=== PATIENT | female | born 1950 | race Caucasian/White ===

== ENCOUNTER 2017-08-06 06:25 | Inpatient (IN) ==
--- NOTE | 2017-08-06 06:49 | Emergency Department Report ---
General Adult HPI - General Chief complaint: Medical Emergency Stated complaint: headache,chills,cough Time Seen by Provider: 08/06/17 06:45 Source: patient, family Mode of arrival: ambulatory Limitations: no limitations - History of Present Illness HPI narrative: Patient is a 66-year-old female presents the ER for evaluation of fever, chills. Patient is visiting from [place], states that in the past when she's had this problem she is come back with sepsis pneumonia on the right last 2014. Patient went to bed last night normally, woke up in the wee hours in the morning with chills and shaking and shortness of breath. Patient was brought to the ER for evaluation - Related Data Home Medications Medication Instructions Recorded Confirmed Acetaminophen [Acetaminophen Extra 1 tab PO BID 08/06/17 08/06/17 Strength] Aspirin 1 tab PO DAILY 08/06/17 08/06/17 BuPROPion SR [Wellbutrin Sr] 150 mg PO BID 08/06/17 08/06/17 CALCIUM CARBONATE Chewable [Tums 2 tab PO DAILY 08/06/17 08/06/17 Extra Strength] Cholecalciferol (Vitamin D3) 1 tab PO DAILY 08/06/17 08/06/17 [Vitamin D3] Cyclobenzaprine [Flexeril] 1 tab PO HS 08/06/17 08/06/17 Escitalopram [Lexapro] 1 tab PO DAILY 08/06/17 08/06/17 Lactobacillus Acidophilus 1 each PO DAILY 08/06/17 08/06/17 [Probiotic] Levothyroxine Sodium 100 mcg PO DAILY 08/06/17 08/06/17 Losartan [Cozaar] 100 mg PO DAILY 08/06/17 08/06/17 Magnesium Oxide [Magnesium] 400 mg PO BID 08/06/17 08/06/17 Mecobalamin [B-12] 5,000 mcg PO DAILY 08/06/17 08/06/17 Metformin [Glucophage] 500 mg PO BIDWM 08/06/17 08/06/17 Mirtazapine [Remeron] 15 mg PO HS 08/06/17 08/06/17 Pregabalin Cap [Lyrica] 50 mg PO BID 08/06/17 08/06/17 Primidone [Mysoline] 50 mg PO HS 08/06/17 08/06/17 Simvastatin [Zocor] 40 mg PO HS 08/06/17 08/06/17 Tramadol [Ultram] 50 mg PO TID 08/06/17 08/06/17 Turmeric [Curcumin] 1 gm MC DAILY 08/06/17 08/06/17 Ubidecarenone/Vit E Acet [Co Q-10 1 cap PO DAILY 08/06/17 08/06/17 100 mg Softgel] clonazePAM [Clonazepam] 1 tab PO HS 08/06/17 08/06/17 Allergies Allergy/AdvReac Type Severity Reaction Status Date / Time codeine Allergy Intermediate rash, hives Verified 08/06/17 06:32 Review of Systems Constitutional: Reports: chills. Denies: fever, weakness Eyes: Denies: eye pain, eye discharge ENT: Denies: throat pain, dental pain Cardiovascular: Reports: dyspnea on exertion. Denies: chest pain, palpitations Respiratory: Reports: dyspnea, wheezes. Denies: cough Gastrointestinal: Denies: abdominal pain, nausea, vomiting Genitourinary: Denies: urgency, dysuria, frequency Musculoskeletal: Denies: back pain Neurological: Denies: headache Psychiatric: Denies: anxiety, depression Endocrine: Denies: fatigue PFSH Medical History Updates: Depression. Anxiety. Hypothyroidism. Hypertension. Type II diabetes. Hypercholesterolemia. Kidney stones Surgical History: Vaginal hysterectomy. Gastric bypass. Shoulder arthroscopically. Lithotripsy Family History Updates: Cervical cancer, hypertension, diabetes, heart disease, breast cancer, alcohol abuse - Social History Smoking status: Never smoker Substance use type: does not use Alcohol intake frequency: does not drink Physical Exam - General General appearance: alert, in no apparent distress - Head Head exam: normocephalic - Eye Eye exam: Present: PERRL - ENT ENT exam: Present: mucous membranes moist - Neck Neck exam: Present: trachea midline. Absent: tenderness - Chest Chest inspection: Present: symmetric chest wall rise. Absent: tenderness - Respiratory Respiratory exam: Present: wheezes, crackles. Absent: respiratory distress, accessory muscle use, prolonged expiratory phase - Cardiovascular Cardiovascular exam: Present: normal rhythm, tachycardia - Abdominal Exam Abdominal exam: Present: soft, normal bowel sounds. Absent: distention, tenderness - Skin Skin exam: Present: warm, dry - Neurological Exam Neurological exam: Present: alert, oriented X3 - Psychiatric Psychiatric exam: Present: normal affect, normal mood Course Vital Signs Temperature 98.2 F 08/06/17 06:32 Respiratory Rate 20 08/06/17 06:32 Blood Pressure 183/85 H 08/06/17 06:32 Temperature 98.2 F 08/06/17 06:32 Respiratory Rate 20 08/06/17 06:32 Blood Pressure 183/85 H 08/06/17 06:32 Medical Decision Making - Lab Data Lab results reviewed: Yes: I reviewed the patient's lab results. Result diagrams: 08/06/17 07:18 08/06/17 07:18 - Radiology Data Radiology results reviewed: Yes: I reviewed the patient's radiology results. Right Middle lobe pneumonia - EKG Data EKG #1 EKG attestation: Yes: I reviewed and interpreted this EKG. EKG shows normal: sinus rhythm Rate: tachycardia Rhythm: NSR Bryant/QRS: normal Interpretation: no acute changes Disposition Clinical Impression: Right middle lobe pneumonia Qualifiers: Pneumonia type: due to unspecified organism Qualified Code(s): J18.1 - Lobar pneumonia, unspecified organism Sepsis Qualifiers: Sepsis type: sepsis due to unspecified organism Qualified Code(s): A41.9 - Sepsis, unspecified organism Disposition: 02 To [facility] [place] Care Condition: Stable Prescriptions: No Action Turmeric [Curcumin] 1 gm MC DAILY Acetaminophen [Acetaminophen Extra Strength] 1 tab PO BID Cholecalciferol (Vitamin D3) [Vitamin D3] 1 tab PO DAILY CALCIUM CARBONATE Chewable [Tums Extra Strength] 2 tab PO DAILY Aspirin 1 tab PO DAILY Cyclobenzaprine [Flexeril] 1 tab PO HS BuPROPion SR [Wellbutrin Sr] 150 mg PO BID Primidone [Mysoline] 50 mg PO HS Pregabalin Cap [Lyrica] 50 mg PO BID Metformin [Glucophage] 500 mg PO BIDWM Losartan [Cozaar] 100 mg PO DAILY clonazePAM [Clonazepam] 1 tab PO HS Tramadol [Ultram] 50 mg PO TID Mirtazapine [Remeron] 15 mg PO HS Simvastatin [Zocor] 40 mg PO HS Mecobalamin [B-12] 5,000 mcg PO DAILY Levothyroxine Sodium 100 mcg PO DAILY Ubidecarenone/Vit E Acet [Co Q-10 100 mg Softgel] 1 cap PO DAILY Magnesium Oxide [Magnesium] 400 mg PO BID Escitalopram [Lexapro] 1 tab PO DAILY Lactobacillus Acidophilus [Probiotic] 1 each PO DAILY Referrals: Dale Fair [Physician] - Time of Disposition: 08:58 - Seen By: physician
[2017-08-06] MEDS ORDERED: NS 1,000 ML IV ONE ×2 (06:51→12:34)
[2017-08-06] MEDS ORDERED: ALBUTEROL/IPRATROPIUM 2.5mg-0.5mg/3ml NEB AEROSOL ONE (06:52)
--- OUTSIDE RECORDS SUMMARY | 2017-08-06 07:04 | External Medical Summary | Summary of Care ---
:1950 Author Name Anna Marie Sutton APRN Address [address] [place], [place] [id number] Care Team Providers Name Role Phone Dale Fair M.D. 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 Keratoconjunctivitis (370.40, H16.209) Status: Active Incomplete uterovaginal prolapse (618.2, N81.2) Status: Active Pinguecula (372.51, 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) Status: Active Vitamin D deficiency (268.9, E55.9) Status: Active Nonexudative age-related macular degeneration (362.51, H35.3190) Status: Active Status post gastric bypass for obesity (V45.86, Z98.84) Status: Active 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, 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: Active Degenerative disc disease, lumbar (722.52, M51.36) Status: Active 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, 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 Pseudophakia of left eye (V43.1, Z96.1) Status: Active Pseudophakia of right eye (V43.1, Z96.1) Status: Active Presbyopia (367.4, H52.4) Status: Active Depression (311, F32.9) Status: Active Incipient senile cataract (366.12, H25.099) Status: Active Left flank pain (789.09, R10.9) Status: Active Nephrolithiasis (592.0, N20.0) Status: Active Hypercholesterolemia (272.0, E78.00) Status: Active Sepsis (038.9, A41.9) Status: Active Anxiety (300.00, F41.9) Status: Active Hyperlipidemia (272.4, E78.5) Status: Active Post-menopausal (V49.81, Z78.0) Status: Active Pain in both hands (729.5, M79.641) Status: Active Tendonitis of finger (727.05, M77.9) Status: Active Type 2 diabetes mellitus (250.00, E11.9) Status: Active Hypertension (401.9, I10) Status: Active Hypothyroidism (244.9, E03.9) Status: Active Pneumonia (486, J18.9) Status: Active Bronchiectasis (494.0, J47.9) Status: Active Medications Name Dates Details Cyclobenzaprine HCl - 10 MG Oral Tablet TAKE 1 TABLET BY MOUTH AT BEDTIME NEEDED. Quantity: 90 Refills: 0 Dale Fair M.D. Start 09-Dec-2007 Active MetFORMIN HCl - 1000 MG Oral Tablet Take one tablet by mouth twice daily with meals Quantity: 180 Refills: 3 Dale Fair M.D. Start 09-Dec-2007 Active Lyrica 50 MG Oral Capsule TAKE 1 CAPSULE TWICE DAILY. Quantity: 180 Refills: 1 Dale Fair M.D. Start 27-Oct-2008 Active Escitalopram Oxalate 20 MG Oral Tablet take one tablet by mouth every day Quantity: 90 Refills: 3 Dale Fair M.D. Start 01-Jan-2009 Active Simvastatin 40 MG Oral Tablet TAKE ONE TABLET(S) BY MOUTH DAILY DIRECTED Quantity: 90 Refills: 3 Dale Fair M.D. Start 10-Dec-2009 Active Zetia 10 MG Oral Tablet TAKE 1 TABLET DAILY. Quantity: 90 Refills: 3 Dale Fair M.D. Start 10-Dec-2009 Active Levothyroxine Sodium 75 MCG Oral Tablet Take 1 tablet by mouth daily. Quantity: 90 Refills: 3 Dale Fair M.D. Start 15-Mar-2010 Active Losartan Potassium 100 MG Oral Tablet take one tablet by mouth every day Quantity: 90 Refills: 3 Dale Fair M.D. Start 18-Mar-2010 Active Vitamin B-12 1000 MCG Oral Tablet TAKE 1 TABLET DAILY DIRECTED. Refills: 0 Marv BellaDale Start 23-Oct-2010 Active Folic Acid 1 MG Oral Tablet Refills: 0 Active B-Complex Oral Capsule Refills: 0 Start 23-Oct-2011 Active Mirtazapine 15 MG Oral Tablet TAKE 1 TABLET BY MOUTH AT BEDTIME. Quantity: 90 Refills: 2 Marv M.Dot., Dale Selina Start Active ClonazePAM 1 MG Oral Tablet TAKE 1 TABLET BY MOUTH AT BEDTIME NEEDED Quantity: 60 Refills: 0 Marv Layne.Dot.Dale Start Active Magnesium 400 MG Oral Tablet 1 tablet BID Quantity: 180 Refills: 3 Marv Bella, Dale Shintive TraMADol HCl - 50 MG Oral Tablet TAKE ONE TABLET(S) BY MOUTH TID NEEDED Quantity: 270 Refills: 0 Marv Layne.Dale Mackenzie Start 11-Oct-2014 Active Vitamin D3 1000 UNIT Oral Capsule TAKE DIRECTED. Refills: 0 Start 19-Oct-2014 Active Acetaminophen 500 MG Oral Tablet TAKE TWO TABLET(S) BY MOUTH TWICE DAILY Quantity: 360 Refills: 0 Marv Layne.Dale Mackenzie Start 19-Oct-2014 Active PrednisoLONE Acetate 1 % Ophthalmic Suspension Install 1 drop as directed 6 times daily (during waking hours) Starting after surgery. Quantity: 10 Refills: 1 Benson Servin M.D. Start 23-Jan-2015 Active Co Q-10 400 MG Oral Capsule Refills: 0 Dale Fair M.D. Start 18-Apr-2015 Active Ferrous Sulfate 325 (65 Fe) MG Oral Tablet take 1 tablet by mouth every day Quantity: 31 Refills: 0 Marv Layne.Dale Mackenzie Start 18-Apr-2015 Active Aspirin Adult Low Dose 81 MG Oral Tablet Delayed Release TAKE 1 TABLET DAILY. Quantity: 90 Refills: 3 Marv M.D.Dale Start Active Vitamin D3 5000 UNIT Oral Capsule TAKE DAILY DIRECTED. Quantity: 90 Refills: 3 Marv M.Dot., Dale Marks Start Active Ginkgo Biloba 60 MG Oral Capsule TAKE 1 CAPSULE TWICE DAILY. 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 History of Combined form of senile cataract of right eye (366.19, H25.811) Status: Resolved History of Diagnostic Esophagogastroduodenoscopy Status: Resolved History of Encounter for fitting or adjustment of spectacles or contact lenses (V53.1, Z46.0) Status: Resolved Procedures Procedure Dates Details History of Shoulder Arthroscopy, Space Decompression Completed: 02-Jan-2009 And Acromioplasty History of Shldr Arthrosc W/ Distal Claviculectomy Incl Completed: 2008 Distal Art Surf History of Sigmoidoscopy (Fiberoptic) Completed: 12-Oct-2009 History of Renal Lithotripsy Completed: 24-Oct-2009 History of Complete Colonoscopy Completed: 26-Oct-2009 History of Diagnostic Esophagogastroduodenoscopy Completed: 21-Nov-2009 History of Renal Lithotripsy Completed: 19-Nov-2009 History of Gastric Surgery History of Combined A-P Colporrhaphy (For Pelvic Completed: 31-Oct-2011 Relaxation History of Vag Hysterectomy Uterus 250 Gm Or < W/ Completed: 31-Oct-2011 Removal Of Ovary(S) History of Nerve Block Transforaminal Epidural Lumbar History of Extracaps Cataract Extract With Prosthesis Insert Left Eye History of Extracaps Cataract Extract With Prosthesis Insert Right Eye Procedures not documented Immunization Name Dates Details Hepatitis B on: 1991 MMR on: 26-Jul-1992 Tetanus-Diphtheria Toxoids Td 2-2 LF/0.5ML Intramuscular Suspension on: Hepatitis A on: 29-Nov-1998 MMR on: 03-Oct-2009 Lot #: [id number] MMR on: 03-Oct-2009 Tdap (Adacel) on: Lot #: [id number] Pneumo (Pneumovax) on: Lot #: [id number] Zoster (Zostavax) on: 15-Oct-2011 Lot #: [id number] Fluzone Quadrivalent 0.5 ML Intramuscular Suspension on: 09-Jan-2014 Lot #: [id number] Fluzone Quadrivalent 0.5 ML Intramuscular Suspension on: 02-Feb-2015 Lot #: [id number] Prevnar 13 Intramuscular Suspension on: Lot #: [id number] Fluzone High-Dose 0.5 ML Intramuscular Suspension Prefilled Syringe on: Lot #: [id number] Family History Grandmother Name Dates Details Family history of Cervical Cancer Status: Active aunt Name Dates Details Family history of Diabetes Mellitus (V18.0) Status: Active Mother Name Dates Details Family history of Hypertension (V17.49) Status: Active Family history of KCS (keratoconjunctivitis sicca) (710.2, M35.01) Status: Active Father Name Dates Details Family history of Heart Disease (V17.49) Status: Active Family history of Father At Age ____ Status: Active Sister Name Dates Details Family history of Breast Cancer (V16.3) Status: Active Family history of Acute Myocardial Infarction (V17.3) Status: Active Brother Name Dates Details Family history of Alcohol Abuse Status: Active Social History Name Dates Details - Status: Smoking Status Name Dates Details Former smoker Vital Signs Date Test Result Details 07-Jan-2016 13:26 BP Systolic 104 mm[Hg] Status: Comments: Location: ; Position: BP Diastolic 76 mm[Hg] Status: Comments: Location: ; Position: Heart Rate 84 /min Status: Comments: Location: ; Physical Findings 20 Status: Comments: Respiration Height 63.5 in Status: Weight 199 lb Status: Physical Findings 98 Status: Comments: O2 Saturation Body Mass Index Calculated 34.7 kg/m2 Status: Body Surface Area Calculated 1.94 m2 Status: Results Date Description Value Details 03-Jan-2016 16:39 CT CHEST HIGH RES 30 M WITHOUT Comments: Exam Date: 2015 15:58Dictation Date: 01/03/2016 16:39 IV CONTRAST XC CHEST HIGH RES 30 M Plan of Care Name Dates Details Planned Observations Planned Goals not documented Planned Encounters Appointment; Provider: Anna Marie Sutton A.P.R.N. On 07-Jul-2016 13:00 Appointment; Provider: Dale Fair M.D. On 02-Jun-2016 13:00 Appointment; Provider: Schedule Radiology On 18-Jan-2016 16:00 Appointment; Provider: Benson Servin M.D. On 09-Jan-2016 14:00 Instructions Name Dates Details Instructions not documented Encounters Appointment; Robb Tavarez M.D. On 07-Dec-2015 Encounter Diagnosis: Problem not documented 07:30 Appointment; Dale Fair M.D. On 30-Nov-2015 Encounter Diagnosis: Problem not documented 13:00 Appointment; Anna Marie Sutton A.P.R.N. On 30-Oct-2015 Encounter Diagnosis: Problem not documented 14:15 Appointment; Dale Fair M.D. On 29-Oct-2015 Encounter Diagnosis: Problem not documented 14:30 Appointment; Harry Maurer M.D.|NileshCPavithraSPavithra|RAJIV Bella|Shayne,RAJIV, On 2015 Encounter Diagnosis: Problem not documented 14:00 Appointment; Dale Fair M.D. On Encounter Diagnosis: Problem not documented 11:45 Appointment; Dale Fair M.D. On 18-Apr-2015 Encounter Diagnosis: Problem not documented 13:30 Appointment; Benson Servin M.D. On 06-Apr-2015 Encounter Diagnosis: Problem not documented 13:00 Appointment; Benson Servin M.D. On 05-Mar-2015 Encounter Diagnosis: Problem not documented 15:45 Appointment; Robb Tavarez M.D. On 21-Feb-2015 Encounter Diagnosis: Problem not documented 10:00 Appointment; Benson Servin M.D. On 21-Feb-2015 Encounter Diagnosis: Problem not documented 08:00 Appointment; Benson Servin M.D. On 20-Feb-2015 Encounter Diagnosis: Problem not documented 08:30 Appointment; Benson Servin M.D. On 16-Feb-2015 Encounter Diagnosis: Problem not documented 09:30 Appointment; Robb Tavarez M.D. On 12-Feb-2015 Encounter Diagnosis: Problem not documented 15:45 Appointment; Benson Servin M.D. On 09-Feb-2015 Encounter Diagnosis: Problem not documented 08:30 Appointment; Benson Servin M.D. On 08-Feb-2015 Encounter Diagnosis: Problem not documented 08:45 Appointment; Arcadio Lucas M.D.|F.A.C.SPavithra|RAJIV Bella|Shayne,RAJIV, On 05-Feb-2015 Encounter Diagnosis: Problem not documented 08:00 Appointment; Mino Clements On 05-Feb-2015 Encounter Diagnosis: Problem not documented 07:30 Appointment; Dale Fair M.D. On 02-Feb-2015 Encounter Diagnosis: Problem not documented 10:00 Appointment; Benson Servin M.D. On 23-Jan-2015 Encounter Diagnosis: Problem not documented 08:15 Appointment; Benson Servin M.D. On 08-Jan-2015 Encounter Diagnosis: Problem not documented 14:00 Appointment; Nadia Shelby DPM On 01-Nov-2014 Encounter Diagnosis: Problem not documented 08:15 Appointment; Samina Malik, P.APavithra On 19-Oct-2014 Encounter Diagnosis: Problem not documented 10:45 Appointment; Dale Fair M.D. On 11-Oct-2014 Encounter Diagnosis: Problem not documented 13:00 Appointment; Samina Malik, P.APavithra On 20-Jul-2014 Encounter Diagnosis: Problem not documented 11:00 Appointment; Dale Fair M.D. On 19-Jul-2014 Encounter Diagnosis: Problem not documented 09:15 Appointment; Derick Livingston, P.APavithra On 07-Jul-2014 Encounter Diagnosis: Problem not documented 10:30 Appointment; Magalie Lauren A.P.R.N. On 04-Jul-2014 Encounter Diagnosis: Problem not documented 14:15 Appointment; Samina Malik, P.APavithra On 01-Jun-2014 Encounter Diagnosis: Problem not documented 08:45 Appointment; Dale Fair M.D. On 12-Apr-2014 Encounter Diagnosis: Problem not documented 13:00 Appointment; Jai Piper M.D. On 19-Jan-2014 Encounter Diagnosis: Problem not documented 13:30 Appointment; Jai Piper M.D. On 16-Jan-2014 Encounter Diagnosis: Problem not documented 10:15 Appointment; Dale Fair M.D. On 09-Jan-2014 Encounter Diagnosis: Problem not documented 13:45"
--- OUTSIDE RECORDS SUMMARY | 2017-08-06 07:04 | External Medical Summary | Summary of Care ---
:1950 Author Name Jai Piper M.D. Address Unavailable Unavailable , Care Team Providers Name Role Phone Marv Bella, Dale Marks Unavailable Unavailable Jai Piper M.D. Unavailable Unavailable Charlotte Serna M.D. 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 Pain in joint, shoulder region (719.41, M25.519) Status: Active Diarrhea (787.91, R19.7) Status: Active Dysuria (788.1, R30.0) Status: Active Increased urinary frequency (788.41, R35.0) Status: Active Anemia (285.9, D64.9) Status: Active Nephrolithiasis (592.0, N20.0) Status: Active Keratoconjunctivitis (370.40, H16.209) Status: Active Urinary tract infection (599.0, N39.0) Status: Active Vaginitis (616.10, N76.0) Status: Active Essential hematuria (599.70, N02.9) Status: Active Incomplete uterovaginal prolapse (618.2, N81.2) Status: Active Presbyopia (367.4, H52.4) Status: Active Pinguecula (372.51, H11.159) Status: Active Encounter for fitting or adjustment of spectacles or contact lenses (V53.1, Z46.0) Status: Active Vitamin d deficiency (268.9, E55.9) Status: Active Pre-operative exam (V72.84, Z01.818) Status: Active Pre-operative cardiovascular examination (V72.81, Z01.810) Status: Active Hyperlipidemia (272.4, E78.5) Status: Active Nonexudative age-related macular degeneration (362.51, H35.31) Status: Active Incipient senile cataract (366.12, H25.099) Status: Active Pre-operative general physical examination (V72.83, Z01.818) Status: Active Status post gastric bypass for obesity (V45.86, Z98.84) Status: Active Left hand pain (729.5, M79.642) Status: Active Hypothyroidism (244.9, E03.9) Status: Active Pain in wrist joint (719.43, M25.539) Status: Active Type 2 diabetes mellitus (250.00, E11.9) Status: Active Hypercholesterolemia (272.0, E78.0) Status: Active Pain in left wrist (719.43, M25.532) Status: Active Tendonitis (726.90, M77.9) Status: Active Hypertension (401.9, I10) Status: Active Insomnia (780.52, G47.00) Status: Active Depression (311, F32.9) Status: Active Visit for screening mammogram (V76.12, Z12.31) Status: Active Diabetes mellitus (250.00, E11.9) Status: Active Lower back pain (724.2, M54.5) Status: Active Medications Name Dates Details Cyclobenzaprine HCl - 10 MG Oral Tablet TAKE 1 TABLET BY MOUTH AT BEDTIME NEEDED. Quantity: 90 Refills: 3 Dale Fair M.D. Started 09-Dec-2007 ActiveMetFORMIN HCl - 1000 MG Oral Tablet Take one tablet by mouth twice daily with meals Quantity: 180 Refills: 3 Dale Fair M.D. Started 09-Dec-2007 ActiveTraMADol HCl - 50 MG Oral Tablet take 2 tablets by mouth twice daily Quantity: 180 Refills: 0 Dale Fair M.D. Started 18-Feb-2008 ActiveLyrica 50 MG Oral Capsule TAKE 1 CAPSULE TWICE DAILY. Quantity: 180 Refills: 3 Dale Fair M.D. Started 27-Oct-2008 ActiveEscitalopram Oxalate 10 MG Oral Tablet TAKE 1 TABLET DAILY. Quantity: 90 Refills: 3 Dale Fair M.D. Started 01-Jan-2009 ActiveSimvastatin 40 MG Oral Tablet TAKE 1 TABLET DAILY DIRECTED. Quantity: 90 Refills: 3 Dale Fair M.D. Started 10-Dec-2009 ActiveZetia 10 MG Oral Tablet TAKE 1 TABLET DAILY. Quantity: 90 Refills: 3 Dale Fair M.D. Started 10-Dec-2009 ActiveLevothyroxine Sodium 75 MCG Oral Tablet Take 1 tablet by mouth daily. Quantity: 90 Refills: 3 Dale Fair M.D. Started 15-Mar-2010 ActiveLosartan Potassium 100 MG Oral Tablet take one tablet by mouth every day Quantity: 90 Refills: 3 Dale Fair M.D. Started 18-Mar-2010 ActiveVitamin B-12 1000 MCG Oral Tablet TAKE 1 TABLET DAILY DIRECTED. Refills: 0 Dale Fair M.D. Started 23-Oct-2010 ActiveCo Q-10 200 MG Oral Capsule Refills: 0 Dale Fair M.D. Started 05-Apr-2012 ActiveMirtazapine 15 MG Oral Tablet TAKE 1 TABLET BY MOUTH AT BEDTIME. Quantity: 30 Refills: 5 Dale Fair M.D. Started ActiveClonazePAM 0.5 MG Oral Tablet TAKE 1-2 TABLET at bedtime prn Quantity: 180 Refills: 1 Dale Fair M.D. Started ActiveOxycodone-Acetaminophen 7.5-325 MG Oral Tablet Si PO every 6-8 hrs prn with a max of 3 per day.Script must last 30 days. Quantity: 90 Refills: 0 Jai Piper M.D. Started 29-Nov-2013 ActiveAleve 220 MG Oral Capsule Refills: 0 Charlotte Serna M.D. Started 25-May-2013 ActiveB-Complex Oral Capsule Refills: 0 Started 23-Oct-2011 ActiveFolic Acid 1 MG Oral Tablet Refills: 0 ActiveHydrocodone-Acetaminophen 5-325 MG Oral Tablet TAKE 1 TABLET EVERY 6 HOURS NEEDED FOR PAIN. Quantity: 30 Refills: 0 Dale Fair M.D. Started 21-Nov-2013 Active Allergies and Adverse Reactions Name Dates Details Codeine Derivatives Reaction: Rash Status: Active Past Medical History Name Dates Details Encounter for fitting or adjustment of spectacles or contact lenses (V53.1, Z46.0) Status: Active History of Esophagogastroduodenoscopy Status: Resolved Procedures Procedure Dates Details History of Shoulder Arthroscopy, Space Decompression And Completed:2008 Acromioplasty History of Shldr Arthrosc W/ Distal Claviculectomy Incl Completed:02-Jan-2009 Distal Art Surf History of Sigmoidoscopy (Fiberoptic) Completed:12-Oct-2009 History of Lithotripsy Completed:24-Oct-2009 History of Complete Colonoscopy Completed:26-Oct-2009 History of Esophagogastroduodenoscopy Completed:21-Nov-2009 History of Combined A-P Colporrhaphy (For Pelvic Completed:31-Oct-2011 Relaxation History of Vag Hysterectomy Uterus 250 Gm Or < W/ Completed:31-Oct-2011 Removal Of Ovary(S) History of Gastric Surgery History of Lithotripsy Completed:19-Nov-2009 Procedures not documented Immunization Name Dates Details Hepatitis B Administered on:1991 MMR Administered on:26-Jul-1992 Tetanus-Diphtheria Toxoids Td 2-2 LF/0.5ML Intramuscular Suspension Administered on:26-Jul-1992 Hepatitis A Administered on:29-Nov-1998 MMR Administered on:03-Oct-2009 Lot #: [id number] MMR Administered on:03-Oct-2009 Tdap (Adacel) Administered on: Lot #: [id number] Pneumo (Pneumovax) Administered on: Lot #: [id number] Zoster (Zostavax) Administered on:15-Oct-2011 Lot #: [id number] Family History Grandmother Name Dates Details Family [...] Status: Active Social History Name Dates Details Smoking StatusFormer smoker Vital Signs Date Test Result Details No Known Vitals to report Results Date Description Value Details Results not documented Plan of Care Planned Observations Name Dates Details Planned Goals not documented Goal Planned Encounters Appointment; Provider: Dale Fair On 24-Jan-2014 13:15 Appointment; Provider: Jai Piper On 16-Jan-2014 10:15 Appointment; Provider: Benson Servin On 02-Jan-2014 14:30 Appointment; Provider: Jai Piper On 05-Dec-2013 13:15 Appointment; Provider: Rob Ramírez On 19-Nov-2009 07:30 Appointment; Provider: Rob Ramírez On 24-Oct-2009 08:30 Appointment; Provider: Sharyn Simmons On 09-Feb-2009 16:30 Appointment; Provider: Rich Jose On 02-Jan-2009 07:30 Appointment; Provider: Sharyn Simmons On 16:30 Instructions Instructions not documented Encounters Appointment; Jai Piper On 29-Nov-2013 Encounter Diagnosis: Problem not documented 08:30 Appointment; Dale Fair On 21-Oct-2013 Encounter Diagnosis: Problem not documented 13:00 Appointment; Dale Fair On Encounter Diagnosis: Problem not documented 13:00 Appointment; Dale Fair On 28-Jul-2013 Encounter Diagnosis: Problem not documented 11:30 Appointment; Robb Tavarez On 11-Jul-2013 Encounter Diagnosis: Problem not documented 08:00 Appointment; Robb Tavarez On 29-Jun-2013 Encounter Diagnosis: Problem not documented 12:30 Appointment; Dale Fair On 29-Jun-2013 Encounter Diagnosis: Problem not documented 10:45 Appointment; Lonnie Levy On 27-Jun-2013 Encounter Diagnosis: Problem not documented 08:00 Appointment; Adam Alicea On 16-Jun-2013 Encounter Diagnosis: Problem not documented 10:30 Appointment; Adam Alicea On 07-Jun-2013 Encounter Diagnosis: Problem not documented 13:30 Appointment; Adam Alicea On 01-Jun-2013 Encounter Diagnosis: Problem not documented 13:00 Appointment; Rich Jose On 25-May-2013 Encounter Diagnosis: Problem not documented 14:15 Appointment; Dale Fair On 18-Apr-2013 Encounter Diagnosis: Problem not documented 15:00 Appointment; Dale Fair On 18-Mar-2013 Encounter Diagnosis: Problem not documented 15:00 Appointment; Rich Jose On 08-Dec-2012 Encounter Diagnosis: Problem not documented 15:15 Appointment; Dale Fair On 12-Nov-2012 Encounter Diagnosis: Problem not documented 15:45 Appointment; Benson Servin On 20-Oct-2012 Encounter Diagnosis: Problem not documented 15:30 Appointment; Hugo Rivers On Encounter Diagnosis: Problem not documented 16:00 Appointment; Hugo Rivers On Encounter Diagnosis: Problem not documented 16:00 Appointment; Dale Fair On Encounter Diagnosis: Problem not documented 15:45 Appointment; Jai Piper On 18-May-2012 Encounter Diagnosis: Problem not documented 15:00 Appointment; Tri Lira On 13-May-2012 Encounter Diagnosis: Problem not documented 16:45 Appointment; Rich Jose On 19-Apr-2012 Encounter Diagnosis: Problem not documented 11:00 Appointment; Dale Fair On 05-Apr-2012 Encounter Diagnosis: Problem not documented 16:00 Appointment; Tri Lira On 15-Jan-2012 Encounter Diagnosis: Problem not documented 16:15 Appointment; Tri Lira On 12-Jan-2012 Encounter Diagnosis: Problem not documented 15:30 Appointment; Dale Fair On 19-Dec-2011 Encounter Diagnosis: Problem not documented 15:45
--- OUTSIDE RECORDS SUMMARY | 2017-08-06 07:05 | External Medical Summary | Summary of Care ---
:1950 Author Name Dale Fair M.D. Address [address], [place] [id number] Care Team Providers Name Role Phone Dale Fair M.D. 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 Nephrolithiasis (592.0, N20.0) Status: Active Keratoconjunctivitis (370.40, H16.209) Status: Active Essential hematuria (599.70, N02.9) Status: Active Incomplete uterovaginal prolapse (618.2, N81.2) Status: Active Pinguecula (372.51, H11.159) Status: Active Vitamin d deficiency (268.9, E55.9) Status: Active Nonexudative age-related macular degeneration (362.51, H35.31) Status: Active Incipient senile cataract (366.12, H25.099) Status: Active Status post gastric bypass for obesity (V45.86, Z98.84) Status: Active Hypothyroidism (244.9, E03.9) Status: Active Hypercholesterolemia (272.0, E78.0) Status: Active 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, 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: Active Hyperlipidemia (272.4, E78.5) Status: Active Degenerative disc disease, lumbar (722.52, M51.36) Status: Active 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, 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 Arthralgia of left hip (719.45, M25.552) Status: Active Type 2 diabetes mellitus (250.00, E11.9) Status: Active Trigger middle finger of left hand (727.03, M65.332) Status: Active Trigger middle finger of right hand (727.03, M65.331) Status: Active Pseudophakia of left eye (V43.1, Z96.1) Status: Active Pseudophakia of right eye (V43.1, Z96.1) Status: Active Presbyopia (367.4, H52.4) Status: Active Anemia (285.9, D64.9) Status: Active Anxiety (300.00, F41.9) Status: Active Depression (311, F32.9) Status: Active Hypertension (401.9, I10) Status: Active Medications Name Dates Details Cyclobenzaprine HCl - 10 MG Oral Tablet TAKE 1 TABLET BY MOUTH AT BEDTIME NEEDED. Quantity: 90 Refills: 0 Dale aFir M.D. Started 09-Dec-2007 ActiveMetFORMIN HCl - 1000 MG Oral Tablet Take one tablet by mouth twice daily with meals Quantity: 180 Refills: 1 Dale Fair M.D. Started 09-Dec-2007 ActiveLyrica 50 MG Oral Capsule TAKE 1 CAPSULE TWICE DAILY. Quantity: 180 Refills: 1 Dale Fair M.D. Started 27-Oct-2008 ActiveEscitalopram Oxalate 20 MG Oral Tablet take one tablet by mouth every day Quantity: 90 Refills: 3 Dale Fair M.D. Started 01-Jan-2009 ActiveSimvastatin 40 MG Oral Tablet TAKE ONE TABLET(S) BY MOUTH DAILY DIRECTED Quantity: 90 Refills: 3 Dale Fair M.D. Started 10-Dec-2009 ActiveZetia 10 MG Oral Tablet TAKE 1 TABLET DAILY. Quantity: 90 Refills: 3 Dale Fair M.D. Started 10-Dec-2009 ActiveLevothyroxine Sodium 75 MCG Oral Tablet Take 1 tablet by mouth daily. Quantity: 90 Refills: 0 Dale Fair M.D. Started 15-Mar-2010 ActiveLosartan Potassium 100 MG Oral Tablet take one tablet by mouth every day Quantity: 90 Refills: 3 Dale Fair M.D. Started 18-Mar-2010 ActiveVitamin B-12 1000 MCG Oral Tablet TAKE 1 TABLET DAILY DIRECTED. Refills: 0 Dale Fair M.D. Started 23-Oct-2010 ActiveFolic Acid 1 MG Oral Tablet Refills: 0 ActiveB-Complex Oral Capsule Refills: 0 Started 23-Oct-2011 ActiveMirtazapine 15 MG Oral Tablet TAKE 1 TABLET BY MOUTH AT BEDTIME. Quantity: 90 Refills: 1 Dale Fair M.D. Started ActiveClonazePAM 1 MG Oral Tablet TAKE 1 TABLET BY MOUTH AT BEDTIME NEEDED Quantity: 90 Refills: 0 Dale Fair M.D. Started ActiveMagnesium 500 MG Oral Tablet Refills: 0 ActiveTraMADol HCl - 50 MG Oral Tablet TAKE ONE TABLET(S) BY MOUTH EVERY 6 HOURS NEEDED FOR PAIN Quantity: 60 Refills: 0 Dale Fair M.D. Started 11-Oct-2014 ActiveVitamin D3 1000 UNIT Oral Capsule TAKE DIRECTED. Refills: 0 Started 19-Oct-2014 ActiveTylenol Extra Strength 500 MG Oral Tablet TAKE 1 TABLET EVERY 4 TO 6 HOURS NEEDED. Refills: 0 Started 19-Oct-2014 ActivePrednisoLONE Acetate 1 % Ophthalmic Suspension Install 1 drop as directed 6 times daily (during waking hours) Starting after surgery. Quantity: 10 Refills: 1 Benson Servin M.D. Started 23-Jan-2015 ActiveMeloxicam 7.5 MG Oral Tablet Take one tablet by mouth daily Quantity: 30 Refills: 3 Dale Fair M.D. Started 02-Feb-2015 ActiveAspirin 81 MG TABS Refills: 0 Dale Fair M.D. Started 18-Apr-2015 ActiveCo Q-10 400 MG Oral Capsule Refills: 0 Dale Fair M.D. Started 18-Apr-2015 ActiveFerrous Sulfate 325 (65 Fe) MG Oral Tablet take 1 tablet by mouth every day Quantity: 31 Refills: 0 Dale Fair M.D. Started 18-Apr-2015 Active Allergies and Adverse Reactions Name Dates [...] Dates Details History of Shoulder Arthroscopy, Space Completed:02-Jan-2009 Decompression And Acromioplasty History of Shldr Arthrosc W/ Distal Completed:02-Jan-2009 Claviculectomy Incl Distal Art Surf History of Sigmoidoscopy (Fiberoptic) Completed:12-Oct-2009 History of Renal Lithotripsy Completed:24-Oct-2009 History of Complete Colonoscopy Completed:26-Oct-2009 History of Diagnostic Completed:21-Nov-2009 Esophagogastroduodenoscopy History of Renal Lithotripsy Completed:19-Nov-2009 History of Gastric Surgery History of Combined A-P Colporrhaphy (For Completed:31-Oct-2011 Pelvic Relaxation History of Vag Hysterectomy Uterus 250 Gm Completed:31-Oct-2011 Or < W/ Removal Of Ovary(S) History of Nerve Block Transforaminal Epidural Lumbar History of Extracaps Cataract Extract With Prosthesis Insert Left Eye History of Extracaps Cataract Extract With Prosthesis Insert Right Eye HEMOGLOBIN A1C 3507 Ordered:16-Jul-2015 LDL, MEASURED 1605 Ordered:16-Jul-2015 Immunization Name Dates Details Hepatitis B Administered on:1991 MMR Administered on:26-Jul-1992 Tetanus-Diphtheria Toxoids Td 2-2 LF/0.5ML Intramuscular Suspension Administered on:26-Jul-1992 Hepatitis A Administered on:29-Nov-1998 MMR Administered on:03-Oct-2009 Lot #: [id number] MMR Administered on:03-Oct-2009 Tdap (Adacel) Administered on: Lot #: [id number] Pneumo (Pneumovax) Administered on: Lot #: [id number] Zoster (Zostavax) Administered on:15-Oct-2011 Lot #: [id number] Fluzone Quadrivalent 0.5 ML Intramuscular Suspension Administered on:2013 Lot #: [id number] Fluzone Quadrivalent 0.5 ML Intramuscular Suspension Administered on:2014 Lot #: [id number] Family History Grandmother Name Dates Details Family [...] not documented Goal Planned Encounters Appointment; Provider: Schedule Radiology On 18-Jan-2016 16:00 Appointment; Provider: Benson Servin On 09-Jan-2016 14:00 Appointment; Provider: Dale Fair On 11:45 Appointment; Provider: Schedule Radiology On 17-Jan-2015 16:00 Appointment; Provider: Jai Piper On 05-Dec-2013 13:15 Appointment; Provider: Rob Ramírez On 19-Nov-2009 07:30 Appointment; Provider: Rob Ramírez On 24-Oct-2009 08:30 Appointment; Provider: Sharyn Simmons On 09-Feb-2009 16:30 Appointment; Provider: Rich Jose On 02-Jan-2009 07:30 Appointment; Provider: Sharyn Simmons On 16:30 Instructions Instructions not documented Encounters Appointment; Dale Fair On 18-Apr-2015 Encounter Diagnosis: Problem not documented 13:30 Appointment; Benson Servin On 06-Apr-2015 Encounter Diagnosis: Problem not documented 13:00 Appointment; Benson Servin On 05-Mar-2015 Encounter Diagnosis: Problem not documented 15:45 Appointment; Robb Tavarez On 21-Feb-2015 Encounter Diagnosis: Problem not documented 10:00 Appointment; Benson Servin On 21-Feb-2015 Encounter Diagnosis: Problem not documented 08:00 Appointment; Benson Servin On 20-Feb-2015 Encounter Diagnosis: Problem not documented 08:30 Appointment; Benson Servin On 16-Feb-2015 Encounter Diagnosis: Problem not documented 09:30 Appointment; Robb Tavarez On 12-Feb-2015 Encounter Diagnosis: Problem not documented 15:45 Appointment; Benson Servin On 09-Feb-2015 Encounter Diagnosis: Problem not documented 08:30 Appointment; Benson Servin On 08-Feb-2015 Encounter Diagnosis: Problem not documented 08:45 Appointment; Arcadio Lucas On 05-Feb-2015 Encounter Diagnosis: Problem not documented 08:00 Appointment; Mino Clements On 05-Feb-2015 Encounter Diagnosis: Problem not documented 07:30 Appointment; Dale Fair On 02-Feb-2015 Encounter Diagnosis: Problem not documented 10:00 Appointment; Benson Servin On 23-Jan-2015 Encounter Diagnosis: Problem not documented 08:15 Appointment; Benson Servin On 08-Jan-2015 Encounter Diagnosis: Problem not documented 14:00 Appointment; Nadia Shelby On 01-Nov-2014 Encounter Diagnosis: Problem not documented 08:15 Appointment; Samina Malik On 19-Oct-2014 Encounter Diagnosis: Problem not documented 10:45 Appointment; Dale Fair On 11-Oct-2014 Encounter Diagnosis: Problem not documented 13:00 Appointment; Samina Malik On 20-Jul-2014 Encounter Diagnosis: Problem not documented 11:00 Appointment; Dale Fair On 19-Jul-2014 Encounter Diagnosis: Problem not documented 09:15 Appointment; Derick Livingston On 07-Jul-2014 Encounter Diagnosis: Problem not documented 10:30 Appointment; Magalie Lauren On 04-Jul-2014 Encounter Diagnosis: Problem not documented 14:15 Appointment; Samina Malik On 01-Jun-2014 Encounter Diagnosis: Problem not documented 08:45 Appointment; Dale Fair On 12-Apr-2014 Encounter Diagnosis: Problem not documented 13:00 Appointment; Jai Piper On 19-Jan-2014 Encounter Diagnosis: Problem not documented 13:30 Appointment; Jai Piper On 16-Jan-2014 Encounter Diagnosis: Problem not documented 10:15 Appointment; Dale Fair On 09-Jan-2014 Encounter Diagnosis: Problem not documented 13:45 Appointment; Benson Servin On 02-Jan-2014 Encounter Diagnosis: Problem not documented 14:30 Appointment; Jai Piper On 02-Jan-2014 Encounter Diagnosis: Problem not documented 13:40 Appointment; Jai Piper On 19-Dec-2013 Encounter Diagnosis: Problem not documented 13:25 Appointment; Jai Piper On 29-Nov-2013 Encounter Diagnosis: Problem not documented 08:30 Appointment; Dale Fair On 21-Oct-2013 Encounter Diagnosis: Problem not documented 13:00 Appointment; Dale Fair On Encounter Diagnosis: Problem not documented 13:00
--- OUTSIDE RECORDS SUMMARY | 2017-08-06 07:05 | External Medical Summary | Summary of Care ---
:1950 Author Name Dale Fair M.D. 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: Active Rotator cuff tendonitis (726.10, M75.80) Status: Active Hyperlipidemia (272.4, E78.5) Status: Active Hypertension (401.9, I10) Status: Active Left hand pain (729.5, M79.642) Status: Active Foot pain, bilateral (729.5, M79.671) Status: Active Depression (311, F32.9) Status: Active Low back pain (724.2, M54.5) Status: Active Degenerative disc disease, lumbar (722.52, M51.36) Status: Active 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, 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 Limb pain (729.5, M79.609) Status: Active Difficulty in walking (719.7, R26.2) Status: Active Tendonitis, Achilles, right (726.71, M76.61) Status: Active Anxiety (300.00, F41.9) Status: Active Pain in both hands (729.5, M79.641) Status: Active Arthralgia of left hip (719.45, M25.552) Status: Active Cough (786.2, R05) Status: Active Type 2 diabetes mellitus (250.00, E11.9) Status: Active Trigger middle finger of left hand (727.03, M65.332) Status: Active Trigger middle finger of right hand (727.03, M65.331) Status: Active Pseudophakia of left eye (V43.1, Z96.1) Status: Active Pseudophakia of right eye (V43.1, Z96.1) Status: Active Presbyopia (367.4, H52.4) Status: Active Medications Name Dates Details Cyclobenzaprine HCl - 10 MG Oral Tablet TAKE 1 TABLET BY MOUTH AT BEDTIME NEEDED. Quantity: 90 Refills: 0 Dale Fair M.D. Started 09-Dec-2007 ActiveMetFORMIN HCl [...] tablet by mouth daily. Quantity: 90 Refills: 1 Dale Fair M.D. Started 15-Mar-2010 ActiveLosartan Potassium [...] Refills: 3 Dale Fair M.D. Started 02-Feb-2015 Active Allergies and Adverse Reactions Name Dates [...] Cataract Extract With Prosthesis Insert Right Eye CBC w/ Auto Diff 7150 Ordered:10-Apr-2015 Comprehensive Metabolic Panel 1212 Ordered:10-Apr-2015 LIPID PROFILE 1184 Ordered:10-Apr-2015 HEMOGLOBIN A1C 3507 Ordered:10-Apr-2015 THYROID STIM. HORMONE 3602 Ordered:10-Apr-2015 Iron Panel with TIBC 1612 Ordered:16-Apr-2015 Immunization Name Dates Details Hepatitis B Administered on:1991 MMR Administered on:26-Jul-1992 Tetanus-Diphtheria Toxoids Td 2-2 LF/0.5ML Intramuscular Suspension Administered on:26-Jul-1992 Hepatitis A Administered on:29-Nov-1998 MMR Administered on:03-Oct-2009 Lot #: [id number] MMR Administered on:03-Oct-2009 Tdap (Adacel) Administered on: Lot #: [id number] Pneumo (Pneumovax) Administered on: Lot #: [id number] Zoster (Zostavax) Administered on:15-Oct-2011 Lot #: [id number] Fluzone Quadrivalent 0.5 ML Intramuscular Suspension Administered on:2013 Lot #: [id number] Fluzone Quadrivalent 0.5 ML Intramuscular Suspension Administered on:2014 Lot #: [id number] Family History Grandmother Name Dates Details Family [...] Benson Servin On 09-Jan-2016 14:00 Appointment; Provider: Benson Servin On 09-Jul-2015 13:45 Appointment; Provider: Dale Fair On 18-Apr-2015 13:30 Appointment; Provider: [facility] On 17-Jan-2015 16:00 Appointment; Provider: Jai Piper On 05-Dec-2013 13:15 Appointment; Provider: Rob Ramírez On 19-Nov-2009 07:30 Appointment; Provider: Rob Ramírez On 24-Oct-2009 08:30 Appointment; Provider: Sharyn Simmons On 09-Feb-2009 16:30 Appointment; Provider: Rich Jose On 02-Jan-2009 07:30 Appointment; Provider: Sharyn Simmons On 16:30 Instructions Instructions not documented Encounters Appointment; Benson Servin On 06-Apr-2015 Encounter Diagnosis: [...] Encounter Diagnosis: Problem not documented 10:30 Appointment; Xin Magalie On 04-Jul-2014 Encounter Diagnosis: Problem not documented [...]
--- OUTSIDE RECORDS SUMMARY | 2017-08-06 07:05 | External Medical Summary | Summary of Care ---
:1950 Author Name Dale Fair M.D. Address [address], [place] [id number] Care Team Providers Name Role Phone Dale Fair M.D. 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 Quantity: 90 Refills: 3 Dale Fair M.D. Started 09-Dec-2007 ActiveMetFORMIN HCl - 1000 MG Oral Tablet Take one tablet by mouth twice daily with meals Quantity: 180 Refills: 3 Dale Fair M.D. Started 09-Dec-2007 ActiveLyrica 50 MG Oral Capsule TAKE 1 CAPSULE TWICE DAILY. Quantity: 14 Refills: 0 Dale Fair M.D. Started 27-Oct-2008 ActiveEscitalopram Oxalate [...] ActiveB-Complex Oral Capsule Refills: 0 Started 23-Oct-2011 ActiveCo Q-10 200 MG Oral Capsule Refills: 0 Dale Fair M.D. Started 05-Apr-2012 ActiveMirtazapine 15 MG Oral Tablet TAKE 1 TABLET BY MOUTH AT BEDTIME. Quantity: 90 Refills: 3 Dale Fair M.D. Started ActiveClonazePAM 0.5 MG Oral Tablet TAKE 1-2 TABLET at bedtime prn Quantity: 180 Refills: 1 Dale Fari M.D. Started ActiveOxycodone-Acetaminophen 7.5-325 MG Oral Tablet Si PO every 6-8 hrs prn with a max of 3 per day.Script must last 30 days. Quantity: 90 Refills: 0 Jai Piper M.D. Started 29-Nov-2013 Active Allergies and Adverse Reactions Name Dates Details Codeine Derivatives Reaction: Rash Status: Active Past Medical History Name Dates Details Encounter for fitting or adjustment of spectacles or contact lenses (V53.1, Z46.0) Status: Active History of Diagnostic Esophagogastroduodenoscopy Status: Resolved Procedures Procedure Dates Details History of Shoulder Arthroscopy, Space Decompression And Completed:2008 Acromioplasty History of Shldr Arthrosc W/ Distal Claviculectomy Incl Completed:02-Jan-2009 Distal Art Surf History of Sigmoidoscopy (Fiberoptic) Completed:12-Oct-2009 History of Renal Lithotripsy Completed:24-Oct-2009 History of Complete Colonoscopy Completed:26-Oct-2009 History of Diagnostic Esophagogastroduodenoscopy Completed:21-Nov-2009 History of Renal Lithotripsy Completed:19-Nov-2009 History of Gastric Surgery History of Combined A-P Colporrhaphy (For Pelvic Completed:31-Oct-2011 Relaxation History of Vag Hysterectomy Uterus 250 Gm Or < W/ Completed:31-Oct-2011 Removal Of Ovary(S) History of Nerve Block Transforaminal Epidural Lumbar Procedures not documented Immunization Name Dates Details Hepatitis B Administered on:1991 MMR Administered on:26-Jul-1992 Tetanus-Diphtheria Toxoids Td 2-2 LF/0.5ML Intramuscular Suspension Administered on:26-Jul-1992 Hepatitis A Administered on:29-Nov-1998 MMR Administered on:03-Oct-2009 Lot #: [id number] MMR Administered on:03-Oct-2009 Tdap (Adacel) Administered on: Lot #: [id number] Pneumo (Pneumovax) Administered on: Lot #: [id number] Zoster (Zostavax) Administered on:15-Oct-2011 Lot #: [id number] Fluzone Quadrivalent 0.5 ML Intramuscular Suspension Administered on:2013 Lot #: [id number] Family History Grandmother Name Dates Details Family [...] not documented Goal Planned Encounters Appointment; Provider: Benson Servin On 08-Jan-2015 14:00 Appointment; Provider: Dale Fair On 12-Apr-2014 13:00 Appointment; Provider: Jai Piper On 05-Dec-2013 13:15 Appointment; Provider: Rob Ramírez On 19-Nov-2009 07:30 Appointment; Provider: Rob Ramírez On 24-Oct-2009 08:30 Appointment; Provider: Sharyn Simmons On 09-Feb-2009 16:30 Appointment; Provider: Rich Jose On 02-Jan-2009 07:30 Appointment; Provider: Sharyn Simmons On 16:30 Instructions Instructions not documented Encounters Appointment; Jai Piper On 19-Jan-2014 Encounter Diagnosis: [...] Encounter Diagnosis: Problem not documented 10:30 Appointment; dAam Alicea On 07-Jun-2013 Encounter Diagnosis: Problem not [...]
--- OUTSIDE RECORDS SUMMARY | 2017-08-06 07:05 | External Medical Summary | Summary of Care ---
:1950 Author Name Dale Fair M.D. 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 Quantity: 90 Refills: Dale Forbes M.D. Started 09-Dec-2007 ActiveMetFORMIN HCl - 1000 MG Oral Tablet Take one tablet by mouth twice daily with meals Quantity: 180 Refills: 3 Dale Fair M.D. Started 09-Dec-2007 ActiveVitamin B-12 1000 MCG Oral Tablet TAKE 1 TABLET DAILY DIRECTED. Refills: 0 Dale Fair M.D. Started 23-Oct-2010 ActiveB-Complex Oral Capsule Refills: 0 Started 23-Oct-2011 ActiveCo Q-10 200 MG Oral Capsule Refills: 0 Dale Fair M.D. Started 05-Apr-2012 ActiveMirtazapine 15 MG Oral Tablet TAKE 1 TABLET BY MOUTH AT BEDTIME. Quantity: 90 Refills: 3 Dale Fair M.D. Started ActiveClonazePAM 0.5 MG Oral Tablet TAKE 1 OR 2 TABLET(S) BY MOUTH DAILY AT BEDTIME NEEDED Quantity: 180 Refills: 0 Dale Fair M.D. Started ActiveOxycodone-Acetaminophen 7.5-325 MG Oral Tablet TAKE 1 TO 2 TABLETS EVERY 4-6 HOURS PRN *Max 3 per day* Must last [address] Piper Quantity: 90 Refills: 0 Jai Piper M.D. Started 29-Nov-2013 ActiveMagnesium 500 MG Oral Tablet Refills: 0 ActiveFolic Acid 1 MG Oral Tablet Refills: 0 ActiveLosartan Potassium 100 MG Oral Tablet take one tablet by mouth every day Quantity: 90 Refills: 3 Dale Fair M.D. Started 18-Mar-2010 ActiveZetia 10 MG Oral Tablet TAKE 1 TABLET DAILY. Quantity: 90 Refills: 3 Dale Fair M.D. Started 10-Dec-2009 ActiveSimvastatin 40 MG Oral Tablet TAKE ONE TABLET(S) BY MOUTH DAILY DIRECTED Quantity: 90 Refills: 1 Dale Fair M.D. Started 10-Dec-2009 ActiveEscitalopram Oxalate 20 MG Oral Tablet take one tablet by mouth every day Quantity: 90 Refills: 3 Dale Fair M.D. Started 01-Jan-2009 ActiveLyrica 50 MG Oral Capsule TAKE 1 CAPSULE TWICE DAILY. Quantity: 180 Refills: 1 Dale Fair M.D. Started 27-Oct-2008 ActiveLevothyroxine Sodium 75 MCG Oral Tablet Take 1 tablet by mouth daily. Quantity: 90 Refills: 3 Dale Fair M.D. Started 15-Mar-2010 Active Allergies and Adverse Reactions Name Dates [...] of Vag Hysterectomy Uterus 250 Gm Or Completed:31-Oct-2011 < W/ Removal Of Ovary(S) History of Nerve Block Transforaminal Epidural Lumbar HEMOGLOBIN A1C 3507 Ordered:02-Oct-2014 LDL, MEASURED 1605 Ordered:02-Oct-2014 BASIC METABOLIC PROFILE 1210 Ordered:02-Oct-2014 Quant Microalbumin 1106 Ordered:02-Oct-2014 PROTIME PANEL 7000 Ordered:02-Oct-2014 CBC w/ Auto Diff 7150 Ordered:02-Oct-2014 XRay FOOT-BILATERAL Ordered:02-Oct-2014 Immunization Name Dates Details Hepatitis B Administered on:1991 MMR Administered on:26-Jul-1992 Tetanus-Diphtheria Toxoids Td 2-2 LF/0.5ML Intramuscular Suspension Administered on:26-Jul-1992 Hepatitis A Administered on:29-Nov-1998 MMR Administered on:03-Oct-2009 Lot #: [id number] MMR Administered on:03-Oct-2009 Tdap (Adacel) Administered on: Lot #: [id number] Pneumo (Pneumovax) Administered on: Lot #: [id number] Zoster (Zostavax) Administered on:15-Oct-2011 Lot #: [id number] Fluzone Quadrivalent 0.5 ML Intramuscular Suspension Administered on:2013 Lot #: [id number] Family History Grandmother Name Dates Details Family [...] Benson Servin On 08-Jan-2015 14:00 Appointment; Provider: Samina Malik On 19-Oct-2014 10:45 Appointment; Provider: Dale Fair On 11-Oct-2014 13:00 Appointment; Provider: Jai Piper On 05-Dec-2013 13:15 Appointment; Provider: Rob Ramírez On 19-Nov-2009 07:30 Appointment; Provider: Rob Ramírez On 24-Oct-2009 08:30 Appointment; Provider: Sharyn Simmons On 09-Feb-2009 16:30 Appointment; Provider: Rich Jose On 02-Jan-2009 07:30 Appointment; Provider: Sharyn Simmons On 16:30 Instructions Instructions not documented Encounters Appointment; Samina Malik On 20-Jul-2014 Encounter Diagnosis: [...]
--- OUTSIDE RECORDS SUMMARY | 2017-08-06 07:05 | External Medical Summary | Summary of Care ---
:1950 Author Name Dale Fair M.D. 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 Arthralgia of left hip (719.45, M25.552) Status: Active Type 2 diabetes mellitus (250.00, E11.9) Status: Active Pseudophakia of left eye (V43.1, Z96.1) Status: Active Pseudophakia of right eye (V43.1, Z96.1) Status: Active Presbyopia (367.4, H52.4) Status: Active Anxiety (300.00, F41.9) Status: Active Depression (311, F32.9) Status: Active Hyperlipidemia (272.4, E78.5) Status: Active Hypertension (401.9, I10) Status: Active Hypothyroidism (244.9, E03.9) Status: Active Incipient senile cataract (366.12, H25.099) Status: Active Essential hematuria (599.70, N02.9) Status: Active Medications Name Dates Details Cyclobenzaprine [...] on:03-Oct-2009 Tdap (Adacel) Administered on: Lot #: [id number] Pneumo (Pneumovax) Administered on: Lot #: [id number] Zoster (Zostavax) Administered on:15-Oct-2011 Lot #: [id number] Fluzone Quadrivalent 0.5 ML Intramuscular Suspension Administered on:2013 Lot #: [id number] Fluzone Quadrivalent 0.5 ML Intramuscular Suspension Administered on:2014 Lot #: [id number] Family History Grandmother Name Dates Details Family [...] smoker Vital Signs Date Test Result Details 11:46 BP Systolic 130 mm[Hg] Status: BP Diastolic 80 mm[Hg] Status: Heart Rate 78 /min Status: Weight 199 lb Status: O2 SAT 97 % Status: Body Mass Index Calculated 34.7 kg/m2 Status: Body Surface Area Calculated 1.94 m2 Status: Results Date Description Value Details 10:25 BASIC METABOLIC PROFILE Comments: Fastin hours 1210 SODIUM 140 mmol/L Range: 133-144 (Better) POTASSIUM 4.1 mmol/L Range: 3.5-5.1 (Better) CHLORIDE 100 mmol/L Range: 98-110 (Better) CARBON DIOXIDE 32.2 mmol/L Range: 23.0-33.0 (Better) ANION GAP 8 mmol/L (Better) Range: 6-16 BUN 23 mg/dL (Above Range: 7-18 high threshold) CREATININE, SERUM 1.13 mg/dL (Above Range: 0.55-1.02 high threshold) Comments: Please note new reference ranges effective 07/22.----- EST GFR, 59 ml/min (Below Range: >60 low threshold) EST GFR, NON-AFR LAO 48 ml/min (Below Range: >60 low threshold) Comments: EST GFR is reported in ml/min per 1.73 m2 of body surface area. For -[place], please multiple result by 1.2.----- BUN:CREATININE RATIO 20 (Better) GLUCOSE 95 mg/dL (Better) Range: 70-100 CALCIUM 9.4 mg/dL (Better) Range: 8.5-10.1 10:25 LDL, MEASURED 1605 Comments: Fastin hours LDL, MEASURED 49 mg/dL (Better) Comments: Optimal: Less than 100 mg/dLNear Optimal: 100-129 mg/dLBorderline High: 130-159 mg/dLHigh: 160-189 mg/dLVery High: >190mg/dL----- 12:25 HEMOGLOBIN A1C 3507 Comments: Fastin hours Hemoglobin A1C 6.5 % (Better) ESTIMATED AVG. GLUCOSE 140 (Better) Plan of Care Planned Observations Name Dates Details Planned Goals not documented Goal Planned Encounters Appointment; Provider: [facility] On 18-Jan-2016 16:00 Appointment; Provider: Benson Servin On 09-Jan-2016 14:00 Appointment; Provider: Dale Fair On 09-Jan-2016 13:15 Appointment; Provider: [facility] On 17-Jan-2015 16:00 Appointment; Provider: Jai Piper On 05-Dec-2013 13:15 Appointment; Provider: Rob Ramírez On 19-Nov-2009 07:30 Appointment; Provider: Rob Ramírez On 24-Oct-2009 08:30 Appointment; Provider: Sharyn Simmons On 09-Feb-2009 16:30 Appointment; Provider: Rich Jose On 02-Jan-2009 07:30 Appointment; Provider: Sharyn Simmons On 16:30 Instructions Instructions not documented Encounters Appointment; Dale Fair On Encounter Diagnosis: Problem not documented 11:45 Appointment; Dale Fair On 18-Apr-2015 Encounter Diagnosis: [...]
--- OUTSIDE RECORDS SUMMARY | 2017-08-06 07:06 | External Medical Summary ---
:1950 Author Name GENERATED, SYSTEM Care Team Providers Name Role Phone MD FAIR TIMOTHY Primary Care Provider [phone] Reason For Visit Reason for Visit from 06/22/2014 12:08 PM:Pt Stated Reason for Adm : pneumonia Chief Complaint PNUEMONIA Social History Social History from 06/26/2014 11:13 AM:Tobacco Use? : Former SmokerSocial History from 06/22/2014 12:08 PM:Tobacco Use? : Former Smoker Functional Status Functional Status from 06/26/2014 9:50 AM:LOC : AlertOriented To : Person,Place, TimeWeight Bearing Status : FullAssist Level : Independent# Assists : IndependentFunctional Status from 06/25/2014 11:50 PM:LOC : AlertOriented To : Person,Place,Time,EventWeight Bearing Status : FullAssist Level : Independent# Assists : IndependentFunctional Status from 06/25/2014 8:19 PM:LOC : AlertOriented To : Person,Place,Time,EventWeight Bearing Status : FullAssist Level : Independent# Assists : IndependentFunctional Status from 06/25/2014 8:30 AM:LOC : AlertOriented To : Person,Place,Time,EventWeight Bearing Status : FullAssist Level : Independent# Assists : IndependentFunctional Status from 06/24 8:05 PM:LOC : AlertOriented To : Person,Place,Time,EventWeight Bearing Status : FullAssist Level : Independent# Assists : 1Functional Status from 2014 2:52 PM:# Assists : 1Functional Status from 06/24/2014 8:15 AM:LOC : AlertOriented To : Person,Place,Time,EventWeight Bearing Status : FullAssist Level : Independent# Assists : IndependentFunctional Status from 06/23/2014 8:45 PM:LOC : AlertOriented To : Person,Place,EventWeight Bearing Status : FullAssist Level : Independent# Assists : IndependentFunctional Status from 06/23 7:30 AM:LOC : AlertOriented To : Person,Place,Time,EventWeight Bearing Status : FullAssist Level : Independent# Assists : IndependentFunctional Status from 06/22/2014 9:16 PM:LOC : AlertOriented To : Person,Place,Time,EventWeight Bearing Status : FullAssist Level : Partial# Assists : 1Functional Status from 12:08 PM:LOC : AlertOriented To : Person,Place,TimeWeight Bearing Status : FullAssist Level : Partial# Assists : 1 Vital Signs Hospital Vital Signs from 06/26/2014 10:33 AM:Height : 5/3 ft,inTemperature : 99.6 FPulse : 81Respirations : 18BP : 122/60Hospital Vital Signs from 06/26/2014 7:54 AM:Height : 5/3 ft,inHospital Vital Signs from 06/26/2014 6:42 AM:Height : 5 /3 ft,inTemperature : 98.5 FPulse : 81Respirations : 18BP : 126/60Hospital Vital Signs from 06/25/2014 10:45 PM:Height : 5/3 ft,inTemperature : 98.1 FPulse : 86Respirations : 18BP : 107/55Hospital Vital Signs from 06/25/2014 7:24 PM: Height : 5/3 ft,inTemperature : 98.6 FPulse : 85Respirations : 16BP : 99/ 53Hospital Vital Signs from 06/25/2014 10:24 AM:Height : 5/3 ft,inTemperature : 97.5 FPulse : 89Respirations : 18BP : 119/57Hospital Vital Signs from 06/25/2014 6:20 AM:Height : 5/3 ft,inTemperature : 95.6 FPulse : 76Respirations : 18BP : 121/60Hospital Vital Signs from 06/24/2014 10:52 PM:Height : 5/3 ft, inTemperature : 96.9 FPulse : 92Respirations : 18BP : 109/59Hospital Vital Signs from 06/24/2014 7:47 PM:Height : 5/3 ft,inTemperature : 97.6 FRespirations : 18BP : 126/59Hospital Vital Signs from 06/24/2014 3:31 PM:Height : 5/3 ft, inTemperature : 96.5 FPulse : 81Respirations : 18BP : 111/59Hospital Vital Signs from 06/24/2014 10:37 AM:Height : 5/3 ft,inTemperature : 99.1 FPulse : 95Respirations : 18BP : 108/59Hospital Vital Signs from 06/24/2014 6:30 AM: Height : 5/3 ft,inTemperature : 100.1 FPulse : 95Respirations : 18BP : 103/ 55Hospital Vital Signs from 06/23/2014 10:56 PM:Height : 5/3 ft,inTemperature : 98.3 FPulse : 109Respirations : 18BP : 95/44Hospital Vital Signs from 06/23/2014 7:43 PM:Height : 5/3 ft,inTemperature : 99.9 FPulse : 106Respirations : 20BP : 120/56Hospital Vital Signs from 06/23/2014 4:58 PM:Height : 5/3 ft,inTemperature : 98.6 FPulse : 113Respirations : 16BP : 117/70Hospital Vital Signs from 2014 11:29 AM:Height : 5/3 ft,inTemperature : 98.9 FPulse : 98Respirations : 16BP : 111/60Hospital Vital Signs from 06/23/2014 10:56 AM:Height : 5/3 ft, inHospital Vital Signs from 06/23/2014 8:15 AM:Height : 5/3 ft,inTemperature : 99.0 FPulse : 101Respirations : 16BP : 104/51Hospital Vital Signs from 2014 10:45 PM:Height : 5/3 ft,inTemperature : 100.0 FPulse : 103Respirations : 16BP : 107/59Hospital Vital Signs from 06/22/2014 7:27 PM:Height : 5/3 ft, inTemperature : 98.1 FPulse : 98Respirations : 18BP : 108/49Hospital Vital Signs from 06/22/2014 3:58 PM:Height : 5/3 ft,inTemperature : 95.9 FPulse : 62Respirations : 20BP : 123/60Hospital Vital Signs from 06/22/2014 12:08 PM: Weight : 88.1/ kgHeight : 5/3 ft,in Results Chemistry from 06/26/2014 4:22 [id number] MMOL/L (136-145 MMOL/L) POTASSIUM4.2 MMOL/L (3.5-5.1 MMOL/L) DNFYPRRD842 MMOL/L (98-107 MMOL/L) QRX958.1 MMOL/L (21.0-32.0 MMOL/L) ANION GAP6.9 MMOL/L L (8.0-16.0 MMOL/L) BUN14 MG/DL (7-18 MG/DL) CREATININE1.12 MG/DL H (0.43-0.83 MG/DL) BUN/CREATININE RATIO12.5 (9.1-17.0 ) XKMCQSM66 MG/DL (65-99 MG/DL) GFR EST NON AFR VEMGUJFE01 ML/MIN GFRA EST AFR AMER60 ML/MIN CALCIUM9.1 MG/DL (8.5-10.1 MG/DL) C-REACTIVE PROTEIN3.72 MG/DL H (0.00-0.30 MG/DL)Chemistry from 06/24/2014 7:28 [id number] MMOL/L L (136-145 MMOL/L) POTASSIUM4.2 MMOL/L (3.5-5.1 MMOL/L) CNYKHPET52 MMOL/L (98-107 MMOL/L) FXZ281.1 MMOL/L (21.0-32.0 MMOL/L) ANION GAP5.9 MMOL/L L (8.0-16.0 MMOL/L) BUN13 MG/DL (7-18 MG/DL) CREATININE1.10 MG/DL H (0.43-0.83 MG/DL) BUN/CREATININE RATIO11.8 (9.1-17.0 ) QKODRQJ721 MG/DL H (65-99 MG/DL) GFR EST NON AFR WILFSXWO72 ML/MIN GFRA EST AFR AMER62 ML/MIN CALCIUM8.8 MG/DL (8.5-10.1 MG/DL)Chemistry from 06/23/2014 4:43 [id number] MMOL/ L (136-145 MMOL/L) POTASSIUM4.0 MMOL/L (3.5-5.1 MMOL/L) ZLSDUVUY853 MMOL/L (98-107 MMOL/L) GHJ942.7 MMOL/L (21.0-32.0 MMOL/L) ANION GAP6.3 MMOL/L L (8.0-16.0 MMOL/L) BUN17 MG/DL (7-18 MG/DL) CREATININE1.18 MG/DL H (0.43-0.83 MG/DL) BUN/CREATININE RATIO14.4 (9.1-17.0 ) ZVTZGRB631 MG/DL H (65-99 MG/DL) GFR EST NON AFR PPKLTUZS57 ML/MIN GFRA EST AFR AMER57 ML/MIN CALCIUM8.6 MG/DL (8.5-10.1 MG/DL) BILIRUBIN TOTAL0.22 MG/DL (0.20-1.00 MG/DL) TOTAL PROTEIN6.2 GM/DL L (6.4-8.2 GM/DL) ALBUMIN2.8 GM/DL L (3.4-5.0 GM/DL) GLOBULIN3.4 GM/DL (2.3-3.5 GM/DL) A/G RATIO0.8 MG/DL L (1.5-2.2 MG/DL) ALK PHOS57 U/L (46-116 U/L) ALT (SGPT)16 U/L (16-63 U/L) AST (SGOT)17 U/L (15-37 U/L) C-REACTIVE IAIVYDN83.66 MG/DL H (0.00-0.30 MG/DL)Hematology from 06/26/2014 4:22 AMWBC5.1 X10e3/UL (3.6-11.2 X10e3/UL) RBC3.62 X10e6/UL L (3.63-4.92 X10e6/UL) CGPIIDFMNQ33.6 G/DL L (11.0-14.3 G/DL) UQRSEILCHD91.9 % (31.2-41.9 %) MCV88.0 FL (79.0-98.0 FL) MCH29.2 PG (27.0-33.0 PG) MCHC33.2 G/DL (32.0-36.0 G/DL) RDW15.9 % (12.3-17.0 %) RDWSD48.6 H (37.1-47.8 ) TTPRGBZT341 X10e3/UL (159-386 X10e3/UL) MPV7.5 FL (7.4-10.4 FL) AUTOMATED DIFFPERFORMED SEGS57.5 % TCSMGSRZKMJ28.4 % MONOCYTES7.5 % EOSINOPHILS3.0 % BASOPHILS0.6 % ABSOLUTE NEUTROPHILS2.90 X10e3/UL (1.80-7.80 X10e3/UL) ABSOLUTE LYMPHOCYTES1.60 X10e3/UL (1.00-3.00 X10e3/UL) ABSOLUTE MONOCYTES0.40 X10e3/UL (0.30-1.00 X10e3/UL) ABSOLUTE EOSINOPHILS0.20 X10e3/UL (0.00-0.50 X10e3/UL) ABSOLUTE BASOPHILS0.00 X10e3/UL (0.00-0.20 X10e3/UL) SED RATE83 MM/HR H (0-30 MM/HR)Hematology from 06/24/2014 7:28 AMWBC10.3 X10e3/ UL (3.6-11.2 X10e3/UL) RBC3.66 X10e6/UL (3.63-4.92 X10e6/UL) FYIWZVTCAX20.4 G/DL L (11.0-14.3 G/DL) WQWUNANIIK80.5 % (31.2-41.9 %) MCV86.1 FL (79.0-98.0 FL) MCH28.5 PG (27.0-33.0 PG) MCHC33.2 G/DL (32.0-36.0 G/DL) RDW15.1 % (12.3-17.0 %) NQGIJAMW814 X10e3/UL (159-386 X10e3/UL) MPV7.3 FL L (7.4-10.4 FL) AUTOMATED DIFFPERFORMED SEGS76.8 % RGJOZHNHCVT48.2 % MONOCYTES4.0 % EOSINOPHILS0.7 % BASOPHILS0.3 % ABSOLUTE NEUTROPHILS7.90 X10e3/UL H (1.80-7.80 X10e3/UL) ABSOLUTE LYMPHOCYTES1.90 X10e3/UL (1.00-3.00 X10e3/UL) ABSOLUTE MONOCYTES0.40 X10e3/UL (0.30-1.00 X10e3/UL) ABSOLUTE EOSINOPHILS0.10 X10e3/UL (0.00-0.50 X10e3/UL) ABSOLUTE BASOPHILS0.00 X10e3/UL (0.00-0.20 X10e3/UL)Hematology from 06/23/2014 4: 43 AMWBC11.1 X10e3/UL (3.6-11.2 X10e3/UL) RBC3.73 X10e6/UL (3.63-4.92 X10e6/UL) IZIJJNBAWK27.7 G/DL L (11.0-14.3 G/DL) TEXPNQNSJN05.2 % (31.2-41.9 %) MCV88.9 FL (79.0-98.0 FL) MCH28.7 PG (27.0-33.0 PG) MCHC32.3 G/DL (32.0-36.0 G/DL) RDW16.0 % (12.3-17.0 %) RDWSD49.4 H (37.1-47.8 ) ROYPDQVT048 X10e3/UL (159-386 X10e3/UL) MPV7.8 FL (7.4-10.4 FL) SED RATE47 MM/HR H (0-30 MM/HR)Urinalysis from 06/22/2014 10:55 PMURINE COLORSTRAW (STRAW/YELL/DK YELL ) URINE APPEARANCECLEAR (CLEAR ) URINE PH6.0 (5.0-8.0 ) URINE SPECIFIC GRAVITY<1.005 (<=1.005->=1.030 ) URINE GLUCOSENEGATIVE MG/DL (NEGATIVE MG/DL) URINE BILIRUBINNEGATIVE (NEGATIVE ) URINE KETONESNEGATIVE MG/DL (NEGATIVE MG/DL) URINE BLOODNEGATIVE (NEGATIVE ) URINE PROTEINNEGATIVE MG/DL (NEGATIVE MG/DL) URINE UROBILINOGEN0.2 EU/DL (0.2-1.0 EU/DL) URINE NITRITESNEGATIVE (NEGATIVE ) *URINE LEUKOCYTESTRACE A (NEGATIVE ) MICROSCOPIC EXAM PERFORMEDPERFORMED WBC1-5 /HPF (0-5 /HPF) SQUAMOUS EP. CELLSFEW /LPF (NEG-FEW /LPF)Microbiology from 06/22/2014 10:55 PMCULTURE URINE Specimen Number: [id number] Sample Collection Date/Time: 06/22/2014 10:55 PM Specimen Source: Urine Clean Catch CULTURE URINE: No growth at 48 hrs DX Radiology from 06/26/2014 5:00 AMCHEST 1 VIEWDATE OF EXAM: Jun 26 2014 5: 42AM Proc: DG 0066 - CHEST 1 VIEW CPT Code(s): 39142-; ; ; INDICATION / CLINICAL HISTORY: Pneumonia. Comparison is made with 06/24/14. FINDINGS: There has been near complete resolution of mild right lower lobe pneumonia. No new infiltrate, pneumothorax, or pleural effusion is identified. IMPRESSION: Near complete resolution of mild right lower lobe pneumonia. No new infiltrates are identified.DX Radiology from 06/24/2014 5:00 AMCHEST 1 VIEWDATE OF EXAM: Jun 24 2014 5:43AM Proc: DG 0066 - CHEST 1 VIEW CPT Code(s): 86479-; ; ; INDICATION / CLINICAL HISTORY: Pneumonia. COMPARISON: June 23, 2014 FINDINGS: The cardiac silhouette and pulmonary vasculature are within normal limits. There is minimal right lower lobe pneumonia. IMPRESSION: Minimal right lower lobe pneumonia, no significantly changed.DX Radiology from 06/23/2014 5:00 AMCHEST 1 VIEWDATE OF EXAM: Jun 23 2014 7:03AM Proc: DG 0066 - CHEST 1 VIEW CPT Code(s): 91448-; ; ; INDICATION / CLINICAL HISTORY: Pneumonia Single view of the chest was obtained and compared with the prior study dated 06/22/2014. FINDINGS: There has been mild interval improvement in right lower lobe pneumonia. No new infiltrates are identified. No significant pleural effusion or pneumothorax is seen. The heart size and pulmonary vasculature are within normal limits. IMPRESSION: Improving right lower lobe pneumonia. Problems Encounter Diagnosis Atrial Fibrillation Comment:Problem resolved by [facility] upon Discharge , Status:Resolved.Body Mass Index 30+ - Obesity Comment:Problem resolved by [facility] upon Discharge, Status:Resolved.Diabetic Peripheral Neuropathy Comment:Problem resolved by [facility] upon Discharge, Status: Resolved.Hyperlipidemia Comment:Problem resolved by [facility] upon Discharge, Status:Resolved.Hypothyroidism Comment:Problem resolved by [facility] upon Discharge, Status:Resolved.Mobility Impairment Comment:Problem resolved by [facility] upon Discharge, Status:Resolved.Pneumonia Comment: Problem resolved by [facility] upon Discharge, Status: Resolved.Respiratory Insufficiency Comment:Problem resolved by [facility] upon Discharge, Status:Resolved.Additional Problems Dehydration Comment:Problem resolved by [facility] upon Discharge, Status: Resolved.Gastroenteritis Comment:Problem resolved by [facility] upon Discharge, Status:Resolved.Orthostatic Hypotension Comment:Problem resolved by [facility] upon Discharge, Status:Resolved. Encounters Encounter Diagnosis Atrial Fibrillation Comment:Problem resolved by [facility] Work[facility] upon Discharge , Status:Resolved.Body Mass Index 30+ - Obesity Comment:Problem resolved by [facility] upon Discharge, Status:Resolved.Diabetic Peripheral Neuropathy Comment:Problem resolved by [facility] Work[facility] upon Discharge, Status: Resolved.Hyperlipidemia Comment:Problem resolved by [facility] Work[facility] upon Discharge, Status:Resolved.Hypothyroidism Comment:Problem resolved by [facility] Work[facility] upon Discharge, Status:Resolved.Mobility Impairment Comment:Problem resolved by [facility] Work[facility] upon Discharge, Status:Resolved.Pneumonia Comment: Problem resolved by [facility] Work[facility] upon Discharge, Status: Resolved.Respiratory Insufficiency Comment:Problem resolved by [facility] Work[facility] upon Discharge, Status:Resolved. Plan of Care Follow-up Appointments from 06/26/2014 11:13 AM:#1 Office appointment: : Magalie Lauren APRN, please come 1 hour early for x-ray#1 Date/Time : 07/04/2014 2:15 PMAddress # 1 : [facility]: [address] [place]- [phone] or #2 Office appointment: : Dr. Fair, the office will call you with appointment date and timeAddress # 2 : [facility]: [address] [place]- or Treatment Plan from 2:37 PM:Care Management Note : Patient lives by herself and plans to return home at discharge. 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 She denies need for home health or other supportive care. No concerns voiced with being able to mange at home.Treatment Plan from 8:09 AM:Care Management Note :Admitted due to Pneumonia. Found to be in A-Fib while in ED with no history of A-Fib.POC-telemetry monitoring, RT treatments/O2. empiric IV antibiotics, blood and sputum cultures, follow labs and CXR. Procedures Completed , on 10/31/2011 12:00 AMCompleted , on 10/31/2011 12:00 AMCompleted , on 10/31/2011 12:00 AMCompleted , on 10/31/2011 12:00 AMCompleted , on 10/31/2011 12:00 AMCompleted , on 11/19/2009 12:00 AMCompleted , on 11/19/2009 12:00 AMCompleted , on 10/24/2009 12:00 AMCompleted , on 10/24/2009 12:00 AMCompleted , on 01/02/2009 12:00 AM Immunizations No immunizations administered or ordered. Hospital Course Hospital Discharge Instructions How to care for yourself at home from 06/26/2014 11:13 AM:Discharge Activity : Activity as tolerated,May ShowerDischarge Diet : Modification as given by physicianDischarge Diet: : 1800 calorie ADACall your doctor if: : Fever over 101 F or severe chills,Chest pain or other unexplained symptoms,Tingling or numbness develops,A sudden increase or decrease in weight,You have persistent or worsening symptoms,If you have Heart Failure and you gain 3 pounds within 1 week or your symptoms worsen. (Weigh at home tomorrow morning)Specific Discharge Teaching Instructions provided: : NoDischarge on Warfarin : No Allergies, Adverse Reactions, Alerts Codeine causes N/V.No Latex Allergy.No IV Contrast Allergy.No Known Food Allergies. Medication It is the responsibility of the patient or patient industrial sales representative to confirm the list of medicationswith either the patient's personal care provider or the patient's follow-up care provider to ensure the patient has an appropriate list of medications to take at home. Discharge medicationsNew medicationslevofloxacin (LevaQUIN) 750 mg Tablet, Ordered By: MAGALIE LAUREN APRN Directions: 1 tablet oral daily before breakfast Continued medicationsclonazePAM 0.5 mg Tablet, Ordered By: YESSENIA FAIR MD Directions: 1 tablet oral daily at bedtime coenzyme Q10 200 mg Capsule, Ordered By: YESSENIA FAIR MD Directions: 1 capsule oral daily cyclobenzaprine 10 mg Tablet, Ordered By: YESSENIA FAIR MD Directions: 1 tablet oral daily at bedtime levothyroxine 88 mcg Tablet, Ordered By: YESSENIA FAIR MD Directions: 1 tablet oral daily before breakfast losartan 50 mg Tablet, Ordered By: YESSENIA FAIR MD Directions: 1 tablet oral daily metFORMIN 1,000 mg Tablet, Ordered By: YESSENIA FAIR MD Directions: 1 tablet oral twice a day with or after meal oxyCODONE (OxyCONTIN) 10 mg Tablet Extended Release 12 hr, Ordered By: YESSENIA FAIR MD Directions: 1 tablet oral every twelve hours pregabalin (Lyrica) 75 mg Capsule, Ordered By: YESSENIA FAIR MD Directions: 1 capsule oral twice a day simvastatin 40 mg Tablet, Ordered By: YESSENIA FAIR MD Directions: 1 tablet oral daily at bedtime zolpidem (Ambien) 10 mg Tablet, Ordered By: YESSENIA FAIR MD Directions: 1 tablet oral daily at bedtime Changed medicationsescitalopram oxalate 10 mg Tablet, Ordered By: YESSENIA FAIR MD Directions: 1 tablet oral daily mirtazapine 10mg Tablet, Ordered By: YESSENIA FAIR MD Directions: 1 tablet oral daily at bedtime Stopped medicationsNone
--- OUTSIDE RECORDS SUMMARY | 2017-08-06 07:06 | External Medical Summary | Summary of Care ---
:1950 Author Name AllyNadia bell DPM Address [address], [place] [id number] Care Team Providers Name Role Phone Dale Fair M.D. 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: Active Pneumonia (486, J18.9) Status: Active Rotator cuff tendonitis (726.10, M75.80) Status: Active Hyperlipidemia (272.4, E78.5) Status: Active Hypertension (401.9, I10) Status: Active Bronchitis (490, J40) Status: Active Left hand pain (729.5, M79.642) Status: Active Foot pain, bilateral (729.5, M79.671) Status: Active Diabetes mellitus (250.00, E11.9) Status: Active Depression (311, F32.9) Status: Active Low back pain (724.2, M54.5) Status: Active Unspecified injury of achilles tendon (S86.00) Status: Active Degenerative disc disease, lumbar (722.52, M51.36) Status: Active Lower back pain (724.2, M54.5) Status: Active 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 Quantity: 180 Refills: 1 Dale aFir M.D. Started 27-Oct-2008 ActiveEscitalopram Oxalate 20 MG Oral Tablet take one tablet by mouth every day Quantity: 90 Refills: 3 Dale Fair M.D. Started 01-Jan-2009 ActiveSimvastatin 40 MG Oral Tablet TAKE ONE TABLET(S) BY MOUTH DAILY DIRECTED Quantity: 90 Refills: 1 Dale Fair M.D. Started 10-Dec-2009 ActiveZetia 10 [...] 180 Refills: 0 Dale Fair M.D. Started ActiveMagnesium [...] 6 HOURS NEEDED. Refills: 0 Started 19-Oct-2014 Active Allergies and Adverse Reactions Name Dates [...] on:03-Oct-2009 Tdap (Adacel) Administered on: Lot #: [id number] Pneumo (Pneumovax) Administered on: Lot #: [id number] Zoster (Zostavax) Administered on:15-Oct-2011 Lot #: [id number] Fluzone Quadrivalent 0.5 ML Intramuscular Suspension Administered on:2013 Lot #: [id number] Family History Grandmother Name Dates Details Family [...] smoker Vital Signs Date Test Result Details 11-Oct-2014 12:58 BP Systolic 116 mm[Hg] Status: BP Diastolic 72 mm[Hg] Status: Heart Rate 95 /min Status: Weight 192.125 lb Status: O2 SAT 98 % Status: Body Mass Index Calculated 33.5 kg/m2 Status: Body Surface Area Calculated 1.91 m2 Status: Results Date Description Value Details 10-Oct-2014 09:26 Quant Microalbumin 1106 MICROALBUMIN, URINE <1.3 mg/L Range: <20.1 (Better) 10:24 LDL, MEASURED 1605 Comments: Items were attached to this order: CBC Fastin hours LDL, MEASURED 54 mg/dL (Better) Comments: Optimal: Less than 100 mg/dLNear Optimal: 100-129 mg/dLBorderline High: 130-159 mg/dLHigh: 160-189 mg/dLVery High: >190mg/dL----- 10:24 BASIC METABOLIC PROFILE Comments: Items were attached to this order : CBC Fastin hours 1210 SODIUM 137 mmol/L Range: 133-144 (Better) POTASSIUM 4.1 mmol/L Range: 3.5-5.1 (Better) CHLORIDE 99 mmol/L (Better) Range: 98-110 CARBON DIOXIDE 29.2 mmol/L Range: 23.0-33.0 (Better) ANION GAP 9 mmol/L (Better) Range: 6-16 BUN 16 mg/dL (Better) Range: 7-18 CREATININE, SERUM 0.96 mg/dL Range: 0.55-1.02 (Better) Comments: Please note new reference ranges effective 2014.- ---- EST GFR, >60 ml/min Range: >60 (Better) EST GFR, NON-AFR SWAZI 58 ml/min (Below Range: >60 low threshold) Comments: EST GFR is reported in ml/min per 1.73 m2 of body surface area. For -[place], please multiple result by 1.2.----- BUN:CREATININE RATIO 17 (Better) GLUCOSE 94 mg/dL (Better) Range: 70-100 CALCIUM 9.5 mg/dL (Better) Range: 8.5-10.1 10:29 CBC w/ Auto Diff 7150 Comments: Items were attached to this order: CBC Fastin hours WBC 7.2 K/uL (Better) Range: 4.5-11.0 RBC 4.40 mil/uL Range: 3.60-5.00 (Better) HGB 12.6 g/dL (Better) Range: 12.0-16.0 HCT 38.8 % (Better) Range: 36.0-48.0 MCV 88.2 fL (Better) Range: 80.0-99.0 MCH 28.7 pg (Better) Range: 27.3-32.5 MCHC 32.6 % (Better) Range: 32.0-36.0 RDW 13.9 % (Better) Range: 11.6-14.8 PLATELETS 251 K/uL (Better) Range: 150-400 MPV 8.1 fL (Better) Range: 6.0-11.0 %NEUTRO 60.2 % (Better) Range: 37.0-80.0 %LYMPHS 31.5 % (Better) Range: 13.0-50.0 %MONO 4.4 % (Better) Range: 0.0-12.0 %EOS 1.3 % (Better) Range: 0.0-7.0 %BASO 0.4 % (Better) Range: 0.0-2.5 %TRISTIN 2.2 % (Better) Range: 0.0-5.0 NEUTRO 4.4 K/uL (Better) Range: 2.0-6.9 LYMPHS 2.3 K/uL (Better) Range: 0.6-3.4 MONOS 0.3 K/uL (Better) Range: 0.0-0.9 EOS 0.1 K/uL (Better) Range: 0.0-0.7 BASO 0.0 K/uL (Better) Range: 0.0-0.2 10:31 PROTIME PANEL 7000 Comments: Fastin hours PROTIME 13.1 secs (Better) Range: 12.0-14.9 INR 1.00 (Better) 11:11 XRay FOOT-BILATERAL Comments: Exam Date: 10/10/2014 08:04Dictation Date: 10/10/2014 11:11 X FOOT COMP (MIN 3V) (Better) BILATERAL 11:20 HEMOGLOBIN A1C 3507 Comments: Items were attached to this order: CBC Fastin hours Hemoglobin A1C 6.5 % (Better) ESTIMATED AVG. GLUCOSE 140 (Better) Plan of Care Planned Observations Name Dates Details Planned Goals not documented Goal Planned Encounters Appointment; Provider: Dale Fair On 17-Apr-2015 13:00 Appointment; Provider: Benson Servin On 08-Jan-2015 14:00 Appointment; Provider: Nadia Shelby On 06-Dec-2014 15:15 Appointment; Provider: Jai Piper On 05-Dec-2013 13:15 Appointment; Provider: Rob Ramírez On 19-Nov-2009 07:30 Appointment; Provider: Rob Ramírez On 24-Oct-2009 08:30 Appointment; Provider: Sharyn Simmons On 09-Feb-2009 16:30 Appointment; Provider: Rich Jose On 02-Jan-2009 07:30 Appointment; Provider: Sharyn Simmons On 16:30 Instructions Instructions not documented Encounters Appointment; Nadia Shelby On 01-Nov-2014 Encounter Diagnosis: [...]
--- OUTSIDE RECORDS SUMMARY | 2017-08-06 07:06 | External Medical Summary | Summary of Care ---
:1950 Author Name Miki Willis Derick Ryan Address [address], [place] [id number] Care Team Providers Name Role Phone Dale Fair M.D. Unavailable Jai Solano M.D. 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: Active Degenerative disc disease, lumbar (722.52, M51.36) Status: Active Low back pain (724.2, M54.5) Status: Active Pneumonia (486, J18.9) Status: Active Rotator cuff tendonitis (726.10, M75.80) Status: Active Medications Name Dates Details Cyclobenzaprine [...] ActiveMagnesium 500 MG Oral Tablet Refills: 0 Active Allergies and Adverse Reactions Name Dates [...] on:03-Oct-2009 Tdap (Adacel) Administered on: Lot #: [id number] Pneumo (Pneumovax) Administered on: Lot #: [id number] Zoster (Zostavax) Administered on:15-Oct-2011 Lot #: [id number] Fluzone Quadrivalent 0.5 ML Intramuscular Suspension Administered on:2013 Lot #: [id number] Family History Grandmother Name Dates Details Family [...] smoker Vital Signs Date Test Result Details 04-Jul-2014 14:35 BP Systolic 134 mm[Hg] Status: BP Diastolic 70 mm[Hg] Status: Heart Rate 82 /min Status: Respiration Rate 20 /min Status: Weight 187 lb Status: Height 63.5 in Status: O2 SAT 96 % Status: Body Mass Index Calculated 32.61 kg/m2 Status: Results Date Description Value Details 04-Jul-2014 14:26 XRay CHEST-PA & LAT Comments: Exam Date: 07/04/2014 13:42Dictation Date: 07/04/2014 14:26 X CHEST PA & LAT (Better) Plan of Care Planned Observations Name Dates Details Planned Goals not documented Goal Planned Encounters Appointment; Provider: Benson Servin On 08-Jan-2015 14:00 Appointment; Provider: Dale Fair On 11-Oct-2014 13:00 Appointment; Provider: Harry Farmer On 13:15 Appointment; Provider: Samina Malik On 20-Jul-2014 11:00 Appointment; Provider: Dale Fair On 19-Jul-2014 09:15 Appointment; Provider: Jai Piper On 05-Dec-2013 13:15 Appointment; Provider: Rob Ramírez On 19-Nov-2009 07:30 Appointment; Provider: Rob Ramírez On 24-Oct-2009 08:30 Appointment; Provider: Sharyn Simmons On 09-Feb-2009 16:30 Appointment; Provider: Rich Jose On 02-Jan-2009 07:30 Appointment; Provider: Sharyn Simmons On 16:30 Instructions Instructions not documented Encounters Appointment; Derick Livingston On 07-Jul-2014 Encounter Diagnosis: [...]
--- OUTSIDE RECORDS SUMMARY | 2017-08-06 07:06 | External Medical Summary | Summary of Care ---
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, 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: Active Degenerative disc disease, lumbar (722.52, M51.36) Status: Active 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, 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 Presbyopia (367.4, H52.4) Status: Active [...] Tendonitis of finger (727.05, M77.9) Status: Active Hypertension (401.9, I10) Status: Active Hypothyroidism (244.9, E03.9) Status: Active Pseudophakia of left eye (V43.1, Z96.1) Status: Active Pseudophakia of right eye (V43.1, Z96.1) Status: Active PCO (posterior capsular opacification), right (366.50, H26.491) Status: Active 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, 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: Active Obesity (278.00, E66.9) Status: Active Type 2 diabetes mellitus (250.00, E11.9) Status: Active Recurrent respiratory infection (519.8, J98.8) Status: Active Back pain, acute (724.5, M54.9) Status: Active Bronchiectasis (494.0, J47.9) Status: Active Mild intermittent asthma without complication (493.90, J45.20) Status: Active Medicare annual wellness visit, initial (V70.0, Z00.00) Status: Active Visit for screening mammogram (V76.12, Z12.31) Status: Active Encounter for screening colonoscopy (V76.51, Z12.11) Status: Active Colon cancer screening (V76.51, Z12.11) Status: Active Screening for breast cancer (V76.10, Z12.39) Status: Active Medications Name Dates Details Escitalopram Oxalate 20 MG Oral Tablet take one tablet by mouth every day Quantity: 90 Refills: 3 Dale Fair M.D. Start 01-Jan-2009 Active Simvastatin 40 MG Oral Tablet TAKE ONE TABLET(S) BY MOUTH DAILY DIRECTED Quantity: 90 Refills: 3 Dale Fair M.D. Start 10-Dec-2009 Active Levothyroxine Sodium 75 MCG Oral Tablet Take 1 tablet by mouth daily. Quantity: 90 Refills: 3 Harry Farmer M.D. Start 15-Mar-2010 Active Vitamin B-12 1000 MCG Oral Tablet TAKE 1 TABLET DAILY DIRECTED. Refills: 0 Dale Fair M.D. Start 23-Oct-2010 Active Mirtazapine 15 MG Oral Tablet TAKE 1 TABLET BY MOUTH AT BEDTIME. Quantity: 90 Refills: 2 Marv M.Dot., Dale Marks Start Active ClonazePAM 1 MG Oral Tablet TAKE 1 TABLET BY MOUTH AT BEDTIME NEEDED Quantity: 90 Refills: 0 Marv M.Gurdeep, Dale Marks Start Active Vitamin D3 1000 UNIT Oral Capsule TAKE DIRECTED. Refills: 0 Start 19-Oct-2014 Active Acetaminophen 500 MG Oral Tablet TAKE TWO TABLET(S) BY MOUTH TWICE DAILY Quantity: 360 Refills: 0 Marv Layne.Gurdeep Dale Selina Start 19-Oct-2014 Active Co Q-10 400 MG Oral Capsule Refills: 0 Marv Bella, Dale Selina Start 18-Apr-2015 Active Ferrous Sulfate 325 (65 Fe) MG Oral Tablet take 1 tablet by mouth every day Quantity: 31 Refills: 0 Marv Layne.Gurdeep, Dale Selina Start 18-Apr-2015 Active Aspirin Adult Low Dose 81 MG Oral Tablet Delayed Release TAKE 1 TABLET DAILY. Quantity: 90 Refills: 3 Marv Bella, Dale Marks Start Active Vitamin D3 5000 UNIT Oral Capsule TAKE DAILY DIRECTED. Quantity: 90 Refills: 3 Marv Layne.Gurdeep Dale Marks Start Active Ginkgo Biloba 60 MG Oral Capsule TAKE 1 CAPSULE TWICE DAILY. Refills: 0 Marv Bella Dale Marks Start 30-Nov-2015 Active Tums 500 MG Oral Tablet Chewable TAKE DIRECTED. Refills: 0 Mine Decker M.D. Start 18-Jun-2016 Active LevoFLOXacin 750 MG Oral Tablet take 1 daily for 10 days Quantity: 30 Refills: 3 Marleny Bella Harry Ryan Start 25-Jul-2016 Active TraMADol HCl - 50 MG Oral Tablet TAKE ONE TABLET(S) BY MOUTH TID NEEDED Quantity: 270 Refills: 0 Marv Bella Dale Selina Start 11-Oct-2014 Active B-Complex Oral Capsule Refills: 0 Start 23-Oct-2011 Active Losartan Potassium 100 MG Oral Tablet take one tablet by mouth every day Quantity: 90 Refills: 3 Marv Bella, Dale Selina Start 18-Mar-2010 Active BuPROPion HCl ER (SR) 100 MG Oral Tablet Extended Release 12 Hour TAKE 1 TABLET DAILY. Quantity: 9 Refills: 0 Dale Fair M.D. Start 23-Jun-2016 Active PrednisoLONE Acetate 1 % Ophthalmic Suspension Install 1 drop as directed 6 times daily (during waking hours) Starting after surgery. Quantity: 10 Refills: 1 Gareth Bella Benson Weems Start 23-Jan-2015 Active Magnesium 400 MG Oral Tablet 1 tablet BID Quantity: 180 Refills: 3 Dale Fair M.D.tive Folic Acid 1 MG Oral Tablet Refills: 0 Active Zetia 10 MG Oral Tablet TAKE 1 TABLET DAILY. Quantity: 90 Refills: 3 Dale aFir M.D. Start 10-Dec-2009 Active Lyrica 50 MG Oral Capsule TAKE 1 CAPSULE TWICE DAILY. Quantity: 180 Refills: 1 Dale Fair M.D. Start 27-Oct-2008 Active MetFORMIN HCl - 1000 MG Oral Tablet Take one tablet by mouth twice daily with meals Quantity: 180 Refills: 3 Dale Fair M.D. Start 09-Dec-2007 Active Cyclobenzaprine HCl - 10 MG Oral Tablet Take 1 tablet at bedtime as needed Quantity: 90 Refills: 1 Dale Fair M.D. Start 09-Dec-2007 Active Allergies and Adverse Reactions Name Dates [...] Dates Details History of Shoulder Arthroscopy, Space Completed: 02-Jan-2009 Decompression And Acromioplasty History of Shldr Arthrosc W/ Distal Completed: 02-Jan-2009 Claviculectomy Incl Distal Art Surf History of Sigmoidoscopy (Fiberoptic, Completed: 12-Oct-2009 Therapeutic ) History of Renal Lithotripsy Completed: 24-Oct-2009 History of Complete Colonoscopy Completed: 26-Oct-2009 History of Diagnostic Completed: 21-Nov-2009 Esophagogastroduodenoscopy History of Renal Lithotripsy Completed: 19-Nov-2009 History of Gastric Surgery History of Combined A-P Colporrhaphy (For Completed: 31-Oct-2011 Pelvic Relaxation History of Vag Hysterectomy Uterus 250 Gm Completed: 31-Oct-2011 Or < W/ Removal Of Ovary(S) History of Nerve Block Transforaminal Epidural Lumbar History of Extracaps Cataract Extract With Prosthesis Insert Left Eye History of Extracaps Cataract Extract With Prosthesis Insert Right Eye History of Gastric Surgery For Morbid Obesity History of Rotator Cuff Repair History of Cholecystectomy Colonoscopy- Screening or Dx Ordered: 17-Jul-2016 Vitamin D, 25 - Hydroxy 3111 Ordered: 04-Jul-2016 S. PNEUMO IGG (14 SERO) [id number] Ordered: 04-Jul-2016 Vitamin D, 25 - Hydroxy 3111 Ordered: 18-Jun-2016 MAMMOGRAM-SCREENING Ordered: 17-Jul-2016 XRay SPINE-LUMBAR Ordered: 30-Jun-2016 Immunization Name Dates Details Hepatitis B on: 1991 MMR on: 26-Jul-1992 Tetanus-Diphtheria Toxoids Td 2-2 LF/0.5ML Intramuscular Suspension on: Hepatitis A on: 29-Nov-1998 MMR on: 03-Oct-2009 Lot #: [id number] MMR on: 03-Oct-2009 Tdap (Adacel) on: Lot #: [id number] Pneumo (Pneumovax) on: Lot #: [id number] Zoster (Zostavax) on: 15-Oct-2011 Lot #: [id number] Fluzone Quadrivalent 0.5 ML Intramuscular Suspension on: 09-Jan-2014 Lot #: [id number] Fluzone Quadrivalent 0.5 ML Intramuscular Suspension on: 02-Feb-2015 Lot #: [id number] Prevnar 13 Intramuscular Suspension on: Lot #: [id number] Fluzone High-Dose 0.5 ML Intramuscular Suspension Prefilled Syringe on: Lot #: [id number] Pneumovax 23 25 MCG/0.5ML Injection Injectable on: 30-Jun-2016 Lot #: [id number] Pneumovax 23 25 MCG/0.5ML Injection Injectable on: 02-Jul-2016 Lot #: [id number] Family History Grandmother Name Dates Details Family history of Cervical Cancer Status: Active aunt Name Dates Details Family history of Diabetes Mellitus (V18.0) Status: Active Mother Name Dates Details Family history of Hypertension (V17.49) Status: Active Family history of KCS (keratoconjunctivitis sicca) (710.2, M35.01) Status: Active Family history of Immunodeficiency (279.3, D84.9) Status: Active Father Name Dates Details Family history of Heart Disease (V17.49) Status: Active Family history of Father At Age ___ Status: Active Sister Name Dates Details Family history of Breast Cancer (V16.3) Status: Active Family history of Acute Myocardial Infarction (V17.3) Status: Active Brother Name Dates Details Family history of Alcohol Abuse Status: Active Social History Name Dates Details - Status: Smoking Status Name Dates Details Former smoker Vital Signs Date Test Result Details 17-Jul-2016 13:01 BP Systolic 128 mm[Hg] Status: Comments: Location: ; Position: BP Diastolic 62 mm[Hg] Status: Comments: Location: ; Position: Heart Rate 85 /min Status: Comments: Location: ; Weight 196 lb Status: Physical Findings 93 Status: Comments: O2 Saturation Body Mass Index Calculated 34.72 kg/m2 Status: Body Surface Area Calculated 1.92 m2 Status: 07-Jul-2016 13:20 BP Systolic 148 mm[Hg] Status: Comments: Location: ; Position: BP Diastolic 82 mm[Hg] Status: Comments: Location: ; Position: Heart Rate 83 /min Status: Comments: Location: ; Height 63 in Status: Weight 196 lb Status: Physical Findings 98 Status: Comments: O2 Saturation Body Mass Index Calculated 34.72 kg/m2 Status: Body Surface Area Calculated 1.92 m2 Status: 30-Jun-2016 14:21 BP Systolic 132 mm[Hg] Status: Comments: Location: ; Position: BP Diastolic 76 mm[Hg] Status: Comments: Location: ; Position: Temperature 97 f Status: Heart Rate 87 /min Status: Comments: Location: ; Physical Findings 20 Status: Comments: Respiration Weight 198.2 lb Status: Physical Findings 94 Status: Comments: O2 Saturation Body Mass Index Calculated 35.11 kg/m2 Status: Body Surface Area Calculated 1.93 m2 Status: Results Date Description Value Details 30-Jun-2016 14:19 X SPINE L-S COMPLETE Comments: Exam Date: 06/30/2016 13: 44Dictation Date: 06/30/2016 14:19 14:20 XRay SPINE-SACRUM & COCCYX Comments: Exam Date: 06/30/2016 13: 43Dictation Date: 06/30/2016 14:20 X SPINE SACRUM & COCCYX Plan of Care Name Dates Details Planned Observations Vitamin D, 25 - Hydroxy 3111 On 24-Jul-2016 Intent S. PNEUMO IGG (14 SERO) [id number] On 24-Jul-2016 Intent Planned Goals not documented Planned Encounters Appointment; Provider: Emmy Vasquez A.P.R.N. On 20-Jul-2017 13:00 Appointment; Provider: Benson Servin M.D. On 29-May-2017 09:00 Appointment; Provider: [facility] On 14:50 Appointment; Provider: Dale Fair M.D. On 13:45 Instructions Name Dates Details Instructions not documented Encounters Appointment; Magalie Feng A.P.R.N. On 30-Jun-2016 Encounter Diagnosis: Problem not documented 13:40 Appointment; Mine Decker M.D. On 30-Jun-2016 Encounter Diagnosis: Problem not documented 13:15 Appointment; Mine Decker M.D. On 18-Jun-2016 Encounter Diagnosis: Problem not documented 13:30 Appointment; Dale Fair M.D. On 16-Jun-2016 Encounter Diagnosis: Problem not documented 15:45 Appointment; Dale Fair M.D. On 02-Jun-2016 Encounter Diagnosis: Problem not documented 13:00 Appointment; Benson Servin M.D. On 28-May-2016 Encounter Diagnosis: Problem not documented 13:45 Appointment; Benson Servin M.D. On 09-Jan-2016 Encounter Diagnosis: Problem not documented 14:00 Appointment; Anna Marie Sutton A.P.RBlanca On 07-Jan-2016 Encounter Diagnosis: Problem not documented 13:00 Appointment; Anna Marie Sutton A.P.RBlanca On 07-Jan-2016 Encounter Diagnosis: Problem not documented 13:00 Appointment; Robb Tavarez M.D. On 07-Dec-2015 Encounter Diagnosis: Problem not documented 07:30 Appointment; Dale Fair M.D. On 30-Nov-2015 Encounter Diagnosis: Problem not documented 13:00 Appointment; Anna Marie Sutton A.P.R.N. On 30-Oct-2015 Encounter Diagnosis: Problem not documented 14:15 Appointment; Dale Fair M.D. On 29-Oct-2015 Encounter Diagnosis: Problem not documented 14:30 Appointment; Harry Maurer M.D.,RAJIV, On 17-Oct-2015 Encounter Diagnosis: Problem not documented 14:00 Appointment; Dlae Fair M.D. On Encounter Diagnosis: Problem not [...] Diagnosis: Problem not documented 15:45 Appointment; Benson Servni M.D. On 09-Feb-2015 Encounter Diagnosis: Problem not documented 08:30 Appointment; Benson Servin M.D. On 08-Feb-2015 Encounter Diagnosis: Problem not documented 08:45 Appointment; Arcadio Lucas M.D.|F.A.C.S.|M.D.,RAJIV|Shayne,RAJIV, On 05-Feb-2015 Encounter Diagnosis: Problem not documented [...] Problem not documented 08:15 Appointment; Samina Malik, [place] On 19-Oct-2014 Encounter Diagnosis: Problem not documented 10:45 Appointment; Dale Fair M.D. On 11-Oct-2014 Encounter Diagnosis: Problem not documented 13:00"
--- OUTSIDE RECORDS SUMMARY | 2017-08-06 07:07 | External Medical Summary | Summary of Care ---
[...] Status: Active Anxiety (300.00, F41.9) Status: Active Post-menopausal (V49.81, Z78.0) Status: Active Pain in both hands (729.5, M79.641) Status: Active Tendonitis of finger (727.05, M77.9) Status: Active Pseudophakia of left eye (V43.1, [...] for breast cancer (V76.10, Z12.39) Status: Active Hypertension (401.9, I10) Status: Active Hypothyroidism (244.9, E03.9) Status: Active Hyperlipidemia (272.4, E78.5) Status: Active Medications Name Dates Details Cyclobenzaprine HCl - 10 MG Oral Tablet Take 1 tablet at bedtime as needed Quantity: 90 Refills: 1 Marv Layne.Dale Mackenzie Start 09-Dec-2007 Active MetFORMIN HCl - 1000 MG Oral Tablet Take one tablet by mouth twice daily with meals Quantity: 180 Refills: 3 Dale Fair M.D. Start 09-Dec-2007 Active Lyrica 50 MG Oral Capsule TAKE 1 CAPSULE TWICE DAILY. Quantity: 180 Refills: 1 Marv M.Dale Mackenzie 27-Oct-2008 Active Escitalopram Oxalate 20 MG Oral Tablet take one tablet by mouth every day Quantity: 90 Refills: 3 Marv M.Dale Mackenzie 01-Jan-2009 Active Simvastatin 40 MG Oral Tablet TAKE ONE TABLET(S) BY MOUTH DAILY DIRECTED Quantity: 90 Refills: 3 Dale Fair M.D. Start 10-Dec-2009 Active Zetia 10 MG Oral Tablet TAKE 1 TABLET DAILY. Quantity: 90 Refills: 3 Dale Fair M.D. Start 10-Dec-2009 Active Levothyroxine Sodium 75 MCG Oral Tablet Take 1 tablet by mouth daily. Quantity: 90 Refills: 3 Marleny Bella Harry Davis Start 15-Mar-2010 Active Losartan Potassium 100 MG Oral Tablet take one tablet by mouth every day Quantity: 90 Refills: 3 Dale Fair M.D. Start 18-Mar-2010 Active Vitamin B-12 1000 MCG Oral Tablet TAKE 1 TABLET DAILY DIRECTED. Refills: 0 Dale Fair M.D. Start 23-Oct-2010 Active Folic Acid 1 MG Oral Tablet Refills: 0 Active B-Complex Oral Capsule Refills: 0 Start 23-Oct-2011 Active Vitamin D3 1000 UNIT Oral Capsule TAKE DIRECTED. Refills: 0 Start 19-Oct-2014 Active PrednisoLONE Acetate 1 % Ophthalmic Suspension Install 1 drop as directed 6 times daily (during waking hours) Starting after surgery. Quantity: 10 Refills: 1 Gareth Bella Benson Weems Start 23-Jan-2015 Active Co Q-10 400 MG Oral Capsule Refills: 0 Dale Fair M.D. Start 18-Apr-2015 Active Ferrous Sulfate 325 (65 Fe) MG Oral Tablet take 1 tablet by mouth every day Quantity: 31 Refills: 0 Dale Fair M.D. Start 18-Apr-2015 Active Acetaminophen 500 MG Oral Tablet TAKE TWO TABLET(S) BY MOUTH TWICE DAILY Quantity: 360 Refills: 0 Dale Fair M.D. Start 19-Oct-2014 Active Vitamin D3 5000 UNIT Oral Capsule TAKE DAILY DIRECTED. Quantity: 90 Refills: 3 Dale Fair M.D. Start Active Aspirin Adult Low Dose 81 MG Oral Tablet Delayed Release TAKE 1 TABLET DAILY. Quantity: 90 Refills: 3 Dale Fair M.D. Start Active Magnesium 400 MG Oral Tablet 1 tablet BID Quantity: 180 Refills: 3 Crater M.D., Dale AActive Ginkgo Biloba 60 MG Oral Capsule TAKE 1 CAPSULE TWICE DAILY. Refills: 0 Dale Fair M.D. Start 30-Nov-2015 Active TraMADol HCl - 50 MG Oral Tablet TAKE ONE TABLET(S) BY MOUTH TID NEEDED Quantity: 270 Refills: 0 Dale Fair M.D. Start 11-Oct-2014 Active Mirtazapine 15 MG Oral Tablet TAKE 1 TABLET BY MOUTH AT BEDTIME. Quantity: 90 Refills: 2 Dale Fair M.D. Start Active Tums 500 MG Oral Tablet Chewable TAKE DIRECTED. Refills: 0 Jeffrey Decker M.D.ia Start 18-Jun-2016 Active ClonazePAM 1 MG Oral Tablet TAKE 1 TABLET BY MOUTH AT BEDTIME NEEDED Quantity: 90 Refills: 0 Dale Fair M.D. Start Active LevoFLOXacin 750 MG Oral Tablet take 1 daily for 10 days Quantity: 30 Refills: 3 Harry Farmer M.D. Start 25-Jul-2016 Active BuPROPion HCl ER (SR) 150 MG Oral Tablet Extended Release 12 Hour Take one tablet by mouth twice a day Quantity: 90 Refills: 3 Dale Fair M.D. Start 23-Jun-2016 Active Vitamin D2 2000 UNIT Oral Tablet TAKE ONE TABLET BY MOUTH EVERY DAY. Quantity: 30 Refills: 6 Jeffrey Decker M.D.ia Start End 03-Mar-2017 Active Vitamin D3 74457 UNIT Oral Capsule Take one tablet by mouth weekly for 6 weeks Quantity: 6 Refills: 0 Mine Decker M.D. Start Active Allergies and Adverse Reactions Name Dates [...] Cholecystectomy Colonoscopy- Screening or Dx Ordered: 17-Jul-2016 XRay SPINE-LUMBAR Ordered: 30-Jun-2016 MAMMOGRAM-SCREENING Ordered: 17-Jul-2016 Immunization Name Dates Details Hepatitis B on: 1991 MMR on: 26-Jul-1992 Tetanus-Diphtheria Toxoids Td 2-2 LF/0.5ML Intramuscular Suspension on: Hepatitis A on: 29-Nov-1998 MMR on: 03-Oct-2009 Lot #: [id number] MMR on: 03-Oct-2009 Tdap (Adacel) on: Lot #: [id number] Pneumo (Pneumovax) on: Lot #: [id number] Zoster (Zostavax) on: 15-Oct-2011 Lot #: [id number] Fluzone Quadrivalent 0.5 ML Intramuscular Suspension on: 09-Jan-2014 Lot #: [id number] Fluzone Quadrivalent 0.5 ML Intramuscular Suspension on: 02-Feb-2015 Lot #: [id number] Prevnar 13 Intramuscular Suspension on: Lot #: [id number] Fluzone High-Dose 0.5 ML Intramuscular Suspension Prefilled Syringe on: Lot #: [id number] Pneumovax 23 25 MCG/0.5ML Injection Injectable on: 30-Jun-2016 Lot #: [id number] Pneumovax 23 25 MCG/0.5ML Injection Injectable on: 02-Jul-2016 Lot #: [id number] Family History Grandmother Name Dates Details Family [...] smoker Vital Signs Date Test Result Details 13:48 BP Systolic 138 mm[Hg] Status: Comments: Location: ; Position: BP Diastolic 82 mm[Hg] Status: Comments: Location: ; Position: Heart Rate 78 /min Status: Comments: Location: ; Weight 197 lb Status: Physical Findings 98 Status: Comments: O2 Saturation Body Mass Index Calculated 34.9 kg/m2 Status: Body Surface Area Calculated 1.92 m2 Status: 17-Jul-2016 13:01 BP Systolic 128 mm[Hg] Status: Comments: Location: ; Position: BP Diastolic 62 mm[Hg] Status: Comments: Location: ; Position: Heart Rate 85 /min Status: Comments: Location: ; Weight 196 lb Status: Physical Findings 93 Status: Comments: O2 Saturation Body Mass Index Calculated 34.72 kg/m2 Status: Body Surface Area Calculated 1.92 m2 Status: Results Date Description Value Details 29-Jul-2016 16:27 Vitamin D, 25 - Hydroxy 3111 VITAMIN D, 25-HYDROXY 21 ng/mL (Below low threshold) Range: 30-100 11:10 S. PNEUMO IGG (14 SERO) Comments: [facility] performed at: [facility], [facility] [address] [place], [address] , [place]ger Runner: Ho [id number] aby Hinojosa MDQuest Collection Date/Time: [id number] Results Received Date/Time: [id number] Reported Date/Time: FASTING:NO SEROTYPE 1 (1) 10.5 mcg/mL Comments: [TXC]----- SEROTYPE 3 (3) 11.6 mcg/mL Comments: [TXC]----- SEROTYPE 4 (4) 1.2 mcg/mL Comments: [TXC]----- SEROTYPE 5 (5) 1.4 mcg/mL Comments: [TXC]----- SEROTYPE 8 (8) 3.9 mcg/mL Comments: [TXC]----- SEROTYPE 9 (9N) 4.4 mcg/mL Comments: [TXC]----- SEROTYPE 12 (12F) 3.2 mcg/mL Comments: [TXC]----- SEROTYPE 14 (14) 4.7 mcg/mL Comments: [TXC]----- SEROTYPE 19 (19F) 7.1 mcg/mL Comments: [TXC]----- SEROTYPE 23 (23F) 1.3 mcg/mL Comments: [TXC]----- SEROTYPE 26 (6B) 6.6 mcg/mL Comments: [TXC]----- SEROTYPE 51 (7F) 6.8 mcg/mL Comments: [TXC]----- SEROTYPE 56 (18C) 9.3 mcg/mL Comments: [TXC]----- SEROTYPE 68 (9V) 1.3 mcg/mL Comments: Serologic correlates of protection against pneumococcaldisease have not been rigorously established for allpatient populations. Published data and expert consensus(including WHO) suggest protection from invasive diseaseusually occurs at levels >or=0.3-0.50 mcg/mL for healthychildren receiving pneumococcal conjugate vaccines.Higher titers may be necessary to protect fromnon-invasive infection (e.g., pneumonia, otitis,sinusitis). Expert opinion suggests that a cut-offof & gt;=1.3 mcg/mL may be a more relevant value to assessantibody responses after pneumococcal polysaccharidevaccines or for immunoco mpromised patients. In additionto antibody quantity, protection also depends on antibodyavidity and opsonophagocytic activity. Some expertsconsider that post-vaccination (4-6 weeks) IgGseroconversion an d/or 2- to 4-fold rise in IgG titersfor >50% to 70% of vaccine serotypes demonstrates anormal post-vaccine serologic response. Persons withhigh initial serotype-specific titers may have lessrobust re sponses.[facility] uses a multi- analyteimmunodetection (MAID) method. The method employs [employer] flow cytometric system which measures multipleanalytes simultaneously. The F DA standard referenceserum 89-S is used as the calibration standard. Resultsare reported in mcg/mL.This assay detects 11 of the 13 serotypes in the13 -valent conjugate vaccine, and 14 of the 23 serotypes in the 23-valent polysaccharide vaccine.This test was developed and its analyticalperformance characteristics have been determinedby [facility]. It has notbeen cleared or appro truman by FDA. This assay has beenvalidated pursuant to the CLIA regulations and is usedfor clinical purposes.For additional information, please refer [email or web address]/LMQ013(This link i----- Plan of Care Name Dates Details Planned Observations Planned Goals not documented Planned Encounters Appointment; Provider: Emmy Vasquez A.P.R.N. On 20-Jul-2017 13:00 Appointment; Provider: Benson Servin M.D. On 29-May-2017 09:00 Appointment; Provider: Dale Fair M.D. On 13:30 Appointment; Provider: Schedule Radiology On 14:50 Instructions Name Dates Details Instructions not documented Encounters Appointment; Dale Fair M.D. On 16-Jun-2016 Encounter Diagnosis: Problem not documented 15:45 Appointment; Dale Fair M.D. On 02-Jun-2016 Encounter Diagnosis: Problem not documented 13:00 Appointment; Benson Servin M.D. On 28-May-2016 Encounter Diagnosis: Problem not documented 13:45 Appointment; Benson Servin M.D. On 09-Jan-2016 Encounter Diagnosis: Problem not documented 14:00 Appointment; Anna Marie Sutton A.P.R.N. On 07-Jan-2016 Encounter Diagnosis: Problem not documented 13:00 Appointment; Anna Marie Sutton A.P.R.N. On 07-Jan-2016 Encounter Diagnosis: Problem not documented 13:00 Appointment; Robb Tavarez M.D. On 07-Dec-2015 Encounter Diagnosis: Problem not documented 07:30 Appointment; Dale Fair M.D. On 30-Nov-2015 Encounter Diagnosis: Problem not documented 13:00 Appointment; Anna Marie Sutton A.P.R.N. On 30-Oct-2015 Encounter Diagnosis: Problem not documented 14:15 Appointment; Dale Fair M.D. On 29-Oct-2015 Encounter Diagnosis: Problem not documented 14:30 Appointment; Harry Maurer M.D.,[facility], On 17-Oct-2015 Encounter Diagnosis: Problem not documented [...] Problem not documented 08:45 Appointment; Arcadio Lucas M.D.|Ar|Shayne,RAJIV|Shayne,RAJIV, On 05-Feb-2015 Encounter Diagnosis: Problem not documented [...] Problem not documented 08:15 Appointment; Samina Malik, PJw On 19-Oct-2014 Encounter Diagnosis: Problem not documented 10:45 Appointment; Dale Fair M.D. On 11-Oct-2014 Encounter Diagnosis: Problem not documented 13:00"
--- OUTSIDE RECORDS SUMMARY | 2017-08-06 07:07 | External Medical Summary | Summary of Care ---
:1950 Author Name Lance Bella, RAJIV, ,, Arcadio Marks Address [address] [place], [place] [id number] Care Team Providers Name Role Phone Dale Fair M.D. Unavailable Unavailable Benson Servin M.D. 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 Started ActiveClonazePAM 0.5 MG [...] 6 HOURS NEEDED. Refills: 0 Started 19-Oct-2014 ActiveVigamox 0.5 % Ophthalmic Solution INSTILL 1 DROP INTO AFFECTED EYE(S) 3 TIMES DAILY. Quantity: 1 Refills: 1 Benson Servin M.D. Started 23-Jan-2015 Active3 ML Bottle PrednisoLONE Acetate 1 % Ophthalmic Suspension Install 1 drop as directed 6 times daily (during waking hours) Starting after surgery. Quantity: 10 Refills: 1 Benson Servin M.D. Started 23-Jan-2015 ActiveAzithromycin 250 MG Oral Tablet TAKE 2 TABLETS ON DAY 1 THEN TAKE 1 TABLET A DAY FOR 4 DAYS. Quantity: 1 Refills: 0 Dale Fair M.D. Started 02-Feb-2015 Active6 Tablet Disp Pack Meloxicam 7.5 MG Oral Tablet Take one tablet [...] on:03-Oct-2009 Tdap (Adacel) Administered on: Lot #: [id number] Pneumo (Pneumovax) Administered on: Lot #: [id number] Zoster (Zostavax) Administered on:15-Oct-2011 Lot #: [id number] Fluzone Quadrivalent 0.5 ML Intramuscular Suspension Administered on:2013 Lot #: [id number] Fluzone Quadrivalent 0.5 ML Intramuscular Suspension Administered on:2014 Lot #: [id number] Family History Grandmother Name Dates Details Family [...] smoker Vital Signs Date Test Result Details 02-Feb-2015 10:22 BP Systolic 124 mm[Hg] Status: BP Diastolic 88 mm[Hg] Status: Heart Rate 99 /min Status: Weight 196.125 lb Status: O2 SAT 97 % Status: Body Mass Index Calculated 34.2 kg/m2 Status: Body Surface Area Calculated 1.93 m2 Status: Results Date Description Value Details 08-Jan-2015 15:55 Diabetic Eye Exam Diabetic Eye Exam No Diabetic Retinopathy (Better) Diabetic Eye Exam on Yes (Better) Chart 18-Jan-2015 MAMMOGRAM-SCREENING Comments: Exam Date: 01/17/2015 15: 38Dictation Date: 01/18/2015 09:12 09:12 XM SCREENING (Better) 02-Feb-2015 10:03 CBC w/ Auto Diff 7150 WBC 6.5 K/uL (Better) Range: 4.5-11.0 RBC 4.23 mil/uL (Better) Range: 3.60-5.00 HGB 11.9 g/dL (Below low Range: 12.0-16.0 threshold) HCT 39.1 % (Better) Range: 36.0-48.0 MCV 92.5 fL (Better) Range: 80.0-99.0 MCH 28.1 pg (Better) Range: 27.3-32.5 MCHC 30.3 % (Below low Range: 32.0-36.0 threshold) RDW 15.7 % (Above high Range: 11.6-14.8 threshold) PLATELETS 241 K/uL (Better) Range: 150-400 MPV 8.1 fL (Better) Range: 6.0-11.0 %NEUTRO 49.5 % (Better) Range: 37.0-80.0 %LYMPHS 41.3 % (Better) Range: 13.0-50.0 %MONO 4.9 % (Better) Range: 0.0-12.0 %EOS 1.5 % (Better) Range: 0.0-7.0 %BASO 0.5 % (Better) Range: 0.0-2.5 %TRISTIN 2.3 % (Better) Range: 0.0-5.0 NEUTRO 3.2 K/uL (Better) Range: 2.0-6.9 LYMPHS 2.7 K/uL (Better) Range: 0.6-3.4 MONOS 0.3 K/uL (Better) Range: 0.0-0.9 EOS 0.1 K/uL (Better) Range: 0.0-0.7 BASO 0.0 K/uL (Better) Range: 0.0-0.2 10:10 ECG/ EKG Preop Electro CardioGram (Better) 10:28 Comprehensive Metabolic Panel 1212 SODIUM 135 mmol/L (Better) Range: 133-144 POTASSIUM 3.9 mmol/L (Better) Range: 3.5-5.1 CHLORIDE 98 mmol/L (Better) Range: 98-110 CARBON DIOXIDE 26.3 mmol/L (Better) Range: 23.0-33.0 ANION GAP 11 mmol/L (Better) Range: 6-16 BUN 14 mg/dL (Better) Range: 7-18 CREATININE, SERUM 1.09 mg/dL (Above high Range: 0.55-1.02 threshold) Comments: Please note new reference ranges effective 2014.----- BUN:CREATININE RATIO 13 (Better) EST GFR, >60 ml/min (Better) Range: >60 EST GFR, NON-AFR SPANISH 50 ml/min (Below low Range: >60 threshold) Comments: EST GFR is reported in ml/min per 1.73 m2 of body surface area. For -[place] Citizen, please multiple result by 1.2.----- GLUCOSE 129 mg/dL (Above high Range: 70-100 threshold) ALK PHOSPHATASE 87 U/L (Better) Range: 46-116 TOTAL BILIRUBIN 0.30 mg/dL (Better) Range: 0.20-1.00 AST 34 U/L (Better) Range: 8-35 ALT 41 U/L (Better) Range: 14-59 Comments: Please note new reference ranges. Effective 05/11/2014.----- ALBUMIN 3.6 g/dL (Better) Range: 3.4-5.0 TOTAL PROTEIN 7.5 g/dL (Better) Range: 6.4-8.2 A/G RATIO 0.9 units (Below low Range: 1.0-1.8 threshold) CALCIUM 9.2 mg/dL (Better) Range: 8.5-10.1 10:32 XRay CHEST-PA & LAT Comments: Exam Date: 02/02/2015 09: 21Dictation Date: 02/02/2015 10:32 X CHEST PA & LAT (Better) 11:24 Urinalysis, Reflex to Microscopic or Culture PRN 8005 pH 6.0 (Better) Range: 5.0-7.5 SP GRAVITY 1.010 (Better) Range: 1.010-1.030 APPEARANCE CLEAR (Better) Range: Clear COLOR YELLOW (Better) Range: Straw-Yellow PROTEIN NEGATIVE mg/dL Range: Negative-Trace (Better) GLUCOSE NEGATIVE mg/dL Range: Negative (Better) KETONE NEGATIVE mg/dL Range: Negative (Better) BILIRUB NEGATIVE (Better) Range: Negative BLOOD NEGATIVE (Better) Range: Negative UROBIL 0.2 EU/dL (Better) Range: 0.2-1.0 NITRITE NEGATIVE (Better) Range: Negative LEUK TRACE (Abnormal) Range: Negative 11:24 Urine Microscopic UMIC WBC 0-2 /HPF (Better) Range: 0-5 RBC 0-2 /HPF (Better) Range: 0-2 BACTERIA Trace /HPF (Better) Range: Negative-Trace Plan of Care Planned Observations Name Dates Details Planned Goals not documented Goal Planned Encounters Appointment; Provider: Schedule Radiology On 18-Jan-2016 16:00 Appointment; Provider: Benson Servin On 09-Jul-2015 13:45 Appointment; Provider: Dale Fair On 18-Apr-2015 13:30 Appointment; Provider: Benson Servin On 27-Feb-2015 14:15 Appointment; Provider: Benson Servin On 21-Feb-2015 08:00 Appointment; Provider: Benson Servin On 20-Feb-2015 08:30 Appointment; Provider: Benson Servin On 16-Feb-2015 09:30 Appointment; Provider: Robb Tavarez On 12-Feb-2015 15:45 Appointment; Provider: Benson Servin On 09-Feb-2015 08:30 Appointment; Provider: Benson Servin On 08-Feb-2015 08:45 Appointment; Provider: Schedule Radiology On 17-Jan-2015 16:00 Appointment; Provider: Jai Piper On 05-Dec-2013 13:15 Appointment; Provider: Rob Ramírez On 19-Nov-2009 07:30 Appointment; Provider: Rob Ramírez On 24-Oct-2009 08:30 Appointment; Provider: Sharyn Simmons On 09-Feb-2009 16:30 Appointment; Provider: Rich Jose On 02-Jan-2009 07:30 Appointment; Provider: Sharyn Simmons On 16:30 Instructions Instructions not documented Encounters Appointment; Arcadio Lucas On 05-Feb-2015 Encounter Diagnosis: [...]
--- OUTSIDE RECORDS SUMMARY | 2017-08-06 07:07 | External Medical Summary | Summary of Care ---
:1950 Author Name Mine Decker M.D. Address Unavailable Unavailable , Care Team Providers Name Role Phone Brianne Bella, Mine Unavailable Unavailable Marv Bella, [...] Status: Active Obesity (278.00, E66.9) Status: Active Bronchiectasis (494.0, J47.9) Status: Active Type 2 diabetes mellitus (250.00, E11.9) Status: Active Recurrent respiratory infection (519.8, J98.8) Status: Active Medications Name Dates Details Cyclobenzaprine HCl - 10 MG Oral Tablet Take 1 tablet at bedtime as needed Quantity: 90 Refills: 1 Dale Fair M.D. Start 09-Dec-2007 Active MetFORMIN HCl - 1000 MG Oral Tablet Take one tablet by mouth twice daily with meals Quantity: 180 Refills: 3 Dale Fair M.D. Start 09-Dec-2007 Active Escitalopram Oxalate 20 MG Oral Tablet [...] 3 Dale Fair M.D. Start 10-Dec-2009 Active Losartan Potassium 100 MG Oral Tablet take one tablet by mouth every day Quantity: 90 Refills: 3 Dale Fair M.D. Start 18-Mar-2010 Active Vitamin B-12 1000 MCG Oral Tablet TAKE 1 TABLET DAILY DIRECTED. Refills: 0 Dale Fair M.D. Start 23-Oct-2010 Active Folic Acid 1 MG Oral Tablet Refills: 0 Active B-Complex Oral Capsule Refills: 0 Start 23-Oct-2011 Active Magnesium 400 MG Oral Tablet 1 tablet BID Quantity: 180 Refills: 3 Marv MVineet, Dale Shintive TraMADol HCl - 50 MG Oral Tablet TAKE ONE TABLET(S) BY MOUTH TID NEEDED Quantity: 270 Refills: 0 Marv M.Gurdeep Dale A Start 11-Oct-2014 Active Vitamin D3 1000 UNIT Oral Capsule TAKE DIRECTED. Refills: 0 Start 19-Oct-2014 Active Acetaminophen 500 MG Oral Tablet TAKE TWO TABLET(S) BY MOUTH TWICE DAILY Quantity: 360 Refills: 0 Marv Layne.Dot.Dale Start 19-Oct-2014 Active Co Q-10 400 MG Oral Capsule Refills: 0 Marv M.Gurdeep, Dale Marks Start 18-Apr-2015 Active Aspirin Adult Low Dose 81 MG Oral Tablet Delayed Release TAKE 1 TABLET DAILY. Quantity: 90 Refills: 3 Marv M.D., Dale Marks Start Active Vitamin D3 5000 UNIT Oral Capsule TAKE DAILY DIRECTED. Quantity: 90 Refills: 3 Marv M.Dot.Dale Start Active Tums 500 MG Oral Tablet Chewable TAKE DIRECTED. Refills: 0 Brianne MVineet Mine Start 18-Jun-2016 Active BuPROPion HCl ER (SR) 100 MG Oral Tablet Extended Release 12 Hour TAKE 1 TABLET DAILY. Quantity: 9 Refills: 0 Marv M.Dale Mackenzie Start 23-Jun-2016 Active Mirtazapine 15 MG Oral Tablet TAKE 1 TABLET BY MOUTH AT BEDTIME. Quantity: 90 Refills: 2 Marv M.Dot., Dale Marks Start Active Levothyroxine Sodium 75 MCG Oral Tablet Take 1 tablet by mouth daily. Quantity: 90 Refills: 3 Marv M.D., Dale Marks Start 15-Mar-2010 Active Ginkgo Biloba 60 MG Oral Capsule TAKE 1 CAPSULE TWICE DAILY. Refills: 0 Marv M.Dale Mackenzie Start 30-Nov-2015 Active Ferrous Sulfate 325 (65 Fe) MG Oral Tablet take 1 tablet by mouth every day Quantity: 31 Refills: 0 Marv M.Dot., Dale Marks Start 18-Apr-2015 Active PrednisoLONE Acetate 1 % Ophthalmic Suspension Install 1 drop as directed 6 times daily (during waking hours) Starting after surgery. Quantity: 10 Refills: 1 Gareth BellaBenson Start 23-Jan-2015 Active ClonazePAM 1 MG Oral Tablet TAKE 1 TABLET BY MOUTH AT BEDTIME NEEDED Quantity: 90 Refills: 0 Marv BellaDale Start Active Lyrica 50 MG Oral Capsule TAKE 1 CAPSULE TWICE DAILY. Quantity: 180 Refills: 1 Marv Bella, Dale Marks Start 27-Oct-2008 Active Allergies and Adverse Reactions Name Dates [...] of Rotator Cuff Repair History of Cholecystectomy Vitamin D, 25 - Hydroxy 3111 Ordered: 18-Jun-2016 Immunization Name Dates Details Hepatitis B on: 1991 MMR on: 26-Jul-1992 Tetanus-Diphtheria Toxoids Td 2-2 LF/0.5ML Intramuscular Suspension on: Hepatitis A on: 29-Nov-1998 MMR on: 03-Oct-2009 Lot #: [id number] MMR on: 03-Oct-2009 Tdap (Adacel) on: Lot #: [id number] Pneumo (Pneumovax) on: Lot #: [id number] Zoster (Zostavax) on: 15-Oct-2011 Lot #: [id number] Fluzone Quadrivalent 0.5 ML Intramuscular Suspension on: 09-Jan-2014 Lot #: [id number] Fluzone Quadrivalent 0.5 ML Intramuscular Suspension on: 02-Feb-2015 Lot #: [id number] Prevnar 13 Intramuscular Suspension on: Lot #: [id number] Fluzone High-Dose 0.5 ML Intramuscular Suspension Prefilled Syringe on: Lot #: [id number] Family History Grandmother Name Dates Details Family [...] smoker Vital Signs Date Test Result Details 18-Jun-2016 13:43 BP Systolic 130 mm[Hg] Status: Comments: Location: ; Position: BP Diastolic 65 mm[Hg] Status: Comments: Location: ; Position: Temperature 97.5 f Status: Height 63 in Status: Weight 198 lb Status: Body Mass Index Calculated 35.07 kg/m2 Status: Body Surface Area Calculated 1.93 m2 Status: 16-Jun-2016 15:40 BP Systolic 138 mm[Hg] Status: Comments: Location: ; Position: BP Diastolic 80 mm[Hg] Status: Comments: Location: ; Position: Heart Rate 81 /min Status: Comments: Location: ; Weight 197.8 lb Status: Physical Findings 98 Status: Comments: O2 Saturation Body Mass Index Calculated 34.49 kg/m2 Status: Body Surface Area Calculated 1.94 m2 Status: 02-Jun-2016 12:50 BP Systolic 126 mm[Hg] Status: Comments: Location: ; Position: BP Diastolic 72 mm[Hg] Status: Comments: Location: ; Position: Heart Rate 100 /min Status: Weight 198.6 lb Status: Physical Findings 97 Status: Comments: O2 Saturation Body Mass Index Calculated 34.63 kg/m2 Status: Body Surface Area Calculated 1.94 m2 Status: Results Date Description Value Details 28-May-2016 15:43 Diabetic Eye Exam Diabetic Eye Exam No Diabetic Retinopathy Diabetic Eye Exam on Chart Yes 30-May-2016 12:09 CBC w/ Auto Diff 7150 Comments: Fastin hours WBC 7.1 K/uL Range: 4.5-11.0 RBC 4.44 mil/uL Range: 3.60-5.00 HGB 13.2 g/dL Range: 12.0-16.0 HCT 41.9 % Range: 36.0-48.0 MCV 94.2 fL Range: 80.0-99.0 MCH 29.7 pg Range: 27.3-32.5 MCHC 31.5 % (Below low threshold) Range: 32.0-36.0 RDW 15.8 % (Above high threshold) Range: 11.6-14.8 PLATELETS 344 K/uL Range: 150-400 MPV 7.0 fL Range: 6.0-11.0 %NEUTRO 54.5 % Range: 37.0-80.0 %LYMPHS 37.8 % Range: 13.0-50.0 %MONO 4.1 % Range: 0.0-12.0 %EOS 1.0 % Range: 0.0-7.0 %BASO 0.5 % Range: 0.0-2.5 %TRISTIN 2.0 % Range: 0.0-5.0 NEUTRO 3.9 K/uL Range: 2.0-6.9 LYMPHS 2.7 K/uL Range: 0.6-3.4 MONOS 0.3 K/uL Range: 0.0-0.9 EOS 0.1 K/uL Range: 0.0-0.7 BASO 0.0 K/uL Range: 0.0-0.2 12:13 Comprehensive Metabolic Panel 1212 Comments: Fastin hours SODIUM 141 mmol/L Range: 133-144 POTASSIUM 4.1 mmol/L Range: 3.5-5.1 CHLORIDE 103 mmol/L Range: 98-110 CARBON DIOXIDE 29.0 mmol/L Range: 23.0-33.0 ANION GAP 9 mmol/L Range: 6-16 BUN 16 mg/dL Range: 7-18 CREATININE, SERUM 1.01 mg/dL Range: 0.55-1.02 BUN:CREATININE RATIO 16 EST GFR, >60 ml/min Range: >60 EST GFR, NON-AFR NICARAGUAN 55 ml/min (Below low Range: >60 threshold) Comments: EST GFR is reported in ml/min per 1.73 m2 of body surface area. ----- GLUCOSE 126 mg/dL (Above high Range: 70-100 threshold) ALK PHOSPHATASE 84 U/L Range: 46-116 TOTAL BILIRUBIN 0.20 mg/dL Range: 0.20-1.00 AST 29 U/L Range: 8-35 ALT 30 U/L Range: 14-59 ALBUMIN 3.8 g/dL Range: 3.4-5.0 TOTAL PROTEIN 8.1 g/dL Range: 6.4-8.2 A/G RATIO 0.9 units (Below low Range: 1.0-1.8 threshold) CALCIUM 9.0 mg/dL Range: 8.5-10.1 12:13 LIPID PROFILE 1184 Comments: Fastin hours CHOLESTEROL 185 mg/dL Range: <200 TRIGLYCERIDES 191 mg/dL Range: 30-200 HDL Cholesterol 63 mg/dL Range: >39 NON HDL CHOLESTEROL 122 CARDIAC RSK FACTOR 2.9 units (Below low threshold) Range: 4.4-5.0 LDL - CALCULATED 84 mg/dL Range: 0-130 12:21 THYROID STIM. HORMONE 3602 Comments: Fastin hours THYROID STIM. HORMONE 2.769 uIU/mL Range: 0.550-4.780 Comments: No established reference ranges for infants and children &lt ;2 years of age----- 14:47 HEMOGLOBIN A1C 3507 Comments: Fastin hours Hemoglobin A1C 6.6 % ESTIMATED AVG. GLUCOSE 143 04-Jun-2016 15:35 CT CHEST WITH IV CONTRAST Comments: Exam Date: 06/04/2016 14 :57Dictation Date: 06/04/2016 15:35 XC CHEST 20-Jun-2016 09:05 Complement, Total (CH50) [id number] Comments: Testing performed at: [] [address], [address], , [place] Drawer: Lucio Savage MD COMPLEMENT, TOTAL (CH50) >60 U/mL (Above high threshold) Range: 42-60 25-Jun-2016 09:29 HISS PANEL [id number] Comments: [facility] performed at: [facility], [address] [place] [address], , [place] Drawer: Maninder Garvin M.D.,PhDTes ting performed at: [facility], [address] [place] [address], [address], [place] Drawer: Lucio Gomez D.O., MPHTesting performed at: [facility] [address], [address], [place] Drawer: Walker Hinojosa MDQuest Collection Date/Time : [id number] Results Received Date/Time : [id number] Reported Date/Time: [id number] FASTING:NOQuest performed at: [facility]/wali [facility], [address] [place] [address], , [place] Drawer: Maninder Garvin M.D.,PhDTesting performed at: [facility], [address] [place] [address], [phone], [place] Drawer: Lucio Gomez D.O., M PHTesting performed at: [facility], [address] [place], [address] , [place] Drawer: Walker Hinojosa MDQuest C ollection Date/Time: [id number] Results Received Date/Time: [id number] Reported Date/Time: FASTING:NOQuest performed at: [facility], [facility], [address] [place] [address], , [place] Drawer: Maninder Garvin M.D.,PhDTesting performed at: [place], [facility], [address] [facility], [place], [address], [place] Drawer: Lucio Gomez D.O., MPHTesting performed at: [facility], [facility], [address] [place] [address], [address], [place] Drawer: Walker Hinojosa MDQuest Collection Date/Time: [id number] Results Received Date/Time: [id number] Reported Date/Time: [id number] FASTING:NOQ uest performed at: [facility], [facility]/ wali [facility], [address] [place] [address], , [place] Drawer: Maninder Garvin M.D.,PhDTest ing performed at: NE, [facility], [address], [place], [address], [place] Drawer: Lucio Gomez D.O., MPHQuest Collection Date/Time: [id number] Results Received D ate/Time: [id number] Reported Date/Time: [id number] FASTING: NOQuest performed at: NE, [facility] , [address], [place], [address], Labo ratory Director: Lucio Gomez D.O., MPHQuest Collection Date/Time: [id number] Results Received Date/Time: [id number] Reported Date/Time: FASTING:NOQuest Accession #: [id number] performed at: NE, [facility], [address] [place], [address], [place] Drawer: Lucio Gomez D.O., MPHQuest Collection Date/Time: [id number] Result s Received Date/Time: [id number] Reported Date/Time: FASTING:NO IMMUNOGLOBULIN A 320 mg/dL Range: 81-463 Comments: [KS]----- IMMUNOGLOBULIN G 881 mg/dL Range: 694-1618 Comments: [KS]----- IMMUNOGLOBULIN M 63 mg/dL Range: 48-271 Comments: [KS]----- IMMUNOGLOBULIN E 7 kU/L Range: <NL=074 Comments: [KS]----- IMMUNOGLOBULIN G SUBCLASS 1 474 mg/dL Range: 382-929 Comments: [AMD]----- IMMUNOGLOBULIN G SUBCLASS 2 273 mg/dL Range: 241-700 Comments: [AMD]----- IMMUNOGLOBULIN G SUBCLASS 3 25 mg/dL Range: 22-178 Comments: [AMD]----- IMMUNOGLOBULIN G SUBCLASS 4 8.0 mg/dL Range: 4.0-86.0 Comments: [AMD]----- IMMUNOGLOBULIN G, SERUM 812 mg/dL Range: 694-1618 Comments: [AMD]----- SEROTYPE 1 (1) 4.9 mcg/mL Comments: [TXC]----- SEROTYPE 3 (3) 0.8 mcg/mL Comments: [TXC]----- SEROTYPE 4 (4) 0.5 mcg/mL Comments: [TXC]----- SEROTYPE 5 (5) 0.5 mcg/mL Comments: [TXC]----- SEROTYPE 8 (8) 0.7 mcg/mL Comments: [TXC]----- SEROTYPE 9 (9N) 2.3 mcg/mL Comments: [TXC]----- SEROTYPE 12 (12F) 0.9 mcg/mL Comments: [TXC]----- SEROTYPE 14 (14) 2.5 mcg/mL Comments: [TXC]----- SEROTYPE 19 (19F) 2.1 mcg/mL Comments: [TXC]----- SEROTYPE 23 (23F) 0.4 mcg/mL Comments: [TXC]----- SEROTYPE 26 (6B) 3.8 mcg/mL Comments: [TXC]----- SEROTYPE 51 (7F) 4.4 mcg/mL Comments: [TXC]----- SEROTYPE 56 (18C) 3.9 mcg/mL Comments: [TXC]----- SEROTYPE 68 (9V) 0.6 mcg/mL Comments: Although the minimum serum antibody concentrationnecessary for protection has not been rigorouslyestablished for any pneumococcal serotype, a valueof greater than or equal to 0.3-0.50 mcg/mL issupported by peer reviewed publications and expertconsensus.This assay detects 11 of the 13 serotypes in aji36-dkwvzt conjugate vaccine, and 14 of the 23serotypes in the 23-valent vaccine. Immune responseto the vaccine should result in protection againstat least 50% of the serotypes in the vaccine.This test was developed and its analyticalperformance characteristics have beendetermined by [facility]. It has not been cleared or approved byA. This assay has been validated pursuant to theCLIA regulations and is used for clinical purposes.[TXC]----- TETANUS ANTITOXOID 9.67 IU/mL Comments: REFERENCE RANGE: > or=0.50 IU/ mL (Post-Vaccination) INTERPRETIVE CRITERIA: <0.05 IU/mL Nonprotective Antibody Level 0.05 - 0.49 IU/mL Indeterminate for Protective Antibody > or=0.50 IU/mL Protective Antibody Level> or= 0.50 IU/mL Protective Antibody LevelLevels greater than or equal to 0.50 IU/mL aregenerally considered protective, whereas levelsle ss than 0.05 IU/mL indicate a lack of protectiveantibody. Levels between 0.05 and 0.49 IU/mL areindeterminate for the presence of protectiveantibody and may indicate a need for furtherimmunization to te tanus toxoid.This test was developed and its analyticalPerformance characteristics have beendetermined by [facility].It has not been cleared or approved by FDA. This assayhas b een validated pursuant to the CLIAregulations and is used for clinical purposes.[TXC]----- DIPHTHERIA ANTITOXOID >2.00 IU/mL Comments: REFERENCE RANGE: > or= 0.01 IU/mL (Post-Vaccination) INTERPRETIVE CRITERIA: <0.01 IU/mL Nonprotective Antibody Level > or=0.01 IU/mL Protective Antibody LevelThis test was devel oped and its analyticalPerformance characteristics have beendetermined by [facility].It has not been cleared or approved by FDA. Thisassay has been validated pursuant to the CL IAregulations and is used for clinical purposes.[TXC]----- Plan of Care Name Dates Details Planned Observations Planned Goals not documented Planned Encounters Appointment; Provider: Benson Servin M.D. On 29-May-2017 09:00 Appointment; Provider: Dale Fair M.D. On 17-Jul-2016 13:45 Appointment; Provider: Emmy Vasquez A.P.R.N. On 17-Jul-2016 13:00 Appointment; Provider: Harry Farmer M.D. On 07-Jul-2016 13:00 Instructions Name Dates Details Instructions not documented Encounters Appointment; Mine Decker M.D. On 18-Jun-2016 Encounter [...] Problem not documented 08:45 Appointment; Arcadio Lucas M.D.|Ar|RAJIV Bella|Shayne,RAJIV, On 05-Feb-2015 Encounter Diagnosis: Problem not [...] Problem not documented 09:15 Appointment; Derick Livingston PJw On 07-Jul-2014 Encounter Diagnosis: Problem not documented 10:30 Appointment; Magalie Lauren A.P.R.N. On 04-Jul-2014 Encounter Diagnosis: Problem not documented 14:15"
--- OUTSIDE RECORDS SUMMARY | 2017-08-06 07:08 | External Medical Summary | Summary of Care ---
:1950 Author Name Corby Bella, Robb Address [address], [place] [id number] Care Team Providers Name Role Phone Dale Fair M.D. Unavailable Unavailable Gareth Bella, Benosn Weems Unavailable Unavailable Dale Fair Primary Care [...] Active Diabetes mellitus (250.00, E11.9) Status: Active Presbyopia (367.4, H52.4) Status: Active Pre-operative exam (V72.84, Z01.818) Status: Active Pain in both hands (729.5, M79.641) Status: Active Arthralgia of left hip (719.45, M25.552) Status: Active Cough (786.2, R05) Status: Active History of colon polyps (V12.72, Z86.010) Status: Resolved Colon cancer screening (V76.51, Z12.11) Status: Active Pseudophakia of left eye (V43.1, Z96.1) Status: Active Pseudophakia of right eye (V43.1, Z96.1) Status: Active Medications Name Dates Details Cyclobenzaprine [...] lenses (V53.1, Z46.0) Status: Active History of colon polyps (V12.72, Z86.010) Status: Resolved 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, 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 History of Combined form of senile cataract of right eye (366.19, H25.811) Status: Resolved History of Diagnostic Esophagogastroduodenoscopy Status: Resolved Procedures [...] on:03-Oct-2009 Tdap (Adacel) Administered on: Lot #: [id number] Pneumo (Pneumovax) Administered on: Lot #: [id number] Zoster (Zostavax) Administered on:15-Oct-2011 Lot #: [id number] Fluzone Quadrivalent 0.5 ML Intramuscular Suspension Administered on:2013 Lot #: [id number] Fluzone Quadrivalent 0.5 ML Intramuscular Suspension Administered on:2014 Lot #: [id number] Family History Grandmother Name Dates Details Family [...] smoker Vital Signs Date Test Result Details 21-Feb-2015 08:29 BP Systolic 116 mm[Hg] Status: BP Diastolic 60 mm[Hg] Status: Weight 201 lb Status: Body Mass Index Calculated 35.05 kg/m2 Status: Body Surface Area Calculated 1.95 m2 Status: 12-Feb-2015 15:34 BP Systolic 128 mm[Hg] Status: BP Diastolic 72 mm[Hg] Status: Weight 201 lb Status: Body Mass Index Calculated 35.05 kg/m2 Status: Body Surface Area Calculated 1.95 m2 Status: 02-Feb-2015 10:22 BP Systolic 124 mm[Hg] Status: BP Diastolic 88 mm[Hg] Status: Heart Rate 99 /min Status: Weight 196.125 lb Status: O2 SAT 97 % Status: Body Mass Index Calculated 34.2 kg/m2 Status: Body Surface Area Calculated 1.93 m2 Status: Results Date Description Value Details 02-Feb-2015 10:03 CBC w/ Auto Diff 7150 [...] Range: 7-18 CREATININE, SERUM 1.09 mg/dL (Above Range: 0.55-1.02 high threshold) Comments: Please note new reference ranges effective 07/22.----- BUN:CREATININE RATIO 13 (Better) EST GFR, >60 ml/min Range: >60 (Better) EST GFR, NON-AFR BRUNEIAN 50 ml/min (Below low Range: >60 threshold) Comments: EST GFR is reported in ml/min per 1.73 m2 of body surface area. For -Montserratian, please multiple result by 1.2.----- GLUCOSE 129 mg/dL (Above Range: 70-100 high threshold) ALK PHOSPHATASE 87 U/L (Better) Range: [...] 0-2 BACTERIA Trace /HPF (Better) Range: Negative-Trace 05-Feb-2015 09:53 Colonoscopy Normal- High Risk- Range: 0 Personal Hx. Polyps (Better) 09:54 Colonoscopy- Screening or Dx Colonoscopy Normal - High Risk (Better) Plan of Care Planned Observations Name Dates Details Planned Goals not documented Goal Planned Encounters Appointment; Provider: Schedule Radiology On 18-Jan-2016 16:00 Appointment; Provider: Benson Servin On 09-Jul-2015 13:45 Appointment; Provider: Dale Fair On 18-Apr-2015 13:30 Appointment; Provider: Benson Servin On 27-Feb-2015 08:00 Appointment; Provider: Schedule Radiology On 17-Jan-2015 16:00 Appointment; Provider: Jai Piper On 05-Dec-2013 13:15 Appointment; Provider: Rob Ramírez On 19-Nov-2009 07:30 Appointment; Provider: Rob Ramírez On 24-Oct-2009 08:30 Appointment; Provider: Sharyn Simmons On 09-Feb-2009 16:30 Appointment; Provider: Rich Jose On 02-Jan-2009 07:30 Appointment; Provider: Sharyn Simmons On 16:30 Instructions Instructions not documented Encounters Appointment; Robb Tavarez On 21-Feb-2015 Encounter Diagnosis: [...]
--- OUTSIDE RECORDS SUMMARY | 2017-08-06 07:08 | External Medical Summary | Summary of Care ---
:1950 Author Name Dale Fair M.D. Address [address] [place], [place] [id number] Care Team Providers Name Role Phone Dale Fair M.D. Unavailable Unavailable Gareth Bella, Benson Weems Unavailable Unavailable Dale Fair Unavailable Unavailable Unavailable Unavailable Functional Status Functional [...] Status: Active Post-menopausal (V49.81, Z78.0) Status: Active Hypertension (401.9, I10) Status: Active Hypothyroidism (244.9, E03.9) Status: Active Pain in both hands (729.5, M79.641) Status: Active Tendonitis of finger (727.05, M77.9) Status: Active Bronchiectasis (494.0, J47.9) Status: Active Type 2 diabetes mellitus (250.00, E11.9) Status: Active Pseudophakia of left eye (V43.1, Z96.1) Status: Active Pseudophakia of right eye (V43.1, Z96.1) Status: Active PCO (posterior capsular opacification), right (366.50, H26.491) Status: Active 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 Refills: 0 Marv Layne.Dale Mackenzie Start 23-Oct-2010 Active Folic Acid 1 MG Oral Tablet Refills: 0 Active B-Complex Oral Capsule Refills: 0 Start 23-Oct-2011 Active Mirtazapine 15 MG Oral Tablet TAKE 1 TABLET BY MOUTH AT BEDTIME. Quantity: 90 Refills: 2 Marv M.Dot., Dale Marks Start Active ClonazePAM 1 MG Oral Tablet TAKE 1 TABLET BY MOUTH AT BEDTIME NEEDED Quantity: 90 Refills: 0 Marv M.Dot., Dale Marks Start Active Magnesium 400 MG Oral Tablet 1 tablet BID Quantity: 180 Refills: 3 Marv Bella, Dale Shintive TraMADol HCl - 50 MG Oral Tablet TAKE ONE TABLET(S) BY MOUTH TID NEEDED Quantity: 270 Refills: 0 Marv Layne.Gurdeep, Dale Marks Start 11-Oct-2014 Active Vitamin D3 1000 UNIT [...] 0 Dale Fair M.D. Start 18-Apr-2015 Active Aspirin Adult Low Dose 81 MG Oral Tablet Delayed Release TAKE 1 TABLET DAILY. Quantity: 90 Refills: 3 Marv M.Dot., Dale Marks Start Active Vitamin D3 5000 UNIT Oral Capsule TAKE DAILY DIRECTED. Quantity: 90 Refills: 3 Marv M.Dot., Dale Marks Start Active Ginkgo Biloba 60 MG Oral Capsule TAKE 1 CAPSULE TWICE DAILY. Refills: 0 Marv M.Gurdeep, Dale Marks Start 30-Nov-2015 Active Ferrous Sulfate 325 (65 Fe) MG Oral Tablet take 1 tablet by mouth every day Quantity: 31 Refills: 0 Marv M.Dot., Dale Marks Start 18-Apr-2015 Active Allergies and Adverse Reactions Name [...] Right Eye CBC w/ Auto Diff 7150 Ordered: 27-May-2016 Comprehensive Metabolic Panel 1212 Ordered: 27-May-2016 LIPID PROFILE 1184 Ordered: 27-May-2016 HEMOGLOBIN A1C 3507 Ordered: 27-May-2016 THYROID STIM. HORMONE 3602 Ordered: 27-May-2016 Immunization Name Dates Details Hepatitis B on: 1991 MMR on: 26-Jul-1992 Tetanus-Diphtheria Toxoids Td 2-2 LF/0.5ML Intramuscular Suspension on: Hepatitis A on: 29-Nov-1998 MMR on: 03-Oct-2009 Lot #: [id number] MMR on: 03-Oct-2009 Tdap (Adacel) on: Lot #: [id number] Pneumo (Pneumovax) on: Lot #: [id number] Zoster (Zostavax) on: 15-Oct-2011 Lot #: [id number] Fluzone Quadrivalent 0.5 ML Intramuscular Suspension on: 09-Jan-2014 Lot #: [id number] Fluzone Quadrivalent 0.5 ML Intramuscular Suspension on: 02-Feb-2015 Lot #: [id number] Prevnar 13 Intramuscular Suspension on: Lot #: [id number] Fluzone High-Dose 0.5 ML Intramuscular Suspension Prefilled Syringe on: Lot #: [id number] Family History Grandmother Name Dates Details Family [...] to report Results Date Description Value Details 28-May-2016 15:43 Diabetic Eye Exam Diabetic Eye Exam No Diabetic Retinopathy Diabetic Eye Exam on Chart Yes Plan of Care Name Dates Details Planned Observations Planned Goals not documented Planned Encounters Appointment; Provider: Benson Servin M.D. On 29-May-2017 09:00 Appointment; Provider: Jacob LauRBlanca On 07-Jul-2016 13:00 Appointment; Provider: Dale Fair M.D. On 02-Jun-2016 13:00 Instructions Name Dates Details Instructions not documented Encounters Appointment; Benson Servin M.D. On 28-May-2016 Encounter [...] Problem not documented 14:30 Appointment; Harry Maurer M.D.,[facility], On 17-Oct-2015 Encounter Diagnosis: Problem not documented [...] Encounter Diagnosis: Problem not documented 08:30 Appointment; Benosn Servin M.D. On 16-Feb-2015 Encounter Diagnosis: Problem [...] Problem not documented 13:00 Appointment; Samina Malik, P.A. On 20-Jul-2014 Encounter Diagnosis: Problem not documented 11:00 Appointment; Dale Fair M.D. On 19-Jul-2014 Encounter Diagnosis: Problem not documented 09:15 Appointment; Derick Livingston P.A. On 07-Jul-2014 Encounter Diagnosis: Problem not documented 10:30 Appointment; Magalie Lauren A.P.R.N. On 04-Jul-2014 Encounter Diagnosis: Problem not documented 14:15 Appointment; Samina Malik, P.A. On 01-Jun-2014 Encounter Diagnosis: Problem not documented 08:45"
--- OUTSIDE RECORDS SUMMARY | 2017-08-06 07:08 | External Medical Summary | Summary of Care ---
[...] Refills: 3 Marv M.Dale Mackenzie 01-Jan-2009 Active Vitamin B-12 1000 MCG Oral Tablet TAKE 1 TABLET DAILY DIRECTED. Refills: 0 Dale Fair M.D. Start 23-Oct-2010 Active Folic Acid 1 MG Oral Tablet Refills: 0 Active B-Complex Oral Capsule Refills: 0 Start 23-Oct-2011 Active Ginkgo Biloba 60 MG Oral Capsule TAKE 1 CAPSULE TWICE DAILY. Refills: 0 Dale Fair M.D. Start 30-Nov-2015 Active Tums 500 MG Oral Tablet Chewable TAKE DIRECTED. Refills: 0 Jeffrey Decker M.D.ia Start 18-Jun-2016 Active BuPROPion HCl ER (SR) 150 MG Oral Tablet Extended Release 12 Hour Take one tablet by mouth twice a day Quantity: 90 Refills: 3 Dale Fair M.D. Start 23-Jun-2016 Active Vitamin D3 5000 UNIT Oral Capsule TAKE DAILY DIRECTED. Quantity: 90 Refills: 3 Dale Fair M.D. Start Active Aspirin Adult Low Dose 81 MG Oral Tablet Delayed Release TAKE 1 TABLET DAILY. Quantity: 90 Refills: 3 Dale Fair M.D. Start Active Ferrous Sulfate 325 (65 Fe) MG Oral Tablet take 1 tablet by mouth every day Quantity: 31 Refills: 0 Dale Fair M.D. Start 18-Apr-2015 Active Co Q-10 400 MG Oral Capsule Refills: 0 Dale Fair M.D. Start 18-Apr-2015 Active PrednisoLONE Acetate 1 % Ophthalmic Suspension Install 1 drop as directed 6 times daily (during waking hours) Starting after surgery. Quantity: 10 Refills: 1 Benson Servin M.D. Start 23-Jan-2015 Active Acetaminophen 500 MG Oral Tablet TAKE TWO TABLET(S) BY MOUTH TWICE DAILY Quantity: 360 Refills: 0 Dale Fair M.D. Start 19-Oct-2014 Active TraMADol HCl - 50 MG Oral Tablet TAKE ONE TABLET(S) BY MOUTH TID NEEDED Quantity: 270 Refills: 0 Dale Fair M.D. Start 11-Oct-2014 Active Magnesium 400 MG Oral Tablet 1 tablet BID Quantity: 180 Refills: 3 Dale Fair M.D.tive ClonazePAM 1 MG Oral Tablet TAKE 1 TABLET BY MOUTH AT BEDTIME NEEDED Quantity: 90 Refills: 0 Marv BellaDale Start Active Mirtazapine 15 MG Oral Tablet TAKE 1 TABLET BY MOUTH AT BEDTIME. Quantity: 90 Refills: 2 Marv BellaDale Start Active Losartan Potassium 100 MG Oral Tablet take one tablet by mouth every day Quantity: 90 Refills: 3 Marv BellaDale Start 18-Mar-2010 Active Levothyroxine Sodium 75 MCG Oral Tablet Take 1 tablet by mouth daily. Quantity: 90 Refills: 3 Marleny BellaHarry Start 15-Mar-2010 Active Zetia 10 MG Oral Tablet TAKE 1 TABLET DAILY. Quantity: 90 Refills: 3 Marv BellaDale Start 10-Dec-2009 Active Simvastatin 40 MG Oral Tablet TAKE ONE TABLET(S) BY MOUTH DAILY DIRECTED Quantity: 90 Refills: 3 Marv BellaDale Start 10-Dec-2009 Active LevoFLOXacin 750 MG Oral Tablet take 1 daily for 10 days Quantity: 30 Refills: 3 Marleny BellaHarry Start 25-Jul-2016 Active Vitamin D3 1000 UNIT Oral Capsule TAKE DIRECTED. Refills: 0 Start 19-Oct-2014 Active Allergies and Adverse Reactions Name [...] D, 25 - Hydroxy 3111 Ordered: 18-Jun-2016 XRay SPINE-LUMBAR Ordered: 30-Jun-2016 MAMMOGRAM-SCREENING Ordered: 17-Jul-2016 Immunization Name Dates Details Hepatitis B on: 1991 MMR on: 26-Jul-1992 Tetanus-Diphtheria Toxoids Td 2-2 LF/0.5ML Intramuscular Suspension on: Hepatitis A on: 29-Nov-1998 MMR on: 03-Oct-2009 Lot #: [id number] MMR on: 03-Oct-2009 Tdap (Adacel) on: Lot #: [id number] Pneumo (Pneumovax) on: Lot #: [id number] Zoster (Zostavax) on: 15-Oct-2011 Lot #: [id number] Fluzone Quadrivalent 0.5 ML Intramuscular Suspension on: 09-Jan-2014 Lot #: [id number] Fluzone Quadrivalent 0.5 ML Intramuscular Suspension on: 02-Feb-2015 Lot #: [id number] Prevnar 13 Intramuscular Suspension on: Lot #: [id number] Fluzone High-Dose 0.5 ML Intramuscular Suspension Prefilled Syringe on: Lot #: [id number] Pneumovax 23 25 MCG/0.5ML Injection Injectable on: 30-Jun-2016 Lot #: [id number] Pneumovax 23 25 MCG/0.5ML Injection Injectable on: 02-Jul-2016 Lot #: [id number] Family History Grandmother Name Dates Details Family [...] IGG (14 SERO) Comments: Quest performed at: [facility], [facility], [address] [place] [address], [id number] , Mannequin Decorator: Hector [id number] aby Hinojosa MDQuest Collection Date/Time: [id number] Results Received Date/Time: [id number] Reported Date/Time: FASTING:NO SEROTYPE 1 (1) 10.5 [...] initial serotype-specific titers may have lessrobust re sponses.[facility] uses a multi- analyteimmunodetection (MAID) method. The method employs [employer] flow cytometric system which measures multipleanalytes simultaneously. The F DA standard referenceserum 89-S is used as the calibration standard. Resultsare reported in mcg/mL.This assay detects 11 of the 13 serotypes in the13 -valent conjugate vaccine, and 14 of the 23 serotypes in the 23-valent polysaccharide vaccine.This test was developed and its analyticalperformance characteristics have been determinedby [facility]. It has notbeen cleared or appro truman by FDA. This assay has beenvalidated pursuant to the CLIA regulations and is usedfor clinical purposes.For additional information, please refer [email or web address](This link i----- Plan of Care Name Dates Details Planned Observations Planned Goals not documented Planned Encounters Appointment; Provider: Emmy Vasquez A.P.R.N. On 20-Jul-2017 13:00 Appointment; Provider: Benson Servin M.D. On 29-May-2017 09:00 Appointment; Provider: Dale Fair M.D. On 13:30 Appointment; Provider: Schedule Radiology On 14:50 Instructions Name Dates Details Instructions not documented Encounters Appointment; Dale Fair M.D. On Encounter Diagnosis: Problem not documented 13:45 Appointment; Emmy Vasquez A.P.R.N. On 17-Jul-2016 Encounter Diagnosis: Problem not documented 13:00 Appointment; Harry Farmer M.D. On 07-Jul-2016 Encounter Diagnosis: Problem not documented 13:00 Appointment; Magalie Feng A.P.R.N. On 30-Jun-2016 Encounter [...] 13:00 Appointment; Anna Marie Sutton A.P.RBlanca On 30-Oct-2015 Encounter Diagnosis: Problem not documented [...] Problem not documented 08:45 Appointment; Arcadio Lucas M.D.|Em,RAJIV|Shayne,RAJIV, On 05-Feb-2015 Encounter Diagnosis: Problem not documented 08:00 Appointment; Tyree, Endoscopy On 05-Feb-2015 Encounter Diagnosis: Problem not documented [...]
--- OUTSIDE RECORDS SUMMARY | 2017-08-06 07:08 | External Medical Summary | Summary of Care ---
:1950 Author Name Samina Chow Address [address], [place] [id number] Care Team Providers Name Role Phone Dale Fair M.D. 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: Active Pneumonia (486, J18.9) Status: Active Rotator cuff tendonitis (726.10, M75.80) Status: Active Hyperlipidemia (272.4, E78.5) Status: Active Hypertension (401.9, I10) Status: Active Bronchitis (490, J40) Status: Active Degenerative disc disease, lumbar (722.52, M51.36) Status: Active Left hand pain (729.5, M79.642) Status: Active Foot pain, bilateral (729.5, M79.671) Status: Active Diabetes mellitus (250.00, E11.9) Status: Active Depression (311, F32.9) Status: Active Low back pain (724.2, M54.5) Status: Active Unspecified injury of achilles tendon (S86.00) Status: Active Medications Name Dates Details Cyclobenzaprine [...] mouth every day Quantity: 90 Refills: 3 Dael Fair M.D. Started 01-Jan-2009 ActiveSimvastatin 40 MG [...] HCl - 50 MG Oral Tablet TAKE 1 TABLET EVERY 6 HOURS NEEDED FOR PAIN. Quantity: 60 Refills: 0 Dale Fair M.D. [...] on:03-Oct-2009 Tdap (Adacel) Administered on: Lot #: [id number] Pneumo (Pneumovax) Administered on: Lot #: [id number] Zoster (Zostavax) Administered on:15-Oct-2011 Lot #: [id number] Fluzone Quadrivalent 0.5 ML Intramuscular Suspension Administered on:2013 Lot #: [id number] Family History Grandmother Name Dates Details Family [...] ml/min Range: >60 (Better) EST GFR, NON-AFR JAPANESE 58 ml/min (Below Range: >60 low threshold) Comments: EST GFR is reported in ml/min per 1.73 m2 of body surface area. For -Irish, please multiple result by 1.2.----- BUN:CREATININE RATIO [...] 08-Jan-2015 14:00 Appointment; Provider: Nadia Shelby On 01-Nov-2014 08:15 Appointment; Provider: Jai Piper On 05-Dec-2013 13:15 Appointment; Provider: Rob Ramírez On 19-Nov-2009 07:30 Appointment; Provider: Rob Ramírez On 24-Oct-2009 08:30 Appointment; Provider: Sharyn Simmons On 09-Feb-2009 16:30 Appointment; Provider: Rich Jose On 02-Jan-2009 07:30 Appointment; Provider: Sharyn Simmons On 16:30 Instructions Instructions not documented Encounters Appointment; Samina Malik On 19-Oct-2014 Encounter Diagnosis: [...]
--- OUTSIDE RECORDS SUMMARY | 2017-08-06 07:08 | External Medical Summary | Summary of Care ---
:1950 Author Name Dale Fair M.D. Address [address], [place] [id number] Care Team Providers Name Role Phone Dale Fair M.D. Unavailable Jai Solaon M.D. 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 Anemia (285.9, D64.9) Status: Active Keratoconjunctivitis (370.40, H16.209) Status: Active Urinary tract infection (599.0, N39.0) Status: Active Vaginitis (616.10, N76.0) Status: Active Incomplete uterovaginal prolapse (618.2, N81.2) Status: Active Vitamin d deficiency (268.9, E55.9) Status: Active Pre-operative exam (V72.84, Z01.818) Status: Active Pre-operative cardiovascular examination (V72.81, Z01.810) Status: Active Nonexudative age-related macular degeneration (362.51, H35.31) Status: Active Left hand pain (729.5, M79.642) [...] Active Eye strain (368.13, H53.149) Status: Active Depression (311, F32.9) Status: Active [...] Low back pain (724.2, M54.5) Status: Active Lower back pain (724.2, M54.5) Status: Active Status post gastric bypass for obesity (V45.86, Z98.84) Status: Active Pre-operative general physical examination (V72.83, Z01.818) Status: Active Incipient senile cataract (366.12, H25.099) Status: Active Encounter for fitting or adjustment of spectacles or contact lenses (V53.1, Z46.0) Status: Active Pinguecula (372.51, H11.159) Status: Active Essential hematuria (599.70, N02.9) Status: Active Nephrolithiasis (592.0, N20.0) Status: Active Increased urinary frequency (788.41, R35.0) Status: Active Dysuria (788.1, R30.0) Status: Active Diarrhea (787.91, R19.7) Status: Active Pain in joint, shoulder region (719.41, M25.519) Status: Active Medications Name Dates Details Cyclobenzaprine [...] one tablet by mouth every day Quantity: 30 Refills: 5 Dale Fair M.D. Started 01-Jan-2009 ActiveSimvastatin 40 [...] Refills: 3 Dale Fair M.D. Started 15-Mar-2010 ActiveVitamin B-12 1000 MCG Oral Tablet TAKE 1 TABLET DAILY DIRECTED. Refills: 0 Dale Fair M.D. Started 23-Oct-2010 ActiveFolic Acid 1 MG Oral Tablet Refills: 0 ActiveCo Q-10 200 MG Oral Capsule Refills: 0 Dale Fair M.D. Started 05-Apr-2012 ActiveClonazePAM 0.5 MG Oral Tablet TAKE 1 [...] ActiveMagnesium 500 MG Oral Tablet Refills: 0 ActiveLosartan Potassium 100 MG Oral Tablet take one tablet by mouth every day Quantity: 90 Refills: 3 Dale Fair M.D. Started 18-Mar-2010 ActiveMirtazapine 15 MG Oral Tablet TAKE 1 TABLET BY MOUTH AT BEDTIME. Quantity: 90 Refills: 3 Dale Fair M.D. Started ActiveB-Complex Oral Capsule Refills: 0 Started 23-Oct-2011 Active Allergies and Adverse Reactions Name Dates Details Codeine Derivatives Reaction: Rash Status: Active Past Medical History Name Dates Details Encounter for fitting or adjustment of spectacles or contact lenses (V53.1, Z46.0) Status: Active History of Diagnostic Esophagogastroduodenoscopy Status: Resolved Procedures Procedure Dates Details History of Diagnostic Completed:21-Nov-2009 Esophagogastroduodenoscopy History of Nerve Block Transforaminal Epidural Lumbar History of Vag Hysterectomy Uterus 250 Gm Completed:31-Oct-2011 Or < W/ Removal Of Ovary(S) History of Gastric Surgery History of Renal Lithotripsy Completed:19-Nov-2009 History of Complete Colonoscopy Completed:26-Oct-2009 History of Sigmoidoscopy (Fiberoptic) Completed:12-Oct-2009 History of Combined A-P Colporrhaphy (For Completed:31-Oct-2011 Pelvic Relaxation History of Renal Lithotripsy Completed:24-Oct-2009 History of Shldr Arthrosc W/ Distal Completed:02-Jan-2009 Claviculectomy Incl Distal Art Surf History of Shoulder Arthroscopy, Space Completed:02-Jan-2009 Decompression And Acromioplasty Comprehensive Metabolic Panel 1212 Ordered:19-Jul-2014 MAGNESIUM 1260 Ordered:19-Jul-2014 Immunization Name Dates Details Hepatitis B Administered on:1991 MMR Administered on:26-Jul-1992 Tetanus-Diphtheria Toxoids Td 2-2 LF/0.5ML Intramuscular Suspension Administered on:26-Jul-1992 Hepatitis A Administered on:29-Nov-1998 MMR Administered on:03-Oct-2009 Lot #: [id number] MMR Administered on:03-Oct-2009 Tdap (Adacel) Administered on: Lot #: [id number] Pneumo (Pneumovax) Administered on: Lot #: [id number] Zoster (Zostavax) Administered on:15-Oct-2011 Lot #: [id number] Fluzone Quadrivalent 0.5 ML Intramuscular Suspension Administered on:2013 Lot #: [id number] Family History Grandmother Name Dates Details Family history of Cervical Cancer Status: Active aunt Name Dates Details Family history of Diabetes Mellitus (V18.0) Status: Active Mother Name Dates Details Family history of KCS (keratoconjunctivitis sicca) (710.2, M35.01) Status: Active Family history of Hypertension (V17.49) Status: Active Father Name Dates Details Family history of Father At Age ____ Status: Active Family history of Heart Disease (V17.49) Status: Active Sister Name Dates Details Family history of Acute Myocardial Infarction (V17.3) Status: Active Family history of Breast Cancer (V16.3) Status: Active Brother Name Dates Details Family history of Alcohol Abuse Status: Active Social History Name Dates Details Smoking StatusFormer smoker Vital Signs Date Test Result Details 19-Jul-2014 09:02 BP Systolic 116 mm[Hg] Status: BP Diastolic 70 mm[Hg] Status: Heart Rate 84 /min Status: Weight 185 lb Status: O2 SAT 97 % Status: Body Mass Index Calculated 32.26 kg/m2 Status: Body Surface Area Calculated 1.88 m2 Status: Results Date Description Value Details 19-Jul-2014 10:04 Comprehensive Metabolic Panel 1212 SODIUM 136 mmol/L Range: 133-144 (Better) POTASSIUM 4.0 mmol/L Range: 3.5-5.1 (Better) CHLORIDE 98 mmol/L Range: 98-110 (Better) CARBON DIOXIDE 29.4 mmol/L Range: 23.0-33.0 (Better) ANION GAP 9 mmol/L (Better) Range: 6-16 BUN 17 mg/dL (Better) Range: 7-18 CREATININE, SERUM 0.89 mg/dL Range: 0.43-1.13 (Better) BUN:CREATININE RATIO 19 (Better) EST GFR, >60 ml/min Range: >60 (Better) EST GFR, NON-AFR CROATIAN >60 ml/min Range: >60 (Better) Comments: EST GFR is reported in ml/min per 1.73 m2 of body surface area. For -Nicaraguan, please multiple result by 1.2.----- GLUCOSE 125 mg/dL (Above Range: 70-100 high threshold) ALK PHOSPHATASE 79 U/L (Better) Range: 46-116 TOTAL BILIRUBIN 0.30 mg/dL Range: 0.20-1.00 (Better) AST 33 U/L (Better) Range: 8-35 ALT 46 U/L (Better) Range: 14-59 Comments: Please note new reference ranges. Effective 05/11/2014.----- ALBUMIN 3.6 g/dL (Better) Range: 3.4-5.0 TOTAL PROTEIN 7.8 g/dL (Better) Range: 6.4-8.2 A/G RATIO 0.9 units (Below Range: 1.0-1.8 low threshold) CALCIUM 9.2 mg/dL Range: 8.5-10.1 (Better) 10:04 MAGNESIUM 1260 MAGNESIUM 1.6 mg/dL (Below Range: 1.8-2.4 low threshold) 10:04 PHOSPHORUS 1145 PHOSPHORUS 3.3 mg/dL Range: 2.5-4.9 (Better) Plan of Care Planned Observations Name [...] Diagnosis: Problem not documented 14:15 Appointment; Samina Mlaik On 01-Jun-2014 Encounter Diagnosis: Problem not documented [...] Encounter Diagnosis: Problem not documented 14:30 Appointment; aJi Piper On 02-Jan-2014 Encounter Diagnosis: Problem not [...]
--- OUTSIDE RECORDS SUMMARY | 2017-08-06 07:09 | External Medical Summary | Summary of Care ---
:1950 Author Name Dale Fair M.D. Address [address], [place] [id number] Care Team Providers Name Role Phone Dale [...] Low back pain (724.2, M54.5) Status: Active Medications [...] on:03-Oct-2009 Tdap (Adacel) Administered on: Lot #: [id number] Pneumo (Pneumovax) Administered on: Lot #: [id number] Zoster (Zostavax) Administered on:15-Oct-2011 Lot #: [id number] Fluzone Quadrivalent 0.5 ML Intramuscular Suspension Administered on:2013 Lot #: [id number] Family History Grandmother Name Dates Details Family [...] ml/min Range: >60 (Better) EST GFR, NON-AFR [place] >60 ml/min Range: >60 (Better) Comments: EST GFR is reported in ml/min per 1.73 m2 of body surface area. For -Solomon Islander, please multiple result by 1.2.----- GLUCOSE 125 [...]
--- OUTSIDE RECORDS SUMMARY | 2017-08-06 07:09 | External Medical Summary | Summary of Care ---
:1950 Author Name Dale Fair M.D. Address [address], [place] [id number] Care Team Providers Name Role Phone Dale [...] of left hip (719.45, M25.552) Status: Active Pseudophakia of left eye (V43.1, Z96.1) Status: Active Pseudophakia of right eye (V43.1, Z96.1) Status: Active Presbyopia (367.4, H52.4) Status: Active Depression (311, F32.9) Status: Active Incipient senile cataract (366.12, H25.099) Status: Active Essential hematuria (599.70, N02.9) Status: Active Left flank pain (789.09, R10.9) Status: Active Nephrolithiasis (592.0, N20.0) Status: Active Hypercholesterolemia (272.0, E78.0) Status: Active Type 2 diabetes mellitus (250.00, E11.9) Status: Active Pneumonia (486, J18.9) Status: Active Sepsis (038.9, A41.9) Status: Active Anxiety (300.00, F41.9) Status: Active Hyperlipidemia (272.4, E78.5) Status: Active Hypertension (401.9, I10) Status: Active Hypothyroidism (244.9, E03.9) Status: Active Post-menopausal (V49.81, Z78.0) Status: Active Medications Name Dates Details Cyclobenzaprine [...] AT BEDTIME. Quantity: 90 Refills: 2 Marv M.Dot.Dale Start Active ClonazePAM 1 MG Oral Tablet TAKE 1 TABLET BY MOUTH AT BEDTIME NEEDED Quantity: 90 Refills: 0 Marv M.Dot.Dale Start Active Magnesium 400 MG Oral Tablet [...] 0 Dale Fair M.D. Start 19-Oct-2014 Active PrednisoLONE Acetate 1 % [...] 1 TABLET DAILY. Quantity: 90 Refills: 3 Crater M.D., Dale Marks Start Active Vitamin D3 5000 UNIT Oral Capsule TAKE DAILY DIRECTED. Quantity: 90 Refills: 3 Crater M.D., Dale Marks Start Active Fluconazole 150 MG Oral Tablet take 1 tablet per day for 2 days only! * HOLD SIMVASTATIN WHILE TAKING THIS* Quantity: 2 Refills: 0 Marv M.Dot., Dale Marks Start 29-Oct-2015 Active LevoFLOXacin 250 MG Oral Tablet 1 TABLET DAILY X 3 DAYS Quantity: 3 Refills: 1 Dale Fair M.D. Start 29-Oct-2015 Active Ginkgo Biloba 60 MG Oral Capsule TAKE 1 CAPSULE TWICE DAILY. Refills: 0 Dale Fair M.D. Start 30-Nov-2015 Active Allergies and Adverse Reactions [...] Cataract Extract With Prosthesis Insert Right Eye XRay CHEST-PA & LAT Ordered: 29-Oct-2015 Immunization Name Dates Details Hepatitis B on: 1991 MMR on: 26-Jul-1992 Tetanus-Diphtheria Toxoids Td 2-2 LF/0.5ML Intramuscular Suspension on: Hepatitis A on: 29-Nov-1998 MMR on: 03-Oct-2009 Lot #: [id number] MMR on: 03-Oct-2009 Tdap (Adacel) on: Lot #: [id number] Pneumo (Pneumovax) on: Lot #: [id number] Zoster (Zostavax) on: 15-Oct-2011 Lot #: [id number] Fluzone Quadrivalent 0.5 ML Intramuscular Suspension on: 09-Jan-2014 Lot #: [id number] Fluzone Quadrivalent 0.5 ML Intramuscular Suspension on: 02-Feb-2015 Lot #: [id number] Prevnar 13 Intramuscular Suspension on: Lot #: [id number] Fluzone High-Dose 0.5 ML Intramuscular Suspension Prefilled Syringe on: Lot #: [id number] Family History Grandmother Name Dates Details Family [...] smoker Vital Signs Date Test Result Details 30-Nov-2015 13:21 BP Systolic 128 mm[Hg] Status: Comments: Location: ; Position: BP Diastolic 70 mm[Hg] Status: Comments: Location: ; Position: Heart Rate 78 /min Status: Comments: Location: ; Weight 197.2 lb Status: Physical Findings 97 Status: Comments: O2 Saturation Body Mass Index Calculated 34.38 kg/m2 Status: Body Surface Area Calculated 1.93 m2 Status: Results Date Description Value Details 29-Nov-2015 10:24 CBC w/ Auto Diff 7150 WBC 6.9 K/uL Range: 4.5-11.0 RBC 4.51 mil/uL Range: 3.60-5.00 HGB 13.6 g/dL Range: 12.0-16.0 HCT 41.7 % Range: 36.0-48.0 MCV 92.5 fL Range: 80.0-99.0 MCH 30.2 pg Range: 27.3-32.5 MCHC 32.7 % Range: 32.0-36.0 RDW 14.8 % Range: 11.6-14.8 PLATELETS 265 K/uL Range: 150-400 MPV 6.9 fL Range: 6.0-11.0 %NEUTRO 57.4 % Range: 37.0-80.0 %LYMPHS 34.2 % Range: 13.0-50.0 %MONO 5.1 % Range: 0.0-12.0 %EOS 1.2 % Range: 0.0-7.0 %BASO 0.6 % Range: 0.0-2.5 %TRISTIN 1.4 % Range: 0.0-5.0 NEUTRO 4.0 K/uL Range: 2.0-6.9 LYMPHS 2.4 K/uL Range: 0.6-3.4 MONOS 0.4 K/uL Range: 0.0-0.9 EOS 0.1 K/uL Range: 0.0-0.7 BASO 0.0 K/uL Range: 0.0-0.2 10:27 Comprehensive Metabolic Panel 1212 SODIUM 136 mmol/L Range: 133-144 POTASSIUM 4.7 mmol/L Range: 3.5-5.1 CHLORIDE 101 mmol/L Range: 98-110 CARBON DIOXIDE 31.3 mmol/L Range: 23.0-33.0 ANION GAP 4 mmol/L (Below low Range: 6-16 threshold) BUN 17 mg/dL Range: 7-18 Comments: Variance from previous testing noted.----- CREATININE, SERUM 0.90 mg/dL Range: 0.55-1.02 BUN:CREATININE RATIO 19 EST GFR, >60 ml/min Range: >60 EST GFR, NON-AFR LIBERIAN >60 ml/min Range: >60 Comments: EST GFR is reported in ml/min per 1.73 m2 of body surface area. ----- GLUCOSE 99 mg/dL Range: 70-100 Comments: Variance from previous testing noted.----- ALK PHOSPHATASE 90 U/L Range: 46-116 TOTAL BILIRUBIN 0.40 mg/dL Range: 0.20-1.00 AST 45 U/L (Above high Range: 8-35 threshold) ALT 37 U/L Range: 14-59 ALBUMIN 3.8 g/dL Range: 3.4-5.0 TOTAL PROTEIN 8.2 g/dL Range: 6.4-8.2 A/G RATIO 0.9 units (Below low Range: 1.0-1.8 threshold) CALCIUM 9.4 mg/dL Range: 8.5-10.1 Plan of Care Name Dates Details Planned Observations Planned Goals not documented Planned Encounters Appointment; Provider: Dale Fair M.D. On 02-Jun-2016 13:00 Appointment; Provider: Harry Farmer M.D. On 31-Jan-2016 15:00 Appointment; Provider: Schedule Radiology On 18-Jan-2016 16:00 Appointment; Provider: Benson Servin M.D. On 09-Jan-2016 14:00 Instructions Name Dates Details Instructions not documented Encounters Appointment; Anna Marie Sutton A.P.R.N. On 30-Oct-2015 Encounter Diagnosis: Problem not documented 14:15 Appointment; Dale Fair M.D. On 29-Oct-2015 Encounter Diagnosis: Problem not documented 14:30 Appointment; Harry Maurer M.D.|Ar|Shayne,RAJIV|Shayne,RAJIV, On 2015 Encounter Diagnosis: Problem not documented [...] Problem not documented 09:15 Appointment; Derick Livingston PPavithraAPavithra On 07-Jul-2014 Encounter Diagnosis: Problem not documented 10:30 Appointment; Magalie Lauren A.P.R.NPavithra On 04-Jul-2014 Encounter Diagnosis: Problem not documented 14:15 Appointment; Samina Malik, P.APaivthra On 01-Jun-2014 Encounter Diagnosis: Problem not documented 08:45 Appointment; Dale Fair M.D. On 12-Apr-2014 Encounter Diagnosis: Problem not documented 13:00 Appointment; Jai Piper M.D. On 19-Jan-2014 Encounter Diagnosis: Problem not documented 13:30 Appointment; Jai Piper M.D. On 16-Jan-2014 Encounter Diagnosis: Problem not documented 10:15 Appointment; Dale Fair M.D. On 09-Jan-2014 Encounter Diagnosis: Problem not documented 13:45 Appointment; Benson Servin M.D. On 02-Jan-2014 Encounter Diagnosis: Problem not documented 14:30 Appointment; Jai Piper M.D. On 02-Jan-2014 Encounter Diagnosis: Problem not documented 13:40 Appointment; Jai Piper M.D. On 19-Dec-2013 Encounter Diagnosis: Problem not documented 13:25 Appointment; Jai Piper M.D. On 29-Nov-2013 Encounter Diagnosis: Problem not documented 08:30"
--- OUTSIDE RECORDS SUMMARY | 2017-08-06 07:09 | External Medical Summary | Summary of Care ---
:1950 Author Name Dale Fair M.D. Address [address], [place] [id number] Care Team Providers Name Role Phone Dale Fair M.D. 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 Started 01-Jan-2009 ActiveLevothyroxine Sodium 75 MCG Oral Tablet Take [...] 05-Apr-2012 ActiveClonazePAM 0.5 MG Oral Tablet TAKE 1-2 TABLET at bedtime prn Quantity: 180 Refills: 1 Dale Fair M.D. Started ActiveOxycodone-Acetaminophen 7.5-325 MG Oral Tablet Si PO every 6-8 hrs prn with a max of 3 per day.Script must last 30 days. Quantity: 90 Refills: 0 Jai Piper M.D. Started 29-Nov-2013 ActiveMirtazapine 15 MG Oral Tablet TAKE 1 TABLET BY MOUTH AT BEDTIME. Quantity: 90 Refills: 3 Dale Fair M.D. Started ActiveFolic Acid 1 MG Oral Tablet Refills: 0 ActiveLosartan Potassium 100 MG Oral Tablet take one tablet by mouth every day Quantity: 90 Refills: 3 Dale Fair M.D. Started 18-Mar-2010 ActiveZetia 10 MG Oral Tablet TAKE 1 TABLET DAILY. Quantity: 90 Refills: 3 Dale Fair M.D. Started 10-Dec-2009 ActiveSimvastatin 40 MG Oral Tablet TAKE 1 TABLET DAILY DIRECTED. Quantity: 90 Refills: 3 Dale Fair M.D. Started 10-Dec-2009 Active Allergies and Adverse Reactions Name Dates [...] History of Diagnostic Esophagogastroduodenoscopy Completed:21-Nov-2009 History of Combined A-P Colporrhaphy (For Pelvic Completed:31-Oct-2011 Relaxation History of Vag Hysterectomy Uterus 250 Gm Or < W/ Completed:31-Oct-2011 Removal Of Ovary(S) History of Gastric Surgery History of Renal Lithotripsy Completed:19-Nov-2009 History of Nerve Block Transforaminal Epidural Lumbar Procedures not documented Immunization Name Dates Details Hepatitis B Administered on:1991 Tetanus-Diphtheria Toxoids Td 2-2 LF/0.5ML Intramuscular Suspension Administered on:26-Jul-1992 MMR Administered on:26-Jul-1992 Hepatitis A Administered on:29-Nov-1998 MMR Administered on:03-Oct-2009 Lot #: [id number] MMR Administered on:03-Oct-2009 Tdap (Adacel) Administered on: Lot #: [id number] Pneumo (Pneumovax) Administered on: Lot #: [id number] Zoster (Zostavax) Administered on:15-Oct-2011 Lot #: [id number] Fluzone Quadrivalent 0.5 ML Intramuscular Suspension Administered on:2013 Lot #: [id number] Family History Grandmother Name Dates Details Family [...]
--- OUTSIDE RECORDS SUMMARY | 2017-08-06 07:09 | External Medical Summary | Summary of Care ---
:1950 Author Name Dale Fair M.D. Address [address] [place], [place] [id number] Care Team Providers Name Role Phone Dael Fair M.D. 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 Pseudophakia of left eye (V43.1, Z96.1) Status: Active Pseudophakia of right eye (V43.1, Z96.1) Status: Active Presbyopia (367.4, H52.4) Status: Active Anxiety (300.00, F41.9) Status: Active Depression (311, F32.9) Status: Active Hypothyroidism (244.9, E03.9) Status: Active Incipient senile cataract (366.12, H25.099) Status: Active Essential hematuria (599.70, N02.9) Status: Active Post-menopausal (V49.81, Z78.0) Status: Active Left flank pain (789.09, R10.9) Status: Active Nephrolithiasis (592.0, N20.0) Status: Active Hyperlipidemia (272.4, E78.5) Status: Active Hypertension (401.9, I10) Status: Active Hypercholesterolemia (272.0, E78.0) Status: Active Type 2 diabetes mellitus (250.00, E11.9) Status: Active Pneumonia (486, J18.9) Status: Active Sepsis (038.9, A41.9) Status: Active Medications Name Dates Details Lyrica 50 MG Oral Capsule TAKE 1 [...] 0 Dale Fair M.D. Start 23-Oct-2010 Active B-Complex Oral Capsule Refills: 0 Start 23-Oct-2011 Active Mirtazapine 15 MG Oral Tablet TAKE 1 TABLET BY MOUTH AT BEDTIME. Quantity: 90 Refills: 2 Dale Fair M.D. Start Active Magnesium 400 MG Oral Tablet 1 tablet BID Quantity: 180 Refills: 3 Dale Fair M.D.tive TraMADol HCl - 50 MG Oral Tablet TAKE ONE TABLET(S) BY MOUTH TID NEEDED Quantity: 270 Refills: 0 Dale Fair M.D. Start 11-Oct-2014 Active Acetaminophen 500 MG Oral Tablet TAKE TWO TABLET(S) BY MOUTH TWICE DAILY Quantity: 360 Refills: 0 Marv BellaDale Selina Start 19-Oct-2014 Active Co Q-10 400 MG Oral Capsule Refills: 0 Marv Bella Dale Selina Start 18-Apr-2015 Active Ferrous Sulfate 325 (65 Fe) MG Oral Tablet take 1 tablet by mouth every day Quantity: 31 Refills: 0 Marv Bella Dale Selina Start 18-Apr-2015 Active Aspirin Adult Low Dose 81 MG Oral Tablet Delayed Release TAKE 1 TABLET DAILY. Quantity: 90 Refills: 3 Marv Layne.Gurdeep Dale Selina Start Active Vitamin D3 5000 UNIT Oral Capsule TAKE DAILY DIRECTED. Quantity: 90 Refills: 3 Dale Fair M.D. Start Active Fluconazole 150 MG Oral Tablet take 1 tablet per day for 2 days only! * HOLD SIMVASTATIN WHILE TAKING THIS* Quantity: 2 Refills: 0 Dale Fair M.D. Start 29-Oct-2015 Active LevoFLOXacin 250 MG Oral Tablet 1 TABLET DAILY X 3 DAYS Quantity: 3 Refills: 1 Marv Layne.Gurdeep Dale Selina Start 29-Oct-2015 Active ClonazePAM 1 MG Oral Tablet TAKE 1 TABLET BY MOUTH AT BEDTIME NEEDED Quantity: 90 Refills: 0 Marv Bella Dale Selina Start Active Vitamin D3 1000 UNIT Oral Capsule TAKE DIRECTED. Refills: 0 Start 19-Oct-2014 Active Zetia 10 MG Oral Tablet TAKE 1 TABLET DAILY. Quantity: 90 Refills: 3 Marv Bella Dale Selina Start 10-Dec-2009 Active MetFORMIN HCl - 1000 MG Oral Tablet Take one tablet by mouth twice daily with meals Quantity: 180 Refills: 3 Marv Layne.Jaguar Mackenzieothy Selina Start 09-Dec-2007 Active Cyclobenzaprine HCl - 10 MG Oral Tablet TAKE 1 TABLET BY MOUTH AT BEDTIME NEEDED. Quantity: 90 Refills: 0 Dale Fair M.D. Start 09-Dec-2007 Active Folic Acid 1 MG Oral Tablet Refills: 0 Active PrednisoLONE Acetate 1 % Ophthalmic Suspension Install 1 drop as directed 6 times daily (during waking hours) Starting after surgery. Quantity: 10 Refills: 1 Benson Servin M.D. Start 23-Jan-2015 Active Allergies and Adverse Reactions Name Dates [...] Eye CBC w/ Auto Diff 7150 Ordered: 20-Nov-2015 Comprehensive Metabolic Panel 1212 Ordered: 20-Nov-2015 XRay CHEST-PA & LAT Ordered: 29-Oct-2015 Immunization Name Dates Details Hepatitis B on: 1991 MMR on: 26-Jul-1992 Tetanus-Diphtheria Toxoids Td 2-2 LF/0.5ML Intramuscular Suspension on: Hepatitis A on: 29-Nov-1998 MMR on: 03-Oct-2009 Lot #: [id number] MMR on: 03-Oct-2009 Tdap (Adacel) on: Lot #: [id number] Pneumo (Pneumovax) on: Lot #: [id number] Zoster (Zostavax) on: 15-Oct-2011 Lot #: [id number] Fluzone Quadrivalent 0.5 ML Intramuscular Suspension on: 09-Jan-2014 Lot #: [id number] Fluzone Quadrivalent 0.5 ML Intramuscular Suspension on: 02-Feb-2015 Lot #: [id number] Prevnar 13 Intramuscular Suspension on: Lot #: [id number] Family History Grandmother Name Dates Details Family [...] smoker Vital Signs Date Test Result Details 30-Oct-2015 13:52 BP Systolic 138 mm[Hg] Status: Comments: Location: ; Position: BP Diastolic 72 mm[Hg] Status: Comments: Location: ; Position: Heart Rate 83 /min Status: Comments: Location: ; Height 63.5 in Status: Weight 190 lb Status: Physical Findings 97 Status: Comments: O2 Saturation Body Mass Index Calculated 33.13 kg/m2 Status: Body Surface Area Calculated 1.9 m2 Status: Results Date Description Value Details 30-Oct-2015 13:49 CBC w/ Auto Diff 7150 WBC 10.2 K/uL Range: 4.5-11.0 RBC 4.22 mil/uL Range: 3.60-5.00 HGB 12.6 g/dL Range: 12.0-16.0 HCT 39.3 % Range: 36.0-48.0 MCV 93.1 fL Range: 80.0-99.0 MCH 29.9 pg Range: 27.3-32.5 MCHC 32.1 % Range: 32.0-36.0 RDW 15.0 % (Above high threshold) Range: 11.6-14.8 PLATELETS 412 K/uL (Above high threshold) Range: 150-400 MPV 7.2 fL Range: 6.0-11.0 %NEUTRO 63.0 % Range: 37.0-80.0 %LYMPHS 30.2 % Range: 13.0-50.0 %MONO 4.0 % Range: 0.0-12.0 %EOS 0.8 % Range: 0.0-7.0 %BASO 0.6 % Range: 0.0-2.5 %TRISTIN 1.5 % Range: 0.0-5.0 NEUTRO 6.4 K/uL Range: 2.0-6.9 LYMPHS 3.1 K/uL Range: 0.6-3.4 MONOS 0.4 K/uL Range: 0.0-0.9 EOS 0.1 K/uL Range: 0.0-0.7 BASO 0.1 K/uL Range: 0.0-0.2 13:56 BASIC METABOLIC PROFILE 1210 SODIUM 139 mmol/L Range: 133-144 POTASSIUM 4.5 mmol/L Range: 3.5-5.1 CHLORIDE 101 mmol/L Range: 98-110 CARBON DIOXIDE 28.7 mmol/L Range: 23.0-33.0 ANION GAP 9 mmol/L Range: 6-16 BUN 11 mg/dL Range: 7-18 CREATININE, SERUM 1.11 mg/dL (Above high Range: 0.55-1.02 threshold) Comments: Please note new reference ranges effective 2014. ----- EST GFR, 60 ml/min (Below low Range: >60 threshold) EST GFR, NON-AFR ROMANIAN 49 ml/min (Below low Range: >60 threshold) Comments: EST GFR is reported in ml/min per 1.73 m2 of body surface area. For -Yemeni, please multiple result by 1.2.----- BUN:CREATININE RATIO 10 GLUCOSE 65 mg/dL (Below low Range: 70-100 threshold) Comments: Variance from previous testing noted.----- CALCIUM 9.9 mg/dL Range: 8.5-10.1 Plan of Care Name Dates Details Planned Observations CBC w/ Auto Diff 7150 On 20-Nov-2015 Intent Comprehensive Metabolic Panel 1212 On 20-Nov-2015 Intent Planned Goals not documented Planned Encounters Appointment; Provider: Harry Farmer M.D. On 31-Jan-2016 15:00 Appointment; Provider: [facility] On 18-Jan-2016 16:00 Appointment; Provider: Benson Servin M.D. On 09-Jan-2016 14:00 Appointment; Provider: Dale Fair M.D. On 09-Jan-2016 13:15 Appointment; Provider: Dale Fair M.D. On 30-Nov-2015 13:00 Instructions Name Dates Details Instructions not [...] Encounter Diagnosis: Problem not documented 13:30 Appointment; eBnson Servin M.D. On 06-Apr-2015 Encounter Diagnosis: Problem [...]
--- OUTSIDE RECORDS SUMMARY | 2017-08-06 07:10 | External Medical Summary | Summary of Care ---
:1950 Author Name Dale Fair M.D. Address [address], [place] [id number] Care Team Providers Name Role Phone Dale [...] on:03-Oct-2009 Tdap (Adacel) Administered on: Lot #: [id number] Pneumo (Pneumovax) Administered on: Lot #: [id number] Zoster (Zostavax) Administered on:15-Oct-2011 Lot #: [id number] Fluzone Quadrivalent 0.5 ML Intramuscular Suspension Administered on:2013 Lot #: [id number] Fluzone Quadrivalent 0.5 ML Intramuscular Suspension Administered on:2014 Lot #: [id number] Family History Grandmother Name Dates Details Family [...] Encounter Diagnosis: Problem not documented 15:45 Appointment; oRbb Tavarez On 21-Feb-2015 Encounter Diagnosis: Problem not [...]
--- OUTSIDE RECORDS SUMMARY | 2017-08-06 07:10 | External Medical Summary | Summary of Care ---
:1950 Author Name Corby Bella, Robb Address Unavailable Unavailable , Care Team Providers Name Role Phone Marv Bella, aDle Marks Unavailable Unavailable Gareth Bella, Benson Weems Unavailable Unavailable Corby Bella, Robb Unavailable Unavailable Dale Fair Unavailable Unavailable Unavailable [...] Status: Active Hypercholesterolemia (272.0, E78.00) Status: Active Type 2 diabetes mellitus (250.00, [...] MOUTH AT BEDTIME. Quantity: 90 Refills: 2 Jacquelineter M.DDale Arshad Start Active ClonazePAM 1 MG Oral Tablet TAKE 1 TABLET BY MOUTH AT BEDTIME NEEDED Quantity: 90 Refills: 0 Marv M.D., Dale Marks Start Active Magnesium 400 MG Oral Tablet 1 tablet BID Quantity: 180 Refills: 3 Marv MDale Manleytive TraMADol HCl - 50 MG Oral Tablet TAKE ONE TABLET(S) BY MOUTH TID NEEDED Quantity: 270 Refills: 0 Marv M.Dale Mackenzie Start 11-Oct-2014 Active Vitamin D3 1000 [...] 400 MG Oral Capsule Refills: 0 Marv M.Dale Mackenzie Start 18-Apr-2015 Active Ferrous Sulfate 325 (65 Fe) MG Oral Tablet take 1 tablet by mouth every day Quantity: 31 Refills: 0 Marv Layne.Dale aMckenzie Start 18-Apr-2015 Active Aspirin Adult Low Dose 81 MG Oral Tablet Delayed Release TAKE 1 TABLET DAILY. Quantity: 90 Refills: 3 Crater M.D., Dale Marks Start Active Vitamin D3 5000 UNIT Oral Capsule TAKE DAILY DIRECTED. Quantity: 90 Refills: 3 Crater M.D.Dale Start Active Fluconazole 150 MG Oral Tablet take 1 tablet per day for 2 days only! * HOLD SIMVASTATIN WHILE TAKING THIS* Quantity: 2 Refills: 0 Marv M.D., Dale Marks Start 29-Oct-2015 Active LevoFLOXacin 250 MG Oral Tablet 1 TABLET DAILY X 3 DAYS Quantity: 3 Refills: 1 Crater M.D., Dale A Start 29-Oct-2015 Active Ginkgo Biloba 60 MG [...] on: 03-Oct-2009 Tdap (Adacel) on: Lot #: [id number] Pneumo (Pneumovax) on: Lot #: [id number] Zoster (Zostavax) on: 15-Oct-2011 Lot #: [id number] Fluzone Quadrivalent 0.5 ML Intramuscular Suspension on: 09-Jan-2014 Lot #: [id number] Fluzone Quadrivalent 0.5 ML Intramuscular Suspension on: 02-Feb-2015 Lot #: [id number] Prevnar 13 Intramuscular Suspension on: Lot #: [id number] Fluzone High-Dose 0.5 ML Intramuscular Suspension Prefilled Syringe on: Lot #: [id number] Family History Grandmother Name Dates Details Family [...] smoker Vital Signs Date Test Result Details 07-Dec-2015 07:41 BP Systolic 142 mm[Hg] Status: Comments: Location: ; Position: BP Diastolic 96 mm[Hg] Status: Comments: Location: ; Position: Weight 199 lb Status: Body Mass Index Calculated 34.7 kg/m2 Status: Body Surface Area Calculated 1.94 m2 Status: 30-Nov-2015 13:21 BP Systolic 128 mm[Hg] Status: Comments: Location: ; Position: BP Diastolic 70 mm[Hg] Status: Comments: Location: ; Position: Heart Rate 78 /min Status: Weight 197.2 lb Status: Physical Findings 97 [...] >60 ml/min Range: >60 EST GFR, NON-AFR [place]ING[place]ORE[place] >60 ml/min Range: >60 Comments: EST GFR [...] documented Encounters Appointment; Dale Fair M.D. On 30-Nov-2015 Encounter [...] Encounter Diagnosis: Problem not documented 08:30 Appointment; Besnon Servin M.D. On 08-Feb-2015 Encounter Diagnosis: Problem [...] Problem not documented 14:15 Appointment; Samina Malik P.A. On 01-Jun-2014 Encounter Diagnosis: Problem not [...] On 19-Dec-2013 Encounter Diagnosis: Problem not documented 13:25"
--- OUTSIDE RECORDS SUMMARY | 2017-08-06 07:10 | External Medical Summary | Summary of Care ---
:1950 Author Name Samina Chow Address [address] [place], [place] [id number] Care Team Providers Name Role Phone Dale Fair M.D. 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 Type 2 diabetes mellitus (250.00, E11.9) Status: Active Anemia (285.9, D64.9) Status: Active Depression (311, F32.9) Status: Active Diarrhea (787.91, R19.7) Status: Active Dysuria (788.1, R30.0) Status: Active Hypercholesterolemia (272.0, E78.0) Status: Active Hyperlipidemia (272.4, E78.5) Status: Active Hypothyroidism (244.9, E03.9) Status: Active Keratoconjunctivitis (370.40, H16.209) Status: Active Nephrolithiasis (592.0, N20.0) Status: Active Lower back pain (724.2, M54.5) Status: Active Pre-operative general physical examination (V72.83, Z01.818) Status: Active Increased urinary frequency (788.41, R35.0) Status: Active Status post gastric bypass for obesity (V45.86, Z98.84) Status: Active Tendonitis (726.90, M77.9) Status: Active Vaginitis (616.10, N76.0) Status: Active Left hand pain (729.5, M79.642) Status: Active Incipient senile cataract (366.12, H25.099) Status: Active Pain in left wrist (719.43, M25.532) Status: Active Pre-operative cardiovascular examination (V72.81, Z01.810) Status: Active Pain in wrist joint (719.43, M25.539) Status: Active Nonexudative age-related macular degeneration (362.51, H35.31) Status: Active Pre-operative exam (V72.84, Z01.818) Status: Active Pain in joint, shoulder region (719.41, M25.519) Status: Active Hypertension (401.9, I10) Status: Active Vitamin d deficiency (268.9, E55.9) Status: Active Urinary tract infection (599.0, N39.0) Status: Active Essential hematuria (599.70, N02.9) Status: Active Incomplete uterovaginal prolapse (618.2, N81.2) Status: Active Insomnia (780.52, G47.00) Status: Active Encounter for fitting or adjustment of spectacles or contact lenses (V53.1, Z46.0) Status: Active 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 Quantity: 90 Refills: 3 Dale Fair M.D. Started 09-Dec-2007 ActiveMetFORMIN HCl - 1000 MG Oral Tablet Take one tablet by mouth twice daily with meals Quantity: 180 Refills: 3 aDle Fair M.D. Started 09-Dec-2007 ActiveLyrica 50 MG [...] 180 Refills: 1 Dale Fair M.D. Started ActiveMagnesium 500 MG Oral Tablet Refills: 0 ActiveOxyCODONE HCl ER 10 MG Oral Tablet ER 12 Hour Abuse-Deterrent Si PO every 12 hours with a max of 2 per day. Must last [address] Ppier Quantity: 60 Refills: 0 Samina Malik Started 01-Jun-2014 Active Allergies and Adverse Reactions Name Dates Details Codeine Derivatives Reaction: Rash Status: Active Past Medical History Name Dates Details Encounter for fitting or adjustment of spectacles or contact lenses (V53.1, Z46.0) Status: Active History of Diagnostic Esophagogastroduodenoscopy Status: Resolved Procedures Procedure Dates Details History of Sigmoidoscopy (Fiberoptic) Completed:12-Oct-2009 History of Complete Colonoscopy Completed:26-Oct-2009 History of Nerve Block Transforaminal Epidural Lumbar History of Combined A-P Colporrhaphy (For Pelvic Completed:31-Oct-2011 Relaxation History of Vag Hysterectomy Uterus 250 Gm Or < W/ Completed:31-Oct-2011 Removal Of Ovary(S) History of Shldr Arthrosc W/ Distal Claviculectomy Incl Completed:02-Jan-2009 Distal Art Surf History of Diagnostic Esophagogastroduodenoscopy Completed:21-Nov-2009 History of Gastric Surgery History of Renal Lithotripsy Completed:19-Nov-2009 History of Renal Lithotripsy Completed:24-Oct-2009 History of Shoulder Arthroscopy, Space Decompression And Completed:2008 Acromioplasty Procedures not documented Immunization Name Dates Details Hepatitis B Administered on:1991 MMR Administered on:26-Jul-1992 Tetanus-Diphtheria Toxoids Td 2-2 LF/0.5ML Intramuscular Suspension Administered on:26-Jul-1992 Hepatitis A Administered on:29-Nov-1998 MMR Administered on:03-Oct-2009 Lot #: [id number] MMR Administered on:03-Oct-2009 Tdap (Adacel) Administered on: Lot #: [id number] Pneumo (Pneumovax) Administered on: Lot #: [id number] Zoster (Zostavax) Administered on:15-Oct-2011 Lot #: [id number] Fluzone Quadrivalent 0.5 ML Intramuscular Suspension Administered on:2013 Lot #: [id number] Family History Grandmother Name Dates Details Family [...] Dale Fair On 11-Oct-2014 13:00 Appointment; Provider: Samina Malik On 20-Jul-2014 11:00 Appointment; Provider: Jai Piper On 05-Dec-2013 13:15 Appointment; Provider: Rob Ramírez On 19-Nov-2009 07:30 Appointment; Provider: Rob Ramírez On 24-Oct-2009 08:30 Appointment; Provider: Sharyn Simmons On 09-Feb-2009 16:30 Appointment; Provider: Rich Jose On 02-Jan-2009 07:30 Appointment; Provider: Sharyn Simmons On 16:30 Instructions Instructions not documented Encounters Appointment; Samina Malik On 01-Jun-2014 Encounter Diagnosis: [...]
--- OUTSIDE RECORDS SUMMARY | 2017-08-06 07:10 | External Medical Summary | Summary of Care ---
:1950 Author Name Mine Decker M.D. Address Unavailable Unavailable , Care Team Providers Name Role Phone Brianne Bella, iMne Unavailable Unavailable Marv Bella, Dale Marks Unavailable [...] every day Quantity: 90 Refills: 3 Marv Layne.Dale Mackenzie Start 18-Mar-2010 Active Vitamin B-12 1000 MCG Oral Tablet TAKE 1 TABLET DAILY DIRECTED. Refills: 0 Dale Fair M.D. Start 23-Oct-2010 Active Folic Acid 1 MG Oral Tablet Refills: 0 Active B-Complex Oral Capsule Refills: 0 Start 23-Oct-2011 Active Mirtazapine 15 MG Oral Tablet TAKE 1 TABLET BY MOUTH AT BEDTIME. Quantity: 90 Refills: 2 Dale Fair M.D. Start Active ClonazePAM 1 MG Oral Tablet TAKE 1 TABLET BY MOUTH AT BEDTIME NEEDED Quantity: 90 Refills: 0 Dale Fair M.D. Start Active Magnesium 400 MG Oral Tablet 1 tablet BID Quantity: 180 Refills: 3 Marv Bella, Dale Shintive TraMADol HCl - 50 MG Oral Tablet TAKE ONE TABLET(S) BY MOUTH TID NEEDED Quantity: 270 Refills: 0 Dale Fair M.D. Start 11-Oct-2014 Active Vitamin D3 1000 UNIT [...] TABLET DAILY. Quantity: 90 Refills: 3 Marv M.Gurdeep, Dale Marks Start Active Vitamin D3 5000 UNIT Oral Capsule TAKE DAILY DIRECTED. Quantity: 90 Refills: 3 Marv Layne.Gurdeep, aDle Marks Start Active Ginkgo Biloba 60 MG Oral Capsule TAKE 1 CAPSULE TWICE DAILY. Refills: 0 Marv Bella, Dale Marks Start 30-Nov-2015 Active Contrave 8-90 MG Oral Tablet Extended Release 12 Hour 1 TABLET EVERY AM X 1 WK, THEN 1 TABLET TWICE DAILY X 1 WK, THEN 2 TABLETS EVERY AM AND 1 TABLET EVERY HS X 1 WK, THEN 2 TABS TWICE DAILY. Quantity: 120 Refills: 3 Marv Layne.Dot., Dale Marks Start 02-Jun-2016 Active Tums 500 MG Oral Tablet Chewable TAKE DIRECTED. Refills: 0 Decker Shayne, Mine Start 18-Jun-2016 Active Allergies and Adverse Reactions Name Dates [...] D, 25 - Hydroxy 3111 Ordered: 18-Jun-2016 Complement, Total (CH50) [id number] Ordered: 18-Jun-2016 HISS PANEL [id number] Ordered: 18-Jun-2016 Immunization Name Dates Details Hepatitis B on: 1991 MMR on: 26-Jul-1992 Tetanus-Diphtheria Toxoids Td 2-2 LF/0.5ML Intramuscular Suspension on: Hepatitis A on: 29-Nov-1998 MMR on: 03-Oct-2009 Lot #: [id number] MMR on: 03-Oct-2009 Tdap (Adacel) on: Lot #: [id number] Pneumo (Pneumovax) on: Lot #: [id number] Zoster (Zostavax) on: 15-Oct-2011 Lot #: [id number] Fluzone Quadrivalent 0.5 ML Intramuscular Suspension on: 09-Jan-2014 Lot #: [id number] Fluzone Quadrivalent 0.5 ML Intramuscular Suspension on: 02-Feb-2015 Lot #: [id number] Prevnar 13 Intramuscular Suspension on: Lot #: [id number] Fluzone High-Dose 0.5 ML Intramuscular Suspension Prefilled Syringe on: Lot #: [id number] Family History Grandmother Name Dates Details Family [...] >60 ml/min Range: >60 EST GFR, NON-AFR [place] 55 ml/min (Below low Range: >60 threshold) [...] 14 :57Dictation Date: 06/04/2016 15:35 XC CHEST Plan of Care Name Dates Details Planned Observations Planned Goals not documented Planned Encounters Appointment; Provider: Benson Servin M.D. On 29-May-2017 09:00 Appointment; Provider: Dale Fari M.D. On 17-Jul-2016 13:45 Appointment; Provider: Emmy Vasquez A.P.R.N. On 17-Jul-2016 13:00 Appointment; Provider: Harry Farmer M.D. On 07-Jul-2016 13:00 Interventions Provided Labs/Procedures/ImagingComplement, Total (IZ44) [id number]; To be Done: 18 Jun 2016HISS PANEL [id number]; To be Done: 18 Jun 2016Vitamin D, 25 - Hydroxy 3111; To be Done: 18 Jun 2016 Instructions Name Dates Details Instructions not documented [...] Problem not documented 08:15 Appointment; Samina Malik, PPavithraAPavithra On 19-Oct-2014 Encounter Diagnosis: Problem not documented [...]
--- OUTSIDE RECORDS SUMMARY | 2017-08-06 07:11 | External Medical Summary | Summary of Care ---
:1950 Author Name Dale Fair M.D. Address [address] [place], [place] [id number] Care Team Providers Name Role Phone Dale [...] AT BEDTIME NEEDED. Quantity: 90 Refills: 0 Marv Layne.Dale Mackenzie Start 09-Dec-2007 Active MetFORMIN HCl - 1000 MG Oral Tablet Take one tablet by mouth twice daily with meals Quantity: 180 Refills: 3 Marv Layne.Dale Mackenzie Start 09-Dec-2007 Active Lyrica 50 MG Oral Capsule TAKE 1 CAPSULE TWICE DAILY. Quantity: 28 Refills: 1 Marv Layne.Dale Mackenzie Start 27-Oct-2008 Active Escitalopram Oxalate 20 MG [...] mouth daily. Quantity: 90 Refills: 3 Marv Layne.Dale Mackenzie Start 15-Mar-2010 Active Losartan Potassium 100 MG [...] AT BEDTIME. Quantity: 90 Refills: 2 Marv M.D.Dale Start Active ClonazePAM 1 MG Oral Tablet TAKE 1 TABLET BY MOUTH AT BEDTIME NEEDED Quantity: 90 Refills: 0 Jacquelineleonardo M.D.Dale Start Active Magnesium 400 MG Oral Tablet 1 tablet BID Quantity: 180 Refills: 3 Marv M.Dot., Dale Shintive TraMADol HCl - 50 MG Oral Tablet TAKE ONE TABLET(S) BY MOUTH TID NEEDED Quantity: 270 Refills: 0 Marv M.Dot.Dale Start 11-Oct-2014 Active Vitamin D3 1000 UNIT Oral Capsule TAKE DIRECTED. Refills: 0 Start 19-Oct-2014 Active Acetaminophen 500 MG Oral Tablet TAKE TWO TABLET(S) BY MOUTH TWICE DAILY Quantity: 360 Refills: 0 Marv M.Dot.Dale Start 19-Oct-2014 Active PrednisoLONE Acetate 1 % Ophthalmic Suspension Install 1 drop as directed 6 times daily (during waking hours) Starting after surgery. Quantity: 10 Refills: 1 Benson Servin M.D. Start 23-Jan-2015 Active Co Q-10 400 MG Oral Capsule Refills: 0 Marv M.GurdeepDale Start 18-Apr-2015 Active Ferrous Sulfate 325 (65 Fe) MG Oral Tablet take 1 tablet by mouth every day Quantity: 31 Refills: 0 Marv Layne.Dot.Dale Start 18-Apr-2015 Active Aspirin Adult Low Dose 81 MG Oral Tablet Delayed Release TAKE 1 TABLET DAILY. Quantity: 90 Refills: 3 Marv M.Dot. Dale Marks Start Active Vitamin D3 5000 UNIT Oral Capsule TAKE DAILY DIRECTED. Quantity: 90 Refills: 3 Marv M.Dot., Dale Marks Start Active Allergies and Adverse Reactions Name [...] Cataract Extract With Prosthesis Insert Right Eye Comprehensive Metabolic Panel 1212 Ordered: Immunization Name Dates Details Hepatitis B on: 1991 MMR on: 26-Jul-1992 Tetanus-Diphtheria Toxoids Td 2-2 LF/0.5ML Intramuscular Suspension on: Hepatitis A on: 29-Nov-1998 MMR on: 03-Oct-2009 Lot #: [id number] MMR on: 03-Oct-2009 Tdap (Adacel) on: Lot #: [id number] Pneumo (Pneumovax) on: Lot #: [id number] Zoster (Zostavax) on: 15-Oct-2011 Lot #: [id number] Fluzone Quadrivalent 0.5 ML Intramuscular Suspension on: 09-Jan-2014 Lot #: [id number] Fluzone Quadrivalent 0.5 ML Intramuscular Suspension on: 02-Feb-2015 Lot #: [id number] Prevnar 13 Intramuscular Suspension on: Lot #: [id number] Family History Grandmother Name Dates Details Family [...] Details 11:46 BP Systolic 130 mm[Hg] Status: Comments: Location: ; Position: BP Diastolic 80 mm[Hg] Status: Comments: Location: ; Position: Heart Rate 78 /min Status: Comments: Location: ; Weight 199 lb Status: Physical Findings 97 Status: Comments: O2 Saturation Body Mass Index Calculated 34.7 kg/m2 Status: Body Surface Area Calculated 1.94 m2 Status: Results Date Description Value Details 16:19 DEXA Comments: Exam Date: 09/11/2015 14:51Dictation Date: 09/11/2015 16:19 XD DEXA Plan of Care Name Dates Details Planned Observations Comprehensive Metabolic Panel 1212 On Intent Planned Goals not documented Planned Encounters Appointment; Provider: Schedule Radiology On 18-Jan-2016 16:00 Appointment; Provider: Benson Servin M.D. On 09-Jan-2016 14:00 Appointment; Provider: Dale Fair M.D. On 09-Jan-2016 13:15 Appointment; Provider: Schedule Radiology On 15:00 Interventions Provided Medication ChangesAcetaminophen 500 MG Oral Tablet - Renew with ChangesAspirin 81 MG TABS - StopAspirin Adult Low Dose 81 MG Oral Tablet Delayed Release - StartClonazePAM 1 MG Oral Tablet - RenewCyclobenzaprine HCl - 10 MG Oral Tablet - RenewEscitalopram Oxalate 20 MG Oral Tablet - RenewLevothyroxine Sodium 75 MCG Oral Tablet - RenewLosartan Potassium 100 MG Oral Tablet - RenewLyrica 50 MG Oral Capsule - RenewMagnesium 400 MG Oral Tablet - RenewMeloxicam 7.5 MG Oral Tablet - StopMetFORMIN HCl - 1000 MG Oral Tablet - RenewMirtazapine 15 MG Oral Tablet - RenewSimvastatin 40 MG Oral Tablet - RenewTraMADol HCl - 50 MG Oral Tablet - Renew with ChangesVitamin D3 5000 UNIT Oral Capsule - Start Instructions Name Dates Details Instructions not documented Encounters Appointment; Dale Fair M.D. On 18-Apr-2015 Encounter [...] Problem not documented 08:45 Appointment; Arcadio Lucas M.D.|Em,LILLI,RAJIV, On 05-Feb-2015 Encounter Diagnosis: Problem not documented [...] Problem not documented 13:00 Appointment; Samina Malik P.A. On 20-Jul-2014 Encounter Diagnosis: Problem not [...] Problem not documented 08:30 Appointment; Dale Fair M.D. On 21-Oct-2013 Encounter Diagnosis: Problem not documented 13:00"
--- OUTSIDE RECORDS SUMMARY | 2017-08-06 07:11 | External Medical Summary | Summary of Care ---
:1950 Author Name Dale Fair M.D. Address [address], [place] [phone] Care Team Providers Name Role Phone Dale [...] Status: Active Bronchitis (490, J40) Status: Active Medications Name Dates Details Cyclobenzaprine [...] TABLET DAILY DIRECTED. Quantity: 90 Refills: 3 Dael Fair M.D. Started 10-Dec-2009 ActiveZetia 10 MG [...] ActiveMagnesium 500 MG Oral Tablet Refills: 0 ActiveOxycodone-Acetaminophen 7.5-325 MG Oral Tablet TAKE 1 [...] on:03-Oct-2009 Tdap (Adacel) Administered on: Lot #: [id number] Pneumo (Pneumovax) Administered on: Lot #: [id number] Zoster (Zostavax) Administered on:15-Oct-2011 Lot #: [id number] Fluzone Quadrivalent 0.5 ML Intramuscular Suspension Administered on:2013 Lot #: [id number] Family History Grandmother Name Dates Details Family [...] Body Surface Area Calculated 1.88 m2 Status: 04-Jul-2014 14:35 BP Systolic 134 mm[Hg] Status: [...] not documented Encounters Appointment; Dale Fair On 19-Jul-2014 Encounter Diagnosis: Problem not documented 09:15 Appointment; Derick Livingston On 07-Jul-2014 Encounter Diagnosis: Problem not documented 10:30 Appointment; Magalie Lauren On 04-Jul-2014 Encounter Diagnosis: Problem not documented 14:15 Appointment; Samina Malik On 01-Jun-2014 Encounter Diagnosis: Problem not documented 08:45 Appointment; Dale aFir On 12-Apr-2014 Encounter Diagnosis: Problem not documented [...]
--- OUTSIDE RECORDS SUMMARY | 2017-08-06 07:11 | External Medical Summary | Summary of Care ---
:1950 Author Name Samina Chow Address [address] [place], [place] [phone] Care Team Providers Name Role Phone Dale [...] Active Eye strain (368.13, H53.149) Status: Active Radicular syndrome of lower limbs [...] on:03-Oct-2009 Tdap (Adacel) Administered on: Lot #: [id number] Pneumo (Pneumovax) Administered on: Lot #: [id number] Zoster (Zostavax) Administered on:15-Oct-2011 Lot #: [id number] Fluzone Quadrivalent 0.5 ML Intramuscular Suspension Administered on:2013 Lot #: [id number] Family History Grandmother Name Dates Details Family [...] ml/min Range: >60 (Better) EST GFR, NON-AFR BRITISH 58 ml/min (Below Range: >60 low threshold) Comments: EST GFR is reported in ml/min per 1.73 m2 of body surface area. For -Fijian, please multiple result by 1.2.----- BUN:CREATININE RATIO [...]
--- OUTSIDE RECORDS SUMMARY | 2017-08-06 07:11 | External Medical Summary | Summary of Care ---
:1950 Author Name Dale Fair M.D. Address [address] [place], [place] [id number] Care Team Providers Name Role Phone Dale [...] Refills: 0 Dale Fair M.D. Started 11-Oct-2014 Active Allergies and Adverse Reactions Name Dates [...] on:03-Oct-2009 Tdap (Adacel) Administered on: Lot #: [id number] Pneumo (Pneumovax) Administered on: Lot #: [id number] Zoster (Zostavax) Administered on:15-Oct-2011 Lot #: [id number] Fluzone Quadrivalent 0.5 ML Intramuscular Suspension Administered on:2013 Lot #: [id number] Family History Grandmother Name Dates Details Family [...] ml/min Range: >60 (Better) EST GFR, NON-AFR [place] 58 ml/min (Below Range: >60 low threshold) Comments: EST GFR is reported in ml/min per 1.73 m2 of body surface area. For -South African, please multiple result by 1.2.----- BUN:CREATININE RATIO [...] Nadia Shelby On 01-Nov-2014 08:15 Appointment; Provider: Samina Malik On 19-Oct-2014 10:45 Appointment; Provider: Jai Piper On 05-Dec-2013 13:15 Appointment; Provider: Rob Ramírez On 19-Nov-2009 07:30 Appointment; Provider: Rob Ramírez On 24-Oct-2009 08:30 Appointment; Provider: Sharyn Simmons On 09-Feb-2009 16:30 Appointment; Provider: Rich Jose On 02-Jan-2009 07:30 Appointment; Provider: Sharyn Simmons On 16:30 Instructions Instructions not documented Encounters Appointment; Dale Fair On 11-Oct-2014 Encounter Diagnosis: [...]
--- OUTSIDE RECORDS SUMMARY | 2017-08-06 07:11 | External Medical Summary | Summary of Care ---
:1950 Author Name Dale Fair M.D. 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 Quantity: 90 Refills: 3 Jacquelineter M.D., Dale Marks Start Active Vitamin D3 5000 UNIT Oral Capsule TAKE DAILY DIRECTED. Quantity: 90 Refills: 3 Jacquelineter M.D., Dale Marks Start Active Ginkgo Biloba 60 MG Oral Capsule TAKE 1 CAPSULE TWICE DAILY. Refills: 0 Dale Fair M.D. Start 30-Nov-2015 Active Contrave 8-90 MG Oral Tablet Extended Release 12 Hour 1 TABLET EVERY AM X 1 WK, THEN 1 TABLET TWICE DAILY X 1 WK, THEN 2 TABLETS EVERY AM AND 1 TABLET EVERY HS X 1 WK, THEN 2 TABS TWICE DAILY. Quantity: 120 Refills: 3 Marv BellaDale Start 02-Jun-2016 Active Allergies and Adverse Reactions Name Dates [...] Cataract Extract With Prosthesis Insert Right Eye CT CHEST WITH IV CONTRAST Ordered: 02-Jun-2016 Immunization Name Dates Details Hepatitis B on: 1991 MMR on: 26-Jul-1992 Tetanus-Diphtheria Toxoids Td 2-2 LF/0.5ML Intramuscular Suspension on: Hepatitis A on: 29-Nov-1998 MMR on: 03-Oct-2009 Lot #: [id number] MMR on: 03-Oct-2009 Tdap (Adacel) on: Lot #: [id number] Pneumo (Pneumovax) on: Lot #: [id number] Zoster (Zostavax) on: 15-Oct-2011 Lot #: [id number] Fluzone Quadrivalent 0.5 ML Intramuscular Suspension on: 09-Jan-2014 Lot #: [id number] Fluzone Quadrivalent 0.5 ML Intramuscular Suspension on: 02-Feb-2015 Lot #: [id number] Prevnar 13 Intramuscular Suspension on: Lot #: [id number] Fluzone High-Dose 0.5 ML Intramuscular Suspension Prefilled Syringe on: Lot #: [id number] Family History Grandmother Name Dates Details Family [...] smoker Vital Signs Date Test Result Details 02-Jun-2016 12:50 BP Systolic 126 mm[Hg] Status: Comments: Location: ; Position: BP Diastolic 72 mm[Hg] Status: Comments: Location: ; Position: Heart Rate 100 /min Status: Comments: Location: ; Weight 198.6 lb Status: Physical Findings 97 [...] >60 ml/min Range: >60 EST GFR, NON-AFR CITIZEN [place] 55 ml/min (Below low Range: >60 threshold) [...] A1C 6.6 % ESTIMATED AVG. GLUCOSE 143 Plan of Care Name Dates Details Planned Observations Planned Goals not documented Planned Encounters Appointment; Provider: Benson Servin M.D. On 29-May-2017 09:00 Appointment; Provider: Emmy Vasquez A.P.R.N. On 17-Jul-2016 13:00 Appointment; Provider: Magalie Lauren A.P.R.N. On 07-Jul-2016 13:00 Appointment; Provider: Dale Fair M.D. On 16-Jun-2016 15:45 Interventions Provided Medication ChangesClonazePAM 1 MG Oral Tablet - RenewContrave 8-90 MG Oral Tablet Extended Release 12 Hour - StartMirtazapine 15 MG Oral Tablet - RenewLabs /Procedures/ImagingCT CHEST WITH IV CONTRAST; To be Done: 02 Jun 2016 Instructions Name Dates Details Instructions [...] Problem not documented 14:30 Appointment; Harry Maurer M.D.,[facility], On 17-Oct-2015 Encounter Diagnosis: Problem not documented [...] Problem not documented 09:15 Appointment; Derick Livingston, PPavithraAPavithra On 07-Jul-2014 Encounter Diagnosis: Problem not documented 10:30 Appointment; Magalie Lauren A.P.R.N. On 04-Jul-2014 Encounter Diagnosis: Problem not documented 14:15"
--- OUTSIDE RECORDS SUMMARY | 2017-08-06 07:12 | External Medical Summary | Summary of Care ---
:1950 Author Name Dale Fair M.D. Address [address], [place] [phone] Care Team Providers Name Role Phone Dale [...] on:03-Oct-2009 Tdap (Adacel) Administered on: Lot #: [id number] Pneumo (Pneumovax) Administered on: Lot #: [id number] Zoster (Zostavax) Administered on:15-Oct-2011 Lot #: [id number] Fluzone Quadrivalent 0.5 ML Intramuscular Suspension Administered on:2013 Lot #: [id number] Family History Grandmother Name Dates Details Family [...]
--- OUTSIDE RECORDS SUMMARY | 2017-08-06 07:12 | External Medical Summary | Summary of Care ---
:1950 Author Name Dale Fair M.D. Address [address], [place] [id number] Care Team Providers Name Role Phone Dale [...] 1 TABLET DAILY DIRECTED. Refills: 0 Dale Fari M.D. Started 23-Oct-2010 ActiveFolic Acid 1 MG [...] 1605 Ordered:02-Oct-2014 BASIC METABOLIC PROFILE 1210 Ordered:02-Oct-2014 PROTIME PANEL 7000 Ordered:02-Oct-2014 XRay FOOT-BILATERAL Ordered:02-Oct-2014 Immunization Name Dates Details Hepatitis B Administered on:1991 MMR Administered on:26-Jul-1992 Tetanus-Diphtheria Toxoids Td 2-2 LF/0.5ML Intramuscular Suspension Administered on:26-Jul-1992 Hepatitis A Administered on:29-Nov-1998 MMR Administered on:03-Oct-2009 Lot #: [id number] MMR Administered on:03-Oct-2009 Tdap (Adacel) Administered on: Lot #: [id number] Pneumo (Pneumovax) Administered on: Lot #: [id number] Zoster (Zostavax) Administered on:15-Oct-2011 Lot #: [id number] Fluzone Quadrivalent 0.5 ML Intramuscular Suspension Administered on:2013 Lot #: [id number] Family History Grandmother Name Dates Details Family [...] to report Results Date Description Value Details 10-Oct-2014 09:26 Quant Microalbumin 1106 MICROALBUMIN, URINE <1.3 mg/L (Better) Range: <20.1 Plan of Care Planned Observations Name Dates [...]
--- OUTSIDE RECORDS SUMMARY | 2017-08-06 07:12 | External Medical Summary | Summary of Care ---
:1950 Author Name Magalie Lauren APRN Address [address] [place], [place] [phone] Care Team Providers Name Role Phone Dale [...] Status: Active Pneumonia (486, J18.9) Status: Active Medications Name Dates Details Cyclobenzaprine [...] on:03-Oct-2009 Tdap (Adacel) Administered on: Lot #: [id number] Pneumo (Pneumovax) Administered on: Lot #: [id number] Zoster (Zostavax) Administered on:15-Oct-2011 Lot #: [id number] Fluzone Quadrivalent 0.5 ML Intramuscular Suspension Administered on:2013 Lot #: [id number] Family History Grandmother Name Dates Details Family [...] Dale Fair On 19-Jul-2014 09:15 Appointment; Provider: Derick Livingston On 07-Jul-2014 10:30 Appointment; Provider: Jai Piper On 05-Dec-2013 13:15 Appointment; Provider: Rob Ramírez On 19-Nov-2009 07:30 Appointment; Provider: Rob Ramírez On 24-Oct-2009 08:30 Appointment; Provider: Sharyn Simmons On 09-Feb-2009 16:30 Appointment; Provider: Rich Jose On 02-Jan-2009 07:30 Appointment; Provider: Sharyn Simmons On 16:30 Instructions Instructions not documented Encounters Appointment; Magalie Lauren On 04-Jul-2014 Encounter Diagnosis: [...]
--- OUTSIDE RECORDS SUMMARY | 2017-08-06 07:12 | External Medical Summary | Summary of Care ---
:1950 Author Name Anna Marie Sutton APRN Address [address], [place] [phone] Care Team Providers Name Role Phone Dale [...] A41.9) Status: Active Medications Name Dates Details Cyclobenzaprine [...] 90 Refills: 3 Marv Layne.Dale Mackenzie Start 01-Jan-2009 Active Simvastatin 40 MG Oral [...] Quantity: 90 Refills: 3 Marv M.Dale Mackenzie Start 18-Mar-2010 Active Vitamin B-12 1000 [...] TAKING THIS* Quantity: 2 Refills: 0 Marv M.D.Dale Start 29-Oct-2015 Active LevoFLOXacin 250 MG Oral Tablet 1 TABLET DAILY X 3 DAYS Quantity: 3 Refills: 1 Marv Bella, Dale Marks Start 29-Oct-2015 Active Allergies and Adverse Reactions Name Dates [...] on: 03-Oct-2009 Tdap (Adacel) on: Lot #: [id number] Pneumo (Pneumovax) on: Lot #: [id number] Zoster (Zostavax) on: 15-Oct-2011 Lot #: [id number] Fluzone Quadrivalent 0.5 ML Intramuscular Suspension on: 09-Jan-2014 Lot #: [id number] Fluzone Quadrivalent 0.5 ML Intramuscular Suspension on: 02-Feb-2015 Lot #: [id number] Prevnar 13 Intramuscular Suspension on: Lot #: [id number] Family History Grandmother Name Dates Details Family [...] Body Surface Area Calculated 1.9 m2 Status: 29-Oct-2015 14:41 BP Systolic 126 mm[Hg] Status: Comments: Location: ; Position: BP Diastolic 74 mm[Hg] Status: Comments: Location: ; Position: Heart Rate 75 /min Status: Comments: Location: ; Weight 190.6 lb Status: Physical Findings 96 Status: Comments: O2 Saturation Body Mass Index Calculated 33.23 kg/m2 Status: Body Surface Area Calculated 1.91 m2 Status: Results Date Description Value Details 04-Oct-2015 10:26 Comprehensive Metabolic Panel 1212 Comments: Fastin hours SODIUM 142 mmol/L Range: 133-144 POTASSIUM 4.3 mmol/L Range: 3.5-5.1 CHLORIDE 105 mmol/L Range: 98-110 CARBON DIOXIDE 29.2 mmol/L Range: 23.0-33.0 ANION GAP 8 mmol/L Range: 6-16 BUN 16 mg/dL Range: 7-18 CREATININE, SERUM 0.99 mg/dL Range: 0.55-1.02 Comments: Please note new reference ranges effective 2014.----- BUN:CREATININE RATIO 16 EST GFR, >60 ml/min Range: >60 EST GFR, NON-AFR INDIAN 56 ml/min (Below low Range: >60 threshold) Comments: EST GFR is reported in ml/min per 1.73 m2 of body surface area. For -Trinidadian, please multiple result by 1.2.----- GLUCOSE 107 mg/dL (Above high Range: 70-100 threshold) ALK PHOSPHATASE 78 U/L Range: 46-116 TOTAL BILIRUBIN 0.20 mg/dL Range: 0.20-1.00 AST 40 U/L (Above high Range: 8-35 threshold) ALT 39 U/L Range: 14-59 Comments: Please note new reference ranges. Effective 05/11/2014.----- ALBUMIN 3.6 g/dL Range: 3.4-5.0 TOTAL PROTEIN 7.5 g/dL Range: 6.4-8.2 A/G RATIO 0.9 units (Below low Range: 1.0-1.8 threshold) CALCIUM 9.2 mg/dL Range: 8.5-10.1 15-Oct-2015 14:33 Urinalysis, reflex to Micro and Culture ([facility]) 8016 pH 7.0 Range: 5.0-7.5 SP GRAVITY 1.015 Range: 1.010-1.030 APPEARANCE Clear Range: Clear COLOR Dk Yellow (Abnormal) Range: Straw-Yellow PROTEIN Negative mg/dL Range: Negative-Trace GLUCOSE Negative mg/dL Range: Negative KETONES Negative mg/dL Range: Negative BILIRUBIN Negative Range: Negative BLOOD Negative Range: Negative UROBIL 0.2 EU/dL Range: 0.2-1.0 NITRITE Negative Range: Negative LEUKOCYTES Negative Range: Negative 16-Oct-2015 08:34 CT AB/ PEL WITHOUT IV CONTRAST Comments: Exam Date: 2015 08:05Dictation Date: 10/16/2015 08:34 (FOR KIDNEY STONE) XC ABD PEL W/O (RENAL STONE) 17-Oct-2015 13:24 Xray ABD ( KUB) Comments: Exam Date: 10/17/2015 13: 03Dictation Date: 10/17/2015 13:24 X ABDOMEN (1V) 29-Oct-2015 15:27 XRay CHEST-PA & LAT Comments: Exam Date: 10/29/2015 15: 03Dictation Date: 10/29/2015 15:27 X CHEST PA & LAT 30-Oct-2015 13:49 CBC w/ Auto Diff 7150 [...] low Range: >60 threshold) EST GFR, NON-AFR INDIAN 49 ml/min (Below low Range: >60 threshold) Comments: EST GFR is reported in ml/min per 1.73 m2 of body surface area. For -Trinidadian, please multiple result by 1.2.----- BUN:CREATININE RATIO [...] Provider: Dale Fair M.D. On 30-Nov-2015 13:00 Interventions Provided Labs/Procedures/ImagingXRay CHEST-PA & LAT; Done: Oct 29 2015 3:27PM Instructions Name Dates Details Instructions not documented Encounters Appointment; Dale Fair M.D. On 29-Oct-2015 Encounter Diagnosis: Problem not documented 14:30 Appointment; Harry Maurer M.D.|Em,RAJIV|Shayne,RAJIV, On 2015 Encounter Diagnosis: Problem not documented [...] Problem not documented 08:45 Appointment; Arcadio Lucas M.D.|F.A.CPavithraSPavithra|Shayne,RAJIV|Shayne,RAJIV, On 05-Feb-2015 Encounter Diagnosis: Problem not documented [...]
--- OUTSIDE RECORDS SUMMARY | 2017-08-06 07:13 | External Medical Summary | Summary of Care ---
:1950 Author Name Emmy Vasquez APRN Address [address] [place], [place] [id number] Care Team Providers Name Role Phone Marleny Bella, Harry Davis Unavailable Unavailable Brianne Bella, Mine Unavailable Unavailable Marv Bella, Dale Marks Unavailable Unavailable Gareth Bella, Benson Weems Unavailable Unavailable Emmy Vasquez APRN Unavailable Unavailable Marv, Dale Unavailable Unavailable Unavailable Unavailable Unavailable Functional Status [...] Z12.39) Status: Active Medications Name Dates Details Cyclobenzaprine [...] Quantity: 90 Refills: 3 Marv BellaDale Start 01-Jan-2009 Active Simvastatin 40 MG Oral Tablet TAKE ONE TABLET(S) BY MOUTH DAILY DIRECTED Quantity: 90 Refills: 3 Marv BellaDale Start 10-Dec-2009 Active Zetia 10 MG Oral Tablet TAKE 1 TABLET DAILY. Quantity: 90 Refills: 3 Marv BellaDale Start 10-Dec-2009 Active Levothyroxine Sodium 75 MCG Oral Tablet Take 1 tablet by mouth daily. Quantity: 90 Refills: 3 Niniwilbert LayneVineetHarry Start 15-Mar-2010 Active Losartan Potassium 100 MG Oral Tablet take one tablet by mouth every day Quantity: 90 Refills: 3 Marv BellaDale Start 18-Mar-2010 Active Vitamin B-12 1000 MCG Oral Tablet TAKE 1 TABLET DAILY DIRECTED. Refills: 0 Marv Bella, Dale Marks Start 23-Oct-2010 Active Folic Acid 1 MG Oral Tablet Refills: 0 Active B-Complex Oral Capsule Refills: 0 Start 23-Oct-2011 Active Mirtazapine 15 MG Oral Tablet TAKE 1 TABLET BY MOUTH AT BEDTIME. Quantity: 90 Refills: 2 Marv BellaDale Start Active ClonazePAM 1 MG Oral Tablet TAKE 1 TABLET BY MOUTH AT BEDTIME NEEDED Quantity: 90 Refills: 0 Marv Bella, Dale Marks Start Active Magnesium 400 MG Oral Tablet 1 tablet BID Quantity: 180 Refills: 3 Dale Fair M.D.tive TraMADol HCl - 50 MG Oral Tablet TAKE ONE TABLET(S) BY MOUTH TID NEEDED Quantity: 270 Refills: 0 Marv Bella Dale Marks Start 11-Oct-2014 Active Vitamin D3 1000 UNIT Oral Capsule TAKE DIRECTED. Refills: 0 Start 19-Oct-2014 Active Acetaminophen 500 MG Oral Tablet TAKE TWO TABLET(S) BY MOUTH TWICE DAILY Quantity: 360 Refills: 0 Marv Bella Dale Selina Start 19-Oct-2014 Active PrednisoLONE Acetate 1 % Ophthalmic Suspension Install 1 drop as directed 6 times daily (during waking hours) Starting after surgery. Quantity: 10 Refills: 1 Benson Servin M.D. Start 23-Jan-2015 Active Co Q-10 400 MG Oral Capsule Refills: 0 Jacquelineter M.D.Dale Start 18-Apr-2015 Active Ferrous Sulfate 325 (65 Fe) MG Oral Tablet take 1 tablet by mouth every day Quantity: 31 Refills: 0 Jacquelineleonardo M.D.Dale Start 18-Apr-2015 Active Aspirin Adult Low Dose 81 MG Oral Tablet Delayed Release TAKE 1 TABLET DAILY. Quantity: 90 Refills: 3 Crater M.D., Dale Marks Start Active Vitamin D3 5000 UNIT Oral Capsule TAKE DAILY DIRECTED. Quantity: 90 Refills: 3 Crater M.D., Dale Marks Start Active Ginkgo Biloba 60 MG Oral Capsule TAKE 1 CAPSULE TWICE DAILY. Refills: 0 Crater M.D.Dale Start 30-Nov-2015 Active Tums 500 MG Oral Tablet Chewable TAKE DIRECTED. Refills: 0 Decker M.D., Mine Start 18-Jun-2016 Active BuPROPion HCl ER (SR) 100 MG Oral Tablet Extended Release 12 Hour TAKE 1 TABLET DAILY. Quantity: 9 Refills: 0 Jacquelineter M.D.Dale Start 23-Jun-2016 Active Allergies and Adverse Reactions Name Dates [...] History of Cholecystectomy Colonoscopy- Screening or Dx Pendin17-Jul-2016 S. PNEUMO IGG (14 SERO) [id number] Ordered: 04-Jul-2016 Vitamin D, 25 - Hydroxy 3111 Ordered: 04-Jul-2016 Vitamin D, 25 - Hydroxy 3111 Ordered: 18-Jun-2016 XRay SPINE-LUMBAR Ordered: 30-Jun-2016 MAMMOGRAM-SCREENING Ordered: 17-Jul-2016 Immunization Name Dates Details Hepatitis B on: 1991 MMR on: 26-Jul-1992 Tetanus-Diphtheria Toxoids Td 2-2 LF/0.5ML Intramuscular Suspension on: Hepatitis A on: 29-Nov-1998 MMR on: 03-Oct-2009 Lot #: [id number] MMR on: 03-Oct-2009 Tdap (Adacel) on: Lot #: [id number] Pneumo (Pneumovax) on: Lot #: [id number] Zoster (Zostavax) on: 15-Oct-2011 Lot #: [id number] Fluzone Quadrivalent 0.5 ML Intramuscular Suspension on: 09-Jan-2014 Lot #: [id number] Fluzone Quadrivalent 0.5 ML Intramuscular Suspension on: 02-Feb-2015 Lot #: [id number] Prevnar 13 Intramuscular Suspension on: Lot #: [id number] Fluzone High-Dose 0.5 ML Intramuscular Suspension Prefilled Syringe on: Lot #: [id number] Pneumovax 23 25 MCG/0.5ML Injection Injectable on: 30-Jun-2016 Lot #: [id number] Pneumovax 23 25 MCG/0.5ML Injection Injectable on: 02-Jul-2016 Lot #: [id number] Family History Grandmother Name Dates Details Family [...] ; Position: Heart Rate 85 /min Status: Weight 196 lb Status: Physical Findings 93 [...] Body Surface Area Calculated 1.93 m2 Status: 18-Jun-2016 13:43 BP Systolic 130 mm[Hg] Status: Comments: Location: ; Position: BP Diastolic 65 mm[Hg] Status: Comments: Location: ; Position: Temperature 97.5 f Status: Height 63 in Status: Weight 198 lb Status: Body Mass Index Calculated 35.07 kg/m2 Status: Body Surface Area Calculated 1.93 m2 Status: Results Date Description Value Details 20-Jun-2016 09:05 Complement, Total (CH50) [id number] Comments: Testing performed at: [] [facility], [address], , Cloth Desizing Range Tender: Lucio Savage MD COMPLEMENT, TOTAL (CH50) >60 U/mL (Above high threshold) Range: 42-60 25-Jun-2016 09:29 HISS PANEL [id number] Comments: [facility], [address] [place] [address], , Cloth Desizing Range Tender: Maninder Garvin M.D.,PhDTes ting performed at: [facility], [address] [place] [address], [address], Cloth Desizing Range Tender: Lucio Gomez D.O., MPHTesting performed at: [facility] [address], [address], Cloth Desizing Range Tender: Walker Hinojosa MDQuest Collection Date/Time : [id number] Results Received Date/Time : [id number] Reported Date/Time: [id number] FASTING:NOQuest performed at: [facility], [address] [place] [address], , Cloth Desizing Range Tender: Maninder Garvin M.D.,PhDTesting performed at: [facility], [address] [place], [address], Cloth Desizing Range Tender: Lucio Gomez D.O., M PHTesting performed at: [facility] [employer], [address] [place] [address], [address] , Cloth Desizing Range Tender: Walker Hinojosa MDQuest C ollection Date/Time: [id number] Results Received Date/Time: [id number] Reported Date/Time: [id number] FASTING:NOQuest performed at: [facility], [facility], [address] [place] [address], , Cloth Desizing Range Tender: Maninder Garvin M.D.,PhDTesting performed at: [place], [facility], [address] [place] [address], [place], [address], Cloth Desizing Range Tender: Lucio Gomez D.O., MPHTesting performed at: [facility], [address] [place] [address], [address], Cloth Desizing Range Tender: Walker White Collection Date/Time: [id number] Results Received Date/Time: [id number] Reported Date/Time: [id number] FASTING:NOQ uest performed at: [facility], [facility]/ [facility], [address] [place] [address], , Cloth Desizing Range Tender: Maninder Garvin M.D.,PhDTest ing performed at: [place], [facility], [address] [place] [address], [place], [address], Cloth Desizing Range Tender: Lucio Gomez D.O., MPHQuest Collection Date/Time: [id number] Results Received D ate/Time: [id number] Reported Date/Time: [id number] FASTING: NOQuest performed at: [place], [facility] , [address], [place], [address], [facility] Director: Lucio Gomez D.O., MPHQuest Collection Date/Time: [id number] Results Received Date/Time: [id number] Reported Date/Time: [id number] FASTING:NOQuest Accession #: [id number] performed at: [place], [facility], [address] [facility], [place], [address], Cloth Desizing Range Tender: Lucio Gomez D.O., MPHQuest Collection Date/Time: [id number] Result s Received Date/Time: [id number] Reported Date/Time: FASTING:NO IMMUNOGLOBULIN A 320 mg/dL Range: 81-463 Comments: [KS]----- IMMUNOGLOBULIN G 881 mg/dL Range: 694-1618 Comments: [KS]----- IMMUNOGLOBULIN M 63 mg/dL Range: 48-271 Comments: [KS]----- IMMUNOGLOBULIN E 7 kU/L Range: <JF=366 Comments: [KS]----- IMMUNOGLOBULIN G SUBCLASS 474 mg/dL Range: 382-929 1 Comments: [AMD]----- IMMUNOGLOBULIN G SUBCLASS 273 mg/dL Range: 241-700 2 Comments: [AMD]----- IMMUNOGLOBULIN G SUBCLASS 25 mg/dL Range: 22-178 3 Comments: [AMD]----- IMMUNOGLOBULIN G SUBCLASS 8.0 mg/dL Range: 4.0-86.0 4 Comments: [AMD]----- IMMUNOGLOBULIN G, SERUM 812 mg/dL [...] detects 11 of the 13 serotypes in zjs00-zspdra conjugate vaccine, and 14 of the 23serotypes in the 23-valent vaccine. Immune responseto the vaccine should result in protection againstat least 50% of the serotypes in the vaccine.This test was developed and its analyticalperformance characteristics have beendetermined by [facility]. It has not been cleared or approved byA. This assay has been validated pursuant to theIA regulations and is used for clinical purposes.[TXC]----- [...] and its analyticalPerformance characteristics have beendetermined by [facility].It has not been cleared or approved by FDA. This assayhas b een validated pursuant to the CLIAregulations and is used for clinical purposes.[TXC]----- DIPHTHERIA ANTITOXOID >2.00 IU/mL Comments: REFERENCE RANGE: > or= 0.01 IU/mL (Post-Vaccination) INTERPRETIVE CRITERIA: <0.01 IU/mL Nonprotective Antibody Level > or=0.01 IU/mL Protective Antibody LevelThis test was devel [facility] and its analyticalPerformance characteristics have beendetermined by [facility].It has not been cleared or approved by FDA. Thisassay has been validated pursuant to the CL IAregulations and is used for clinical purposes.[TXC]----- 30-Jun-2016 X SPINE L-S COMPLETE Comments: Exam Date: 06/30/2016 13: 44Dictation Date: 06/30/2016 14:19 14:19 14:20 XRay SPINE-SACRUM & COCCYX Comments: Exam Date: 06/30/2016 13: 43Dictation Date: 06/30/2016 14:20 X SPINE SACRUM & COCCYX Plan of Care Name Dates Details Planned Observations Colonoscopy- Screening or Dx On 17-Jul-2016 Intent Planned Goals not documented Planned Encounters Appointment; Provider: Emmy Vasquez A.P.R.N. On 20-Jul-2017 13:00 Appointment; Provider: Benson Servin M.D. On 29-May-2017 09:00 Appointment; Provider: Dale Fair M.D. On 24-Jul-2016 13:30 Interventions Provided Labs/Procedures/ImagingMAMMOGRAM-SCREENING; To be Done: 17 Jul 2016 Instructions Name Dates Details Instructions not documented Encounters Appointment; Harry Farmer M.D. On 07-Jul-2016 Encounter [...] not documented 13:00 Appointment; Anna Marie Sutton A.PPavithraRBlanca On 07-Jan-2016 Encounter Diagnosis: Problem not documented 13:00 Appointment; Robb Tavarez M.D. On 07-Dec-2015 Encounter Diagnosis: Problem not documented 07:30 Appointment; Dale Fair M.D. On 30-Nov-2015 Encounter Diagnosis: Problem not documented 13:00 Appointment; Anna Marie Sutton A.P.R.N. On 30-Oct-2015 Encounter Diagnosis: Problem not documented 14:15 Appointment; Dale Fair M.D. On 29-Oct-2015 Encounter Diagnosis: Problem not documented 14:30 Appointment; Harry Maurer M.D.,[facility], On 17-Oct-2015 Encounter Diagnosis: Problem not [...] Diagnosis: Problem not documented 08:00 Appointment; Tyree, Mino On 05-Feb-2015 Encounter Diagnosis: Problem not documented [...] Encounter Diagnosis: Problem not documented 13:00 Appointment; Samnia Malik, P.APavithra On 20-Jul-2014 Encounter Diagnosis: Problem not documented 11:00 Appointment; Dale Fair M.D. On 19-Jul-2014 Encounter Diagnosis: Problem not documented 09:15"
--- OUTSIDE RECORDS SUMMARY | 2017-08-06 07:13 | External Medical Summary | Summary of Care ---
:1950 Author Care Team Providers Name Role Phone Dale Fair M.D. Unavailable Unavailable Jai Piper M.D. Unavailable Unavailable Dale Fair Primary Care [...] Acid 1 MG Oral Tablet Refills: 0 ,ActiveB-Complex Oral Capsule Refills: 0 , Started 23-Oct-2011 ActiveCo Q-10 200 MG Oral [...] ActiveMagnesium 500 MG Oral Tablet Refills: 0 ,ActiveOxycodone-Acetaminophen 7.5-325 MG Oral Tablet TAKE 1 TO [...] History of Nerve Block Transforaminal Epidural Lumbar Comprehensive Metabolic Panel 1212 Ordered:19-Jul-2014 MAGNESIUM 1260 Ordered:19-Jul-2014 PHOSPHORUS 1145 Ordered:19-Jul-2014 Immunization Name Dates Details Hepatitis B Administered on:1991 MMR Administered on:26-Jul-1992 Tetanus-Diphtheria Toxoids Td 2-2 LF/0.5ML Intramuscular Suspension Administered on:26-Jul-1992 Hepatitis A Administered on:29-Nov-1998 MMR Administered on:03-Oct-2009 Lot #: [id number] MMR Administered on:03-Oct-2009 Tdap (Adacel) Administered on: Lot #: [id number] Pneumo (Pneumovax) Administered on: Lot #: [id number] Zoster (Zostavax) Administered on:15-Oct-2011 Lot #: [id number] Fluzone Quadrivalent 0.5 ML Intramuscular Suspension Administered on:2013 Lot #: [id number] Family History Grandmother Name Dates Details Family [...] 14:26 X CHEST PA & LAT (Better) 19-Jul-2014 10:04 Comprehensive Metabolic Panel 1212 SODIUM [...] ml/min Range: >60 (Better) EST GFR, NON-AFR NEPALESE >60 ml/min Range: >60 (Better) Comments: EST GFR is reported in ml/min per 1.73 m2 of body surface area. For -Guinean, please multiple result by 1.2.----- GLUCOSE 125 [...] Diagnosis: Problem not documented 16:00 Appointment; Dale Fiar On Encounter Diagnosis: Problem not documented 15:45
--- OUTSIDE RECORDS SUMMARY | 2017-08-06 07:13 | External Medical Summary | Summary of Care ---
:1950 Author Name Emmy Vasquez APRN Address [address], [place] [address] Care Team Providers Name Role Phone Marleny Bella, Harry Davis Unavailable Unavailable Brianne Bella, Mine Unavailable Quoc Fair M.D., Dale Marks Unavailable Unavailable Gareth Bella, Benson Weems Unavailable Unavailable Marv, Dale Unavailable Unavailable Unavailable Unavailable Unavailable Functional Status Functional Status Health Issues Name Dates Details Functional status health issues are not documented Status: Cognitive Status Health Issues Name Dates Details Cognitive status health issues are not documented Status: Problems Name Dates Details 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 Start Active Lyrica 50 MG Oral Capsule TAKE 1 CAPSULE TWICE DAILY. Quantity: 180 Refills: 1 Dale Fair M.D. Start 27-Oct-2008 Active Escitalopram Oxalate 20 MG Oral Tablet take one tablet by mouth every day Quantity: 90 Refills: 3 Marv BellaDale Start 01-Jan-2009 Active Simvastatin 40 MG Oral Tablet TAKE 1 TABLET Daily as directed Quantity: 90 Refills: 2 Marv BellaDale Start Active Zetia 10 MG Oral Tablet TAKE 1 TABLET DAILY. Quantity: 90 Refills: 3 Marv BellaDale Start 10-Dec-2009 Active Levothyroxine Sodium 75 MCG Oral Tablet Take 1 tablet by mouth daily. Quantity: 90 Refills: 3 Marleny BellaHarry Start 15-Mar-2010 Active Losartan Potassium 100 MG Oral Tablet Take 1 tablet daily Quantity: 90 Refills: 2 Marv BellaDale Start Active Vitamin B-12 1000 MCG Oral Tablet TAKE 1 TABLET DAILY DIRECTED. Refills: 0 Dale Fair M.D. Start 23-Oct-2010 Active Folic Acid 1 MG Oral Tablet Refills: 0 Active B-Complex Oral Capsule Refills: 0 Start 23-Oct-2011 Active Mirtazapine 15 MG Oral Tablet TAKE 1 TABLET BY MOUTH AT BEDTIME. Quantity: 90 Refills: 2 Marv BellaDale Selina Start Active ClonazePAM 1 MG Oral [...] Refills: 3 Marv Bella, Dale Selina Start Active Vitamin D3 5000 UNIT Oral Capsule TAKE DAILY DIRECTED. Quantity: 90 Refills: 3 Jaguar Fair M.D.othy Selina Start Active Ginkgo Biloba 60 MG Oral Capsule TAKE 1 CAPSULE TWICE DAILY. Refills: 0 Dale Fair M.D. Start 30-Nov-2015 Active Tums 500 MG Oral Tablet Chewable TAKE DIRECTED. Refills: 0 Mine Decker M.D. Start 18-Jun-2016 Active BuPROPion HCl ER (SR) 150 MG Oral Tablet Extended Release 12 Hour Take one tablet by mouth twice a day Quantity: 90 Refills: 3 Dale Fair M.D. Start 23-Jun-2016 Active LevoFLOXacin 750 MG Oral Tablet take 1 daily for 10 days Quantity: 30 Refills: 3 Marleny Bella Harry Ryan Start 25-Jul-2016 Active Vitamin D3 28772 UNIT Oral Capsule Take one tablet by mouth weekly for 6 weeks Quantity: 6 Refills: 0 Jeffrey Decker M.D.ia Start Active Vitamin D2 2000 UNIT Oral Tablet TAKE ONE TABLET BY MOUTH EVERY DAY. Quantity: 30 Refills: 6 Jeffrey Decker M.D.ia Start End 03-Mar-2017 Active Allergies and Adverse Reactions Name Dates [...] Dx Ordered: 17-Jul-2016 XRay SPINE-LUMBAR Ordered: 30-Jun-2016 Immunization Name Dates Details Hepatitis B on: 1991 MMR on: 26-Jul-1992 Tetanus-Diphtheria Toxoids Td 2-2 LF/0.5ML Intramuscular Suspension on: Hepatitis A on: 29-Nov-1998 MMR on: 03-Oct-2009 Lot #: [id number] MMR on: 03-Oct-2009 Tdap (Adacel) on: Lot #: [id number] Pneumo (Pneumovax) on: Lot #: [id number] Zoster (Zostavax) on: 15-Oct-2011 Lot #: [id number] Fluzone Quadrivalent 0.5 ML Intramuscular Suspension on: 09-Jan-2014 Lot #: [id number] Fluzone Quadrivalent 0.5 ML Intramuscular Suspension on: 02-Feb-2015 Lot #: [id number] Prevnar 13 Intramuscular Suspension on: Lot #: [id number] Fluzone High-Dose 0.5 ML Intramuscular Suspension Prefilled Syringe on: Lot #: [id number] Pneumovax 23 25 MCG/0.5ML Injection Injectable on: 30-Jun-2016 Lot #: [id number] Pneumovax 23 25 MCG/0.5ML Injection Injectable on: 02-Jul-2016 Lot #: [id number] Family History Grandmother Name Dates Details Family [...] IGG (14 SERO) Comments: [facility] performed at: [facility], [facility], [address] [place] [address], [address] , Vocational Case Manager: Hector [id number] aby Hinojosa MDQuest Collection Date/Time: [id number] Results Received Date/Time: [id number] Reported Date/Time: FASTING:NO SEROTYPE 1 (1) 10.5 mcg/mL Comments: [[facility]]----- SEROTYPE 3 (3) 11.6 mcg/mL Comments: [TXC]----- [...] initial serotype-specific titers may have lessrobust re sponses.[facility] uses a multi- analyteimmunodetection (MAID) method. The method employs theReadyDockx flow cytometric system which measures multipleanalytes simultaneously. The F DA standard referenceserum 89-S is used as the calibration standard. Resultsare reported in mcg/mL.This assay detects 11 of the 13 serotypes in the13 -valent conjugate vaccine, and 14 of the 23 serotypes in the 23-valent polysaccharide vaccine.This test was developed and its analyticalperformance characteristics have been determinedby [facility]. It has notbeen cleared or appro truman by FDA. This assay has beenvalidated pursuant to the CLIA regulations and is usedfor clinical purposes.For additional information, please refer tohttp://education.[employer]/faq/CGR919(This link i----- 16:11 MAMMOGRAM-SCREENING Comments: Exam Date: 08/18/2016 14: 38Dictation Date: 08/18/2016 16:11 XM SCREENING Plan of Care Name Dates Details Planned Observations Planned Goals not documented Planned Encounters Appointment; Provider: Emmy Vasquez A.P.R.N. On 20-Jul-2017 13:00 Appointment; Provider: Benson Servin M.D. On 29-May-2017 09:00 Appointment; Provider: Dale Fair M.D. On 13:30 Instructions Name Dates Details Instructions not documented [...] Problem not documented 14:30 Appointment; Harry Maurer M.D.,[facility], On 17-Oct-2015 Encounter Diagnosis: Problem not documented [...]
--- OUTSIDE RECORDS SUMMARY | 2017-08-06 07:13 | External Medical Summary | Summary of Care ---
:1950 Author Name Corby Bella, Robb Address [address], [place] [id number] Care Team Providers Name Role Phone Dale [...] of left eye (V43.1, Z96.1) Status: Active Medications Name [...] eye (366.19, 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 History of Diagnostic Esophagogastroduodenoscopy Status: Resolved Procedures Procedure Dates Details History of Shoulder Arthroscopy, Space Decompression And Completed:3-Nov- 2009 Acromioplasty History of Shldr Arthrosc W/ Distal [...] Cataract Extract With Prosthesis Insert Left Eye Procedures not documented Immunization Name Dates Details Hepatitis B Administered on:1991 MMR Administered on:26-Jul-1992 Tetanus-Diphtheria Toxoids Td 2-2 LF/0.5ML Intramuscular Suspension Administered on:26-Jul-1992 Hepatitis A Administered on:29-Nov-1998 MMR Administered on:03-Oct-2009 Lot #: [id number] MMR Administered on:03-Oct-2009 Tdap (Adacel) Administered on: Lot #: [id number] Pneumo (Pneumovax) Administered on: Lot #: [id number] Zoster (Zostavax) Administered on:15-Oct-2011 Lot #: [id number] Fluzone Quadrivalent 0.5 ML Intramuscular Suspension Administered on:2013 Lot #: [id number] Fluzone Quadrivalent 0.5 ML Intramuscular Suspension Administered on:2014 Lot #: [id number] Family History Grandmother Name Dates Details Family [...] smoker Vital Signs Date Test Result Details 12-Feb-2015 15:34 BP Systolic 128 mm[Hg] Status: [...] m2 Status: Results Date Description Value Details 18-Jan-2015 09:12 MAMMOGRAM-SCREENING Comments: Exam Date: 01/17/2015 15: 38Dictation Date: 01/18/2015 09:12 XM SCREENING (Better) 02-Feb-2015 10:03 CBC [...] Range: >60 (Better) EST GFR, NON-AFR CROATIAN 50 ml/min (Below low Range: >60 threshold) Comments: EST GFR is reported in ml/min per 1.73 m2 of body surface area. For -Malaysian, please multiple result by 1.2.----- GLUCOSE 129 [...] Benson Servin On 27-Feb-2015 08:00 Appointment; Provider: Robb Tavarez On 21-Feb-2015 10:00 Appointment; Provider: Benson Servin On 21-Feb-2015 08:00 Appointment; Provider: Benson Servin On 20-Feb-2015 08:30 Appointment; Provider: Benson Servin On 16-Feb-2015 09:30 Appointment; Provider: Schedule Radiology On 17-Jan-2015 16:00 Appointment; Provider: Jai Piper On 05-Dec-2013 13:15 Appointment; Provider: Rob Ramírez On 19-Nov-2009 07:30 Appointment; Provider: Rob Ramírez On 24-Oct-2009 08:30 Appointment; Provider: Sharyn Simmons On 09-Feb-2009 16:30 Appointment; Provider: Rich Jose On 02-Jan-2009 07:30 Appointment; Provider: Sharyn Simmons On 16:30 Instructions Instructions not documented Encounters Appointment; Robb Tavarez On 12-Feb-2015 Encounter Diagnosis: Problem not documented 15:45 Appointment; Benson Servin On 09-Feb-2015 Encounter Diagnosis: Problem not documented 08:30 Appointment; Benson Servin On 08-Feb-2015 Encounter Diagnosis: Problem not documented 08:45 Appointment; Arcadio uLcas On 05-Feb-2015 Encounter Diagnosis: Problem not documented [...]
--- OUTSIDE RECORDS SUMMARY | 2017-08-06 07:14 | External Medical Summary | Summary of Care ---
:1950 Author Name Dale Fair M.D. Address [address] [place], [place] [id number] Care Team Providers Name Role Phone Dale [...] on:03-Oct-2009 Tdap (Adacel) Administered on: Lot #: [id number] Pneumo (Pneumovax) Administered on: Lot #: [id number] Zoster (Zostavax) Administered on:15-Oct-2011 Lot #: [id number] Fluzone Quadrivalent 0.5 ML Intramuscular Suspension Administered on:2013 Lot #: [id number] Fluzone Quadrivalent 0.5 ML Intramuscular Suspension Administered on:2014 Lot #: [id number] Family History Grandmother Name Dates Details Family [...] Benson Servin On 09-Jan-2016 14:00 Appointment; Provider: Besnon Servin On 09-Jul-2015 13:45 Appointment; Provider: Dale [...]
--- OUTSIDE RECORDS SUMMARY | 2017-08-06 07:14 | External Medical Summary | Summary of Care ---
:1950 Author Name Dale Fair M.D. Address [address], [place] [id number] Care Team Providers Name Role Phone Marleny [...] AT BEDTIME. Quantity: 90 Refills: 2 Marv Bella, Dale Marks Start Active ClonazePAM 1 MG Oral Tablet TAKE 1 TABLET BY MOUTH AT BEDTIME NEEDED Quantity: 90 Refills: 0 Marv BellaDale Start Active Magnesium 400 MG Oral Tablet 1 tablet BID Quantity: 180 Refills: 3 Dale Fair M.D.tive TraMADol HCl - 50 MG Oral Tablet TAKE ONE TABLET(S) BY MOUTH TID NEEDED Quantity: 270 Refills: 0 Marv Bella, Dale Marks Start 11-Oct-2014 Active Vitamin D3 1000 UNIT Oral Capsule TAKE DIRECTED. Refills: 0 Start 19-Oct-2014 Active Acetaminophen 500 MG Oral Tablet TAKE TWO TABLET(S) BY MOUTH TWICE DAILY Quantity: 360 Refills: 0 Marv BellaDale Selina Start 19-Oct-2014 Active PrednisoLONE Acetate 1 % Ophthalmic Suspension Install 1 drop as directed 6 times daily (during waking hours) Starting after surgery. Quantity: 10 Refills: 1 Benson Servin M.D. Start 23-Jan-2015 Active Co Q-10 400 MG Oral Capsule Refills: 0 Marv BellaDale Start 18-Apr-2015 Active Ferrous Sulfate 325 (65 Fe) MG Oral Tablet take 1 tablet by mouth every day Quantity: 31 Refills: 0 Marv BellaDale Start 18-Apr-2015 Active Aspirin Adult Low Dose 81 MG Oral Tablet Delayed Release TAKE 1 TABLET DAILY. Quantity: 90 Refills: 3 Dale Fair M.D. Start Active Vitamin D3 5000 UNIT Oral Capsule TAKE DAILY DIRECTED. Quantity: 90 Refills: 3 Marv Bella Dale Selina Start Active Ginkgo Biloba 60 MG Oral Capsule TAKE 1 CAPSULE TWICE DAILY. Refills: 0 Dale Fair M.D. Start 30-Nov-2015 Active Tums 500 MG Oral Tablet Chewable TAKE DIRECTED. Refills: 0 Mine Decker M.D. Start 18-Jun-2016 Active BuPROPion HCl ER (SR) 150 MG Oral Tablet Extended Release 12 Hour Take one tablet by mouth twice a day Quantity: 90 Refills: 3 Marv BellaaDle Selina Start 23-Jun-2016 Active LevoFLOXacin 750 MG Oral Tablet take 1 daily for 10 days Quantity: 30 Refills: 3 Harry Farmer M.D. Start 25-Jul-2016 Active Allergies and Adverse Reactions Name Dates [...] D, 25 - Hydroxy 3111 Ordered: 18-Jun-2016 S. PNEUMO IGG (14 SERO) [id number] Ordered: 04-Jul-2016 MAMMOGRAM-SCREENING Ordered: 17-Jul-2016 XRay SPINE-LUMBAR Ordered: 30-Jun-2016 Immunization Name Dates Details Hepatitis B on: 1991 MMR on: 26-Jul-1992 Tetanus-Diphtheria Toxoids Td 2-2 LF/0.5ML Intramuscular Suspension on: Hepatitis A on: 29-Nov-1998 MMR on: 03-Oct-2009 Lot #: [id number] MMR on: 03-Oct-2009 Tdap (Adacel) on: Lot #: [id number] Pneumo (Pneumovax) on: Lot #: [id number] Zoster (Zostavax) on: 15-Oct-2011 Lot #: [id number] Fluzone Quadrivalent 0.5 ML Intramuscular Suspension on: 09-Jan-2014 Lot #: [id number] Fluzone Quadrivalent 0.5 ML Intramuscular Suspension on: 02-Feb-2015 Lot #: [id number] Prevnar 13 Intramuscular Suspension on: Lot #: [id number] Fluzone High-Dose 0.5 ML Intramuscular Suspension Prefilled Syringe on: Lot #: [id number] Pneumovax 23 25 MCG/0.5ML Injection Injectable on: 30-Jun-2016 Lot #: [id number] Pneumovax 23 25 MCG/0.5ML Injection Injectable on: 02-Jul-2016 Lot #: [id number] Family History Grandmother Name Dates Details Family [...] m2 Status: Results Date Description Value Details Results not documented Plan of Care Name Dates Details Planned Observations Planned Goals not documented Planned Encounters Appointment; Provider: Emmy Vasquez A.P.R.N. On 20-Jul-2017 13:00 Appointment; Provider: Benson Servin M.D. On 29-May-2017 09:00 Appointment; Provider: Dale Fair M.D. On 13:30 Appointment; Provider: Schedule Radiology On 14:50 Interventions Provided Medication ChangesBuPROPion HCl ER (SR) 150 MG Oral Tablet Extended Release 12 Hour - Renew Instructions Name Dates Details Instructions not documented Encounters Appointment; Emmy Vasquez A.P.R.N. On 17-Jul-2016 Encounter [...] Problem not documented 08:45 Appointment; Arcadio Lucas M.D.|RAJIV Strickland|Shayne,RAJIV, On 05-Feb-2015 Encounter Diagnosis: Problem not documented [...] Problem not documented 08:15 Appointment; Samina Malik P.A. On 19-Oct-2014 Encounter Diagnosis: Problem not documented 10:45 Appointment; Dale Fair M.D. On 11-Oct-2014 Encounter Diagnosis: Problem not documented 13:00"
--- OUTSIDE RECORDS SUMMARY | 2017-08-06 07:14 | External Medical Summary | Summary of Care ---
:1950 Author Name Iesha Grace PA-C Address [address], [place] [id number] Care Team Providers Name Role Phone Libertad Bella, FACS, ,, Harry Layne Unavailable Unavailable Marv Bella, Dale Marks Unavailable [...] Status: Active Post-menopausal (V49.81, Z78.0) Status: Active Nephrolithiasis (592.0, N20.0) Status: Active Left flank pain (789.09, R10.9) Status: Active Medications Name Dates Details Cyclobenzaprine [...] CAPSULE TWICE DAILY. Quantity: 28 Refills: 1 Dale Fair M.D. Start 27-Oct-2008 [...] mouth daily. Quantity: 90 Refills: 3 Dale Fiar M.D. Start 15-Mar-2010 Active Losartan Potassium 100 [...] AT BEDTIME. Quantity: 90 Refills: 2 Marv M.D. Dale Marks Start Active ClonazePAM 1 MG Oral Tablet TAKE 1 TABLET BY MOUTH AT BEDTIME NEEDED Quantity: 90 Refills: 0 Marv M.D., Dale Marks Start Active Magnesium 400 MG Oral Tablet 1 tablet BID Quantity: 180 Refills: 3 Marv M.Dot., Dale Shintive TraMADol HCl - 50 MG Oral Tablet TAKE ONE TABLET(S) BY MOUTH TID NEEDED Quantity: 270 Refills: 0 Marv M.Dot. Dale Marks Start 11-Oct-2014 Active Vitamin D3 1000 UNIT Oral Capsule TAKE DIRECTED. Refills: 0 Start 19-Oct-2014 Active Acetaminophen 500 MG Oral Tablet TAKE TWO TABLET(S) BY MOUTH TWICE DAILY Quantity: 360 Refills: 0 Marv Layne.Dot. Dale Selina Start 19-Oct-2014 Active Co Q-10 400 MG Oral Capsule Refills: 0 Marv M.Gurdeep, Dale Marks Start 18-Apr-2015 Active Ferrous Sulfate 325 (65 Fe) MG Oral Tablet take 1 tablet by mouth every day Quantity: 31 Refills: 0 Marv M.Dot., Dale Selina Start 18-Apr-2015 Active Aspirin Adult Low Dose 81 MG Oral Tablet Delayed Release TAKE 1 TABLET DAILY. Quantity: 90 Refills: 3 Marv M.D., Dale Marks Start Active Vitamin D3 5000 UNIT Oral Capsule TAKE DAILY DIRECTED. Quantity: 90 Refills: 3 Marv M.D., Dale Selina Start Active PrednisoLONE Acetate 1 % Ophthalmic Suspension [...] on: 03-Oct-2009 Tdap (Adacel) on: Lot #: [id number] Pneumo (Pneumovax) on: Lot #: [id number] Zoster (Zostavax) on: 15-Oct-2011 Lot #: [id number] Fluzone Quadrivalent 0.5 ML Intramuscular Suspension on: 09-Jan-2014 Lot #: [id number] Fluzone Quadrivalent 0.5 ML Intramuscular Suspension on: 02-Feb-2015 Lot #: [id number] Prevnar 13 Intramuscular Suspension on: Lot #: [id number] Family History Grandmother Name Dates Details Family [...] to report Results Date Description Value Details 04-Oct-2015 10:26 [...] >60 ml/min Range: >60 EST GFR, NON-AFR [facility] 56 ml/min (Below low Range: >60 threshold) Comments: EST GFR is reported in ml/min per 1.73 m2 of body surface area. For -Panamanian, please multiple result by 1.2.----- GLUCOSE 107 [...] 14:33 Urinalysis, reflex to Micro and Culture ([facility]) 8016 pH 7.0 Range: 5.0-7.5 SP [...] 03Dictation Date: 10/17/2015 13:24 X ABDOMEN (1V) Plan of Care Name Dates Details Planned Observations Planned Goals not documented Planned Encounters Appointment; Provider: Schedule Radiology On 18-Jan-2016 16:00 Appointment; Provider: Benson Servin M.D. On 09-Jan-2016 14:00 Appointment; Provider: Dale Fair M.D. On 09-Jan-2016 13:15 Instructions Name Dates Details Instructions not documented [...] Encounter Diagnosis: Problem not documented 08:15 Appointment; Smaina Malik, P.APavithra On 19-Oct-2014 Encounter Diagnosis: Problem not documented 10:45 Appointment; Dale Fair M.D. On 11-Oct-2014 Encounter Diagnosis: Problem not documented 13:00 Appointment; Samina Malik, P.APavithra On 20-Jul-2014 Encounter Diagnosis: Problem not documented 11:00 Appointment; Dale Fair M.D. On 19-Jul-2014 Encounter Diagnosis: Problem not documented 09:15 Appointment; Derick Livingston PPavithraAPavithra On 07-Jul-2014 Encounter Diagnosis: Problem not documented 10:30 Appointment; Magalie Lauren A.P.RBlanca On 04-Jul-2014 Encounter Diagnosis: Problem not documented [...]
--- OUTSIDE RECORDS SUMMARY | 2017-08-06 07:14 | External Medical Summary | Summary of Care ---
:1950 Author Name Dale Fair M.D. Address [address], [place] [id number] Care Team Providers Name Role Phone Dale [...] 2 diabetes mellitus (250.00, E11.9) Status: Active Medications Name [...] on: 03-Oct-2009 Tdap (Adacel) on: Lot #: [id number] Pneumo (Pneumovax) on: Lot #: [id number] Zoster (Zostavax) on: 15-Oct-2011 Lot #: [id number] Fluzone Quadrivalent 0.5 ML Intramuscular Suspension on: 09-Jan-2014 Lot #: [id number] Fluzone Quadrivalent 0.5 ML Intramuscular Suspension on: 02-Feb-2015 Lot #: [id number] Prevnar 13 Intramuscular Suspension on: Lot #: [id number] Fluzone High-Dose 0.5 ML Intramuscular Suspension Prefilled Syringe on: Lot #: [id number] Family History Grandmother Name Dates Details Family [...] smoker Vital Signs Date Test Result Details 16-Jun-2016 15:40 BP Systolic 138 mm[Hg] Status: [...] >60 ml/min Range: >60 EST GFR, NON-AFR [place] 55 ml/min (Below low Range: >60 threshold) [...] documented Encounters Appointment; Dale Fair M.D. On 02-Jun-2016 Encounter [...] Problem not documented 14:30 Appointment; Harry Maurer M.D.,[facility], On 17-Oct-2015 Encounter Diagnosis: Problem not [...]
--- OUTSIDE RECORDS SUMMARY | 2017-08-06 07:15 | External Medical Summary | Summary of Care ---
:1950 Author Name Dale Fair M.D. Address [address] [place], [place] [id number] Care Team Providers Name Role Phone Dale [...] on:03-Oct-2009 Tdap (Adacel) Administered on: Lot #: [id number] Pneumo (Pneumovax) Administered on: Lot #: [id number] Zoster (Zostavax) Administered on:15-Oct-2011 Lot #: [id number] Fluzone Quadrivalent 0.5 ML Intramuscular Suspension Administered on:2013 Lot #: [id number] Family History Grandmother Name Dates Details Family [...] Encounter Diagnosis: Problem not documented 13:40 Appointment; Jia Piper On 19-Dec-2013 Encounter Diagnosis: Problem not [...]
--- OUTSIDE RECORDS SUMMARY | 2017-08-06 07:15 | External Medical Summary | Summary of Care ---
[...] Status: Active Presbyopia (367.4, H52.4) Status: Active Incipient senile cataract (366.12, H25.099) Status: Active Left flank pain (789.09, R10.9) Status: Active Nephrolithiasis (592.0, N20.0) Status: Active Hypercholesterolemia (272.0, E78.00) Status: Active Sepsis (038.9, A41.9) Status: Active Anxiety (300.00, F41.9) Status: Active Post-menopausal (V49.81, Z78.0) Status: Active Tendonitis of finger (727.05, M77.9) Status: Active Pseudophakia of left eye (V43.1, Z96.1) Status: Active Pseudophakia of right eye (V43.1, Z96.1) Status: Active PCO (posterior capsular opacification), right (366.50, H26.491) Status: Active 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.] CAPSULE TWICE DAILY. Quantity: 180 Refills: 1 Crater M.D.Dale Start 27-Oct-2008 Active Escitalopram Oxalate 20 MG Oral Tablet take one tablet by mouth every day Quantity: 90 Refills: 3 Marv BellaDale Start 01-Jan-2009 Active Simvastatin 40 MG Oral Tablet TAKE 1 TABLET Daily as directed Quantity: 90 Refills: 2 Marv BellaDale Start Active Zetia 10 MG Oral Tablet TAKE 1 TABLET DAILY. Quantity: 90 Refills: 3 Marv BellaJaguarDale Selina Start 10-Dec-2009 Active Levothyroxine Sodium 75 MCG Oral Tablet Take 1 tablet by mouth daily. Quantity: 90 Refills: 3 Marleny BellaHarry Start 15-Mar-2010 Active Losartan Potassium 100 MG Oral Tablet Take 1 tablet daily Quantity: 90 Refills: 2 Marv Bella Dale Marks Start Active Vitamin B-12 1000 MCG Oral Tablet TAKE 1 TABLET DAILY DIRECTED. Refills: 0 Dale Fair M.D. Start 23-Oct-2010 Active Folic Acid 1 MG Oral Tablet Refills: 0 Active B-Complex Oral Capsule Refills: 0 Start 23-Oct-2011 Active Mirtazapine 15 MG Oral Tablet TAKE 1 TABLET BY MOUTH AT BEDTIME. Quantity: 90 Refills: 2 Marv Bella Dale Selina Start Active ClonazePAM 1 MG Oral Tablet TAKE 1 TABLET BY MOUTH AT BEDTIME NEEDED Quantity: 90 Refills: 1 Marv Bella Dale Selina Start Active Magnesium 400 MG Oral Tablet [...] Refills: 1 Gareth BellaBenson Start 23-Jan-2015 Active Co Q-10 400 MG Oral Capsule Refills: 0 Marv BellaDale Start 18-Apr-2015 Active Ferrous Sulfate 325 (65 Fe) MG Oral Tablet take 1 tablet by mouth every day Quantity: 31 Refills: 0 Marv BellaDale Start 18-Apr-2015 Active Aspirin Adult Low Dose 81 MG Oral Tablet Delayed Release TAKE 1 TABLET DAILY. Quantity: 90 Refills: 3 Marv Bella Dale Marks Start Active Vitamin D3 5000 UNIT Oral Capsule TAKE DAILY DIRECTED. Quantity: 90 Refills: 3 Marv Bella Dale Marks Start Active Ginkgo Biloba 60 MG Oral Capsule TAKE 1 CAPSULE TWICE DAILY. Refills: 0 Dale Fair M.D. Start 30-Nov-2015 Active Tums 500 MG Oral Tablet Chewable TAKE DIRECTED. Refills: 0 Mine Decker M.D. Start 18-Jun-2016 Active BuPROPion HCl ER (SR) 150 MG Oral Tablet Extended Release 12 Hour Take one tablet by mouth twice a day Quantity: 180 Refills: 3 Marv Bella Dale Selina Start 23-Jun-2016 Active LevoFLOXacin 750 MG Oral Tablet take 1 daily for 10 days Quantity: 30 Refills: 3 Marleny Bella Harry Ryan Start 25-Jul-2016 Active Vitamin D3 32221 UNIT Oral Capsule Take one tablet by [...] Cholecystectomy Colonoscopy- Screening or Dx Ordered: 17-Jul-2016 Immunization Name Dates Details Hepatitis B on: 1991 MMR on: 26-Jul-1992 Tetanus-Diphtheria Toxoids Td 2-2 LF/0.5ML Intramuscular Suspension on: Hepatitis A on: 29-Nov-1998 MMR on: 03-Oct-2009 Lot #: [id number] MMR on: 03-Oct-2009 Tdap (Adacel) on: Lot #: [id number] Pneumo (Pneumovax) on: Lot #: [id number] Zoster (Zostavax) on: 15-Oct-2011 Lot #: [id number] Fluzone Quadrivalent 0.5 ML Intramuscular Suspension on: 09-Jan-2014 Lot #: [id number] Fluzone Quadrivalent 0.5 ML Intramuscular Suspension on: 02-Feb-2015 Lot #: [id number] Prevnar 13 Intramuscular Suspension on: Lot #: [id number] Fluzone High-Dose 0.5 ML Intramuscular Suspension Prefilled Syringe on: Lot #: [id number] Pneumovax 23 25 MCG/0.5ML Injection Injectable on: 30-Jun-2016 Lot #: [id number] Pneumovax 23 25 MCG/0.5ML Injection Injectable on: 02-Jul-2016 Lot #: [id number] Family History Grandmother Name Dates Details Family [...] smoker Vital Signs Date Test Result Details 08:22 BP Systolic 126 mm[Hg] Status: Comments: Location: ; Position: BP Diastolic 66 mm[Hg] Status: Comments: Location: ; Position: Weight 191 lb Status: Body Mass Index Calculated 33.83 kg/m2 Status: Body Surface Area Calculated 1.9 m2 Status: 13:34 BP Systolic 126 mm[Hg] Status: Comments: Location: ; Position: BP Diastolic 78 mm[Hg] Status: Comments: Location: ; Position: Heart Rate 75 /min Status: Weight 193 lb Status: Physical Findings 96 Status: Comments: O2 Saturation Body Mass Index Calculated 34.19 kg/m2 Status: Body Surface Area Calculated 1.9 m2 Status: Results Date Description Value Details 16:11 MAMMOGRAM-SCREENING Comments: Exam Date: 08/18/2016 14: 38Dictation Date: 08/18/2016 16:11 XM SCREENING Plan of Care Name Dates Details Planned Observations Planned Goals not documented Planned Encounters Appointment; Provider: Benson Servin M.D. On 29-May-2017 09:00 Appointment; Provider: Dale Fair M.D. On 01-Dec-2016 13:00 Instructions Name Dates Details Instructions not documented Encounters Appointment; Dale Fair M.D. On Encounter Diagnosis: Problem not documented 13:30 Appointment; Dale Fair M.D. On Encounter Diagnosis: Problem not documented 13:45 Appointment; Emmy Vasquez A.P.RBlanca On 17-Jul-2016 Encounter Diagnosis: Problem not documented 13:00 Appointment; Harry Farmer M.D. On 07-Jul-2016 Encounter Diagnosis: Problem not documented 13:00 Appointment; Magalie Feng A.P.RBlanca On 30-Jun-2016 Encounter Diagnosis: Problem not documented [...] not documented 14:00 Appointment; Anna Marie Sutton A.PPavithraRBlanca On 07-Jan-2016 Encounter Diagnosis: Problem not documented 13:00 Appointment; Anna Marie Sutton A.PPavithraRBlanca On 07-Jan-2016 Encounter Diagnosis: Problem not documented 13:00 Appointment; Robb Tavarez M.D. On 07-Dec-2015 Encounter Diagnosis: Problem not documented 07:30 Appointment; Dale Fair M.D. On 30-Nov-2015 Encounter Diagnosis: Problem not documented 13:00 Appointment; Anna Marie Sutton A.PPavithraRBlanca On 30-Oct-2015 Encounter Diagnosis: Problem not documented 14:15 Appointment; Dale Fair M.D. On 29-Oct-2015 Encounter Diagnosis: Problem not documented 14:30 Appointment; Harry Maurre M.D.,[facility], On 17-Oct-2015 Encounter Diagnosis: Problem not [...]
--- OUTSIDE RECORDS SUMMARY | 2017-08-06 07:15 | External Medical Summary | Summary of Care ---
:1950 Author Name Dale Fair M.D. Address [address] [place], [place] [id number] Care Team Providers Name Role Phone Marleny [...] for breast cancer (V76.10, Z12.39) Status: Active Hypothyroidism (244.9, E03.9) Status: Active Depression (311, F32.9) Status: Active Hypertension (401.9, I10) Status: Active Hyperlipidemia (272.4, E78.5) Status: Active [...] TABLET DAILY DIRECTED. Refills: 0 Marv BellaDale Selina Start 23-Oct-2010 Active Folic Acid 1 MG Oral Tablet Refills: 0 Active B-Complex Oral Capsule Refills: 0 Start 23-Oct-2011 Active Mirtazapine 15 MG Oral Tablet TAKE 1 TABLET BY MOUTH AT BEDTIME. Quantity: 90 Refills: 2 Marv BellaDale Start Active ClonazePAM 1 MG Oral Tablet TAKE 1 TABLET BY MOUTH AT BEDTIME NEEDED Quantity: 90 Refills: 1 Marv BellaDale Start Active Magnesium 400 MG [...] Oral Capsule Refills: 0 Marv Bella Dale A Start 18-Apr-2015 Active Ferrous Sulfate 325 (65 Fe) MG Oral Tablet take 1 tablet by mouth every day Quantity: 31 Refills: 0 Marv BellaDale Start 18-Apr-2015 Active Aspirin Adult Low Dose 81 MG Oral Tablet Delayed Release TAKE 1 TABLET DAILY. Quantity: 90 Refills: 3 Marv BellaDale Selina Start Active Vitamin D3 5000 UNIT Oral Capsule TAKE DAILY DIRECTED. Quantity: 90 Refills: 3 Marv BellaDale Start Active Ginkgo Biloba 60 MG Oral Capsule TAKE 1 CAPSULE TWICE DAILY. Refills: 0 Dale Fair M.D. Start 30-Nov-2015 Active Tums 500 MG Oral Tablet Chewable TAKE DIRECTED. Refills: 0 Jeffrey Decker M.D.ia Start 18-Jun-2016 Active BuPROPion HCl ER (SR) 150 MG Oral Tablet Extended Release 12 Hour Take one tablet by mouth twice a day Quantity: 180 Refills: 3 Jaguar Fair M.D.othy Selina Start 23-Jun-2016 Active LevoFLOXacin 750 MG Oral Tablet take 1 daily for 10 days Quantity: 30 Refills: 3 Marleny Bella Harry Ryan Start 25-Jul-2016 Active Vitamin D3 78041 UNIT Oral Capsule Take one tablet by [...] on: 03-Oct-2009 Tdap (Adacel) on: Lot #: [id number] Pneumo (Pneumovax) on: Lot #: [id number] Zoster (Zostavax) on: 15-Oct-2011 Lot #: [id number] Fluzone Quadrivalent 0.5 ML Intramuscular Suspension on: 09-Jan-2014 Lot #: [id number] Fluzone Quadrivalent 0.5 ML Intramuscular Suspension on: 02-Feb-2015 Lot #: [id number] Prevnar 13 Intramuscular Suspension on: Lot #: [id number] Fluzone High-Dose 0.5 ML Intramuscular Suspension Prefilled Syringe on: Lot #: [id number] Pneumovax 23 25 MCG/0.5ML Injection Injectable on: 30-Jun-2016 Lot #: [id number] Pneumovax 23 25 MCG/0.5ML Injection Injectable on: 02-Jul-2016 Lot #: [id number] Family History Grandmother Name Dates Details Family [...] smoker Vital Signs Date Test Result Details 13:34 BP Systolic 126 mm[Hg] Status: Comments: Location: ; Position: BP Diastolic 78 mm[Hg] Status: Comments: Location: ; Position: Heart Rate 75 /min Status: Comments: Location: ; Weight 193 lb Status: Physical Findings 96 [...] Provider: Dale Fair M.D. On 01-Dec-2016 13:00 Appointment; Provider: Robb Tavarez M.D. On 08:15 Interventions Provided Medication ChangesBuPROPion HCl ER (SR) 150 MG Oral Tablet Extended Release 12 Hour - RenewClonazePAM 1 MG Oral Tablet - RenewLyrica 50 MG Oral Capsule - Renew Instructions Name Dates Details Instructions not documented Encounters Appointment; Dale Fair M.D. On Encounter Diagnosis: Problem not documented 13:45 Appointment; Emmy Vasquez A.P.R.N. On 17-Jul-2016 Encounter Diagnosis: Problem not documented 13:00 Appointment; Harry Farmer M.D. On 07-Jul-2016 Encounter Diagnosis: Problem not documented 13:00 Appointment; Magalei Feng A.P.R.N. On 30-Jun-2016 Encounter Diagnosis: Problem [...] not documented 13:00 Appointment; Anna Marie Sutton A.PPavitrhaRBlanca On 30-Oct-2015 Encounter Diagnosis: Problem not documented 14:15 Appointment; Dale Fair M.D. On 29-Oct-2015 Encounter Diagnosis: Problem not documented 14:30 Appointment; Harry Maurer M.D.,[facility], On 17-Oct-2015 Encounter Diagnosis: Problem not documented [...]
--- OUTSIDE RECORDS SUMMARY | 2017-08-06 07:15 | External Medical Summary | Summary of Care ---
:1950 Author Name Dale Fair M.D. 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 Started 02-Feb-2015 ActiveAspirin 81 MG Oral Tablet Refills: 0 Dale Fair M.D. Started 18-Apr-2015 [...] on:03-Oct-2009 Tdap (Adacel) Administered on: Lot #: [id number] Pneumo (Pneumovax) Administered on: Lot #: [id number] Zoster (Zostavax) Administered on:15-Oct-2011 Lot #: [id number] Fluzone Quadrivalent 0.5 ML Intramuscular Suspension Administered on:2013 Lot #: [id number] Fluzone Quadrivalent 0.5 ML Intramuscular Suspension Administered on:2014 Lot #: [id number] Family History Grandmother Name Dates Details Family [...] smoker Vital Signs Date Test Result Details 18-Apr-2015 13:25 BP Systolic 126 mm[Hg] Status: BP Diastolic 74 mm[Hg] Status: Heart Rate 86 /min Status: Weight 196.8 lb Status: O2 SAT 94 % Status: Body Mass Index Calculated 34.31 kg/m2 Status: Body Surface Area Calculated 1.93 m2 Status: Results Date Description Value Details 17-Apr-2015 10:38 CBC w/ Auto Diff 7150 Comments: Fastin hours WBC 6.8 K/uL (Better) Range: 4.5-11.0 RBC 4.20 mil/uL Range: 3.60-5.00 (Better) HGB 11.4 g/dL (Below Range: 12.0-16.0 low threshold) HCT 37.3 % (Better) Range: 36.0-48.0 MCV 88.8 fL (Better) Range: 80.0-99.0 MCH 27.2 pg (Below Range: 27.3-32.5 low threshold) MCHC 30.6 % (Below low Range: 32.0-36.0 threshold) RDW 13.8 % (Better) Range: 11.6-14.8 PLATELETS 338 K/uL (Better) Range: 150-400 MPV 8.1 fL (Better) Range: 6.0-11.0 %NEUTRO 60.3 % (Better) Range: 37.0-80.0 %LYMPHS 29.3 % (Better) Range: 13.0-50.0 %MONO 6.1 % (Better) Range: 0.0-12.0 %EOS 2.0 % (Better) Range: 0.0-7.0 %BASO 0.6 % (Better) Range: 0.0-2.5 %TRISTIN 1.7 % (Better) Range: 0.0-5.0 NEUTRO 4.1 K/uL (Better) Range: 2.0-6.9 LYMPHS 2.0 K/uL (Better) Range: 0.6-3.4 MONOS 0.4 K/uL (Better) Range: 0.0-0.9 EOS 0.1 K/uL (Better) Range: 0.0-0.7 BASO 0.0 K/uL (Better) Range: 0.0-0.2 10:47 Iron Panel with TIBC 1612 Comments: Fastin hours IRON 28 ug/dL (Below Range: 50-170 low threshold) TOTAL IRON BIND. CAPACITY 450 ug/dL Range: 250-450 (Better) % IRON SATURATION 6 % (Below low Range: 20-55 threshold) 11:00 THYROID STIM. HORMONE 3602 Comments: Fastin hours THYROID STIM. HORMONE 0.671 uIU/mL Range: 0.550-4.780 (Better) Comments: No established reference ranges for infants and children <2 years of age----- 11:27 HEMOGLOBIN A1C 3507 Comments: Fastin hours Hemoglobin A1C 6.0 % (Better) ESTIMATED AVG. GLUCOSE 126 (Better) 11:32 Comprehensive Metabolic Comments: Fastin hours Panel 1212 SODIUM 137 mmol/L Range: 133-144 (Better) POTASSIUM 4.1 mmol/L Range: 3.5-5.1 (Better) CHLORIDE 99 mmol/L Range: 98-110 (Better) CARBON DIOXIDE 25.5 mmol/L Range: 23.0-33.0 (Better) ANION GAP 13 mmol/L Range: 6-16 (Better) BUN 17 mg/dL (Better) Range: 7-18 CREATININE, SERUM 1.09 mg/dL (Above Range: 0.55-1.02 high threshold) Comments: Please note new reference ranges effective 07/22.----- BUN:CREATININE RATIO 16 (Better) EST GFR, >60 ml/min Range: >60 (Better) EST GFR, NON-AFR [place] 50 ml/min (Below Range: >60 low threshold) Comments: EST GFR is reported in ml/min per 1.73 m2 of body surface area. For -Spanish, please multiple result by 1.2.----- GLUCOSE 81 mg/dL (Better) Range: 70-100 ALK PHOSPHATASE 75 U/L (Better) Range: 46-116 TOTAL BILIRUBIN 0.30 mg/dL Range: 0.20-1.00 (Better) AST 35 U/L (Better) Range: 8-35 ALT 38 U/L (Better) Range: 14-59 Comments: Please note new reference ranges. Effective 05/11/2014.----- ALBUMIN 3.6 g/dL (Better) Range: 3.4-5.0 TOTAL PROTEIN 7.3 g/dL (Better) Range: 6.4-8.2 A/G RATIO 1.0 units Range: 1.0-1.8 (Better) CALCIUM 9.3 mg/dL Range: 8.5-10.1 (Better) 11:32 LIPID PROFILE 1184 Comments: Fastin hours CHOLESTEROL 145 mg/dL Range: <200 (Better) TRIGLYCERIDES 62 mg/dL (Better) Range: 30-200 HDL Cholesterol 72 mg/dL (Better) Range: >39 NON HDL CHOLESTEROL 73 (Better) CARDIAC RSK FACTOR 2.0 units (Below Range: 4.4-5.0 low threshold) LDL - CALCULATED 61 mg/dL (Better) Range: 0-130 Plan of Care Planned Observations Name Dates Details Planned Goals not documented Goal Planned Encounters Appointment; Provider: Schedule Radiology On 18-Jan-2016 16:00 Appointment; Provider: Benson Servin On 09-Jan-2016 14:00 Appointment; Provider: Dale Fair On 23-Jul-2015 13:00 Appointment; Provider: Schedule Radiology On 17-Jan-2015 16:00 [...]
--- OUTSIDE RECORDS SUMMARY | 2017-08-06 07:16 | External Medical Summary | Summary of Care ---
:1950 Author Name Dale Fair M.D. Address [address] [place], [place] [id number] Care Team Providers Name Role Phone Dale [...] Status: Active Post-menopausal (V49.81, Z78.0) Status: Active Flank pain (789.09, R10.9) Status: Active Medications Name Dates Details Cyclobenzaprine HCl - 10 MG Oral Tablet TAKE 1 TABLET BY MOUTH AT BEDTIME NEEDED. Quantity: 90 Refills: 0 Marv M.DDale Arshad Start 09-Dec-2007 Active MetFORMIN HCl - 1000 MG Oral Tablet Take one tablet by mouth twice daily with meals Quantity: 180 Refills: 3 Marv M.D.Dale Start 09-Dec-2007 Active Lyrica 50 MG Oral Capsule TAKE 1 CAPSULE TWICE DAILY. Quantity: 28 Refills: 1 Marv M.Dot.Dale Start 27-Oct-2008 Active Escitalopram Oxalate 20 MG Oral Tablet take one tablet by mouth every day Quantity: 90 Refills: 3 Marv M.D.Dale Start 01-Jan-2009 Active Simvastatin 40 MG Oral Tablet TAKE ONE TABLET(S) BY MOUTH DAILY DIRECTED Quantity: 90 Refills: 3 Marv M.Dale Mackenzie Start 10-Dec-2009 Active Zetia 10 MG Oral Tablet TAKE 1 TABLET DAILY. Quantity: 90 Refills: 3 Marv M.Dale Mackenzie Start 10-Dec-2009 Active Levothyroxine Sodium 75 MCG Oral Tablet Take 1 tablet by mouth daily. Quantity: 90 Refills: 3 Crater M.D.Dale Start 15-Mar-2010 Active Losartan Potassium 100 MG Oral Tablet take one tablet by mouth every day Quantity: 90 Refills: 3 Crater M.D.Dale Start 18-Mar-2010 Active Vitamin B-12 1000 MCG Oral Tablet TAKE 1 TABLET DAILY DIRECTED. Refills: 0 Marv M.Dale Mackenzie Start 23-Oct-2010 Active Folic Acid 1 MG Oral Tablet Refills: 0 Active B-Complex Oral Capsule Refills: 0 Start 23-Oct-2011 Active Mirtazapine 15 MG Oral Tablet TAKE 1 TABLET BY MOUTH AT BEDTIME. Quantity: 90 Refills: 2 Crater M.D., Dale Marks Start Active ClonazePAM 1 MG Oral Tablet TAKE 1 TABLET BY MOUTH AT BEDTIME NEEDED Quantity: 90 Refills: 0 Crater M.D., Dale Marks Start Active Magnesium 400 MG Oral Tablet 1 tablet BID Quantity: 180 Refills: 3 Crater M.D., Dale AActive TraMADol HCl - 50 MG Oral Tablet TAKE ONE TABLET(S) BY MOUTH TID NEEDED Quantity: 270 Refills: 0 Crater M.D., Dale Marks Start 11-Oct-2014 Active Vitamin D3 1000 UNIT Oral Capsule TAKE DIRECTED. Refills: 0 Start 19-Oct-2014 Active Acetaminophen 500 MG Oral Tablet TAKE TWO TABLET(S) BY MOUTH TWICE DAILY Quantity: 360 Refills: 0 Crater M.D., Dale aMrks Start 19-Oct-2014 Active PrednisoLONE Acetate 1 % Ophthalmic Suspension Install 1 drop as directed 6 times daily (during waking hours) Starting after surgery. Quantity: 10 Refills: 1 Gareth M.D.Benson Start 23-Jan-2015 Active Co Q-10 400 MG Oral Capsule Refills: 0 Crater M.D., Dale Marks Start 18-Apr-2015 Active Ferrous Sulfate 325 (65 Fe) MG Oral Tablet take 1 tablet by mouth every day Quantity: 31 Refills: 0 Crater M.D., Dale Marks Start 18-Apr-2015 Active Aspirin Adult Low Dose 81 MG Oral Tablet Delayed Release TAKE 1 TABLET DAILY. Quantity: 90 Refills: 3 Crater M.D., Dale Marks Start Active Vitamin D3 5000 UNIT Oral Capsule TAKE DAILY DIRECTED. Quantity: 90 Refills: 3 Crater M.D., Dale Marks Start Active Allergies and Adverse [...] Extract With Prosthesis Insert Right Eye CT AB/ PEL WITHOUT IV CONTRAST (FOR KIDNEY Ordered: 15-Oct-2015 STONE) Immunization Name Dates Details Hepatitis B on: 1991 MMR on: 26-Jul-1992 Tetanus-Diphtheria Toxoids Td 2-2 LF/0.5ML Intramuscular Suspension on: Hepatitis A on: 29-Nov-1998 MMR on: 03-Oct-2009 Lot #: [id number] MMR on: 03-Oct-2009 Tdap (Adacel) on: Lot #: [id number] Pneumo (Pneumovax) on: Lot #: [id number] Zoster (Zostavax) on: 15-Oct-2011 Lot #: [id number] Fluzone Quadrivalent 0.5 ML Intramuscular Suspension on: 09-Jan-2014 Lot #: [id number] Fluzone Quadrivalent 0.5 ML Intramuscular Suspension on: 02-Feb-2015 Lot #: [id number] Prevnar 13 Intramuscular Suspension on: Lot #: [id number] Family History Grandmother Name Dates Details Family [...] GFR, NON-AFR [place]IZ[place] 56 ml/min (Below low Range: >60 threshold) Comments: EST GFR is reported in ml/min per 1.73 m2 of body surface area. For -Filipino, please multiple result by 1.2.----- GLUCOSE 107 [...] 1.0-1.8 threshold) CALCIUM 9.2 mg/dL Range: 8.5-10.1 Plan of Care Name Dates Details Planned Observations CT AB/ PEL WITHOUT IV CONTRAST (FOR KIDNEY STONE) On 15-Oct-2015 Intent Planned Goals not documented Planned Encounters [...] Diagnosis: Problem not documented 08:15 Appointment; Benson Sevrin M.D. On 08-Jan-2015 Encounter Diagnosis: Problem not [...] Encounter Diagnosis: Problem not documented 10:15 Appointment; Dlae Fair M.D. On 09-Jan-2014 Encounter Diagnosis: Problem [...]
--- OUTSIDE RECORDS SUMMARY | 2017-08-06 07:16 | External Medical Summary | Summary of Care ---
:1950 Author Name Marleny Bella, Harry Davis Address Unavailable Unavailable , Care Team Providers Name Role Phone Marleny Bella, Harry Davis Unavailable Unavailable Brianne Bella, Mine Unavailable Unavailable Marv Bella, Dale A Unavailable Unavailable Gareth Bella, Benson E Unavailable Unavailable Dale Fair Unavailable Unavailable Unavailable [...] asthma without complication (493.90, J45.20) Status: Active Medications Name Dates Details Cyclobenzaprine HCl - 10 MG Oral Tablet Take 1 tablet at bedtime as needed Quantity: 90 Refills: 1 Marv M.Dale Mackenzie Start 09-Dec-2007 Active MetFORMIN HCl - 1000 MG Oral Tablet Take one tablet by mouth twice daily with meals Quantity: 180 Refills: 3 Marv Layne.Dale Mackenzie Start 09-Dec-2007 Active Vitamin B-12 1000 MCG Oral Tablet TAKE 1 TABLET DAILY DIRECTED. Refills: 0 Dale Fair M.D. Start 23-Oct-2010 Active Mirtazapine 15 MG Oral Tablet TAKE 1 TABLET BY MOUTH AT BEDTIME. Quantity: 90 Refills: 2 Marv Layne.Dot.Dale Start Active ClonazePAM 1 MG Oral Tablet TAKE 1 TABLET BY MOUTH AT BEDTIME NEEDED Quantity: 90 Refills: 0 Dale Fair M.D. Start Active Magnesium 400 MG Oral Tablet 1 tablet BID Quantity: 180 Refills: 3 Dale Fair M.D.tive PrednisoLONE Acetate 1 % Ophthalmic Suspension Install 1 drop as directed 6 times daily (during waking hours) Starting after surgery. Quantity: 10 Refills: 1 [place] ShayneBenson Start 23-Jan-2015 Active Ferrous Sulfate 325 (65 Fe) MG Oral Tablet take 1 tablet by mouth every day Quantity: 31 Refills: 0 Dale Fair M.D. Start 18-Apr-2015 Active Ginkgo Biloba 60 MG Oral Capsule TAKE 1 CAPSULE TWICE DAILY. Refills: 0 Dale Fair M.D. Start 30-Nov-2015 Active BuPROPion HCl ER (SR) 100 MG Oral Tablet Extended Release 12 Hour TAKE 1 TABLET DAILY. Quantity: 9 Refills: 0 Dale Fair M.D. Start 23-Jun-2016 Active Vitamin D3 5000 UNIT Oral Capsule TAKE DAILY DIRECTED. Quantity: 90 Refills: 3 Dale Fair M.D. Start Active Aspirin Adult Low Dose 81 MG Oral Tablet Delayed Release TAKE 1 TABLET DAILY. Quantity: 90 Refills: 3 Dale Fair M.D. Start Active Co Q-10 400 MG Oral Capsule Refills: 0 Dale Fair M.D. Start 18-Apr-2015 Active Acetaminophen 500 MG Oral Tablet TAKE TWO TABLET(S) BY MOUTH TWICE DAILY Quantity: 360 Refills: 0 Dale Fair M.D. Start 19-Oct-2014 Active Vitamin D3 1000 UNIT Oral Capsule TAKE DIRECTED. Refills: 0 Start 19-Oct-2014 Active TraMADol HCl - 50 MG Oral Tablet TAKE ONE TABLET(S) BY MOUTH TID NEEDED Quantity: 270 Refills: 0 Dale Fair M.D. Start 11-Oct-2014 Active B-Complex Oral Capsule Refills: 0 Start 23-Oct-2011 Active Folic Acid 1 MG Oral Tablet Refills: 0 Active Losartan Potassium 100 MG Oral Tablet take one tablet by mouth every day Quantity: 90 Refills: 3 Dale Fair M.D. Start 18-Mar-2010 Active Levothyroxine Sodium 75 MCG Oral Tablet Take 1 tablet by mouth daily. Quantity: 90 Refills: 3 Harry Farmer M.D. Start 15-Mar-2010 Active Zetia 10 MG Oral Tablet TAKE 1 TABLET DAILY. Quantity: 90 Refills: 3 Dale Fair M.D. Start 10-Dec-2009 Active Simvastatin 40 MG Oral Tablet TAKE ONE TABLET(S) BY MOUTH DAILY DIRECTED Quantity: 90 Refills: 3 Marv Bella, Dale Marks Start 10-Dec-2009 Active Escitalopram Oxalate 20 MG Oral Tablet take one tablet by mouth every day Quantity: 90 Refills: 3 Marv Bella, Dale Marks Start 01-Jan-2009 Active Lyrica 50 MG Oral Capsule TAKE 1 CAPSULE TWICE DAILY. Quantity: 180 Refills: 1 Jaguar Fair M.D.othy Selina Start 27-Oct-2008 Active Tums 500 MG Oral Tablet Chewable [...] of Rotator Cuff Repair History of Cholecystectomy S. PNEUMO IGG (14 SERO) [id number] Ordered: 04-Jul-2016 Vitamin D, 25 - Hydroxy 3111 Ordered: 04-Jul-2016 Vitamin D, 25 - Hydroxy 3111 Ordered: 18-Jun-2016 XRay SPINE-LUMBAR Ordered: 30-Jun-2016 Immunization Name Dates Details Hepatitis B on: 1991 MMR on: 26-Jul-1992 Tetanus-Diphtheria Toxoids Td 2-2 LF/0.5ML Intramuscular Suspension on: Hepatitis A on: 29-Nov-1998 MMR on: 03-Oct-2009 Lot #: [id number] MMR on: 03-Oct-2009 Tdap (Adacel) on: Lot #: [id number] Pneumo (Pneumovax) on: Lot #: [id number] Zoster (Zostavax) on: 15-Oct-2011 Lot #: [id number] Fluzone Quadrivalent 0.5 ML Intramuscular Suspension on: 09-Jan-2014 Lot #: [id number] Fluzone Quadrivalent 0.5 ML Intramuscular Suspension on: 02-Feb-2015 Lot #: [id number] Prevnar 13 Intramuscular Suspension on: Lot #: [id number] Fluzone High-Dose 0.5 ML Intramuscular Suspension Prefilled Syringe on: Lot #: [id number] Pneumovax 23 25 MCG/0.5ML Injection Injectable on: 30-Jun-2016 Lot #: [id number] Pneumovax 23 25 MCG/0.5ML Injection Injectable on: 02-Jul-2016 Lot #: [id number] Family History Grandmother Name Dates Details Family [...] smoker Vital Signs Date Test Result Details 07-Jul-2016 13:20 BP Systolic 148 mm[Hg] Status: [...] Location: ; Position: Temperature 97 f Status: Comments: Method: Heart Rate 87 /min Status: Physical Findings 20 Status: Comments: Respiration Weight 198.2 lb Status: Physical Findings 94 Status: Comments: O2 Saturation Body Mass Index Calculated 35.11 kg/m2 Status: Body Surface Area Calculated 1.93 m2 Status: 18-Jun-2016 13:43 BP Systolic 130 mm[Hg] Status: Comments: Location: ; Position: BP Diastolic 65 mm[Hg] Status: Comments: Location: ; Position: Temperature 97.5 f Status: Comments: Method: Height 63 in Status: Weight 198 lb [...] Value Details 20-Jun-2016 09:05 Complement, Total (CH50) [id number] Comments: Testing performed at: [] [address], [address], , [employer] Operator Helper: Lucio Savage MD COMPLEMENT, TOTAL (CH50) >60 U/mL (Above high threshold) Range: 42-60 25-Jun-2016 09:29 HISS PANEL [id number] Comments: [facility] performed at: [facility], [address] [place] [address], , [employer] Operator Helper: Maninder Garvin M.D.,PhDTes ting performed at: [facility], [address] [place] [address], [address], [employer] Operator Helper: Lucio Gomez D.O., MPHTesting performed at: [facility], [place], [facility], [address] [place] [address], , [employer] Operator Helper: Walker Hinojosa MDQuest Collection Date/Time : [id number] Results Received Date/Time : [id number] Reported Date/Time: [id number] FASTING:NOQuest performed at: [facility], [employer] [facility] [facility], [address] [place] [address], , [employer] Operator Helper: Maninder Garvin M.D.,PhDTesting performed at: [facility], [address] [place] [address], [address], [employer] Operator Helper: Lucio Gomez D.O., M PHTesting performed at: [facility], [place], [facility], [address] [place] [address], , [employer] Operator Helper: Walker Hinojosa MDQuest C ollection Date/Time: [id number] Results Received Date/Time: [id number] Reported Date/Time: [id number] FASTING:NOQuest performed at: [facility], [employer] [facility], [address] [place] [address], , [employer] Operator Helper: Maninder Garvin M.D.,PhDTesting performed at: [place], [facility], [address] [facility], [place], [address], [employer] Operator Helper: Lucio Gomez D.O., MPHTesting performed at: [facility] [employer] [employer], [address] [place] [address], [address], [employer] Operator Helper: Walker Hinojosa MDQuest Collection Date/Time: [id number] Results Received Date/Time: [id number] Reported Date/Time: [id number] FASTING:NOQ uest performed at: [facility] [employer], [address] [place] [address], , [employer] Operator Helper: Maninder Garvin M.D.,PhDTest ing performed at: [place], [facility], [address] [place] [address], [place], [address], [employer] Operator Helper: Lucio Gomez D.O., MPHQuest Collection Date/Time: [id number] Results Received D ate/Time: [id number] Reported Date/Time: [id number] FASTING: NOQuest performed at: [place], [facility] , [address] [place] [address], [place], [address], [facility] Director: Lucio Gomez D.O., MPHQuest Collection Date/Time: [id number] Results Received Date/Time: [id number] Reported Date/Time: [id number] FASTING:NOQuest Accession #: [id number] performed at: [place], [facility], [address] [facility], [place], [address], [employer] Operator Helper: Lucio Gomez D.O., MPHQuest Collection Date/Time: [id number] Result s Received Date/Time: [id number] Reported Date/Time: [id number] FASTING:NO IMMUNOGLOBULIN A 320 mg/dL Range: 81-463 Comments: [KS]----- IMMUNOGLOBULIN G 881 mg/dL Range: 694-1618 Comments: [KS]----- IMMUNOGLOBULIN M 63 mg/dL Range: 48-271 Comments: [KS]----- IMMUNOGLOBULIN E 7 kU/L Range: <WZ=608 Comments: [KS]----- IMMUNOGLOBULIN G SUBCLASS 474 mg/dL [...] detects 11 of the 13 serotypes in [id number] conjugate vaccine, and 14 of the 23serotypes in the 23-valent vaccine. Immune responseto the vaccine should result in protection againstat least 50% of the serotypes in the vaccine.This test was developed and its analyticalperformance characteristics have beendetermined by [facility]. It has not been cleared [...] and its analyticalPerformance characteristics have beendetermined by [facility].It has not been cleared or approved by FDA. This assayhas b een validated pursuant to the CLIAregulations and is used for clinical purposes.[TXC]----- DIPHTHERIA ANTITOXOID >2.00 IU/mL Comments: REFERENCE RANGE: > or= 0.01 IU/mL (Post-Vaccination) INTERPRETIVE CRITERIA: <0.01 IU/mL Nonprotective Antibody Level > or=0.01 IU/mL Protective Antibody LevelThis test was devel opsean and its analyticalPerformance characteristics have beendetermined by [facility].It has not been cleared or [...] Provider: Emmy Vasquez A.P.R.N. On 17-Jul-2016 13:00 Instructions Name Dates Details Instructions not [...] not documented 13:00 Appointment; Anna Marie Sutton A.PPavithraRPavithraNPavithra On 07-Jan-2016 Encounter Diagnosis: Problem not documented [...]
--- OUTSIDE RECORDS SUMMARY | 2017-08-06 07:16 | External Medical Summary | Summary of Care ---
:1950 Author Name Dale Fair M.D. Address [address] [place], [place] [id number] Care Team Providers Name Role Phone Dale [...] Right Eye Comprehensive Metabolic Panel 1212 Ordered: DEXA Ordered: Immunization Name Dates Details Hepatitis B Administered on:1991 MMR Administered on:26-Jul-1992 Tetanus-Diphtheria Toxoids Td 2-2 LF/0.5ML Intramuscular Suspension Administered on:26-Jul-1992 Hepatitis A Administered on:29-Nov-1998 MMR Administered on:03-Oct-2009 Lot #: [id number] MMR Administered on:03-Oct-2009 Tdap (Adacel) Administered on: Lot #: [id number] Pneumo (Pneumovax) Administered on: Lot #: [id number] Zoster (Zostavax) Administered on:15-Oct-2011 Lot #: [id number] Fluzone Quadrivalent 0.5 ML Intramuscular Suspension Administered on:2013 Lot #: [id number] Fluzone Quadrivalent 0.5 ML Intramuscular Suspension Administered on:2014 Lot #: [id number] Prevnar 13 Intramuscular Suspension Administered on: Lot #: [id number] Family History Grandmother Name Dates Details Family [...] Range: >60 low threshold) EST GFR, NON-AFR [place] 48 ml/min (Below Range: >60 low threshold) Comments: EST GFR is reported in ml/min per 1.73 m2 of body surface area. For -Ivorian, please multiple result by 1.2.----- BUN:CREATININE RATIO [...]
--- OUTSIDE RECORDS SUMMARY | 2017-08-06 07:16 | External Medical Summary | Summary of Care ---
:1950 Author Name Magalie Feng APRN Address [address] [place], [place] [id number] Care Team Providers Name Role Phone Brianne Bella, Mine Unavailable Quoc Fair M.D., Dale Marks Unavailable Unavailable Gareth Bella, Benson Weems Unavailable Unavailable Magalie Feng APRN Unavailable Unavailable Dale Fair Unavailable Unavailable Unavailable [...] Back pain, acute (724.5, M54.9) Status: Active Medications Name Dates Details Cyclobenzaprine [...] 90 Refills: 3 Marv M.Dale Mackenzie Start 01-Jan-2009 Active Simvastatin 40 MG Oral Tablet TAKE ONE TABLET(S) BY MOUTH DAILY DIRECTED Quantity: 90 Refills: 3 Dale Fair M.D. Start 10-Dec-2009 Active Zetia 10 MG Oral Tablet TAKE 1 TABLET DAILY. Quantity: 90 Refills: 3 Marv MDale Manley Start 10-Dec-2009 Active Levothyroxine Sodium 75 MCG Oral Tablet Take 1 tablet by mouth daily. Quantity: 90 Refills: 3 Crater M.D., Dale Marks Start 15-Mar-2010 Active Losartan Potassium 100 MG Oral Tablet take one tablet by mouth every day Quantity: 90 Refills: 3 Jacquelineleonardo M.D., Dale Marks Start 18-Mar-2010 Active Vitamin B-12 1000 MCG Oral Tablet TAKE 1 TABLET DAILY DIRECTED. Refills: 0 Jacquelineleonardo M.Dot., Dale Marks Start 23-Oct-2010 Active Folic Acid 1 MG Oral Tablet Refills: 0 Active B-Complex Oral Capsule Refills: 0 Start 23-Oct-2011 Active Mirtazapine 15 MG Oral Tablet TAKE 1 TABLET BY MOUTH AT BEDTIME. Quantity: 90 Refills: 2 Jacquelineter M.D., Dale Marks Start Active ClonazePAM 1 MG Oral Tablet TAKE 1 TABLET BY MOUTH AT BEDTIME NEEDED Quantity: 90 Refills: 0 Marv M.D., Dale Marks Start Active Magnesium 400 MG Oral Tablet 1 tablet BID Quantity: 180 Refills: 3 Marv M.Gurdeep, Dale Shintive TraMADol HCl - 50 MG Oral Tablet TAKE ONE TABLET(S) BY MOUTH TID NEEDED Quantity: 270 Refills: 0 Marv M.D., Dale Marks Start 11-Oct-2014 Active Vitamin D3 1000 UNIT Oral Capsule TAKE DIRECTED. Refills: 0 Start 19-Oct-2014 Active Acetaminophen 500 MG Oral Tablet TAKE TWO TABLET(S) BY MOUTH TWICE DAILY Quantity: 360 Refills: 0 Marv Layne.GurdeepDale Start 19-Oct-2014 Active PrednisoLONE Acetate 1 % Ophthalmic Suspension Install 1 drop as directed 6 times daily (during waking hours) Starting after surgery. Quantity: 10 Refills: 1 Benson Servin M.D. Start 23-Jan-2015 Active Co Q-10 400 MG Oral Capsule Refills: 0 Marv M.DPavithra, Dale Marks Start 18-Apr-2015 Active Ferrous Sulfate 325 (65 Fe) MG Oral Tablet take 1 tablet by mouth every day Quantity: 31 Refills: 0 Marv M.D., Dale Marks Start 18-Apr-2015 Active Aspirin Adult Low Dose 81 MG Oral Tablet Delayed Release TAKE 1 TABLET DAILY. Quantity: 90 Refills: 3 Jacquelineter M.D., Dale Marks Start Active Vitamin D3 5000 UNIT Oral Capsule TAKE DAILY DIRECTED. Quantity: 90 Refills: 3 Marv Layne.Dot., Dale Marks Start Active Ginkgo Biloba 60 MG Oral Capsule TAKE 1 CAPSULE TWICE DAILY. Refills: 0 Marv Griffith. Dale Marks Start 30-Nov-2015 Active Tums 500 MG Oral Tablet Chewable TAKE DIRECTED. Refills: 0 Decker Shayne, Mine Start 18-Jun-2016 Active BuPROPion HCl ER (SR) 100 MG Oral Tablet Extended Release 12 Hour TAKE 1 TABLET DAILY. Quantity: 9 Refills: 0 Craleonardo M.D., Dale Marks Start 23-Jun-2016 Active Allergies and Adverse Reactions [...] on: 03-Oct-2009 Tdap (Adacel) on: Lot #: [id number] Pneumo (Pneumovax) on: Lot #: [id number] Zoster (Zostavax) on: 15-Oct-2011 Lot #: [id number] Fluzone Quadrivalent 0.5 ML Intramuscular Suspension on: 09-Jan-2014 Lot #: [id number] Fluzone Quadrivalent 0.5 ML Intramuscular Suspension on: 02-Feb-2015 Lot #: [id number] Prevnar 13 Intramuscular Suspension on: Lot #: [id number] Fluzone High-Dose 0.5 ML Intramuscular Suspension Prefilled Syringe on: Lot #: [id number] Pneumovax 23 25 MCG/0.5ML Injection Injectable on: 30-Jun-2016 Lot #: [id number] Family History Grandmother Name Dates Details Family [...] smoker Vital Signs Date Test Result Details 30-Jun-2016 14:21 BP Systolic 132 mm[Hg] Status: [...] ; Position: Heart Rate 81 /min Status: Weight 197.8 lb Status: Physical Findings 98 [...] m2 Status: Results Date Description Value Details 04-Jun-2016 15:35 CT CHEST WITH IV CONTRAST Comments: Exam Date: 06/04/2016 14 :57Dictation Date: 06/04/2016 15:35 XC CHEST 20-Jun-2016 09:05 Complement, Total (CH50) [id number] Comments: Testing performed at: [] [address], [address], , Audio Production Manager: Lucio Savage MD COMPLEMENT, TOTAL (CH50) >60 U/mL (Above high threshold) Range: 42-60 25-Jun-2016 09:29 HISS PANEL [id number] Comments: [facility] at: [facility], [facility], [address] [place] [address], , Audio Production Manager: Maninder Garvin M.D.,PhDTes ting performed at: [place], [facility], [address] [facility], [place], [address], Audio Production Manager: Lucio Gomez D.O., MPHTesting performed at: [facility], [place], [facility], [address] [place] [address], [address], Audio Production Manager: Walker Hinojosa MDQuest Collection Date/Time : [id number] Results Received Date/Time : [id number] Reported Date/Time: [id number] FASTING:NOQuest performed at: [facility], [facility], [address] [place] [address], , Audio Production Manager: Maninder Garvin M.D.,PhDTesting performed at: [place], [facility], [address] [place] [address], [place], [place], , Audio Production Manager: Lucio Gomez D.O. M PHTesting performed at: [facility], [facility], [facility], [address] [place] [address], , Audio Production Manager: Walker Hinojosa MDQuest C ollection Date/Time: [id number] Results Received Date/Time: [id number] Reported Date/Time: [id number] FASTING:NOQuest performed at: [facility], [facility], [address] [place] [address], , Audio Production Manager: Maninder Garvin M.D.,PhDTesting performed at: [place], [facility], [address], [place], [address], Audio Production Manager: Lucio Gomez D.O., MPHTesting performed at: [facility], [address] [facility], [place], [address], Audio Production Manager: Walker Hinojosa MDQuest Collection Date/Time: [id number] Results Received Date/Time: [id number] Reported Date/Time: [id number] FASTING:NOQ uest performed at: [email or web address]/ [facility], [address] [place] [address], , Audio Production Manager: Maninder Garvin M.D.,PhDTest ing performed at: [place], [facility], [address] [place] [address], [place], [address], Audio Production Manager: Lucio Gomez D.O., MPHQuest Collection Date/Time: [id number] Results Received D ate/Time: [id number] Reported Date/Time: FASTING: NOQuest performed at: [place], [facility] , [address] [place] [address], [place], [place], , Labo jordanory Director: Lucio Gomez D.O., MPHQuest Collection Date/Time: [id number] Results Received Date/Time: [id number] Reported Date/Time: [id number] FASTING:NOQuest Accession #: [id number] performed at: [place], [facility], [address] [facility], [place], [place], , Audio Production Manager: Lucio Gomez D.O., MPHQuest Collection Date/Time: [id number] Result s Received Date/Time: [id number] Reported Date/Time: [id number] FASTING:NO IMMUNOGLOBULIN A 320 mg/dL Range: 81-463 Comments: [KS]----- IMMUNOGLOBULIN G 881 mg/dL Range: 694-1618 Comments: [KS]----- IMMUNOGLOBULIN M 63 mg/dL Range: 48-271 Comments: [KS]----- IMMUNOGLOBULIN E 7 kU/L Range: <VY=261 Comments: [KS]----- IMMUNOGLOBULIN G SUBCLASS 474 mg/dL [...] detects 11 of the 13 serotypes in mqm36-vhllgy conjugate vaccine, and 14 of the 23serotypes in the 23-valent vaccine. Immune responseto the vaccine should result in protection againstat least 50% of the serotypes in the vaccine.This test was developed and its analyticalperformance characteristics have beendetermined by [email or web address]. It has not been cleared [...] and its analyticalPerformance characteristics have beendetermined by [facility].It has not been cleared or approved by FDA. This assayhas b een validated pursuant to the CLIAregulations and is used for clinical purposes.[TXC]----- DIPHTHERIA ANTITOXOID >2.00 IU/mL Comments: REFERENCE RANGE: > or= 0.01 IU/mL (Post-Vaccination) INTERPRETIVE CRITERIA: <0.01 IU/mL Nonprotective Antibody Level > or=0.01 IU/mL Protective Antibody LevelThis test was devel usha and its analyticalPerformance characteristics have beendetermined by [facility].It has not been cleared or [...] Farmer M.D. On 07-Jul-2016 13:00 Interventions Provided Labs/Procedures/ImagingXRay SPINE-LUMBAR; To be Done: 30 Jun 2016XRay SPINE- SACRUM & COCCYX; Done: [id number] 02:20PM Instructions Name Dates Details Instructions not documented Encounters Appointment; Mine Decker M.D. On 30-Jun-2016 Encounter [...] Problem not documented 08:45 Appointment; Arcadio Lucas M.D.|Em,RAJIV|Shayne,RAIJV, On 05-Feb-2015 Encounter Diagnosis: Problem not documented [...]
--- OUTSIDE RECORDS SUMMARY | 2017-08-06 07:17 | External Medical Summary | Summary of Care ---
:1950 Author Name Dale Fair M.D. Address [address] [place], [place] [address] Care Team Providers Name Role Phone Dale [...] on:03-Oct-2009 Tdap (Adacel) Administered on: Lot #: [id number] Pneumo (Pneumovax) Administered on: Lot #: [id number] Zoster (Zostavax) Administered on:15-Oct-2011 Lot #: [id number] Fluzone Quadrivalent 0.5 ML Intramuscular Suspension Administered on:2013 Lot #: [id number] Fluzone Quadrivalent 0.5 ML Intramuscular Suspension Administered on:2014 Lot #: [id number] Family History Grandmother Name Dates Details Family [...] Range: >60 low threshold) EST GFR, NON-AFR [place] 48 ml/min (Below Range: >60 low threshold) Comments: EST GFR is reported in ml/min per 1.73 m2 of body surface area. For -Palauan, please multiple result by 1.2.----- BUN:CREATININE RATIO [...] Benson Servin On 09-Jan-2016 14:00 Appointment; Provider: Schedule Radiology On 17-Jan-2015 16:00 [...] Diagnosis: Problem not documented 08:15 Appointment; Samina aMlik On 19-Oct-2014 Encounter Diagnosis: Problem not documented [...]
--- OUTSIDE RECORDS SUMMARY | 2017-08-06 07:17 | External Medical Summary | Summary of Care ---
:1950 Author Name Jai Piper M.D. Address [address] [place], [place] [id number] Care Team Providers Name Role Phone Dale [...] on:03-Oct-2009 Tdap (Adacel) Administered on: Lot #: [id number] Pneumo (Pneumovax) Administered on: Lot #: [id number] Zoster (Zostavax) Administered on:15-Oct-2011 Lot #: [id number] Fluzone Quadrivalent 0.5 ML Intramuscular Suspension Administered on:2013 Lot #: [id number] Family History Grandmother Name Dates Details Family [...] Samina Malik On 20-Jul-2014 11:00 Appointment; Provider: Magalie Lauren On 04-Jul-2014 14:15 Appointment; Provider: Jai Piper On 05-Dec-2013 13:15 [...]
--- OUTSIDE RECORDS SUMMARY | 2017-08-06 07:17 | External Medical Summary | Summary of Care ---
:1950 Author Name Dale Fair M.D. Address [address], [place] [address] Care Team Providers Name Role Phone Dale Fair M.D. Unavailable Unavailable Gareth Bella, Benson Weems Unavailable Unavailable Lance Bella, FACS, ,, Ervin A Unavailable Unavailable Dale Fair Primary Care Provider [...] Status: Active Cough (786.2, R05) Status: Active Medications Name Dates Details Cyclobenzaprine HCl - 10 MG Oral Tablet TAKE 1 TABLET BY MOUTH AT BEDTIME NEEDED. Quantity: 90 Refills: 0 Dale Fair M.D. Started 09-Dec-2007 ActiveMetFORMIN HCl - 1000 MG Oral Tablet Take one tablet by mouth twice daily with meals Quantity: 180 Refills: 1 Dale Fair M.D. Started 09-Dec-2007 ActiveVitamin B-12 1000 MCG Oral Tablet TAKE 1 TABLET DAILY DIRECTED. Refills: 0 Dale Fair M.D. Started 23-Oct-2010 ActiveFolic Acid 1 MG Oral Tablet Refills: 0 ActiveB-Complex Oral Capsule Refills: 0 Started 23-Oct-2011 ActiveZetia 10 MG Oral Tablet TAKE 1 TABLET DAILY. Quantity: 90 Refills: 3 Dale Fair M.D. Started 10-Dec-2009 ActiveLosartan Potassium 100 MG Oral Tablet take one tablet by mouth every day Quantity: 90 Refills: 3 Dale Fair M.D. Started 18-Mar-2010 ActiveLyrica 50 MG Oral Capsule TAKE 1 CAPSULE TWICE DAILY. Quantity: 180 Refills: 1 Dale Fair M.D. Started 27-Oct-2008 ActiveEscitalopram Oxalate 20 MG Oral Tablet take one tablet by mouth every day Quantity: 90 Refills: 3 Dale Fair M.D. Started 01-Jan-2009 ActiveLevothyroxine Sodium 75 MCG Oral Tablet Take 1 tablet by mouth daily. Quantity: 90 Refills: 1 Dale Fair M.D. Started 15-Mar-2010 ActiveSimvastatin 40 MG Oral Tablet TAKE ONE TABLET(S) BY MOUTH DAILY DIRECTED Quantity: 90 Refills: 3 Dale Fair M.D. Started 10-Dec-2009 ActiveMagnesium 500 MG Oral Tablet Refills: 0 ActiveVitamin D3 1000 UNIT Oral Capsule TAKE DIRECTED. Refills: 0 Started 19-Oct-2014 ActiveTylenol Extra Strength 500 MG Oral Tablet TAKE 1 TABLET EVERY 4 TO 6 HOURS NEEDED. Refills: 0 Started 19-Oct-2014 ActiveClonazePAM 0.5 MG Oral Tablet TAKE 1 OR 2 TABLET(S) BY MOUTH DAILY AT BEDTIME NEEDED Quantity: 180 Refills: 0 Dale Fair M.D. Started ActiveMirtazapine 15 MG Oral Tablet TAKE 1 TABLET BY MOUTH AT BEDTIME. Quantity: 90 Refills: 1 Dale Fair M.D. Started ActiveMetoclopramide HCl - 10 MG Oral Tablet take 2 tablets as directed per colonoscopy instructions Quantity: 2 Refills: 0 Arcadio Lucas M.D., FACS, , Started 12-Jan-2015 Ended 13-Jan-2015 ActiveTraMADol HCl - 50 MG Oral Tablet TAKE ONE TABLET(S) BY MOUTH EVERY 6 HOURS NEEDED FOR PAIN Quantity: 60 Refills: 0 Dale Fair M.D. Started 11-Oct-2014 ActivePrednisoLONE Acetate 1 % Ophthalmic Suspension Install 1 drop as directed 6 times daily (during waking hours) Starting after surgery. Quantity: 10 Refills: 1 Benson Servin M.D. Started 23-Jan-2015 ActiveVigamox 0.5 % Ophthalmic Solution INSTILL 1 DROP INTO AFFECTED EYE(S) 3 TIMES DAILY. Quantity: 1 Refills: 1 Benson Servin M.D. Started 23-Jan-2015 Active3 ML Bottle PEG-3350/Electrolytes 236 GM Oral Solution Reconstituted TAKE DIRECTED. Quantity: 1 Refills: 0 Arcadio Lucas M.D., FACS, , Started 29-Jan-2015 [id number] ML Bottle Meloxicam 7.5 MG Oral Tablet Take one tablet by mouth daily Quantity: 30 Refills: 3 Dale Fair M.D. Started 02-Feb-2015 ActiveAzithromycin 250 MG Oral Tablet TAKE 2 TABLETS ON DAY 1 THEN TAKE 1 TABLET A DAY FOR 4 DAYS. Quantity: 1 Refills: 0 Dale Fair M.D. Started 02-Feb-2015 Active6 Tablet Disp Pack Allergies and Adverse Reactions Name Dates Details [...] History of Nerve Block Transforaminal Epidural Lumbar Urinalysis, Reflex to Microscopic or Ordered:23-Jan-2015 Culture PRN 8005 Immunization Name Dates Details Hepatitis B Administered on:1991 MMR Administered on:26-Jul-1992 Tetanus-Diphtheria Toxoids Td 2-2 LF/0.5ML Intramuscular Suspension Administered on:26-Jul-1992 Hepatitis A Administered on:29-Nov-1998 MMR Administered on:03-Oct-2009 Lot #: [id number] MMR Administered on:03-Oct-2009 Tdap (Adacel) Administered on: Lot #: [id number] Pneumo (Pneumovax) Administered on: Lot #: [id number] Zoster (Zostavax) Administered on:15-Oct-2011 Lot #: [id number] Fluzone Quadrivalent 0.5 ML Intramuscular Suspension Administered on:2013 Lot #: [id number] Fluzone Quadrivalent 0.5 ML Intramuscular Suspension Administered on:2014 Lot #: [id number] Family History Grandmother Name Dates Details Family [...] 0.0-0.2 10:10 ECG/ EKG Preop Electro CardioGram ECG waiting for interpretation, click ImageLink button to view/confirm the study. (Better) 10:28 Comprehensive Metabolic Panel 1212 SODIUM [...] ml/min (Better) Range: >60 EST GFR, NON-AFR [place] 50 ml/min (Below low Range: >60 threshold) Comments: EST GFR is reported in ml/min per 1.73 m2 of body surface area. For -[place]ore[place], please multiple result by 1.2.----- GLUCOSE 129 [...] 10:32 X CHEST PA & LAT (Better) Plan [...] Benson Servin On 16-Feb-2015 09:30 Appointment; Provider: Benson Servin On 09-Feb-2015 08:30 Appointment; Provider: Benson Servin On 08-Feb-2015 08:45 Appointment; Provider: Arcadio Lucas On 05-Feb-2015 08:00 Appointment; Provider: Mino Clements On 05-Feb-2015 07:30 Appointment; Provider: Schedule Radiology On 17-Jan-2015 16:00 Appointment; Provider: Jai Piper On 05-Dec-2013 13:15 Appointment; Provider: Rob Ramírez On 19-Nov-2009 07:30 Appointment; Provider: Rob Ramírez On 24-Oct-2009 08:30 Appointment; Provider: Sharyn Simmons On 09-Feb-2009 16:30 Appointment; Provider: Rich Jose On 02-Jan-2009 07:30 Appointment; Provider: Sharyn Simmons On 16:30 Instructions Instructions not documented Encounters Appointment; Dale Fair On 02-Feb-2015 Encounter Diagnosis: [...]
--- OUTSIDE RECORDS SUMMARY | 2017-08-06 07:17 | External Medical Summary | Summary of Care ---
:1950 Author Name Dale Fair M.D. 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) Status: Active Medications Name Dates Details Cyclobenzaprine [...] Arcadio Lucas M.D., FACS, , Started 29-Jan-2015 [id number] ML Bottle Allergies and Adverse Reactions Name Dates Details [...] History of Nerve Block Transforaminal Epidural Lumbar ECG/ EKG Preop Pendin23-Jan-2015 CBC w/ Auto Diff 7150 Ordered:23-Jan-2015 Comprehensive Metabolic Panel 1212 Ordered:23-Jan-2015 Urinalysis, Reflex to Microscopic or Ordered:23-Jan-2015 Culture PRN 8005 XRay CHEST-PA & LAT Ordered:23-Jan-2015 Immunization Name Dates Details Hepatitis B Administered on:1991 MMR Administered on:26-Jul-1992 Tetanus-Diphtheria Toxoids Td 2-2 LF/0.5ML Intramuscular Suspension Administered on:26-Jul-1992 Hepatitis A Administered on:29-Nov-1998 MMR Administered on:03-Oct-2009 Lot #: [id number] MMR Administered on:03-Oct-2009 Tdap (Adacel) Administered on: Lot #: [id number] Pneumo (Pneumovax) Administered on: Lot #: [id number] Zoster (Zostavax) Administered on:15-Oct-2011 Lot #: [id number] Fluzone Quadrivalent 0.5 ML Intramuscular Suspension Administered on:2013 Lot #: [id number] Family History Grandmother Name Dates Details Family [...] to report Results Date Description Value Details 08-Jan-2015 15:55 Diabetic Eye Exam Diabetic Eye Exam No Diabetic Retinopathy (Better) Diabetic Eye Exam on Yes (Better) Chart 18-Jan-2015 09:12 MAMMOGRAM-SCREENING Comments: Exam Date: 01/17/2015 15: 38Dictation Date: 01/18/2015 09:12 XM SCREENING (Better) Plan of Care Planned Observations Name [...] Mino Clements On 05-Feb-2015 07:30 Appointment; Provider: Dale Fair On 02-Feb-2015 10:00 Appointment; Provider: Schedule Radiology On 17-Jan-2015 16:00 Appointment; Provider: Jai Piper On 05-Dec-2013 13:15 Appointment; Provider: Rob Ramírez On 19-Nov-2009 07:30 Appointment; Provider: Rob Ramírez On 24-Oct-2009 08:30 Appointment; Provider: Sharyn Simmons On 09-Feb-2009 16:30 Appointment; Provider: Rich Jose On 02-Jan-2009 07:30 Appointment; Provider: Sharyn Simmons On 16:30 Instructions Instructions not documented Encounters Appointment; Benson Servin On 23-Jan-2015 Encounter Diagnosis: [...]
--- OUTSIDE RECORDS SUMMARY | 2017-08-06 07:18 | External Medical Summary | Summary of Care ---
:1950 Author Name Samina Chow Address [address], [place] [address] Care Team Providers Name Role Phone Dale [...] CAPSULE TWICE DAILY. Quantity: 14 Refills: 0 aDle Fair M.D. Started 27-Oct-2008 ActiveEscitalopram Oxalate 10 [...] 90 Refills: 3 Dale Fair M.D. Started ActiveMagnesium 500 MG Oral Tablet Refills: 0 ActiveOxyCODONE HCl ER 10 MG Oral Tablet ER 12 Hour Abuse-Deterrent Si PO every 12 hours with a max of 2 per day. Must last [address] Piper Quantity: 60 Refills: 0 Samina Malik Started 01-Jun-2014 ActiveClonazePAM 0.5 MG Oral Tablet TAKE 1 OR 2 TABLET(S) BY MOUTH DAILY AT BEDTIME NEEDED Quantity: 180 Refills: 0 Dale Fair M.D. Started Active Allergies and Adverse Reactions Name Dates [...] on:03-Oct-2009 Tdap (Adacel) Administered on: Lot #: [id number] Pneumo (Pneumovax) Administered on: Lot #: [id number] Zoster (Zostavax) Administered on:15-Oct-2011 Lot #: [id number] Fluzone Quadrivalent 0.5 ML Intramuscular Suspension Administered on:2013 Lot #: [id number] Family History Grandmother Name Dates Details Family [...]
--- OUTSIDE RECORDS SUMMARY | 2017-08-06 07:18 | External Medical Summary | Summary of Care ---
:1950 Author Name Libertad Bella, RAJIV, ,, Harry Layne Address Unavailable Unavailable , Care Team Providers Name Role Phone Libertad Bella, RAJIV, ,, Harry Layne Unavailable Unavailable Marv Bella, [...] Status: Active Nephrolithiasis (592.0, N20.0) Status: Active Medications Name Dates Details Cyclobenzaprine [...] AT BEDTIME. Quantity: 90 Refills: 2 Jacquelineter M.D.Dale Start Active ClonazePAM 1 MG Oral Tablet TAKE 1 TABLET BY MOUTH AT BEDTIME NEEDED Quantity: 90 Refills: 0 Marv M.D., Dale Marks Start Active Magnesium 400 MG Oral Tablet 1 tablet BID Quantity: 180 Refills: 3 Marv M.D., Dale AActive TraMADol HCl - 50 MG Oral Tablet TAKE ONE TABLET(S) BY MOUTH TID NEEDED Quantity: 270 Refills: 0 Marv M.D., Dale Marks Start 11-Oct-2014 Active Vitamin D3 1000 UNIT Oral Capsule TAKE DIRECTED. Refills: 0 Start 19-Oct-2014 Active Acetaminophen 500 MG Oral Tablet TAKE TWO TABLET(S) BY MOUTH TWICE DAILY Quantity: 360 Refills: 0 Marv M.Dot. Dale Marks Start 19-Oct-2014 Active PrednisoLONE Acetate 1 % Ophthalmic Suspension Install 1 drop as directed 6 times daily (during waking hours) Starting after surgery. Quantity: 10 Refills: 1 Benson Servin M.D. Start 23-Jan-2015 Active Co Q-10 400 MG Oral Capsule Refills: 0 Marv M.Gurdeep Dale Marks Start 18-Apr-2015 Active Ferrous Sulfate 325 (65 Fe) MG Oral Tablet take 1 tablet by mouth every day Quantity: 31 Refills: 0 Marv M.Dot., Dale Marks Start 18-Apr-2015 Active Aspirin Adult Low Dose 81 MG Oral Tablet Delayed Release TAKE 1 TABLET DAILY. Quantity: 90 Refills: 3 Jacquelineter M.D. Dale Marks Start Active Vitamin D3 5000 [...] on: 03-Oct-2009 Tdap (Adacel) on: Lot #: [id number] Pneumo (Pneumovax) on: Lot #: [id number] Zoster (Zostavax) on: 15-Oct-2011 Lot #: [id number] Fluzone Quadrivalent 0.5 ML Intramuscular Suspension on: 09-Jan-2014 Lot #: [id number] Fluzone Quadrivalent 0.5 ML Intramuscular Suspension on: 02-Feb-2015 Lot #: [id number] Prevnar 13 Intramuscular Suspension on: Lot #: [id number] Family History Grandmother Name Dates Details Family [...] >60 ml/min Range: >60 EST GFR, NON-AFR [place] 56 ml/min (Below low Range: >60 threshold) Comments: EST GFR is reported in ml/min per 1.73 m2 of body surface area. For -[place]auritian, please multiple result by 1.2.----- GLUCOSE 107 [...] 14:33 Urinalysis, reflex to Micro and Culture ([facility]) 8016 pH 7.0 Range: 5.0-7.5 [...] Fair M.D. On 09-Jan-2016 13:15 Appointment; Provider: Harry Maurer M.D.|LILLI Strickland FACS, On 02-Nov-2015 08:30 Appointment; Provider: Harry Maurer M.D.|SvitlanaSLILLI Streeter FACS, On 26-Oct-2015 12:00 Appointment; Provider: Dale Fair M.D. On 22-Oct-2015 13:45 Instructions Name Dates Details Instructions not documented Encounters Appointment; Harry Maurer M.D.|NileshCPavithraSLILLI Streeter FACS, On 2015 Encounter Diagnosis: Problem not documented [...] Problem not documented 08:45 Appointment; Arcadio Lucas M.D.|NileshCAnkita|Shayne,RAJIV|Shayne,RAJIV, On 05-Feb-2015 Encounter Diagnosis: Problem not documented [...]
--- OUTSIDE RECORDS SUMMARY | 2017-08-06 07:18 | External Medical Summary | Summary of Care ---
:1950 Author Name Samina Chow Address [address], [place] [id number] Care Team Providers Name Role Phone Dale [...] on:03-Oct-2009 Tdap (Adacel) Administered on: Lot #: [id number] Pneumo (Pneumovax) Administered on: Lot #: [id number] Zoster (Zostavax) Administered on:15-Oct-2011 Lot #: [id number] Fluzone Quadrivalent 0.5 ML Intramuscular Suspension Administered on:2013 Lot #: [id number] Family History Grandmother Name Dates Details Family [...] ml/min Range: >60 (Better) EST GFR, NON-AFR ECUADOREAN >60 ml/min Range: >60 (Better) Comments: EST GFR is reported in ml/min per 1.73 m2 of body surface area. For -[place]ian, please multiple result by 1.2.----- GLUCOSE 125 [...] Provider: Harry Farmer On 13:15 Appointment; Provider: Jai Piper On 05-Dec-2013 13:15 [...]
--- OUTSIDE RECORDS SUMMARY | 2017-08-06 07:18 | External Medical Summary ---
:1950 Author Name GENERATED, SYSTEM Care Team Providers Name Role Phone MD FAIR TIMOTHY Primary Care Provider [phone] Reason For Visit Reason for Visit from 10/18/2015 8:44 AM:Pt Stated Reason for Adm : sepsis, ileus , pneumonia Chief Complaint MULTIBAR PHA, SEVERE SEPSIS Social History Social History from 10/23/2015 11:49 AM:Tobacco Use? : Former SmokerSocial History from 10/18/2015 8:44 AM:Tobacco Use? : Former Smoker Functional Status Functional Status from 10/23/2015 7:40 AM:LOC : AlertOriented To : Person,Place, Time,EventWeight Bearing Status : FullAssist Level : Partial# Assists : 1Functional Status from 10/22/2015 7:40 PM:LOC : AlertOriented To : Person,Place, Time,EventWeight Bearing Status : FullAssist Level : Independent# Assists : 1Functional Status from 10/22/2015 3:42 PM:# Assists : IndependentFunctional Status from 10/22/2015 8:30 AM:LOC : AlertOriented To : Person,Place,Time, EventWeight Bearing Status : FullAssist Level : Independent# Assists : IndependentFunctional Status from 10/21/2015 7:55 PM:LOC : AlertOriented To : Person,Place,Time,EventWeight Bearing Status : FullAssist Level : Partial# Assists : 1Functional Status from 10/21/2015 1:28 PM:# Assists : IndependentFunctional Status from 10/21/2015 8:00 AM:LOC : AlertOriented To : Person,Place,Time,EventWeight Bearing Status : FullAssist Level : Dependent# Assists : 1Functional Status from 10/20/2015 7:15 PM:LOC : AlertOriented To : Person,Place,Time,EventWeight Bearing Status : FullAssist Level : Independent# Assists : IndependentFunctional Status from 10/20/2015 7:43 AM:LOC : AlertOriented To : Person,Place,TimeWeight Bearing Status : FullAssist Level : Independent# Assists : IndependentFunctional Status from 10/19/2015 7:20 PM:LOC : AlertOriented To : Person,Place,TimeWeight Bearing Status : FullAssist Level : Partial# Assists : 1Functional Status from 10/19/2015 7:12 AM:LOC : AlertOriented To : Person,Place,TimeWeight Bearing Status : FullAssist Level : Independent# Assists : IndependentFunctional Status from 10/18/2015 8:20 PM:LOC : AlertOriented To : Person,Place,Time,EventWeight Bearing Status : FullAssist Level : Independent# Assists : 1Functional Status from 10/18/2015 8:44 AM:Weight Bearing Status : FullAssist Level : Partial# Assists : 1 Vital Signs Hospital Vital Signs from 10/23/2015 11:00 AM:Temp : 98.7Heart Rate : 74Systolic BP (mmHg) : 152Diastolic BP (mmHg) : 77Mean BP (mmHg) : 100O2 Saturation (%) : 94Hospital Vital Signs from 10/23/2015 10:00 AM:Heart Rate : 89Hospital Vital Signs from 10/23/2015 9:00 AM:Heart Rate : 100Systolic BP (mmHg) : 144Diastolic BP (mmHg) : 84Mean BP (mmHg) : 106Hospital Vital Signs from 10/23/2015 8:00 AM: Heart Rate : 84Systolic BP (mmHg) : 180Diastolic BP (mmHg) : 99Mean BP (mmHg) : 121Hospital Vital Signs from 10/23/2015 7:00 AM:Temp : 98.1Heart Rate : 86Systolic BP (mmHg) : 161Diastolic BP (mmHg) : 85Mean BP (mmHg) : 126O2 Saturation (%) : 94Hospital Vital Signs from 10/23/2015 5:47 AM:Weight : 93/ kgHeight : 5/2 ft,inHospital Vital Signs from 10/22/2015 10:00 PM:Temp : 99Heart Rate : 91Systolic BP (mmHg) : 179Diastolic BP (mmHg) : 89Mean BP (mmHg) : 111Hospital Vital Signs from 10/22/2015 7:00 PM:Temp : 98.6Heart Rate : 92Resp Rate : 16Systolic BP (mmHg) : 155Diastolic BP (mmHg) : 82Mean BP (mmHg) : 113Hospital Vital Signs from 10/22/2015 5:00 PM:Temp : 98.1Heart Rate : 96Resp Rate : 16Systolic BP (mmHg) : 168Diastolic BP (mmHg) : 69Mean BP (mmHg) : 111O2 Saturation (%) : 96Hospital Vital Signs from 10/22/2015 4:00 PM:Systolic BP (mmHg ) : 156Diastolic BP (mmHg) : 92Mean BP (mmHg) : 121Hospital Vital Signs from 1:00 PM:Temp : 97.8Heart Rate : 94Resp Rate : 20Systolic BP (mmHg) : 150Diastolic BP (mmHg) : 798Mean BP (mmHg) : 98O2 Saturation (%) : 95Hospital Vital Signs from 10/22/2015 8:00 AM:Temp : 98Heart Rate : 102Resp Rate : 18Systolic BP (mmHg) : 157Diastolic BP (mmHg) : 85Mean BP (mmHg) : 111O2 Saturation (%) : 95Hospital Vital Signs from 10/21/2015 7:55 PM:Heart Rate : 70Hospital Vital Signs from 10/21/2015 4:00 PM:Temp : 98.1Heart Rate : 90Resp Rate : 18Systolic BP (mmHg) : 164Diastolic BP (mmHg) : 97Mean BP (mmHg) : 111O2 Saturation (%) : 98[facility]ospital Vital Signs from 10/21/2015 12:00 PM:Heart Rate : 89Resp Rate : 20Systolic BP (mmHg) : 148Diastolic BP (mmHg) : 76Mean BP (mmHg) : 99O2 Saturation (%) : 97Hospital Vital Signs from 10/21/2015 11:00 AM:Temp : 98.4Heart Rate : 86Resp Rate : 18O2 Saturation (%) : 98Hospital Vital Signs from 10/21/2015 10:00 AM:Heart Rate : 83Resp Rate : 19Systolic BP (mmHg) : 151Diastolic BP (mmHg) : 81Mean BP (mmHg) : 108O2 Saturation (%) : 97Hospital Vital Signs from 10/21/2015 9:00 AM:Heart Rate : 84Resp Rate : 17Systolic BP ( mmHg) : 167Diastolic BP (mmHg) : 82Mean BP (mmHg) : 109O2 Saturation (%) : 95Hospital Vital Signs from 10/21/2015 8:00 AM:Heart Rate : 94Heart Rate : 96Resp Rate : 21Systolic BP (mmHg) : 171Diastolic BP (mmHg) : 93Mean BP (mmHg) : 128O2 Saturation (%) : 94Hospital Vital Signs from 10/21/2015 7:00 AM:Heart Rate : 98Resp Rate : 20Systolic BP (mmHg) : 150Diastolic BP (mmHg) : 85Mean BP ( mmHg) : 101O2 Saturation (%) : 96Hospital Vital Signs from 10/21/2015 6:23 AM: Weight : 93.6/ kgHeight : 5/2 ft,inHospital Vital Signs from 10/21/2015 6:00 AM: Heart Rate : 73Resp Rate : 19Systolic BP (mmHg) : 151Diastolic BP (mmHg) : 93Mean BP (mmHg) : 111O2 Saturation (%) : 95Hospital Vital Signs from 10/21/2015 5:00 AM:Heart Rate : 92Resp Rate : 13Systolic BP (mmHg) : 145Diastolic BP (mmHg ) : 67Mean BP (mmHg) : 76O2 Saturation (%) : 94Hospital Vital Signs from 2015 4:00 AM:Heart Rate : 78Resp Rate : 15Systolic BP (mmHg) : 140Diastolic BP ( mmHg) : 82Mean BP (mmHg) : 92O2 Saturation (%) : 95Hospital Vital Signs from 3:30 AM:Heart Rate : 71Resp Rate : 12Systolic BP (mmHg) : 150Diastolic BP (mmHg) : 79Mean BP (mmHg) : 95O2 Saturation (%) : 96Hospital Vital Signs from 10/21/2015 3:00 AM:Temp : 98.5Heart Rate : 69Resp Rate : 17Systolic BP (mmHg ) : 149Diastolic BP (mmHg) : 84Mean BP (mmHg) : 105O2 Saturation (%) : 96Hospital Vital Signs from 10/21/2015 2:30 AM:Heart Rate : 78Resp Rate : 15Systolic BP (mmHg) : 142Diastolic BP (mmHg) : 74Mean BP (mmHg) : 88O2 Saturation (%) : 97Hospital Vital Signs from 10/21/2015 2:00 AM:Heart Rate : 70Resp Rate : 18Systolic BP (mmHg) : 138Diastolic BP (mmHg) : 74Mean BP (mmHg) : 90O2 Saturation (%) : 94Hospital Vital Signs from 10/21/2015 1:30 AM:Heart Rate : 68Resp Rate : 13Systolic BP (mmHg) : 130Diastolic BP (mmHg) : 68Mean BP ( mmHg) : 86O2 Saturation (%) : 96Hospital Vital Signs from 10/21/2015 1:00 AM: Temp : 98.9Heart Rate : 72Resp Rate : 19Systolic BP (mmHg) : 135Diastolic BP ( mmHg) : 70Mean BP (mmHg) : 94O2 Saturation (%) : 95Hospital Vital Signs from 12:00 AM:Heart Rate : 83Resp Rate : 15Systolic BP (mmHg) : 152Diastolic BP (mmHg) : 78Mean BP (mmHg) : 105O2 Saturation (%) : 96Hospital Vital Signs from 10/20/2015 11:00 PM:Systolic BP (mmHg) : 138Diastolic BP (mmHg) : 70Mean BP (mmHg) : 87O2 Saturation (%) : 94Hospital Vital Signs from 10/20/2015 10:00 PM: Heart Rate : 81Resp Rate : 13Systolic BP (mmHg) : 134Diastolic BP (mmHg) : 64Mean BP (mmHg) : 81O2 Saturation (%) : 93Hospital Vital Signs from 10/20/2015 9 :00 PM:Heart Rate : 99Resp Rate : 15Systolic BP (mmHg) : 139Diastolic BP (mmHg) : 76Mean BP (mmHg) : 98O2 Saturation (%) : 92Hospital Vital Signs from 2015 8:00 PM:Temp : 99.1Heart Rate : 86Resp Rate : 17Systolic BP (mmHg) : 142Diastolic BP (mmHg) : 60Mean BP (mmHg) : 83O2 Saturation (%) : 96Hospital Vital Signs from 10/20/2015 7:15 PM:Heart Rate : 82Hospital Vital Signs from 10/19 6:00 PM:Systolic BP (mmHg) : 158Diastolic BP (mmHg) : 93Mean BP (mmHg) : 110Hospital Vital Signs from 10/20/2015 5:00 PM:Systolic BP (mmHg) : 158Diastolic BP (mmHg) : 85Mean BP (mmHg) : 105Hospital Vital Signs from 2015 4:00 PM:Systolic BP (mmHg) : 159Diastolic BP (mmHg) : 79Mean BP (mmHg) : 112[facility]ospital Vital Signs from 10/20/2015 3:00 PM:Systolic BP (mmHg) : 152Diastolic BP (mmHg) : 82Mean BP (mmHg) : 97Hospital Vital Signs from 2015 1:00 PM:Heart Rate : 107Systolic BP (mmHg) : 165Diastolic BP (mmHg) : 94Mean BP (mmHg) : 122[facility]ospital Vital Signs from 10/20/2015 12:00 PM:Temp : 98.2Heart Rate : 106Resp Rate : 22Systolic BP (mmHg) : 142Diastolic BP (mmHg) : 72Mean BP (mmHg) : 94[facility]ospital Vital Signs from 10/20/2015 11:00 AM:Heart Rate : 106Systolic BP (mmHg) : 129Diastolic BP (mmHg) : 75Mean BP (mmHg) : 103[facility]ospital Vital Signs from 10/20/2015 10:00 AM:Heart Rate : 86Resp Rate : 20Systolic BP ( mmHg) : 139Diastolic BP (mmHg) : 77Mean BP (mmHg) : 97[facility]ospital Vital Signs from 10/20/2015 9:00 AM:Heart Rate : 86Hospital Vital Signs from 10/20/2015 8:00 AM: Temp : 98.4Heart Rate : 82Resp Rate : 20Systolic BP (mmHg) : 130Diastolic BP ( mmHg) : 83Mean BP (mmHg) : 94Hospital Vital Signs from 10/20/2015 7:00 AM:Heart Rate : 83Resp Rate : 20Systolic BP (mmHg) : 109Diastolic BP (mmHg) : 58Mean BP ( mmHg) : 83[facility]ospital Vital Signs from 10/20/2015 6:00 AM:Heart Rate : 82Resp Rate : 20Systolic BP (mmHg) : 126Diastolic BP (mmHg) : 54Mean BP (mmHg) : 70Hospital Vital Signs from 10/20/2015 5:00 AM:Heart Rate : 84Resp Rate : 26Systolic BP ( mmHg) : 133Diastolic BP (mmHg) : 79Mean BP (mmHg) : 100Hospital Vital Signs from 10/20/2015 4:00 AM:Heart Rate : 87Resp Rate : 23Systolic BP (mmHg) : 134Diastolic BP (mmHg) : 79Mean BP (mmHg) : 103[facility]ospital Vital Signs from 2015 3:00 AM:Temp : 98.7Heart Rate : 81Resp Rate : 24Systolic BP (mmHg) : 137Diastolic BP (mmHg) : 77Mean BP (mmHg) : 106O2 Saturation (%) : 96Hospital Vital Signs from 10/20/2015 2:00 AM:Heart Rate : 92Resp Rate : 27Systolic BP ( mmHg) : 138Diastolic BP (mmHg) : 78Mean BP (mmHg) : 97Hospital Vital Signs from 10/20/2015 1:00 AM:Heart Rate : 88Resp Rate : 28Systolic BP (mmHg) : 134Diastolic BP (mmHg) : 74Mean BP (mmHg) : 99[facility]ospital Vital Signs from 2015 12:00 AM:Heart Rate : 94Resp Rate : 29Systolic BP (mmHg) : 149Diastolic BP (mmHg) : 86Mean BP (mmHg) : 100[facility]ospital Vital Signs from 10/19/2015 11:00 PM: Temp : 100.1Heart Rate : 97Resp Rate : 18Systolic BP (mmHg) : 150Diastolic BP ( mmHg) : 83Mean BP (mmHg) : 95O2 Saturation (%) : 97[facility]ospital Vital Signs from 10:00 PM:Heart Rate : 99Resp Rate : 19Hospital Vital Signs from 2015 9:00 PM:Heart Rate : 109Resp Rate : 18Systolic BP (mmHg) : 114Diastolic BP (mmHg) : 68Mean BP (mmHg) : 92[facility]ospital Vital Signs from 10/19/2015 8:00 PM:Heart Rate : 108Resp Rate : 19Systolic BP (mmHg) : 97Diastolic BP (mmHg) : 43Mean BP ( mmHg) : 61[facility]ospital Vital Signs from 10/19/2015 7:20 PM:Heart Rate : 108[facility]ospital Vital Signs from 10/19/2015 7:00 PM:Heart Rate : 108Resp Rate : 19Systolic BP ( mmHg) : 103Diastolic BP (mmHg) : 47Mean BP (mmHg) : 65O2 Saturation (%) : 97[facility]ospital Vital Signs from 10/19/2015 6:00 PM:Heart Rate : 107Resp Rate : 18Systolic BP (mmHg) : 131Diastolic BP (mmHg) : 63Mean BP (mmHg) : 82[facility]ospital Vital Signs from 10/19/2015 5:00 PM:Heart Rate : 109Resp Rate : 20Systolic BP ( mmHg) : 137Diastolic BP (mmHg) : 70Mean BP (mmHg) : 93[facility]ospital Vital Signs from 10/19/2015 4:00 PM:Heart Rate : 107Resp Rate : 20Systolic BP (mmHg) : 135Diastolic BP (mmHg) : 74Mean BP (mmHg) : 99[facility]ospital Vital Signs from 2015 3:00 PM:Temp : 99.3Heart Rate : 110Resp Rate : 20Systolic BP (mmHg) : 118Diastolic BP (mmHg) : 69Mean BP (mmHg) : 97O2 Saturation (%) : 94[facility]ospital Vital Signs from 10/19/2015 2:00 PM:Heart Rate : 109Resp Rate : 20Systolic BP ( mmHg) : 111Diastolic BP (mmHg) : 61Mean BP (mmHg) : 81O2 Saturation (%) : 91[facility]ospital Vital Signs from 10/19/2015 1:00 PM:Heart Rate : 113Resp Rate : 22Systolic BP (mmHg) : 98Diastolic BP (mmHg) : 55Mean BP (mmHg) : 70O2 Saturation (%) : 93[facility]ospital Vital Signs from 10/19/2015 12:00 PM:Heart Rate : 114Resp Rate : 22Systolic BP (mmHg) : 103Diastolic BP (mmHg) : 49Mean BP (mmHg) : 59O2 Saturation (%) : 91[facility]ospital Vital Signs from 10/19/2015 11:00 AM:Temp : 99.7Heart Rate : 106Resp Rate : 20Systolic BP (mmHg) : 106Diastolic BP (mmHg) : 56Mean BP (mmHg) : 81[facility]ospital Vital Signs from 10/19/2015 9:00 AM:Heart Rate : 92Resp Rate : 20Systolic BP (mmHg) : 110Diastolic BP (mmHg) : 60Mean BP (mmHg) : 74[facility]ospital Vital Signs from 10/19/2015 8:00 AM:Temp : 99.5Heart Rate : 95Resp Rate : 20Systolic BP (mmHg) : 110Diastolic BP (mmHg) : 60Mean BP (mmHg) : 74[facility]ospital Vital Signs from 10/19/2015 7:30 AM:Heart Rate : 98Resp Rate : 22Systolic BP (mmHg) : 119Diastolic BP (mmHg) : 60Mean BP (mmHg) : 86O2 Saturation (%) : 93[facility]ospital Vital Signs from 10/19/2015 6:23 AM:Weight : 94.1/ kgHeight : 5/2 ft,inHospital Vital Signs from 10/19/2015 1:00 AM:Heart Rate : 106Resp Rate : 23Systolic BP (mmHg) : 141Diastolic BP (mmHg) : 62Mean BP (mmHg) : 91[facility]ospital Vital Signs from 10/19/2015 12:00 AM:Heart Rate : 106Resp Rate : 28Systolic BP (mmHg) : 137Diastolic BP (mmHg) : 88Mean BP (mmHg) : 101[facility]ospital Vital Signs from 10/18/2015 11:00 PM:Temp : 98Heart Rate : 102Resp Rate : 24[facility]ospital Vital Signs from 10/18/2015 10:00 PM:Heart Rate : 103Resp Rate : 22Systolic BP (mmHg) : 98Diastolic BP (mmHg) : 50Mean BP (mmHg) : 65[facility]ospital Vital Signs from 10/18/2015 8:30 PM:Heart Rate : 111Resp Rate : 32Systolic BP ( mmHg) : 101Diastolic BP (mmHg) : 53Mean BP (mmHg) : 69O2 Saturation (%) : 95[facility]ospital Vital Signs from 10/18/2015 8:20 PM:Heart Rate : 101[facility]ospital Vital Signs from 10/18/2015 8:00 PM:Heart Rate : 110Resp Rate : 24Systolic BP (mmHg) : 107Diastolic BP (mmHg) : 56Mean BP (mmHg) : 76O2 Saturation (%) : 93[facility]ospital Vital Signs from 10/18/2015 7:30 PM:Heart Rate : 111Resp Rate : 16Systolic BP ( mmHg) : 102Diastolic BP (mmHg) : 54Mean BP (mmHg) : 69O2 Saturation (%) : 93[facility]ospital Vital Signs from 10/18/2015 7:00 PM:Temp : 98.5Heart Rate : 102Resp Rate : 18Systolic BP (mmHg) : 78Diastolic BP (mmHg) : 53Mean BP (mmHg) : 54O2 Saturation (%) : 94[facility]ospital Vital Signs from 10/18/2015 6:30 PM:Resp Rate : 19O2 Saturation (%) : 96[facility]ospital Vital Signs from 10/18/2015 6:00 PM:Heart Rate : 103Resp Rate : 19Systolic BP (mmHg) : 112Diastolic BP (mmHg) : 54Mean BP (mmHg) : 83O2 Saturation (%) : 96[facility]ospital Vital Signs from 10/18/2015 5:30 PM:Heart Rate : 100Resp Rate : 26Systolic BP (mmHg) : 106Diastolic BP (mmHg) : 77Mean BP (mmHg) : 89O2 Saturation (%) : 96[facility]ospital Vital Signs from 10/18/2015 5:00 PM: Heart Rate : 100Resp Rate : 23Systolic BP (mmHg) : 89Diastolic BP (mmHg) : 45Mean BP (mmHg) : 61O2 Saturation (%) : 95[facility]ospital Vital Signs from 10/18/2015 4 :30 PM:Heart Rate : 103Resp Rate : 22Systolic BP (mmHg) : 88Diastolic BP (mmHg) : 42Mean BP (mmHg) : 51O2 Saturation (%) : 94[facility]ospital Vital Signs from 2015 4:00 PM:Heart Rate : 110Resp Rate : 18Systolic BP (mmHg) : 91Diastolic BP ( mmHg) : 56Mean BP (mmHg) : 62O2 Saturation (%) : 95[facility]ospital Vital Signs from 3:30 PM:Heart Rate : 106Resp Rate : 29Systolic BP (mmHg) : 98Diastolic BP (mmHg) : 35Mean BP (mmHg) : 48O2 Saturation (%) : 90[facility]ospital Vital Signs from 10/18/2015 3:00 PM:Heart Rate : 95Resp Rate : 22Systolic BP (mmHg) : 118Diastolic BP (mmHg) : 70Mean BP (mmHg) : 89O2 Saturation (%) : 97[facility]ospital Vital Signs from 10/18/2015 2:47 PM:Weight : 91.3/ kgHeight : 5/2 ft,inHospital Vital Signs from 10/18/2015 2:30 PM:Heart Rate : 92Resp Rate : 22Systolic BP ( mmHg) : 105Diastolic BP (mmHg) : 66Mean BP (mmHg) : 83O2 Saturation (%) : 97[facility]ospital Vital Signs from 10/18/2015 2:00 PM:Heart Rate : 94Resp Rate : 23Systolic BP (mmHg) : 103Diastolic BP (mmHg) : 63Mean BP (mmHg) : 81O2 Saturation (%) : 96[facility]ospital Vital Signs from 10/18/2015 1:30 PM:Heart Rate : 95Resp Rate : 21Systolic BP (mmHg) : 103Diastolic BP (mmHg) : 68Mean BP (mmHg) : 80O2 Saturation (%) : 96[facility]ospital Vital Signs from 10/18/2015 1:00 PM:Heart Rate : 96Resp Rate : 24Systolic BP (mmHg) : 110Diastolic BP (mmHg) : 57Mean BP ( mmHg) : 80O2 Saturation (%) : 96[facility]ospital Vital Signs from 10/18/2015 12:30 PM: Heart Rate : 98Resp Rate : 20Systolic BP (mmHg) : 101Diastolic BP (mmHg) : 51Mean BP (mmHg) : 72O2 Saturation (%) : 95[facility]ospital Vital Signs from 10/18/2015 12:00 PM:Heart Rate : 100Resp Rate : 20Systolic BP (mmHg) : 89Diastolic BP (mmHg ) : 65Mean BP (mmHg) : 75O2 Saturation (%) : 94[facility]ospital Vital Signs from 2015 11:30 AM:Temp : 98.4Heart Rate : 104Resp Rate : 20Systolic BP (mmHg) : 95Diastolic BP (mmHg) : 48Mean BP (mmHg) : 76O2 Saturation (%) : 95[facility]ospital Vital Signs from 10/18/2015 11:00 AM:Heart Rate : 107Resp Rate : 20Systolic BP ( mmHg) : 101Diastolic BP (mmHg) : 40Mean BP (mmHg) : 56O2 Saturation (%) : 95[facility]ospital Vital Signs from 10/18/2015 10:30 AM:Heart Rate : 103Resp Rate : 21Systolic BP (mmHg) : 94Diastolic BP (mmHg) : 49Mean BP (mmHg) : 78O2 Saturation (%) : 94 Results Chemistry from 10/23/2015 10:56 AMVANCOMYCIN DGGLSE23.0 MCG/ML H (5.0-10.0 MCG/ML )Chemistry from 10/23/2015 4:33 [id number] MMOL/L (136-145 MMOL/L) POTASSIUM3.7 MMOL/L (3.5-5.1 MMOL/L) [id number] MMOL/L (98-107 MMOL/L) WGW910.6 MMOL/L (21.0-32.0 MMOL/L) *ANION GAP6.4 MMOL/L L (8.0-16.0 MMOL/L) BUN9 MG/DL (7-18 MG/DL) CREATININE0.97 MG/DL (0.55-1.02 MG/DL) *BUN/CREATININE RATIO9.3 (9.1-17.0 ) RUKMOMX92 MG/DL (65-99 MG/DL) *GFR EST NON AFR BVZTHBBL44 ML/MIN *GFR EST AFR AMER71 ML/MIN CALCIUM8.8 MG/DL (8.5-10.1 MG/DL) BILIRUBIN TOTAL0.40 MG/DL (0.20-1.00 MG/DL) TOTAL PROTEIN6.5 GM/DL (6.4-8.2 GM/DL) ALBUMIN2.6 GM/DL L (3.4-5.0 GM/DL) *GLOBULIN3.9 GM/DL H (2.3-3.5 GM/DL) *A/G RATIO0.7 MG/DL L (1.5-2.2 MG/DL) ALK PHOS77 U/L (46-116 U/L) ALT (SGPT)16 U/L (16-63 U/L) AST (SGOT)15 U/L (15-37 U/L)Chemistry from 10/21/2015 11:02 AMVANCOMYCIN TROUGH8.2 MCG/ML (5.0-10.0 MCG/ML)Chemistry from 10/21/2015 8:48 [id number] MMOL /L (136-145 MMOL/L) POTASSIUM3.8 MMOL/L (3.5-5.1 MMOL/L) [id number] MMOL/L (98-107 MMOL/L) MVI917.1 MMOL/L (21.0-32.0 MMOL/L) *ANION GAP9.9 MMOL/L (8.0-16.0 MMOL/L) BUN7 MG/DL (7-18 MG/DL) CREATININE1.09 MG/DL H (0.55-1.02 MG/DL) *BUN/CREATININE RATIO6.4 L (9.1-17.0 ) CLMHAFJ942 MG/DL H (65-99 MG/DL) CALCIUM8.7 MG/DL (8.5-10.1 MG/DL) BILIRUBIN TOTAL0.40 MG/DL (0.20-1.00 MG/DL) TOTAL PROTEIN6.8 GM/DL (6.4-8.2 GM/DL) ALBUMIN2.6 GM/DL L (3.4-5.0 GM/DL) *GLOBULIN4.2 GM/DL H (2.3-3.5 GM/DL) *A/G RATIO0.6 MG/DL L (1.5-2.2 MG/DL) ALK PHOS81 U/L (46-116 U/L) ALT (SGPT)22 U/L (16-63 U/L) AST (SGOT)22 U/L (15-37 U/L)Chemistry from 10/21/2015 4:45 [id number] MMOL/L ( 136-145 MMOL/L) POTASSIUM3.9 MMOL/L (3.5-5.1 MMOL/L) HXODSGFY180 MMOL/L H (98-107 MMOL/L) CWY943.2 MMOL/L (21.0-32.0 MMOL/L) *ANION GAP5.8 MMOL/L L (8.0-16.0 MMOL/L) BUN7 MG/DL (7-18 MG/DL) CREATININE0.87 MG/DL (0.55-1.02 MG/DL) *BUN/CREATININE RATIO8.0 L (9.1-17.0 ) SOJNEGM73 MG/DL (65-99 MG/DL) *GFR EST NON AFR KWNVLZYW47 ML/MIN *GFR EST AFR AMER81 ML/MIN CALCIUM8.7 MG/DL (8.5-10.1 MG/DL)Chemistry from 10/20/2015 4:31 [id number] MMOL/ L (136-145 MMOL/L) POTASSIUM4.1 MMOL/L (3.5-5.1 MMOL/L) [id number] MMOL/L (98-107 MMOL/L) TML214.5 MMOL/L (21.0-32.0 MMOL/L) *ANION GAP4.5 MMOL/L L (8.0-16.0 MMOL/L) BUN7 MG/DL (7-18 MG/DL) CREATININE0.89 MG/DL (0.55-1.02 MG/DL) *BUN/CREATININE RATIO7.9 L (9.1-17.0 ) ZDAVJWU765 MG/DL H (65-99 MG/DL) *GFR EST NON AFR KGCRDKXB38 ML/MIN *GFR EST AFR AMER79 ML/MIN CALCIUM8.6 MG/DL (8.5-10.1 MG/DL)Chemistry from 10/19/2015 4:14 [id number] MMOL/ L (136-145 MMOL/L) POTASSIUM4.1 MMOL/L (3.5-5.1 MMOL/L) EAGOLBPT415 MMOL/L (98-107 MMOL/L) LPB292.5 MMOL/L (21.0-32.0 MMOL/L) *ANION GAP6.5 MMOL/L L (8.0-16.0 MMOL/L) BUN9 MG/DL (7-18 MG/DL) CREATININE1.03 MG/DL H (0.55-1.02 MG/DL) *BUN/CREATININE RATIO8.7 L (9.1-17.0 ) CWCVUBX860 MG/DL H (65-99 MG/DL) *GFR EST NON AFR THYCMMXY02 ML/MIN *GFR EST AFR AMER66 ML/MIN CALCIUM7.9 MG/DL L (8.5-10.1 MG/DL) BILIRUBIN TOTAL0.30 MG/DL (0.20-1.00 MG/DL) TOTAL PROTEIN5.7 GM/DL L (6.4-8.2 GM/DL) ALBUMIN2.5 GM/DL L (3.4-5.0 GM/DL) *GLOBULIN3.2 GM/DL (2.3-3.5 GM/DL) *A/G RATIO0.8 MG/DL L (1.5-2.2 MG/DL) ALK PHOS61 U/L (46-116 U/L) ALT (SGPT)26 U/L (16-63 U/L) AST (SGOT)29 U/L (15-37 U/L) LACTIC ACID1.6 mmol/L (0.9-1.7 mmol/L)Chemistry from 10/18/2015 8:35 AMLACTIC ACID2.5 mmol/L H (0.9-1.7 mmol/L)Hematology from 10/23/2015 4:33 AMWBC6.9 X10e3/ UL (3.6-11.2 X10e3/UL) RBC3.49 X10e6/UL L (3.63-4.92 X10e6/UL) UADMJVMLLU32.3 G/DL L (11.0-14.3 G/DL) JCDOHENBBM39.1 % L (31.2-41.9 %) *MCV89.1 FL (79.0-98.0 FL) *MCH29.5 PG (27.0-33.0 PG) *MCHC33.1 G/DL (32.0-36.0 G/DL) *RDW14.5 % (12.3-17.0 %) *RDWSD45.5 (37.1-47.8 ) RMCZAZWQ801 X10e3/UL (159-386 X10e3/UL) *MPV7.1 FL L (7.4-10.4 FL) AUTOMATED DIFFPERFORMED SEGS62.6 % *FWFRNPKSRHA71.4 % *MONOCYTES7.5 % *EOSINOPHILS2.9 % *BASOPHILS0.6 % *ABSOLUTE NEUTROPHILS4.30 X10e3/UL (1.80-7.80 X10e3/UL) *ABSOLUTE LYMPHOCYTES1.80 X10e3/UL (1.00-3.00 X10e3/UL) *ABSOLUTE MONOCYTES0.50 X10e3/UL (0.30-1.00 X10e3/UL) *ABSOLUTE EOSINOPHILS0.20 X10e3/UL (0.00-0.50 X10e3/UL) *ABSOLUTE BASOPHILS0.00 X10e3/UL (0.00-0.20 X10e3/UL)Hematology from 10/21/2015 9 :07 USHJOFYGDDHQ85.8 G/DL L (11.0-14.3 G/DL) QNSDVVJTWQ44.8 % (31.2-41.9 %)Hematology from 10/19/2015 4:14 AMWBC12.7 X10e3/UL H (3.6-11.2 X10e3/UL) RBC3.65 X10e6/UL (3.63-4.92 X10e6/UL) ZORFVQPTHK70.5 G/DL L (11.0-14.3 G/DL) TPIBQJURLS41.8 % (31.2-41.9 %) *MCV90.1 FL (79.0-98.0 FL) *MCH28.9 PG (27.0-33.0 PG) *MCHC32.1 G/DL (32.0-36.0 G/DL) *RDW14.8 % (12.3-17.0 %) *RDWSD47.3 (37.1-47.8 ) [id number] X10e3/UL (159-386 X10e3/UL) *MPV7.3 FL L (7.4-10.4 FL)DX Radiology from 10/23/2015 4:44 AMCHEST 1 VIE[facility]istory : Pneumonia Priors: 10/22/15 Findings: The cardiac silhouette and pulmonary vasculature within normal limits. Left lung is clear. Scattered right lung opacities are slightly improved and likely represent pneumonia. Impression: Scattered right lung opacities, slightly improved in suspicious for pneumonia. Electronically signed by: Maximiliano Villanueva MD Dictated: 10/23/2015 07:52DX Radiology from 10/22/2015 4:27 AMCHEST 1 [facility] : Pneumonia Priors: One day prior Findings: There is been no significant change in mild diffuse right lung pneumonia. No new infiltrate, pneumothorax or pleural effusions identified. There is unchanged cardiomegaly and pulmonary venous congestion Impression: Unchanged mild diffuse right lung pneumonia. Electronically signed by: Ander Parker MD Dictated: 10/22/2015 08:00DX Radiology from 10/21/2015 4:47 AMCHEST 1 [facility] : Pneumonia Priors: 10/20/2015 Findings: Continued improvement mild diffuse right lung pneumonia. No new infiltrate, pneumothorax or pleural effusions identified. Impression: Acute improvement mild diffuse right lung pneumonia. Electronically signed by: Ander Parker MD Dictated: 10/21/2015 07:48DX Radiology from 10/20/2015 4:16 AMCHEST 1 [facility] : Pneumonia Priors: 10/19/2015 Findings: There has been slight improvement in diffuse pneumonia throughout the right lung. No new infiltrate, pneumothorax or pleural effusions identified. Impression: Slight improvement of diffuse mild right lung pneumonia. Electronically signed by: Ander Parker MD Dictated: 10/20/2015 08:42DX Radiology from 10/19/2015 6:49 AMABDOMEN (KUB) 1 VIEWHistory: kidney stones . Priors: KUB dated 11/19/2009 Findings: There is mild to moderate retained fecal material within the colon. Evaluation of the kidneys is slightly suboptimal secondary to overlying bowel gas and fecal material. There appears to have been interval improvement in left renal calculi with interval decrease in size and fragmentation of the previously noted left lower pole renal calculus. There is a 3-4 millimeter residual calculus within the left lower pole. There unchanged small calcific densities within the lower pelvis, suggestive of phleboliths. There is a lamellated calcification within the right lower quadrant of the abdomen which is also unchanged and may reflect an appendicolith. No obstructive pattern is identified. Impression: Interval decrease in size in fragmentation of a left lower pole renal calculus with a small residual 3-4 millimeter calculus noted. Electronically signed by: Sobia Marin MD Dictated: 10/19/2015 07:42DX Radiology from 10/19/2015 4:07 AMCHEST 1 [facility] : Pneumonia Priors: One day prior Findings: There is been interval worsening of diffuse patchy right lung pneumonia. There is been developed mild left basilar infiltrate suspicious for additional pneumonia. Heart size is the upper limits normal. No pneumothorax or pleural effusions identified Impression: Worsening diffuse right lung pneumonia. Development mild left basilar infiltrate suspicious for additional pneumonia. Electronically signed by: Ander Parker MD Dictated: 10/19/2015 07:59 Problems Encounter Diagnosis Diabetes Mellitus Status:Active.Fall Risk Status:Active.History of Hypothyroidism Status:Active.History of Raised Blood Lipids Status: Active.Kidney Stone Status:Active.Pneumonia Status:Active.Systemic Infection Status:Active.Additional Problems Atrial Fibrillation Comment:Problem resolved by [facility] Work[facility] upon Discharge , Status:Resolved.Body Mass Index 30+ - Obesity Comment:Problem resolved by [facility] Work[facility] upon Discharge, Status:Resolved.Dehydration Comment:Problem resolved by [facility] Work[facility] upon Discharge, Status:Resolved.Diabetic Peripheral Neuropathy Comment:Problem resolved by [facility] Work[facility] upon Discharge, Status:Resolved.Gastroenteritis Comment:Problem resolved by [facility] Work[facility] upon Discharge, Status:Resolved.Hyperlipidemia Comment:Problem resolved by [facility] Work[facility] upon Discharge, Status:Resolved.Hypothyroidism Comment:Problem resolved by [facility] Work[facility] upon Discharge, Status: Resolved.Mobility Impairment Comment:Problem resolved by [facility] Work[facility] upon Discharge, Status:Resolved.Orthostatic Hypotension Comment:Problem resolved by [facility] Work[facility] upon Discharge, Status:Resolved.Respiratory Insufficiency Comment:Problem resolved by [facility] Workflow upon Discharge, Status:Resolved. Encounters Encounter Diagnosis Diabetes Mellitus Status:Active.Fall Risk Status:Active.History of Hypothyroidism Status:Active.History of Raised Blood Lipids Status: Active.Kidney Stone Status:Active.Pneumonia Status:Active.Systemic Infection Status:Active. Plan of Care Follow-up Appointments from 10/23/2015 11:49 AM:#1 Office appointment: : Dr. Fair#1 Date/Time : 10/29/2015 2:30 PMAddress # 1 : [facility]: [address] [place]- or #2 Office appointment: : Mariola Ruiz # 2 : [facility]: [address] [place]- or Treatment Plan from 10/23/2015 11:50 AM: Care Management Note : SW spoke with patient and daughter regarding scheduled discharge for today. Patient's plan is to return home where she lives alone. Patient and daughter both at this time deny needing or wanting any services to be set up. No needs or concerns at this time. Patient at this time is a rising risk for hospital readmit.Treatment Plan from 10/22/2015 8:38 AM:Care Management Note : Patient remains in a medical bed at this time. Patient is currently being treated with RT treatments, home medications PO, vanco IV every 12hrs, zosyn IV every 8hrs, and Urology consult for nephritis. Abnormal labs: Cr - 1.09, Glu- 222, Alb- 2.6. CXR shows unchanged mild diffuse right lung pneumonia. Plan at this time is to continue IV antibiotics for another 48hrs per Pulm. SW notified of POC. Care Management will continue to follow.Treatment Plan from 10/19/2015 4:13 PM:Care Management Note : Patient admitted under inpatient status to the ICU after presenting to the EDw/ c/o fever, chills, body aches et increasing flank pain. Patient has known kidney stone scheduled for ESWL. T-max 103.6. Patient found to be septic w/ a lactic acid of 3.1 et pneumonia. Blood cultures pending. UA negative. POC includes pulmonology consult, RT QID, Vanco IV q d, Zosyn IV q 8 et Morphine IV PRN pain. CXR today shows worsening pneumonia. Patient meets medical necessity for an inpatient admission w/ an anticipated LOS > 2 midnights.Treatment Plan from 10/19/2015 11:00 AM:Care Management Note : SW spoke with patient and daughter regarding possible needs at discharge. Patient at this time stated that she plans to return home where she lives alone. Both patient and daughter declined services to be set up at this time stating that when feeling well, patient is very independent. Contact information left in patient's room, SW will continue to assist as needed. Procedures Completed , on 10/31/2011 12:00 AMCompleted [...] to care for yourself at home from 10/23/2015 11:49 AM:Discharge Activity : Activity as toleratedDischarge Diet : As before hospitalizationCall your doctor if: : Fever over 101 F or severe chills,Chest pain or other unexplained symptoms ,Tingling or numbness develops,A sudden increase or decrease in weight,You have persistent or worsening symptoms,If you have Heart Failure and you gain 3 pounds within 1 week or your symptoms worsen. (Weigh at home tomorrow morning) Specific Discharge Teaching Instructions provided: : NoDischarge on Warfarin : No Allergies, Adverse Reactions, Alerts Codeine causes N/V.No Latex Allergy.No IV Contrast Allergy.No Known Food Allergies. Medication It is the responsibility of the patient or patient quality control representative to confirm the list of medicationswith either the patient's personal care provider or the patient's follow-up care provider to ensure the patient has an appropriate list of medications to take at home. Discharge medicationsNew medicationsamoxicillin-pot clavulanate 875 mg-125 mg Tablet, Ordered By: ARISTIDES SLOAN APRN Directions: 1 tablet oral twice a day Continued medicationsclonazePAM 0.5 mg Tablet, Ordered By: YESSENIA FAIR MD Directions: 1 tablet oral daily at bedtime coenzyme Q10 200 mg Capsule, Ordered By: YESSENIA FAIR MD Directions: 1 capsule oral daily cyclobenzaprine 10 mg Tablet, Ordered By: YESSENIA FAIR MD Directions: 1 tablet oral daily at bedtime escitalopram oxalate 40 mg Tablet, Ordered By: YESSENIA FAIR MD Directions: 1 tablet oral daily levothyroxine 75 mcg Tablet, Ordered By: YESSENIA FAIR MD Directions: 1 tablet oral daily before breakfast losartan 50 mg Tablet, Ordered By: YESSENIA FAIR MD Directions: 1 tablet oral daily metFORMIN 1,000 mg Tablet, Ordered By: YESSENIA FAIR MD Directions: 1 tablet oral twice a day with or after meal mirtazapine 15 mg Tablet, Ordered By: YESSENIA FAIR MD Directions: 1 tablet oral daily at bedtime pregabalin (Lyrica) 50 mg Capsule, Ordered By: YESSENIA FAIR MD Directions: 1 capsule oral twice a day simvastatin 40 mg Tablet, Ordered By: YESSENIA FAIR MD Directions: 1 tablet oral daily at bedtime traMADol 50 mg Tablet, Ordered By: YESSENIA FAIR MD Directions: 1 tablet oral twice a day Stopped medicationsNone
[2017-08-06] MEDS: SALINE FLUSH 10ml SYRINGE IVF PRN (07:19)
[2017-08-06] MEDS: LEVOFLOXACIN PB 750 MG/150 ML BAG IV SCH (07:23)
--- NOTE | 2017-08-06 07:52 | XRay Report ---
INDICATION: cough shortness of air wheeze rule out sepsis pneumonia PROCEDURE: CHEST 2-VIEWS UPRIGHT (PA & LAT) Encounter: Initial COMPARISON: None FINDINGS: Dense consolidation in the right peripheral mid to lower lung field. Left lung is grossly clear. No pleural effusion or pneumothorax. Heart size and mediastinal contours are within normal limits. Pulmonary vascularity is grossly normal. Impression: Right-sided pneumonia. Recommend radiographic follow-up to document clearance. .
[2017-08-06] MEDS ORDERED: ONDANSETRON ODT 4 MG TABLET PO ONE (08:05)
[2017-08-06] MEDS: NS FLUSH BAG 500ml IV PRN (08:56)
[2017-08-06 09:18] VITALS: BMI 35.4
--- NOTE | 2017-08-06 10:30 | Internal Med History&Physical ---
Internal Medicine HPI History of present illness: Pt presents today to ED d/t chills, dry cough and sob that started early this am. Pt was doing well yesterday but this morning started feeling bad. Pt's son in law has had a resp illness recently. Pt reports she had pna on the right side just a couple of months ago and has recurrent pna's in the same location a few time snow. Pt denies any work up or CT imaging that has been done to look at her lungs for this recurrent pna. Pt reports this has been going on for the last couple of years, maybe a pna episode every 6 months but this time it happened faster. Denies any cp. Denies recurrent infections as a child. Pt feels better already with the tx she got in ED. Review of Systems Review of systems: 10 point ros negative other than what is noted in HPI PFSH Patient Stated Medical History Cerebrovascular Accident Yes: "small" Other HEENT Yes: wears glasses Hypertension Yes Pneumonia Yes Diabetes Mellitus Type 2 Yes Hx Kidney Stones Yes Anemia Yes Osteoarthritis Yes Other Musculoskeletal Yes: fibromyalgia Sepsis Yes: pneumonia Depression Yes Medical History Updates: Depression. Anxiety. Hypothyroidism. Hypertension. Type II diabetes. Hypercholesterolemia. Kidney stones Surgical History: Vaginal hysterectomy. Gastric bypass. Shoulder arthroscopically. Lithotripsy Family History Updates: Cervical cancer, hypertension, diabetes, heart disease, breast cancer, alcohol abuse - Social History Smoking status: Former smoker Substance use type: does not use Alcohol intake frequency: does not drink Medications Home Medications Medication Instructions Recorded Confirmed Type Acetaminophen [Acetaminophen Extra 2 tab PO BID 08/06/17 08/06/17 History Strength] Aspirin 1 tab PO DAILY 08/06/17 08/06/17 History BuPROPion SR [Wellbutrin Sr] 150 mg PO BID 08/06/17 08/06/17 History CALCIUM CARBONATE Chewable [Tums 2 tab PO DAILY 08/06/17 08/06/17 History Extra Strength] Cholecalciferol (Vitamin D3) 1 tab PO DAILY 08/06/17 08/06/17 History [Vitamin D3] Cyclobenzaprine [Flexeril] 1 tab PO HS 08/06/17 08/06/17 History Escitalopram [Lexapro] 1 tab PO DAILY 08/06/17 08/06/17 History Lactobacillus Acidophilus 1 each PO DAILY 08/06/17 08/06/17 History [Probiotic] Levothyroxine Sodium 100 mcg PO DAILY 08/06/17 08/06/17 History Losartan [Cozaar] 100 mg PO DAILY 08/06/17 08/06/17 History Magnesium Oxide [Magnesium] 400 mg PO BID 08/06/17 08/06/17 History Mecobalamin [B-12] 5,000 mcg PO DAILY 08/06/17 08/06/17 History Metformin [Glucophage] 500 mg PO BIDWM 08/06/17 08/06/17 History Mirtazapine [Remeron] 15 mg PO HS 08/06/17 08/06/17 History Pregabalin Cap [Lyrica] 50 mg PO BID 08/06/17 08/06/17 History Primidone [Mysoline] 50 mg PO HS 08/06/17 08/06/17 History Simvastatin [Zocor] 40 mg PO HS 08/06/17 08/06/17 History Tramadol [Ultram] 50 mg PO TID 08/06/17 08/06/17 History Turmeric [Curcumin] 1 gm MC DAILY 08/06/17 08/06/17 History Ubidecarenone/Vit E Acet [Co Q-10 1 cap PO DAILY 08/06/17 08/06/17 History 100 mg Softgel] clonazePAM [Clonazepam] 0.5 tab PO HS 08/06/17 08/06/17 History Allergies Allergy/AdvReac Type Severity Reaction Status Date / Time codeine Allergy Intermediate rash, hives Verified 08/06/17 06:32 Exam Vital signs: Temperature 100.1 F 08/06/17 09:23 Pulse Rate 118 H 08/06/17 09:23 Respiratory Rate 16 08/06/17 09:23 Blood Pressure 140/66 H 08/06/17 09:23 Pulse Oximetry 93 08/06/17 09:23 - Constitutional no acute distress - Routine HEENT Exam Head: Present: normocephalic, atraumatic - Routine Respiratory Exam Present: diminished air movement (Right lower lobe). Absent: respiratory distress - Routine Cardiovascular Exam Present: no murmur, tachycardia - Routine Abdominal Exam Present: soft, non distended, non tender - Routine Extremities Exam Present: no edema. Absent: cyanosis, clubbing - Routine Skin Exam Present: intact, dry - Routine Neurological Exam Present: alert, oriented X3 Internal Medicine Results - Labs CBC & Chem 7: 08/06/17 07:18 0618 07:18 Assessment and Plan - Assessment and Plan CAP -CXR shows right sided PNA -Recurrent pna in the right side, will do CT of chest -Cont. Levaquin, sputum cx, resp viral panel Mild Transaminitis -Hep panel, liver US Depression/anxiety -Cont. home Lexapro, Wellbutrin, Clonazepam DM -Metformin Neuropathy -Cont. home Lyrica Seizure hx? -Primidone HLD -Cont. statin for now since transaminitis is mild Ppx -SCDs
--- NOTE | 2017-08-06 10:58 | CT Scan Report ---
Indication: recurrent pna on right side PROCEDURE: CT chest wo con: Encounter: Initial Comparison: Chest x-ray from today Technique: Axial CT images were performed through the chest without intravenous contrast. Coronal and sagittal two-dimensional reformats. Automated Exposure Control and Iterative Reconstruction dose reducing techniques were utilized. Findings: Patchy consolidation is noted in the right upper, right middle and right lower lobe with numerous areas of groundglass opacity. Multiple air bronchograms are noted. The left lung is clear. No pleural effusion or pneumothorax. The central airways are patent. No axillary or mediastinal lymphadenopathy. Heart size is normal. No pericardial effusion. The upper abdomen shows no acute findings. Bone windows show no acute findings. Impression: Extensive right-sided pneumonia with peribronchial spread of infection. .
[2017-08-06] MEDS ORDERED: ACETAMINOPHEN 325 MG TABLET PO ONE (11:29)
[2017-08-06] MEDS ORDERED: TURMERIC 1 GM MC SCH (11:30)
--- NOTE | 2017-08-06 12:05 | Ultrasound Report ---
Indication: transaminitis PROCEDURE: US liver: Encounter: Initial Comparison: None Technique: Grayscale and color Doppler sonographic imaging of the right upper quadrant of the abdomen was performed. Findings: Hepatic parenchyma is homogeneous without evidence for focal mass. The gallbladder is surgically absent. Both the intra and extrahepatic biliary system are of normal caliber with the common duct measuring 7 mm in dimension. Visualized portions of the head and body of the pancreas are unremarkable. The right kidney is present without collecting system dilatation. The right kidney measures 9.5 cm in length. Impression: Negative right upper quadrant sonogram. .
[2017-08-06] MEDS: LEVOTHYROXINE 100 MCG TABLET PO SCH (12:14)
[2017-08-06] MEDS: LOSARTAN 100 MG TABLET PO SCH (12:35)
[2017-08-06] MEDS ORDERED: TRAMADOL 50 MG TABLET PO SCH (15:00)
[2017-08-06] MEDS: METFORMIN 500 MG TABLET PO SCH (17:08)
[2017-08-06] MEDS ORDERED: ACETAMINOPHEN 500 MG TABLET PO PRN (18:42)
[2017-08-06] MEDS: MIRTAZAPINE 15 MG TABLET PO SCH (20:42)
[2017-08-06] MEDS: PRIMIDONE 50 MG TABLET PO SCH (20:42)
[2017-08-06] MEDS: BuPROPion SR 150mg (12HR) TABLET PO SCH (20:42)
[2017-08-06] MEDS: PREGABALIN 50 MG CAPSULE PO SCH (20:42)
[2017-08-06] MEDS: CYCLOBENZAPRINE 10 MG TABLET PO SCH (20:42)
[2017-08-06] MEDS: SIMVASTATIN 40 MG TABLET PO SCH (20:42)
[2017-08-06] MEDS: TRAMADOL 50 MG TABLET PO SCH (20:43)
[2017-08-06] MEDS: MAGNESIUM OXIDE 400 MG TABLET PO SCH (20:43)
[2017-08-06] MEDS: ClonazePAM 0.5 MG TABLET PO SCH (20:43)
[2017-08-07] MEDS: LEVOTHYROXINE 100 MCG TABLET PO SCH (05:54)
[2017-08-07] MEDS: SALINE FLUSH 10ml SYRINGE IVF PRN (06:39)
[2017-08-07] MEDS: LEVOFLOXACIN PB 750 MG/150 ML BAG IV SCH (06:39)
[2017-08-07] MEDS: LACTOBACILLUS (15B cfu) CAPSULE PO SCH (08:17)
[2017-08-07] MEDS: PREGABALIN 50 MG CAPSULE PO SCH ×2 (08:17→21:11)
[2017-08-07] MEDS: MAGNESIUM OXIDE 400 MG TABLET PO SCH ×2 (08:17→21:11)
[2017-08-07] MEDS: TRAMADOL 50 MG TABLET PO SCH ×2 (08:17→21:13)
[2017-08-07] MEDS: CALCIUM CARBONATE Chewable 750mg TABLET PO SCH (08:17)
[2017-08-07] MEDS: METFORMIN 500 MG TABLET PO SCH ×2 (08:17→18:21)
[2017-08-07] MEDS: BuPROPion SR 150mg (12HR) TABLET PO SCH ×2 (08:17→21:11)
[2017-08-07] MEDS: ASPIRIN 81 MG CHEWABLE TABLET PO SCH (08:17)
[2017-08-07] MEDS: ESCITALOPRAM 20 MG TABLET PO SCH (08:18)
[2017-08-07] MEDS: LOSARTAN 100 MG TABLET PO SCH (08:18)
[2017-08-07 08:19] VITALS: RESP 16
--- NOTE | 2017-08-07 12:25 | Progress Note ---
- Date 08/07/17 Subjective: Pt is feeling better this am, no more chills and still no fevers or n/v/d. Pt has dry cough. Pt is tolerating PO intake well and is ambulating well. Objective Vital signs: Temperature 96.8 F 08/07/17 07:26 Pulse Rate 93 08/07/17 07:26 Respiratory Rate 16 08/07/17 10:11 Blood Pressure 129/65 08/07/17 07:26 Pulse Oximetry 93 08/07/17 07:26 Height/Weight/BMI: Height 5 ft 3 in Weight 89.1 kg Body Mass Index 35.4 - Constitutional Present: no acute distress - Routine HEENT Exam Head: Present: normocephalic, atraumatic Eye: Present: EOMI - Routine Respiratory Exam Present: decreased breath sounds (right middle and lower lobe). Absent: wheezes - Routine Cardiovascular Exam Present: RRR, no murmur - Routine Abdominal Exam Present: soft, non distended, non tender - Routine Extremities Exam Present: no edema. Absent: cyanosis, clubbing - Routine Skin Exam Present: intact, dry. Absent: erythema - Routine Neurological Exam Present: alert, oriented X3 Results - Labs CBC & Chem 7: 08/07/17 04:13 08/07/17 04:13 Microbiology Results: Microbiology 08/06/17 14:48 Urine Legionella Urinary Antigen - Final 08/06/17 14:48 Urine Streptococcus pneumoniae Antigen (M - Final Assessment and Plan Assessment and Plan: CAP-Recurrent/non-resolving? -Likely non-resolving pna as pt had a pna in May in the same area -CT chest shows extensive right sided pna, procal 2.51 -Cont. Levaquin, not able to get sputum cx as pt has dry cough -resp viral panel neg, leg/strep Ur ag neg, blood cx's NGTD -Consulted pulm, pt may benefit from bronch -Pt also reports recurrent infections for the last few years-->will test IgG, IgM, IgA Mild Transaminitis -Hep panel pending -liver US unremarkable Depression/anxiety -Cont. home Lexapro, Wellbutrin, Clonazepam DM -Cont. Metformin Neuropathy -Cont. home Lyrica Tremors -Primidone HLD -Cont. statin for now since transaminitis is mild Ppx -SCDs - Physician Narrative Narrative: Date: 08/07/17 Time: 1204 Hospital Course Summary Disclaimer: The visit summary below is not to be considered part of the above Progress Note.
--- NOTE | 2017-08-07 16:16 | Pulmonology Consult Note ---
History of Present Illness Consult date: 08/07/17 Requesting physician: Mick Stephenson Reason for consult: pneumonia Chief complaint: chills and cough History of present illness: This is a very nice lady from [facility]. She states she has had 4 pneumonias (always in the right lung) in the last 18 months. She is always successfully treated with antibiotics, but doesn't understand why she keeps getting pneumonias. She did smoke in the past, but no heavily and never had problems with her lungs before. She reports awakening in the night with a sudden chill and fever. Her CT chest on admission showed extensive infiltrates in the right lung. Some of the infiltrates do have a nodular appearance. I do not appreciate any medistinal or hilar lymphadenopathy. Per Dr Stephenson's reports, she has Pt presents today to ED d/t chills, dry cough and sob that started early this am (the day of admission). Pt was doing well yesterday but this morning started feeling bad. Pt's son in law has had a resp illness recently. Pt reports she had pna on the right side just a couple of months ago and has recurrent pna's in the same location a few time snow. Pt denies any work up or CT imaging that has been done to look at her lungs for this recurrent pna. Pt reports this has been going on for the last couple of years, maybe a pna episode every 6 months but this time it happened faster. Denies any cp. Denies recurrent infections as a child. Pt feels better already with the tx she got in ED. Review of Systems Review of systems: 10 point ros negative other than what is noted in HPI [facility] Patient Stated Medical History Cerebrovascular Accident Yes: "small" Other HEENT Yes: wears glasses Hypertension Yes Pneumonia Yes Diabetes Mellitus Type 2 Yes Hx Kidney Stones Yes Anemia Yes Osteoarthritis Yes Other Musculoskeletal Yes: fibromyalgia Sepsis Yes: pneumonia Depression Yes Medical History Updates: Depression. Anxiety. Hypothyroidism. Hypertension. Type II diabetes. Hypercholesterolemia. Kidney stones Surgical History: Vaginal hysterectomy. Gastric bypass. Shoulder arthroscopically. Lithotripsy Family History Updates: Cervical cancer, hypertension, diabetes, heart disease, breast cancer, alcohol abuse - Social History Smoking status: Former smoker Substance use type: does not use Alcohol intake frequency: does not drink [facility] Patient Stated Medical History Cerebrovascular Accident Yes: "small" Other HEENT Yes: wears glasses Hypertension Yes Pneumonia Yes Diabetes Mellitus Type 2 Yes Hx Kidney Stones Yes Anemia Yes Osteoarthritis Yes Other Musculoskeletal Yes: fibromyalgia Sepsis Yes: pneumonia Depression Yes Medical History Updates: Depression. Anxiety. Hypothyroidism. Hypertension. Type II diabetes. Hypercholesterolemia. Kidney stones Surgical History: Vaginal hysterectomy. Gastric bypass. Shoulder arthroscopically. Lithotripsy Family History Updates: Cervical cancer, hypertension, diabetes, heart disease, breast cancer, alcohol abuse - Social History Smoking status: Former smoker Substance use type: does not use Alcohol intake frequency: does not drink Medications Home Medications Medication Instructions Recorded Confirmed Type Acetaminophen [Acetaminophen Extra 2 tab PO BID 08/06/17 08/06/17 History Strength] Aspirin 1 tab PO DAILY 08/06/17 08/06/17 History BuPROPion SR [Wellbutrin Sr] 150 mg PO BID 08/06/17 08/06/17 History CALCIUM CARBONATE Chewable [Tums 2 tab PO DAILY 08/06/17 08/06/17 History Extra Strength] Cholecalciferol (Vitamin D3) 1 tab PO DAILY 08/06/17 08/06/17 History [Vitamin D3] Cyclobenzaprine [Flexeril] 1 tab PO HS 08/06/17 08/06/17 History Escitalopram [Lexapro] 1 tab PO DAILY 08/06/17 08/06/17 History Lactobacillus Acidophilus 1 each PO DAILY 08/06/17 08/06/17 History [Probiotic] Levothyroxine Sodium 100 mcg PO DAILY 08/06/17 08/06/17 History Losartan [Cozaar] 100 mg PO DAILY 08/06/17 08/06/17 History Magnesium Oxide [Magnesium] 400 mg PO BID 08/06/17 08/06/17 History Mecobalamin [B-12] 5,000 mcg PO DAILY 08/06/17 08/06/17 History Metformin [Glucophage] 500 mg PO BIDWM 08/06/17 08/06/17 History Mirtazapine [Remeron] 15 mg PO HS 08/06/17 08/06/17 History Pregabalin Cap [Lyrica] 50 mg PO BID 08/06/17 08/06/17 History Primidone [Mysoline] 50 mg PO HS 08/06/17 08/06/17 History Simvastatin [Zocor] 40 mg PO HS 08/06/17 08/06/17 History Tramadol [Ultram] 50 mg PO BID 08/06/17 08/06/17 History Turmeric [Curcumin] 1 gm MC DAILY 08/06/17 08/06/17 History Ubidecarenone/Vit E Acet [Co Q-10 1 cap PO DAILY 08/06/17 08/06/17 History 100 mg Softgel] clonazePAM [Clonazepam] 0.5 tab PO HS 08/06/17 08/06/17 History Allergies Allergy/AdvReac Type Severity Reaction Status Date / Time codeine Allergy Intermediate rash, hives Verified 08/06/17 06:32 Exam Vital signs: Temperature 99.4 F 08/07/17 15:27 Pulse Rate 81 08/07/17 15:27 Respiratory Rate 16 08/07/17 15:27 Blood Pressure 133/71 08/07/17 15:27 Pulse Oximetry 95 08/07/17 15:27 - Constitutional no acute distress - Routine HEENT Exam Head: Present: normocephalic, atraumatic Eye: Present: EOMI. Absent: conjunctival icterus ENT: Present: mucous membranes moist - Routine Neck Exam Present: supple. Absent: JVD - Routine Respiratory Exam Absent: accessory muscle use Comments: rales right lung base, no wheeze - Routine Cardiovascular Exam Present: RRR - Routine Abdominal Exam Present: soft. Absent: guarding - Routine Extremities Exam Absent: cyanosis, clubbing - Routine Neurological Exam Present: alert, oriented X3 Results - Laboratory Findings CBC and BMP: 08/07/17 04:13 08/07/17 04:13 Abnormal lab findings: Abnormal Labs 08/06/17 08/06/17 08/06/17 11:33 11:33 11:33 RBC Hgb Hct RDW Std Deviation Neut % (Auto) Lymph % (Auto) Phosphorus C-Reactive Protein 20.9 H Procalcitonin 2.51 H* Hep Bs Antibody, Quant 8.20 L 08/07/17 08/07/17 04:13 04:13 RBC 3.93 L Hgb 11.4 L D Hct 35.5 L D RDW Std Deviation 56.9 H Neut % (Auto) 75.9 H Lymph % (Auto) 18.0 L Phosphorus 2.3 L C-Reactive Protein Procalcitonin Hep Bs Antibody, Quant - Diagnostic Findings Chest x-ray: report reviewed, image reviewed CT scan - chest: report reviewed, image reviewed Assessment and Plan (1) Pneumonia Status: Acute Assessment and plan: recurrent right sided pneumonia. CT has a nodular component which is concerning for possible bronchoalveolar carcinoma. The absence of lymphadenopathy argues against this. I recommend empiric treatment and close followup on CT. Bronchoscopy may need to be done with RUL BAL, [place] and transbronchial lung biopsies We will followup in the office Current Visit: Yes (2) Abnormal finding on lung imaging Status: Acute Current Visit: Yes - Time Spent With Patient Total time spent is greater than 50% in coordination of care (as documented) at patient's floor/unit and/or counseling patient: 25 - 35 minutes
[2017-08-07] MEDS: PRIMIDONE 50 MG TABLET PO SCH (21:11)
[2017-08-07] MEDS: ClonazePAM 0.5 MG TABLET PO SCH (21:11)
[2017-08-07] MEDS: SIMVASTATIN 40 MG TABLET PO SCH (21:12)
[2017-08-07] MEDS: CYCLOBENZAPRINE 10 MG TABLET PO SCH (21:12)
[2017-08-07] MEDS: MIRTAZAPINE 15 MG TABLET PO SCH (21:12)
[2017-08-08] MEDS: LEVOFLOXACIN PB 750 MG/150 ML BAG IV SCH (06:10)
[2017-08-08] MEDS: LEVOTHYROXINE 100 MCG TABLET PO SCH (06:10)
[2017-08-08] MEDS: SALINE FLUSH 10ml SYRINGE IVF PRN ×2 (06:10→08:29)
[2017-08-08] MEDS: NS FLUSH BAG 500ml IV PRN (06:10)
[2017-08-08 07:18] VITALS: BP 125/67; PULSE 80; TEMP 96.8; O2SAT 97
[2017-08-08] MEDS: TRAMADOL 50 MG TABLET PO SCH (08:29)
[2017-08-08] MEDS: PREGABALIN 50 MG CAPSULE PO SCH (08:29)
[2017-08-08] MEDS: MAGNESIUM OXIDE 400 MG TABLET PO SCH (08:29)
[2017-08-08] MEDS: CALCIUM CARBONATE Chewable 750mg TABLET PO SCH (08:30)
[2017-08-08] MEDS: METFORMIN 500 MG TABLET PO SCH (08:30)
[2017-08-08] MEDS: BuPROPion SR 150mg (12HR) TABLET PO SCH (08:30)
[2017-08-08] MEDS: ASPIRIN 81 MG CHEWABLE TABLET PO SCH (08:30)
[2017-08-08] MEDS: LACTOBACILLUS (15B cfu) CAPSULE PO SCH (08:30)
[2017-08-08] MEDS: LOSARTAN 100 MG TABLET PO SCH (08:31)
[2017-08-08] MEDS: ESCITALOPRAM 20 MG TABLET PO SCH (08:31)
--- NOTE | 2017-08-08 11:09 | Progress Note ---
- Date 08/08/17 Subjective: Vanessa is seen today in follow up. She is feeling fairly well. Denies severe cough. SOA is improving. Afebrile overnight. Up walking the halls with staff and feeling much better overall. Chart is reviewed for collateral information. Objective Vital signs: Temperature 96.8 F 08/08/17 07:16 Pulse Rate 80 08/08/17 07:16 Respiratory Rate 16 08/08/17 07:16 Blood Pressure 125/67 08/08/17 07:16 Pulse Oximetry 97 08/08/17 07:16 Height/Weight/BMI: Height 1.6 m Weight 89.8 kg Body Mass Index 35.4 - Constitutional Present: no acute distress, moderate distress, well developed, average body habitus - Routine HEENT Exam Head: Present: normocephalic, atraumatic Eye: Present: EOMI, PERRL, normal accommodation ENT: Present: mucous membranes moist - Routine Respiratory Exam Present: rhonchi (Right lung- most prominent anterior middle lobe area. Some posteriorly. ), diminished air movement. Absent: accessory muscle use, dyspnea - Routine Cardiovascular Exam Present: RRR, S1, S2, no murmur - Routine Abdominal Exam Present: soft, normoactive bowel sounds, non distended, non tender - Routine Extremities Exam Present: no edema, non tender - Routine Musculoskeletal Exam Musculoskeletal: Present: normal strength, moving extremities well - Routine Skin Exam Present: intact, dry, warm - Routine Neurological Exam Present: alert, oriented X3, moving all extremities - Routine Psychiatric Exam Present: normal affect, normal thought process, cooperative Results - Labs CBC & Chem 7: 08/08/17 04:20 08/08/17 04:20 Microbiology Results: Microbiology 08/06/17 14:48 Urine Legionella Urinary Antigen - Final 08/06/17 14:48 Urine Streptococcus pneumoniae Antigen (M - Final - Imaging and Cardiology CT chest Status: image reviewed by me Additional comments: Impression: Extensive right-sided pneumonia with peribronchial spread of infection. . Assessment and Plan (1) Right middle lobe pneumonia Current visit: Yes Status: Acute Assessment and Plan: CAP-Recurrent/non-resolving? Recurrent infections, usually RML. Dr. Torres consulted- pt. may need bronch. Appreciate his assistance. Will add Albuterol nebs and Acapella valve to see if we can mobilize secretions. Legionella/S.Pneumo are negative. Unable to obtain a sputum cx so far. Continue Levaquin (d#3). Repeat labs, CXR in AM. -Pt also reports recurrent infections for the last few years-->will test IgG, IgM, IgA My other concern would be recurrent aspiration, particularly in light of a history of gastric bypass. May want to consider esophagram or UGI to R/O stricture with silent regurgitation. Mild Transaminitis -Hep panel reviewed. -liver US unremarkable Fairly mild- repeat CMP in AM. Could be due to s/p gastric bypass. Depression/anxiety -Cont. home Lexapro, Wellbutrin, Clonazepam DM -Cont. Metformin Neuropathy -Cont. home Lyrica Tremors -Primidone HLD -Cont. statin for now since transaminitis is mild Ppx -SCDs DVT Prophylaxis: SCD's Resuscitation Status: Full Code - Physician Narrative Physician: Hortensia Interiano MD Narrative: Date: 08/08/17 Time: 2 PM-I examined the patient independently. I reviewed this chart, the patient history, and the HOISTING LABORER's/PA's documented findings as above. We discussed and formulated the assessment and plan as above with the additions below.-Dr. Interiano The patient was seen earlier today in her room. She was sitting up in a chair eating lunch. She states she is feeling much better. She had fevers, chills and felt very poorly on the day of admission. She also had some shortness of breath on the day of admission. She states all those symptoms have resolved. She is eating and drinking well. She is on day 3 of Levaquin. She has not required supplemental oxygen during the hospital stay. Vital signs are stable. At this time, the patient does appear medically stable for discharge to home on oral antibiotics for her pneumonia. Plan is for follow-up with Dr. Torres as an outpatient and she may need a bronchoscopy as an outpatient. We discussed her C-reactive protein which is elevated and of undetermined significance since she is feeling so much better. Pro-calcitonin has normalized. Other lab is essentially normal. She plans to follow-up with her primary care provider in [place] when she returns at the end of this month. She will have her records sent to her PCP. Please see dictated discharge summary from today. Hospital Course Summary Disclaimer: The visit summary below is not to be considered part of the above Progress Note. Hospital Course: 08/08/17 Recurrent infections, usually RML. Dr. Torres consulted- pt. may need bronch. Appreciate his assistance. Will add Albuterol nebs and Acapella valve to see if we can mobilize secretions. Legionella/S.Pneumo are negative. Unable to obtain a sputum cx so far. Continue Levaquin (d#3). Repeat labs, CXR in AM. -Pt also reports recurrent infections for the last few years-->will test IgG, IgM, IgA My other concern would be recurrent aspiration, particularly in light of a history of gastric bypass. May want to consider esophagram or UGI to R/O stricture with silent regurgitation.
--- NOTE | 2017-08-08 12:50 | Discharge Summary ---
Discharge Information Date of admission: 08/06/17 08:46 Anticipated date of discharge: 08/08/17 Attending Physician: Hortensia Interiano MD Consults: 08/07/17 12:02 Physician Consult [CONS] Routine Consulting Provider: Jai Torres Reason For Exam: non-resolving pna Ordering Provider has Notified Cider Maker: Yes - Discharge Diagnosis (1) Right middle lobe pneumonia Status: Acute Recurrent community-acquired right lung pneumonia Abnormal CT chest with right sided pneumonia all 3 lobes with some nodular component Mildly low IgG level 673 (normal 700-1600) Mild transaminitis Elevated C-reactive protein Type 2 diabetes mellitus - Laboratory Labs: 08/08/17 04:20 08/08/17 04:20 Laboratory Tests 08/06/17 08/06/17 08/06/17 07:18 11:33 11:33 AST 65 H ALT 51 H C-Reactive Protein 20.9 H Plasma Lactate 2.1 1.4 Procalcitonin 2.51 H* IgG IgA IgM Hep Bs Antigen Hep Bs Antibody Hep Bs Antibody, Quant Hep B Core IgM Ab Hepatitis C Antibody 08/06/17 08/07/17 08/08/17 11:33 04:13 04:19 AST ALT C-Reactive Protein 211.9 H D Plasma Lactate Procalcitonin IgG 673.87 L IgA 261.07 IgM 45.11 Hep Bs Antigen Negative Hep Bs Antibody Indeterminate Hep Bs Antibody, Quant 8.20 L Hep B Core IgM Ab Negative Hepatitis C Antibody Negative 08/08/17 08/08/17 04:20 04:20 AST ALT C-Reactive Protein 209.5 H Plasma Lactate Procalcitonin 1.57 IgG IgA IgM Hep Bs Antigen Hep Bs Antibody Hep Bs Antibody, Quant Hep B Core IgM Ab Hepatitis C Antibody Nasal swab for viral respiratory panel was entirely negative. Urinalysis was essentially normal. - Microbiology Microbiology 08/06/17 14:48 Urine Legionella Urinary Antigen - Final-negative 08/06/17 14:48 Urine Streptococcus pneumoniae Antigen (M - Final-negative Blood Cultures drawn 08/06/2017 2 are negative after 2 days - Radiology Radiology: Chest x-ray 08/06/2017 shows right-sided pneumonia. Recommend radiographic follow-up to document clearance. Date of Exam: 08/06/17 Type of Exam(s): CT chest wo con Reason for Exam(s): recurrent pna on right side Indication: recurrent pna on right side PROCEDURE: CT chest wo con: Encounter: Initial Comparison: Chest x-ray from today Technique: Axial CT images were performed through the chest without intravenous contrast. Coronal and sagittal two-dimensional reformats. Automated Exposure Control and Iterative Reconstruction dose reducing techniques were utilized. Findings: Patchy consolidation is noted in the right upper, right middle and right lower lobe with numerous areas of groundglass opacity. Multiple air bronchograms are noted. The left lung is clear. No pleural effusion or pneumothorax. The central airways are patent. No axillary or mediastinal lymphadenopathy. Heart size is normal. No pericardial effusion. The upper abdomen shows no acute findings. Bone windows show no acute findings. Impression: Extensive right-sided pneumonia with peribronchial spread of infection. Ultrasound liver 08/06/2017 Negative right upper quadrant sonogram History of Present Illness HPI: Pt presents today to ED d/t chills, dry cough and sob that started early this am. Pt was doing well yesterday but this morning started feeling bad. Pt's son in law has had a resp illness recently. Pt reports she had pna on the right side just a couple of months ago and has recurrent pna's in the same location a few time snow. Pt denies any work up or CT imaging that has been done to look at her lungs for this recurrent pna. Pt reports this has been going on for the last couple of years, maybe a pna episode every 6 months but this time it happened faster. Denies any cp. Denies recurrent infections as a child. Pt feels better already with the tx she got in ED. Objective Vital signs: Temperature 96.8 F 08/08/17 07:16 Pulse Rate 80 08/08/17 07:16 Respiratory Rate 16 08/08/17 07:16 Blood Pressure 125/67 08/08/17 07:16 Pulse Oximetry 97 08/08/17 07:16 Height/Weight/BMI: Height 1.6 m Weight 89.8 kg Body Mass Index 35.4 Comments: Afebrile 48 hours. Oxygen saturation in the 90s on room air during the hospital course Respirations 16, blood pressure 125/67 Exam the patient is alert and oriented 3 and in no acute distress. Chest reveals some mild coarse breath sounds on the right. No wheezes are heard. Cardiovascular reveals a regular rate and rhythm. Abdomen is soft and nontender. Extremities are free of edema. Skin is warm and dry and without rashes. Hospital Course This is a general summary of the patient's hospital course. For more details refer to the complete medical record. Hospital course: The patient was admitted on 08/06/2017 with symptoms of chills, fever, generalized achiness and findings of right sided pneumonia on chest x-ray. The patient had history of repeated right-sided pneumonias over the past couple of years. Dr. Torres was consulted regarding her recurrent pneumonias and a CT scan was obtained with results as above. Dr. Torres does recommend that she follow-up with him as an outpatient and may need bronchoscopy. On admission, the patient was started on IV Levaquin and over the hospital course has done well. Fevers and chills have resolved. She is eating and drinking well. She has remained on room air during the entire hospital course. Blood pressure was elevated on admission and has normalized now. White count has remained in the normal range. Transaminases were mildly elevated and a liver ultrasound was obtained which was normal. Hepatitis panel was obtained with results as above. Her pro-calcitonin was mildly elevated at 2.5 on admission and is normal at 1.57 on discharge. C-reactive protein was 20 on admission and is 211 on discharge. Despite the high C-reactive protein, the patient is feeling well and has been improving daily. The cause of the elevated C-reactive protein at this time is not known and the patient has no new symptoms or concerns. At this time , the patient is feeling well enough that she would like to be discharged to home oral antibiotics with plans for close follow-up. The patient is from [place], but is here visiting her daughter until the end of this month. They are in agreement with plans for close follow-up with Dr. Torres in the office. She will need a chest x-ray as an outpatient to make sure her pneumonia has cleared. Regarding mildly low IgG level, I would recommend repeating gammaglobulin levels when her pneumonia has resolved. With the patient's history of recurrent pneumonia and history of gastric bypass , may want to consider possibility of aspiration as well. If she continues to have difficulties with pneumonia an esophagogram or upper GI may be of benefit. The patient will ask for her hospital records here to be sent to her primary care provider in [place]. She does not have his fax number at this time. Time spent with patient: greater than 35 minutes Resuscitation Status: Full Code Discharge Plan - Discharge Disposition Disposition: Discharged Home, Self-Care *Condition: Stable Reason For Visit (Visit label in EMR): Sepsis,right middle lobe pneumonia - Discharge Medications *Discharge Medications: New levoFLOXacin [Levaquin] 750 mg PO ACB #7 tab Continue Turmeric [Curcumin] 1 gm MC DAILY Acetaminophen [Acetaminophen Extra Strength] 2 tab PO BID Cholecalciferol (Vitamin D3) [Vitamin D3] 1 tab PO DAILY CALCIUM CARBONATE Chewable [Tums Extra Strength] 2 tab PO DAILY Aspirin 1 tab PO DAILY Cyclobenzaprine [Flexeril] 1 tab PO HS BuPROPion SR [Wellbutrin Sr] 150 mg PO BID Primidone [Mysoline] 50 mg PO HS Pregabalin Cap [Lyrica] 50 mg PO BID Metformin [Glucophage] 500 mg PO BIDWM Losartan [Cozaar] 100 mg PO DAILY clonazePAM [Clonazepam] 0.5 tab PO HS Tramadol [Ultram] 50 mg PO BID Mirtazapine [Remeron] 15 mg PO HS Simvastatin [Zocor] 40 mg PO HS Mecobalamin [B-12] 5,000 mcg PO DAILY Levothyroxine Sodium 100 mcg PO DAILY Ubidecarenone/Vit E Acet [Co Q-10 100 mg Softgel] 1 cap PO DAILY Magnesium Oxide [Magnesium] 400 mg PO BID Escitalopram [Lexapro] 1 tab PO DAILY Lactobacillus Acidophilus [Probiotic] 1 each PO DAILY - Discharge Packet/Instructions *Diet: Diabetic diet *Activity: light activity as tolerated *Pain Management/Treatment: Tylenol as needed *Wound Care: Not applicable Additional Instructions: Follow-up with her primary care physician when you return to [place]. Please ask to have your medical records faxed to your primary care physician in [place]. *Expected Signs/Symptoms: Mild fatigue should improve *Notify Physician if: Notify your physician or return to the emergency room if you have shortness of breath, lightheadedness, recurrence of fevers and chills, or any other concerning symptoms. *During Business Hours Contact: Call Dr. Torres's office *After Business Hours Contact: Call [phone] to have your doctor paged *Pending Lab/Results: No Pending Lab - Referrals/Follow Up *Referrals/Follow Up: Jai Torres MD [Physician] - 1 Week - Patient Handouts - Dismissal Complete Discharge Instructions are:: Complete Physician Narrative - Narrative Attestation Narrative: Date: 08/08/17 Time: [id number]
[2017-08-08] MEDS ORDERED: ALBUTEROL 2.5mg/3ml (0.083%) NEB AEROSOL SCH (15:00)
== END 2017-08-08 14:40 | disposition home or self-care (01) | DRG 195 ==
LOC: ED 06:25 → EDHOLD 08:46 → SUATTDRO 08:46 → MED 09:00
PROVIDERS: ADMIT Internal Medicine; ATTEND Internal Medicine